=== PATIENT | male | born 1935 | race Caucasian/White ===

== ENCOUNTER 2016-04-03 17:09 | Inpatient (IN) | payer MEDICARE, BC ==
[2016-04-03] MEDS ORDERED: IPRATROPIUM-ALBUTEROL 3 ML NEB INHALATION STA (17:35)
--- NOTE | 2016-04-03 17:56 | ED ---
SOB HPI - General Chief Complaint: Shortness of Breath Stated Complaint: JOSE RAFAEL Time Seen by Provider: 04/03/16 17:18 Source: patient, EMS, RN notes reviewed Mode of arrival: EMS Limitations: no limitations - History of Present Illness Initial Comments: 80-year-old male presents emergency Department with chief complaint of shortness of breath. Patient states she's been short of breath over the last week and states that he did not want to come in because he was trying to take care of his has no pre-also there for her. Patient states that he's had a cough that is nonproductive. Patient states he has been wheezing. Patient states that he was admitted around January for CHF. Patient states that he does take some sort of diuretic but states that it's not Lasix. Patient states he had ALLERGIC reaction to Lasix. Patient denies any chest pain at this time he did have some chest pain unless last week in which she was taking nitro for alleviated his symptoms. Patient denies any lower extremity swelling. Patient denies any exertional shortness breath. Patient denies fever, chills. - Related Data Home Medications Medication Instructions Recorded Confirmed Aspirin EC [Ecotrin Low Dose] 81 mg PO DAILY 02/08/16 04/03/16 Atorvastatin [Lipitor] 20 mg PO HS 02/08/16 04/03/16 Carvedilol [Coreg] 12.5 mg PO BID 02/08/16 04/03/16 Cholecalciferol [Vitamin D3] 1,000 unit PO HS 02/08/16 04/03/16 Isosorbide Mononitrate ER [Imdur] 60 mg PO QAM 02/08/16 04/03/16 Oxybutynin Chloride [Ditropan] 5 mg PO BID 02/08/16 04/03/16 Selenium 100 mcg PO HS 02/08/16 04/03/16 Sodium Bicarbonate 325 mg PO BID 02/08/16 04/03/16 Tamsulosin HCl [Flomax] 0.4 mg PO HS 02/08/16 04/03/16 Vit A/Vit C/Vit E/Zinc/Copper 1 cap PO BID 02/08/16 04/03/16 [ICAPS SOFTGEL] Warfarin [Coumadin] 5 mg PO SUMOWEFRSA 02/08/16 04/03/16 hydrALAZINE HCL [Apresoline] 50 mg PO TID 02/08/16 04/03/16 Ethacrynic Acid 50 mg PO DAILY 04/03/16 04/03/16 Isosorbide Mononitrate ER [Imdur] 30 mg PO HS 04/03/16 04/03/16 Sertraline [Zoloft] 50 mg PO HS 04/03/16 04/03/16 Sertraline [Zoloft] 50 mg PO HS 04/03/16 04/03/16 Warfarin [Coumadin] 2.5 mg PO TUTH 04/03/16 04/03/16 Allergies Allergy/AdvReac Type Severity Reaction Status Date / Time furosemide [From Lasix] Allergy Rash/Hives Verified 04/03/16 18:26 Sulfa (Sulfonamide Allergy Rash/Hives Verified 04/03/16 18:26 Antibiotics) Review of Systems ROS Statement: Those systems with pertinent positive or pertinent negative responses have been documented in the HPI. ROS Other: All systems not noted in ROS Statement are negative. Past Medical History Past Medical History: Coronary Artery Disease (CAD), Chest Pain / Angina, Hyperlipidemia, Hypertension, Renal Disease Additional Past Medical History / Comment(s): STAGE 4 KIDNEY FAILURE History of Any Multi-Drug Resistant Organisms: None Reported Past Surgical History: Appendectomy, Coronary Bypass/CABG, Heart Catheterization With Stent Past Anesthesia/Blood Transfusion Reactions: No Reported Reaction Date of Last Stent Placement:: 2013 Past Psychological History: No Psychological Hx Reported Smoking Status: Former smoker Past Alcohol Use History: None Reported Past Drug Use History: None Reported General Exam General appearance: alert, in no apparent distress Head exam: Present: atraumatic, normocephalic, normal inspection Eye exam: Present: normal appearance, PERRL, EOMI. Absent: scleral icterus, conjunctival injection, periorbital swelling ENT exam: Present: normal exam, normal oropharynx, mucous membranes moist Neck exam: Present: normal inspection. Absent: tenderness, meningismus, lymphadenopathy Respiratory exam: Present: wheezes (Wheezing primarily on the left). Absent: respiratory distress, rales, rhonchi, stridor Cardiovascular Exam: Present: regular rate, normal rhythm, normal heart sounds. Absent: systolic murmur, diastolic murmur, rubs, gallop, clicks Back exam: Absent: CVA tenderness (R), CVA tenderness (L) Neurological exam: Present: alert, oriented X3 Skin exam: Present: warm, dry, intact, normal color. Absent: rash Course Vital Signs 04/03/16 04/03/16 04/03/16 17:12 18:11 18:19 Temperature 97.0 F L Pulse Rate 72 88 88 Respiratory 18 Rate Blood Pressure 203/101 O2 Sat by Pulse 100 Oximetry 04/03/16 04/03/16 04/03/16 18:55 19:28 19:39 Temperature 97.3 F L Pulse Rate 69 75 78 Respiratory 18 18 18 Rate Blood Pressure 210/105 193/96 181/96 O2 Sat by Pulse 98 97 98 Oximetry 04/03/16 19:53 Temperature Pulse Rate 77 Respiratory Rate Blood Pressure 179/94 O2 Sat by Pulse Oximetry Medical Decision Making - Lab Data Result diagrams: 04/03/16 17:55 04/03/16 17:55 Lab Results 04/03/16 04/03/16 04/03/16 Range/Units 17:55 17:55 17:55 WBC 5.4 (3.8-10.6) k/uL RBC 3.35 L (4.30-5.90) m/uL Hgb 9.8 L (13.0-17.5) gm/dL Hct 31.6 L (39.0-53.0) % MCV 94.2 (80.0-100.0) fL MCH 29.3 (25.0-35.0) pg MCHC 31.1 (31.0-37.0) g/dL RDW 15.6 H (11.5-15.5) % Plt Count 178 (150-450) k/uL Neutrophils % 77 % Lymphocytes % 13 % Monocytes % 6 % Eosinophils % 1 % Basophils % 0 % Neutrophils # 4.2 (1.3-7.7) k/uL Lymphocytes # 0.7 L (1.0-4.8) k/uL Monocytes # 0.4 (0-1.0) k/uL Eosinophils # 0.1 (0-0.7) k/uL Basophils # 0.0 (0-0.2) k/uL Hypochromasia Slight PT (9.0-12.0) sec INR (<1.1) APTT (22.0-30.0) sec Sodium 144 (137-145) mmol/L Potassium 4.5 (3.5-5.1) mmol/L Chloride 108 H (98-107) mmol/L Carbon Dioxide 22 (22-30) mmol/L Anion Gap 14 mmol/L BUN 60 H (9-20) mg/dL Creatinine 2.94 H (0.66-1.25) mg/dL Est GFR (MDRD) Af Amer 25 (>60 ml/min/1.73 sqM) Est GFR (MDRD) Non-Af 21 (>60 ml/min/1.73 sqM) Glucose 95 (74-99) mg/dL Calcium 9.0 (8.4-10.2) mg/dL Magnesium 2.2 (1.6-2.3) mg/dL Total Bilirubin 0.8 (0.2-1.3) mg/dL AST 23 (17-59) U/L ALT 52 (21-72) U/L Alkaline Phosphatase 83 (38-126) U/L Total Creatine Kinase 40 L (55-170) U/L CK-MB (CK-2) 1.5 (0.0-2.4) ng/mL CK-MB (CK-2) Rel Index 3.8 Troponin I 0.037 H* (0.000-0.034) ng/mL NT-Pro-B Natriuret Pep pg/mL Total Protein 6.2 L (6.3-8.2) g/dL Albumin 3.7 (3.5-5.0) g/dL 04/03/16 04/03/16 Range/Units 17:55 17:55 WBC (3.8-10.6) k/uL RBC (4.30-5.90) m/uL Hgb (13.0-17.5) gm/dL Hct (39.0-53.0) % MCV (80.0-100.0) fL MCH (25.0-35.0) pg MCHC (31.0-37.0) g/dL RDW (11.5-15.5) % Plt Count (150-450) k/uL Neutrophils % % Lymphocytes % % Monocytes % % Eosinophils % % Basophils % % Neutrophils # (1.3-7.7) k/uL Lymphocytes # (1.0-4.8) k/uL Monocytes # (0-1.0) k/uL Eosinophils # (0-0.7) k/uL Basophils # (0-0.2) k/uL Hypochromasia PT 51.9 H (9.0-12.0) sec INR 5.2 H* (<1.1) APTT 34.9 H (22.0-30.0) sec Sodium (137-145) mmol/L Potassium (3.5-5.1) mmol/L Chloride (98-107) mmol/L Carbon Dioxide (22-30) mmol/L Anion Gap mmol/L BUN (9-20) mg/dL Creatinine (0.66-1.25) mg/dL Est GFR (MDRD) Af Amer (>60 ml/min/1.73 sqM) Est GFR (MDRD) Non-Af (>60 ml/min/1.73 sqM) Glucose (74-99) mg/dL Calcium (8.4-10.2) mg/dL Magnesium (1.6-2.3) mg/dL Total Bilirubin (0.2-1.3) mg/dL AST (17-59) U/L ALT (21-72) U/L Alkaline Phosphatase (38-126) U/L Total Creatine Kinase (55-170) U/L CK-MB (CK-2) (0.0-2.4) ng/mL CK-MB (CK-2) Rel Index Troponin I (0.000-0.034) ng/mL NT-Pro-B Natriuret Pep 65142 pg/mL Total Protein (6.3-8.2) g/dL Albumin (3.5-5.0) g/dL Disposition Clinical Impression: Pneumonia, CHF (congestive heart failure), Elevated troponin, Warfarin-induced coagulopathy, Dyspnea Disposition: ADMITTED IP TO THIS HOSP Referrals: Wiliam Pope MD [Primary Care Provider] - 1-2 days Time of Disposition: 19:58
[2016-04-03 18:13] LABS: Basophils % (A) 0 %; CH 29.5; CHCM 31.6; Eosinophils # (A) 0.1 k/uL (0-0.7); Eosinophils % (A) 1 %; HCT 31.6 % (39.0-53.0); HDW 3.14; HGB 9.8 gm/dL (13.0-17.5); Hypochromasia Slight; Luc # (Auto) 0.13; Luc % (Auto) 3; Lymphocytes # (A) 0.7 k/uL (1.0-4.8); Lymphocytes % (A) 13 %; MCH 29.3 pg (25.0-35.0); MCHC 31.1 g/dL (31.0-37.0); MCV 94.2 fL (80.0-100.0); Mean Platelet Volume 8.9; Monocytes # (A) 0.4 k/uL (0-1.0); Monocytes % (A) 6 %; Neutrophils # (A) 4.2 k/uL (1.3-7.7); Neutrophils % (A) 77 %; RBC 3.35 m/uL (4.30-5.90); RDW 15.6 % (11.5-15.5); WBC 5.4 k/uL (3.8-10.6); WBC (Perox) 5.82
[2016-04-03 18:21] LABS: Partial Thromboplastin Time 34.9 sec (22.0-30.0); Prothrombin Time 51.9 sec (9.0-12.0)
[2016-04-03 18:26] LABS: INR 5.2 (<1.1)
[2016-04-03 18:28] LABS: Magnesium 2.2 mg/dL (1.6-2.3); Potassium 4.5 mmol/L (3.5-5.1); Total Bilirubin 0.8 mg/dL (0.2-1.3); Total Protein 6.2 g/dL (6.3-8.2)
[2016-04-03 18:39] LABS: Creatine Kinase MB 1.5 ng/mL (0.0-2.4)
[2016-04-03 18:50] LABS: Troponin I 0.037 ng/mL (0.000-0.034)
--- NOTE | 2016-04-03 18:52 | XR ---
EXAMINATION TYPE: XR chest 2V DATE OF EXAM: 04/03/2016 6:41 PM COMPARISON: 02/08/2016 HISTORY: Difficulty breathing TECHNIQUE: Frontal and lateral views of the chest are obtained. FINDINGS: Heart is enlarged. There is pulmonary vascular congestion. There is blunting of the costop hrenic angles there is some infiltrate at the posterior lung bases. There is a left axillary pacemake r with the lead tips in the right ventricle. There are sternal wires. IMPRESSION: There is evidence of congestive heart failure with pleural effusions. Basilar posterior pulmonary infiltrates. No change compared to last exam.
[2016-04-03] MEDS ORDERED: hydrALAZINE HCL 20 MG/ML 1 ML VIAL IVP STA (18:55)
[2016-04-03] MEDS ORDERED: IPRATROPIUM-ALBUTEROL 3 ML NEB INHALATION PRN (19:58)
[2016-04-03] MEDS ORDERED: PNEUMONIA PROTOCOL UTILIZED 1 EACH MISC PO PRN (19:58)
[2016-04-03] MEDS ORDERED: AZITHROMYCIN 500 MG in SODIUM CHLORIDE 0.9% 250 ML IVPB STA (20:04)
[2016-04-03] MEDS: SODIUM CHLORIDE 0.9% 1,000 ML IV SCH (20:44)
[2016-04-03] MEDS ORDERED: ISOSORBIDE MONONITRATE ER 30 MG TAB.ER.24H PO SCH (21:00)
[2016-04-03] MEDS ORDERED: NON-FORMULARY DRUG (Selenium [Selenium] 100 MCG) PO SCH (21:00)
[2016-04-03 21:34] VITALS: BMI 23.8
[2016-04-03] MEDS: CARVEDILOL 12.5 MG TAB PO SCH (22:17)
[2016-04-03] MEDS: OXYBUTYNIN CHLORIDE 5 MG TAB PO SCH (22:17)
[2016-04-03] MEDS: ATORVASTATIN 20 MG TAB PO SCH (22:17)
[2016-04-03] MEDS: SODIUM BICARBONATE TAB 650 MG TAB PO SCH (22:18)
[2016-04-03] MEDS: SERTRALINE 50 MG TAB PO SCH (22:18)
[2016-04-03] MEDS: hydrALAZINE HCL 50 MG TAB PO SCH (22:19)
[2016-04-03] MEDS: TAMSULOSIN 0.4 MG CAP.ER.24H PO SCH (22:19)
[2016-04-04] MEDS: CARVEDILOL 12.5 MG TAB PO SCH ×2 (06:28→17:16)
[2016-04-04] MEDS ORDERED: ISOSORBIDE MONONITRATE ER 60 MG TAB.ER.24H PO SCH (09:00)
[2016-04-04] MEDS: ASPIRIN 81 MG CHEW PO SCH (09:44)
[2016-04-04] MEDS: OXYBUTYNIN CHLORIDE 5 MG TAB PO SCH ×2 (09:45→21:23)
[2016-04-04] MEDS: hydrALAZINE HCL 50 MG TAB PO SCH ×3 (09:45→21:24)
[2016-04-04] MEDS: SODIUM BICARBONATE TAB 650 MG TAB PO SCH ×2 (09:46→21:23)
[2016-04-04] MEDS: EDECRIN PO SCH (09:49)
[2016-04-04] MEDS ORDERED: NITROGLYCERIN SL TABS 0.4 MG TAB SUBLINGUAL ONE (10:13)
--- NOTE | 2016-04-04 11:17 | ECHOF ---
Referral Reason:troponin MEASUREMENTS -------- HEIGHT: 175.3 cm WEIGHT: 73.0 kg BP: 172/86 RVIDd: 3.8 cm (< 3.3) IVSd: 1.5 cm (0.6 - 1.1) LVIDd: 6.1 cm (3.9 - 5.3) LVPWd: 1.4 cm (0.6 - 1.1) IVSs: 1.8 cm LVIDs: 5.3 cm LVPWs: 1.7 cm LA Diam: 5.0 cm (2.7 - 3.8) LAESV Index (A-L): 41.22 ml/m Ao Diam: 3.7 cm (2.0 - 3.7) AV Cusp: 2.0 cm (1.5 - 2.6) LA Diam: 4.4 cm (2.7 - 3.8) MV EXCURSION: 16.594 mm (> 18.000) MV EF SLOPE: 83 mm/s (70 - 150) EPSS: 2.1 cm MV E Farshad: 0.76 m/s MV DecT: 164 ms MV A Farshad: 0.93 m/s MV E/A Ratio: 0.81 AV maxP.26 mmHg AV meanP.91 mmHg RAP: 5.00 mmHg RVSP: 33.93 mmHg FINDINGS -------- Paced rhythm. Pacerwire seen in RV and RA. This was a technically good study. The left ventricle is mildly dilated. There is moderate concentric left ventricular hypertrophy. Overall left ventricular systolic function is moderate-severely impaired with, an EF between 30 - 35 %. Basal inferior LV wall motion is hypokinetic. Basal inferoseptal LV wall motion is hypokinetic. Mid inferior LV wall motion is hypokinetic. Mid inferoseptal LV wall motion is hypokinetic. The right ventricle is mild to moderately enlarged. LA is severely dilated >40 ml/m2 The right atrium is normal in size. Aortic valve is trileaflet and is mildly thickened. Peak/mean gradient across the Aortic Valve is 13.26mmHg / 6.91mmHg. The mitral valve leaflets are mildly thickened. Mild mitral annular calcification present. Mild mitral regurgitation is present. The peak and mean MV gradients are 4.18mmHg 2.04mmHg as measured by doppler. Mild tricuspid regurgitation present. Right ventricular systolic pressure is normal at < 35 mmHg. Trace/mild (physiologic) pulmonic regurgitation. The aortic root size is normal. Normal inferior vena cava with normal inspiratory collapse consistent with estimated right atrial pressure of 5 mmHg. There is no pericardial effusion. CONCLUSIONS -------- 1. Paced rhythm. 2. Mid inferoseptal LV wall motion is hypokinetic. 3. The right ventricle is mild to moderately enlarged. 4. LA is severely dilated >40 ml/m2 5. The right atrium is normal in size. 6. Aortic valve is trileaflet and is mildly thickened. 7. Peak/mean gradient across the Aortic Valve is 13.26mmHg / 6.91mmHg. 8. The mitral valve leaflets are mildly thickened. 9. Mild mitral annular calcification present. 10. Mild mitral regurgitation is present. 11. The peak and mean MV gradients are 4.18mmHg 2.04mmHg as measured by doppler. 12. Pacerwire seen in RV and RA. 13. Mild tricuspid regurgitation present. 14. Right ventricular systolic pressure is normal at < 35 mmHg. 15. Trace/mild (physiologic) pulmonic regurgitation. 16. The aortic root size is normal. 17. There is no pericardial effusion. 18. This was a technically good study. 19. The left ventricle is mildly dilated. 20. There is moderate concentric left ventricular hypertrophy. 21. Overall left ventricular systolic function is moderate-severely impaired with, an EF between 30 - 35 %. 22. Basal inferior LV wall motion is hypokinetic. 23. Basal inferoseptal LV wall motion is hypokinetic. 24. Mid inferior LV wall motion is hypokinetic. PREFLIGHT INSPECTOR: Jalen Brewer RDCS
[2016-04-04] MEDS: NITROGLYCERIN OINT 1 INCH/GM PACKET TOPICAL SCH ×3 (11:50→23:11)
--- NOTE | 2016-04-04 11:51 | CONS ---
DATE OF CONSULTATION: This is an 80-year-old gentleman with history of coronary artery disease, renal failure, hypertension, prior bypass surgery, prior angioplasties, history of permanent pacemaker who sees my associate, Dr. Abarca in the office on a regular basis, comes in complaining of chest discomfort and also had shortness of breath. There is no history of paroxysmal nocturnal dyspnea or orthopnea. There is no history of leg edema. Patient is treated with aspirin, Lipitor, Imdur. After being admitted he has had episodes of precordial chest pain. Patient has known history of atrial fibrillation and is on Coumadin. INR on admission was 5.2. Troponins are mildly elevated at 0.03, 0.04, 0.03. Patient has underlying renal failure with a BUN of 60 and creatinine of 2.9. Hemoglobin is 9.8. Past medical history is significant for coronary artery disease, status post CABG, ischemic cardiomyopathy, chronic renal failure, history of atrial fibrillation, sick sinus syndrome, status post permanent pacemaker. Medications include Zoloft, Coreg 12.5 b.i.d., Lipitor 20 daily, aspirin, Imdur, Coumadin, Flomax, Apresoline. ALLERGIC TO LASIX AND SULFA. FAMILY HISTORY: Negative for premature coronary artery disease. SOCIAL HISTORY: Negative for current smoking, EtOH abuse, or drug abuse. REVIEW OF SYSTEMS: HEENT: Unremarkable. CARDIAC: As described above. RESPIRATORY: As described above. GI: Negative. GENITOURINARY: Stress. PSYCHOSOCIAL: Negative. HEMATOLOGICAL: Negative. DERM: Negative. CONSTITUTIONAL: Negative. MUSCULOSKELETAL: Significant for arthritis. The rest of the system review is not relevant. On exam, heart rate is 60 beats per minute, blood pressure 150/70, respiratory rate is 18. There is no jugular venous distention. Carotid upstroke is normal. There is no bruit. Chest exam reveals good air entry bilaterally. Heart exam reveals first and second heart sounds. An ejection systolic murmur in the aortic area. Abdomen is soft. Exam of extremities reveals trace edema. Peripheral pulses are palpable. ASSESSMENT: 1. Unstable angina. 2. Renal insufficiency. 3. Ischemic cardiomyopathy. 4. Hypertension. 5. History of permanent pacemaker. 6. Coagulopathy. PLAN: I am going to get his device checked. We will hold the Coumadin at this time. Start him on nitro paste 1 inch t.i.d. Increase the dose of Coreg to 25 b.i.d. and see how his symptoms evolve. I am going to review his outpatient records. With his renal failure and cardiomyopathy, he is not an optimal candidate for invasive angiography at this time.
--- NOTE | 2016-04-04 12:34 | HP ---
DATE OF ADMISSION: 04/03/2016 PRESENTING COMPLAINT: Short of breath. HISTORY OF PRESENTING COMPLAINT: A very pleasant 80-year-old patient of Dr. Pope who just switched over his family doctor from [place]. Patient's chronic stable medical conditions include coronary artery disease, coronary artery bypass in 2006, hypertension, hyperlipidemia, chronic kidney disease stage IV being followed by Dr. Maradiaga. The patient also has history of a bladder cancer, prostate cancer, has a permanent pacemaker. Patient has been getting short of breath for the last 2 weeks. Some orthopnea. Blood pressure running at home was about 180 systolic. No edema. No cough, minimal sputum, no fever, has come in for the same. REVIEW OF SYSTEMS: CONSTITUTIONAL: Tired. HEENT: Decreased hearing. RESPIRATORY: As above. CARDIOVASCULAR: As above. GASTROINTESTINAL: None. GENITOURINARY: None. MUSCULOSKELETAL: None. DERMATOLOGICAL: None. HEMATOLOGICAL: None. LYMPHATIC: None. PSYCHIATRY: None. NEUROLOGICAL: None. PAST MEDICAL HISTORY: Coronary artery disease, hyperlipidemia, hypertension, chronic kidney disease, stage IV, macular degeneration, bladder cancer treated with BCG, prostate cancer with radiation. PAST SURGICAL HISTORY: Appendectomy, coronary artery bypass, cardiac cath with stent, pacemaker. 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 Alcohol occasionally. Family history of coronary artery disease, Alzheimer's disease. HOME MEDICATIONS: 1. Zoloft 50 mg q.h.s. 2. Ethacrynic acid 50 mg p.o. daily. 3. Vitamin D3 3000 units p.o. q.h.s. 4. Coreg 12.5 p.o. b.i.d. 5. Lipitor 20 mg q.h.s. 6. Aspirin 81 mg daily. 7. Selenium 100 mg q.h.s. 8. Ditropan 5 mg p.o. b.i.d. 9. Imdur 30 mg q.h.s. 10. Imdur 60 mg p.o. in the morning. 11. Coumadin 2.5 on Sunday and ; 5 mg on Sunday, Sunday, Sunday, Sunday, Sunday. 12. ICaps 1 capsule p.o. b.i.d. 13. Flomax 0.4 mg q.h.s. 14. Sodium bicarbonate 325 p.o. b.i.d. 15. Hydralazine 50 mg p.o. t.i.d. ALLERGIES: LASIX AND SULFUR. On examination, temperature 97, pulse 72, respiration 18, blood pressure 203/101, pulse ox 100% 4 L. GENERAL APPEARANCE: Average build, lying in bed, tired -appearing. EYES: Pupils equal, Conjunctivae normal. HEENT: Oral cavity normal. NECK: JVD unable to assess. Mass not palpable. RESPIRATORY: Effort increased. LUNGS: Diminished breath sounds. Some basal crackles. CARDIOVASCULAR: First and second sounds normal. No edema. ABDOMEN: Soft, nontender. Liver and spleen not palpable. LYMPHATIC: No lymph nodes palpable in neck or axillae. PSYCHIATRY: Alert and oriented x3. Mood and affect normal. NEUROLOGICAL: Pupils equal. Cranial nerves grossly intact. Power and sensation grossly intact. INVESTIGATIONS: White count 5.4, hemoglobin 9.8, INR 5.2. Potassium 4.5. BUN 60, creatinine 2.94. Troponin 0.037, 0.043. EKG shows LVH with some ST segment changes. Chest x-ray shows some possible infiltrates, some venous prominence and a pacemaker in place. ASSESSMENT: 1. Pneumonia, community acquired, consider gram-negative organism, present on admission. 2. Coronary artery disease with prior history of coronary artery bypass. 3. Essential hypertension, uncontrolled, accelerated on presentation. 4. 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 5. History of prostate cancer treated with radiation treatment with resultant incontinence. 6. Permanent pacemaker. 7. Normocytic anemia, probably secondary to underlying chronic kidney disease. 8. Coumadin monitoring with Coumadin toxicity. No evidence of bleeding. 9. Troponin leak in the setting of renal failure. This is not a manifestation acute coronary syndrome. 10. Depression, not otherwise specified. PLAN: The patient is put on IV antibiotics. Home medications are resumed. Cardiology is consulted for nephrology. Care was discussed with the patient. Patient will be followed closely.
--- NOTE | 2016-04-04 14:15 | XR ---
EXAMINATION TYPE: XR chest 2V DATE OF EXAM: 04/04/2016 2:06 PM COMPARISON: 04/03/2016 HISTORY: Shortness of breath TECHNIQUE: 2 views submitted. FINDINGS: There are bilateral pleural effusions with cardiomegaly and bibasilar infiltrate. There is a diffuse interstitial pattern. Cardiac device and postsurgical changes noted. Underlying COPD noted. Degenera tive change of the spine. IMPRESSION: 1. Stable findings most typical of CHF with bilateral small effusions. Underlying pneumonia not entir mateus excluded.
--- NOTE | 2016-04-04 20:13 | CONS ---
DATE OF CONSULTATION: REASON FOR CONSULTATION: Renal failure. HISTORY OF PRESENT ILLNESS: Patient is an 80-year-old white male with a history of chronic kidney disease, NKF stage IV. Etiology is nephrosclerosis. He was admitted to the hospital with complaints of shortness of breath, not feeling well, increased weakness. He denied any fever. He had no nausea, vomiting, no abdominal pain or diarrhea. No significant urinary symptoms. He is currently being treated for pneumonia. Chest x-ray showed pulmonary vascular congestion as well. Patient is not on any IV fluids. I do not see any Lasix on his med list currently. PAST MEDICAL HISTORY: 1. CKD, stage IV, secondary to nephrosclerosis with baseline creatinine about 2.6 mg/dL. 2. Hypertension. 3. Dyslipidemia. 4. Coronary artery disease. PAST SURGICAL HISTORY: 1. Appendectomy. 2. Coronary artery bypass surgery. 3. Cardiac catheterization. 4. Coronary stent placement. SOCIAL HISTORY: Patient is an ex-smoker. No history of drug abuse or alcohol abuse. ALLERGIES include LASIX from SULFA and ALL OTHER SULFA-RELATED MEDICATIONS. Medications at home included: 1. Ditropan. 2. Sodium bicarb. 3. Flomax. 4. Coumadin. 5. Hydralazine. 6. Zoloft. 7. Imdur. 8. Ethacrynic acid. PHYSICAL EXAMINATION: EXAMINATION OF THE HEART: S1 and S2. EXAMINATION OF THE LUNGS: Bilateral breath sounds are heard. ABDOMEN: Soft, nontender. Examination of lower extremities shows no significant edema. DIRECTOR OF STUDENT AFFAIRS exam is grossly intact. Patient is moving all 4 extremities. Labs show sodium of 144, potassium 4.5, serum creatinine 2.94, estimated GFR 21. Hemoglobin at 9.8 g/dL. ASSESSMENT: 1. Chronic kidney disease, stage IV, with an element of mild acute kidney injury. Baseline creatinine is 2.6 mg/dL. Patient is hemodynamically stable. His blood pressure is running on the higher side. 2. Mild volume overload. Patient is ALLERGIC to LASIX. We will resume ethacrynic acid. 3. Possible pneumonia, maintained on IV Rocephin. 4. Hypertension, partly volume-sensitive. Expect further improvement with initiation of diuretics. 5. Non-gap metabolic acidosis, maintained on sodium bicarb. 6. Anemia of chronic disease. Will check iron studies. 7. Coronary artery disease with history of cardiomyopathy with ejection fraction of about 30% to 35%. 8. Severely dilated left atrium. PLAN: Resume diuretics in the form of ethacrynic acid, as patient is ALLERGIC TO SULFA AND LASIX. Repeat labs in a.m. Continue antibiotics. Check UA. Thank you for this consultation. Will continue to follow the patient with you during his hospitalization.
[2016-04-04] MEDS ORDERED: SERTRALINE 50 MG TAB PO SCH (21:00)
[2016-04-04] MEDS: ATORVASTATIN 20 MG TAB PO SCH (21:23)
[2016-04-04] MEDS: SERTRALINE 50 MG TAB PO SCH (21:23)
[2016-04-04] MEDS: TAMSULOSIN 0.4 MG CAP.ER.24H PO SCH (21:24)
[2016-04-04] MEDS: SODIUM CHLORIDE 0.9% 1,000 ML IV SCH (21:28)
[2016-04-05] MEDS: CARVEDILOL 12.5 MG TAB PO SCH ×2 (06:37→17:26)
[2016-04-05 06:48] LABS: INR 3.2 (<1.1); Prothrombin Time 30.9 sec (9.0-12.0)
[2016-04-05] MEDS: ASPIRIN 81 MG CHEW PO SCH (08:05)
[2016-04-05] MEDS: EDECRIN PO SCH ×2 (08:05→21:23)
[2016-04-05] MEDS: NITROGLYCERIN OINT 1 INCH/GM PACKET TOPICAL SCH ×3 (08:05→23:16)
[2016-04-05] MEDS: OXYBUTYNIN CHLORIDE 5 MG TAB PO SCH ×2 (08:06→21:21)
[2016-04-05] MEDS: hydrALAZINE HCL 50 MG TAB PO SCH ×3 (08:06→21:21)
[2016-04-05] MEDS: SODIUM BICARBONATE TAB 650 MG TAB PO SCH ×2 (08:06→21:23)
--- NOTE | 2016-04-05 10:29 | PN ---
David is an 80-year-old gentleman with history of coronary artery disease, status post CABG, ischemic cardiomyopathy with LV systolic dysfunction, chronic renal failure secondary to nephrosclerosis who is allergic to LASIX and takes Ethacrynic acid for his heart failure. Comes in with a combination of problems including pneumonia, CHF exacerbation, troponin elevation. At the time of my evaluation this morning, he appears comfortable at rest. He has had some chest discomfort yesterday that has resolved with nitro paste. Blood pressures of poorly controlled. An echocardiogram on him reveals moderate to severe LV dysfunction. I am increasing the dose of Coreg to 25 b.i.d. to more optimally control his blood pressure. Continue the nitro paste and if necessary increase the dose of hydralazine to 100 t.i.d. Will treat him with optimal medical therapy at this time. He is not a candidate for any invasive procedures. I will find out about the Ethacrynic acid doses and if necessary increase the dose. On exam, comfortable at rest, blood pressure is elevated. There is no jugular venous distention. Chest exam reveals diminished air entry at the bases. Heart exam reveals first and second heart sounds. No gallop. There is a systolic murmur at the apex. Abdomen is soft. Exam of extremities reveals bilateral 1+ edema. Labs show an INR of 3.2. I do not have any electrolytes on him. ASSESSMENT: 1. Acute exacerbation of chronic systolic heart failure. 2. Coronary artery disease, status post coronary artery bypass graft with mild troponin elevation secondary to renal failure. 3. Acute exacerbation of chronic renal failure. 4. History of atrial fibrillation. PLAN: We will hold the Coumadin today, check an INR tomorrow morning, check lytes, BUN and creatinine.
[2016-04-05] MEDS ORDERED: CARVEDILOL 12.5 MG TAB PO ONE (10:30)
[2016-04-05 10:49] LABS: Potassium 4.9 mmol/L (3.5-5.1)
--- NOTE | 2016-04-05 20:36 | PN ---
DATE OF SERVICE: 04/05/2016 PRESENTING COMPLAINT: Short of breath. INTERVAL HISTORY: This is a patient who presented with pneumonia. Feeling better. Cough has gone down. Feels a bit tired. Blood pressure is looking better. Review of systems done for constitutional, cardiovascular, GI, pulmonary; relevant findings as above. Current medications are reviewed and include IV ceftriaxone. On examination, temperature 97. Pulse 52, respirations 19, blood pressure 150/78, pulse ox 94% on room air. GENERAL APPEARANCE: Sitting up, appears better. EYES: Pupils equal, conjunctivae normal. Neck: JVD not raised. Mass not palpable. RESPIRATORY: Effort normal. LUNGS: Improved air entry. CARDIOVASCULAR: First and second sounds normal. No edema. ABDOMEN: Soft, nontender. PSYCHIATRY: Alert and oriented times three. Mood and affect normal. INVESTIGATIONS: Potassium 4.9, creatinine 2.82. ASSESSMENT: 1. Pneumonia; community acquired. Gram-negative organism, present on admission clinically improving. 2. Coronary artery disease with prior history of coronary artery bypass. 3. Essential hypertension, uncontrolled. Accelerated on presentation. 4. 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 5. History of prostate cancer treated with radiation and resultant incontinence. 6. Permanent pacemaker. 7. Normocytic anemia, probably secondary to underlying chronic kidney disease. 8. Coumadin monitoring with Coumadin toxicity. No evidence of bleeding. 9. Troponin leak, ( ) renal failure, not ( ) to acute coronary syndrome. 10. Depression, not otherwise specified. PLAN: Continue current medication and treatment plan. INR is coming down to 3.2. Clinically patient looking better. Care was discussed with the patient. Blood pressure medications are being adjusted. Will follow.
[2016-04-05] MEDS: SODIUM CHLORIDE 0.9% 1,000 ML IV SCH (21:14)
--- NOTE | 2016-04-05 21:19 | PN ---
Patient is seen for followup for chronic kidney disease. He was admitted to the hospital with complaints of shortness of breath. He is currently being treated for pneumonia. Patient also had evidence of volume overload. He is ALLERGIC to LASIX and is currently maintained on ethacrynic acid. He is receiving it orally. He states he is feeling better. On examination, blood pressure is 154/70, heart rate 62 per minute. He is afebrile. EXAMINATION OF THE HEART: S1 and S2. EXAMINATION OF LUNGS: Good air entry bilaterally. No crackles or wheezing is heard. ABDOMEN: Soft, nontender. Examination of the lower extremities shows no evidence of edema. AUDITOR TAX exam is grossly intact. Labs show sodium 141, potassium 4.9, serum creatinine 2.8 mg/dL. Hemoglobin 9.8 g/dL. ASSESSMENT: 1. Chronic kidney disease, NKF stage IV. Renal function fairly stable. 2. Community-acquired pneumonia, maintained on antibiotics. 3. Metabolic acidosis, maintained on oral sodium bicarb. 4. Hypertension, currently controlled. 5. History of atrial fibrillation. 6. Coronary artery disease with previous history of coronary artery bypass surgery. 7. Coagulopathy. Coumadin is currently on hold. 8. Cardiomyopathy. PLAN: Continue oral ethacrynic acid. Continue antibiotics. Possible discharge tomorrow.
[2016-04-05] MEDS: TAMSULOSIN 0.4 MG CAP.ER.24H PO SCH (21:21)
[2016-04-05] MEDS: ATORVASTATIN 20 MG TAB PO SCH (21:21)
[2016-04-05] MEDS: SERTRALINE 50 MG TAB PO SCH (21:21)
[2016-04-06 06:10] LABS: Prothrombin Time 19.7 sec (9.0-12.0)
[2016-04-06] MEDS: CARVEDILOL 12.5 MG TAB PO SCH (06:34)
[2016-04-06] MEDS: NITROGLYCERIN OINT 1 INCH/GM PACKET TOPICAL SCH (08:28)
[2016-04-06] MEDS: ASPIRIN 81 MG CHEW PO SCH (08:30)
[2016-04-06] MEDS: EDECRIN PO SCH (08:31)
[2016-04-06] MEDS: hydrALAZINE HCL 50 MG TAB PO SCH (08:32)
[2016-04-06] MEDS: SODIUM BICARBONATE TAB 650 MG TAB PO SCH (08:32)
[2016-04-06] MEDS: OXYBUTYNIN CHLORIDE 5 MG TAB PO SCH (08:32)
--- NOTE | 2016-04-06 09:59 | P.PN ---
Subjective Patient seen in follow-up for chronic kidney disease. Patient has chronic kidney disease stage IV with baseline creatinine near 2.6. Creatinine is stable at 2.8 as of yesterday. He is currently maintained on ethacrynic acid as he's ALLERGIC Lasix. He does of systolic CHF with ejection fraction of 30-35 %. Dyspnea is improved. He is eager to go home. Appetite is good. Vital signs are stable. General: The patient appeared well nourished and normally developed. HEENT: Head exam is unremarkable. Neck is without jugular venous distension. LUNGS: Lungs are clear to auscultation and percussion. Breath sounds decreased. HEART: Rate and Rhythm are regular. First and second heart sounds normal. No murmurs, rubs or gallops. ABDOMEN: Abdominal exam reveals normal bowel sounds. Non-tender and non- distended. No evidence of peritonitis. EXTREMITITES: No clubbing, cyanosis, or edema. Objective - Vital Signs Vital signs: Vital Signs Temp 97.5 F L 04/05/16 20:00 Pulse 68 04/06/16 04:00 Resp 19 04/06/16 04:00 BP 148/80 04/06/16 04:00 Pulse Ox 94 L 04/06/16 04:00 Intake & Output 04/05/16 04/06/16 04/06/16 18:59 06:59 18:59 Intake Total 870 Output Total 1050 400 Balance -180 -400 Weight 72.6 kg Intake: Oral 870 Output: Urine 1050 400 Other: Voiding Method Urinal # Voids 1 - Labs CBC & Chem 7: 04/03/16 17:55 04/05/16 13:35 Labs: Abnormal Lab Results - Last 24 Hours (Table) 04/05/16 04/05/16 04/06/16 Range/Units 06:00 13:35 05:35 PT 19.7 H (9.0-12.0) sec Chloride 111 H (98-107) mmol/L Carbon Dioxide 21 L (22-30) mmol/L Creatinine 2.82 H (0.66-1.25) mg/dL Microbiology - Last 24 Hours (Table) 04/03/16 22:35 Blood Culture - Preliminary Blood No Growth after 48 hours Assessment and Plan Plan: Assessment: #1. Chronic kidney disease stage IV secondary to nephrosclerosis and cardiorenal syndrome. Baseline creatinine near 2.6. #2. Systolic CHF with ejection fraction of 30-35%. Compensated. #3. Pneumonia. #4. Volume overload. Improved. #5. Metabolic acidosis secondary to chronic kidney disease. Plan: Continue with oral ethacrynic acid. Stable to be discharged home from nephrology standpoint and to follow-up as an outpatient in the next 2 weeks. I advised him to monitor his weight and restrict his salt intake. Maintain oral sodium bicarbonate.
[2016-04-06 10:14] VITALS: RESP 16
[2016-04-06 11:47] VITALS: BP 162/80; PULSE 74; TEMP 97.1
--- NOTE | 2016-04-06 12:04 | P.PN ---
Subjective Principal diagnosis: Congestive heart failure This is an 80-year-old gentleman with history of coronary artery disease and prior bypass surgery, ischemic cardiomyopathy, chronic renal failure, who was seen in consultation yesterday by Dr. Alves. He came to the hospital primarily hypertension and mild systolic congestive heart failure. He was noted to have abnormal troponins likely secondary to renal failure. Patient was seen and examined this morning, feels great today. Is quite eager to be discharged home. Blood pressure 142/64 . Creatinine 2.82. Objective - Vital Signs Vital signs: Vital Signs Temp 97.2 F L 04/06/16 08:20 Pulse 81 04/06/16 08:20 Resp 16 04/06/16 08:20 BP 143/65 04/06/16 08:20 Pulse Ox 94 L 04/06/16 08:20 Intake & Output 04/05/16 04/06/16 04/06/16 18:59 06:59 18:59 Intake Total 870 Output Total 1050 400 250 Balance -180 -400 -250 Weight 72.6 kg Intake: Oral 870 Output: Urine 1050 400 250 Other: Voiding Method Urinal Urinal # Voids 1 - Exam PHYSICAL EXAMINATION: HEENT: Head is atraumatic, normocephalic. Pupils equal, round. Neck is supple. There is no elevated jugular venous pressure. HEART EXAMINATION: Heart S1, S2 normal. No murmur or gallop heard. CHEST EXAMINATION: Lungs are clear to auscultation and precussion. No chest wall tenderness is noted on palpation or with deep breathing. ABDOMEN: Soft, nontender. Bowel sounds are heard. No organomegaly noted. EXTREMITIES: 2+ peripheral pulses with no evidence of peripheral edema and no calf tenderness noted. NEUROLOGIC patient is awake, alert and oriented -3. . - Labs CBC & Chem 7: 04/03/16 17:55 04/05/16 13:35 Labs: Abnormal Lab Results - Last 24 Hours (Table) 04/05/16 04/06/16 Range/Units 13:35 05:35 PT 19.7 H (9.0-12.0) sec Creatinine 2.82 H (0.66-1.25) mg/dL Microbiology - Last 24 Hours (Table) 04/03/16 22:35 Blood Culture - Preliminary Blood No Growth after 48 hours Assessment and Plan (1) Systolic CHF, acute on chronic Status: Acute (2) Chronic renal disease Status: Acute (3) Hx of CABG Status: Acute (4) Afib Status: Acute (5) Elevated troponin Status: Acute Plan: From cardiology's perspective, patient may be able to be discharged home today. We will make him a follow-up appointment with Dr. Bailee Abarca in the office post discharge. We'll discontinue the nitro paste and start the patient on a small dose of Imdur. We will hold Coumadin today, start Coumadin 2.5 mg daily from tomorrow, outpatient INR tomorrow. DNP note has been reviewed, I agree with a documented findings and plan of care. Patient was seen and examined.
--- NOTE | 2016-04-07 09:33 | DS ---
DATE OF ADMISSION: 04/03/2016 DATE OF DISCHARGE: 04/06/2016 FINAL DIAGNOSES: 1. Pneumonia, community acquired, present on admission suspect gram-negative. 2. Coronary artery disease with prior history of coronary artery bypass. 3. Essential hypertension, uncontrolled, present at admission. 4. 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 5. History of prostate cancer treated with radiation and resultant incontinence. 6. Permanent pacemaker. 7. Normocytic anemia ( ) to chronic kidney disease. 8. Coumadin monitoring with Coumadin toxicity. No evidence of bleeding. 9. Troponin leak secondary to renal failure not acute coronary syndrome. 10. Depression, not otherwise specified. 11. Ischemic cardiomyopathy, ejection fraction 30%. CONSULTATIONS: Dr. Maradiaga from nephrology, Dr. Denver Alves from cardiology. HOSPITAL COURSE: This patient presented with pneumonia, doing much better at the time of discharge. The patient 2-D echocardiogram shows EF of 30% to 35%, moderate concentric left hypertrophy and some wall motion hypokinesis. Creatinine is 2.82 at the time of discharge. Coumadin dose was cut back. ON EXAMINATION: LUNGS: Improved air entry. CARDIOVASCULAR: First and second sounds normal. Care was discussed in detail with the patient. No further chest pain. DISCHARGE MEDICATIONS: 1. Aspirin 81 mg a day. 2. Lipitor 20 mg q.h.s. 3. Vitamin D3, 1000 units p.o. q.h.s. 4. Ditropan 5 mg b.i.d. 5. Selenium 100 mcg p.o. q.h.s. 6. Sodium bicarbonate 325 p.o. b.i.d. 7. Flomax 0.4 mg p.o. q.h.s. 8. ICaps softgel 1 capsule p.o. b.i.d. 9. Hydralazine 50 mg p.o. t.i.d. 10. Ethacrynic acid 50 mg p.o. daily. 11. Zoloft 50 mg p.o. q.h.s. 12. Coreg 25 mg p.o. b.i.d. 13. Ceftin 500 mg p.o. daily for 5 days. 14. Imdur ER 60 mg a day. 15. Coumadin 2.5 p.o. daily. Follow up with Dr. Lynsey Abarca on 05/05/16. Follow up with Dr. Wiliam Pope on 04/07/16. CBC, BMP, INR in 3 days. Discharge planning including discussion more than 35 minutes.
== END 2016-04-06 15:04 | disposition home or self-care (01) | DRG 177 ==
LOC: EC 17:09 → 6SEL 19:58
PROVIDERS: ADMIT Hospitalist; ATTEND Hospitalist
DX: J15.6 Pneumonia due to other Gram-negative bacteria (principal); I50.23 Acute on chronic systolic (congestive) heart failure; E87.2 Acidosis; N18.4 Chronic kidney disease, stage 4 (severe); N17.9 Acute kidney failure, unspecified; I25.110 Atherosclerotic heart disease of native coronary artery with unstable angina pectoris; I48.91 Unspecified atrial fibrillation; I49.5 Sick sinus syndrome; E78.5 Hyperlipidemia, unspecified; F32.9 Major depressive disorder, single episode, unspecified; H35.30 Unspecified macular degeneration; I13.10 Hypertensive heart and chronic kidney disease without heart failure, with stage 1 through stage 4 chronic kidney disease, or unspecified chronic kidney disease; I25.5 Ischemic cardiomyopathy; R79.1 Abnormal coagulation profile; T45.515A Adverse effect of anticoagulants, initial encounter; R32 Unspecified urinary incontinence; R01.1 Cardiac murmur, unspecified; D63.1 Anemia in chronic kidney disease; Z79.01 Long term (current) use of anticoagulants; Z79.82 Long term (current) use of aspirin; Z79.899 Other long term (current) drug therapy; Z88.2 Allergy status to sulfonamides; Z88.8 Allergy status to other drugs, medicaments and biological substances; Z95.1 Presence of aortocoronary bypass graft; Z95.5 Presence of coronary angioplasty implant and graft; Z95.0 Presence of cardiac pacemaker; Z87.891 Personal history of nicotine dependence; Z85.51 Personal history of malignant neoplasm of bladder; Z85.46 Personal history of malignant neoplasm of prostate; Z82.49 Family history of ischemic heart disease and other diseases of the circulatory system
CPT/HCPCS: 36415; 71020; 80051; 80053; 82550; 82553; 82565; 83735; 83880; 84484; 85025; 85610; 85730; 87040; 87070; 87077; 87186; 87205; 93005; 93306; 94640; 94760; 96365; 96375; 99285

== ENCOUNTER → 2016-08-16 | Outpatient (CLI) | payer MEDICARE, BC ==
--- NOTE | 2016-08-17 07:54 | USB ---
Reason for exam: clinical finding. Indicated problem(s): lump or thickening in both breasts. Physical Findings: Nurse Summary: patient noticed lump/swelling under both nipples and pain (nurse kp). US Breast RT Right breast ultrasound includes all four quadrants, the retroareolar region and axilla. Finding demonstrates a 2.4 x 1.2 x 0.7cm irregular, hypoechoic lesion at the nipple. Left breast ultrasound demonstrates a 2.6 x 1.0 x 0.8cm irregular, hypoechoic lesion at the nipple. These results were verbally communicated with the patient and result sheet given to the patient on 08/16/16. ASSESSMENT: Probably benign, BI-RAD 3 RECOMMENDATION: Surgical consultation of the right breast. Called Dr. Pope with mammographic findings and has scheduled an appointment for the patient for 08/31/16 at 11:[address] Guadalupe. PRELIMINARY REPORT CALLED AND FAXED TO DR. GUADALUPE ON 08/17/16/TP.
== END | disposition home or self-care (01) ==
LOC: RADUSWWP 09:10
PROVIDERS: ATTEND Family Medicine
DX: N63 Unspecified lump in breast (principal)

== ENCOUNTER → 2016-09-14 | Day surgery (SDC) | payer MEDICARE, BC ==
[2016-09-14 11:58] VITALS: RESP 16; BMI 21.7
[2016-09-14 12:04] LABS: INR 1.2 (<1.2); Partial Thromboplastin Time 23.3 sec (22.0-30.0); Prothrombin Time 11.8 sec (9.0-12.0)
--- NOTE | 2016-09-14 13:03 | USB ---
EXAMINATION TYPE: US biopsy breast VAD LT, US biopsy breast VAD RT DATE OF EXAM: 09/14/2016 CLINICAL HISTORY: Gynecomastia N62. Biopsy requested by surgeon. TECHNIQUE: Ultrasound guided core biopsy of bilateral breasts. COMPARISON: Prior right breast ultrasound August 16, 2016 FINDINGS: The procedure of ultrasound guided core biopsy was explained to the patient. Benefits, alternatives, and risks were discussed. An informed consent was then obtained. The patient was placed in supine positioning for imaging and for the procedure. Preprocedure scanning redemonstrates plane in shape hypoechoic tissue subareolar region of both breasts. The overlying skin was prepped and draped in usual sterile fashion. Lidocaine was used as anesthetic into the skin. Lidocaine with epinephrine is used as anesthetic into the deeper tissue up to area of concern in the bilateral breasts. Under ultrasound guidance, a 12-gauge vacuum assisted biopsy gun device was used to obtain 2 core samples bilaterally. Biopsy clip was not left as areas of concern are readily identified by ultrasound. The patient tolerated the procedure well without any immediate complication. The patient was kept in the radiology department for short stay after the procedure and then discharged home in stable condition. IMPRESSION: Successful, uncomplicated ultrasound guided core biopsy of area of concern in the bilateral breasts, full pathology results to follow. There is very low index of suspicion, strongly suspect bilateral gynecomastia. Pathology Results: Benign A. BREAST, LEFT, CORE BIOPSY: GYNECOMASTIA. B. BREAST, RIGHT, CORE BIOPSY: GYNECOMASTIA. Recommendation Clinical management. FLORENCIOD
[2016-09-14 13:32] VITALS: BP 162/78; PULSE 64; TEMP 97.7
== END ==
LOC: RADUSWWP 10:55
PROVIDERS: ATTEND Surgery
DX: N62 Hypertrophy of breast (principal); R92.8 Other abnormal and inconclusive findings on diagnostic imaging of breast; Z88.2 Allergy status to sulfonamides; Z88.8 Allergy status to other drugs, medicaments and biological substances
CPT/HCPCS: 88305; 85610; 85730; 19083; 19084; 36415; J2001

== ENCOUNTER → 2016-09-18 | Outpatient (CLI) | payer MEDICARE, BC ==
[2016-09-18 16:43] LABS: Basophils % (A) 0 %; CH 31.5; CHCM 31.8; Eosinophils # (A) 0.3 k/uL (0-0.7); Eosinophils % (A) 7 %; HCT 31.7 % (39.0-53.0); HDW 2.42; Luc # (Auto) 0.13; Luc % (Auto) 3; Lymphocytes # (A) 0.7 k/uL (1.0-4.8); Lymphocytes % (A) 15 %; MCH 31.2 pg (25.0-35.0); MCHC 31.4 g/dL (31.0-37.0); MCV 99.4 fL (80.0-100.0); Mean Platelet Volume 8.6; Monocytes # (A) 0.4 k/uL (0-1.0); Monocytes % (A) 9 %; Neutrophils % (A) 66 %; RBC 3.19 m/uL (4.30-5.90); RDW 14.4 % (11.5-15.5); WBC 4.5 k/uL (3.8-10.6); WBC (Perox) 4.86
[2016-09-18 16:48] LABS: INR 1.2 (<1.2); Partial Thromboplastin Time 23.6 sec (22.0-30.0); Prothrombin Time 11.9 sec (9.0-12.0)
[2016-09-18 16:55] LABS: Calcium 9.8 mg/dL (8.4-10.2); Magnesium 1.9 mg/dL (1.6-2.3); Phosphorous 6.3 mg/dL (2.5-4.5); Total Bilirubin 0.3 mg/dL (0.2-1.3); Total Protein 6.4 g/dL (6.3-8.2); Uric Acid 6.8 mg/dL (3.5-8.5)
[2016-09-18 17:13] LABS: Potassium 6.4 mmol/L (3.5-5.1)
== END | disposition home or self-care (01) ==
LOC: LABWHC1 16:18
PROVIDERS: ATTEND Family Medicine
DX: N18.9 Chronic kidney disease, unspecified (principal)
CPT/HCPCS: 36415; 80053; 82306; 82746; 83735; 84100; 84550; 85025; 85610; 85730

== ENCOUNTER → 2016-11-09 | Outpatient (CLI) | payer MEDICARE, BC ==
[2016-11-09 13:19] LABS: Appearance,Urine Clear (Clear); Bilirubin,Urine Negative (Negative); CHCM 32.8; Calcium 9.3 mg/dL (8.4-10.2); Glucose,Urine (UA) Negative (Negative); HCT 33.5 % (39.0-53.0); HGB 10.6 gm/dL (13.0-17.5); Ketones,Urine Negative (Negative); Leukocyte Esterase,Urine Negative (Negative); MCHC 31.6 g/dL (31.0-37.0); MCV 98.1 fL (80.0-100.0); Magnesium 1.8 mg/dL (1.6-2.3); Mucus,Urine Rare /hpf; Nitrite,Urine Negative (Negative); PH, Urine 5.5 (5.0-8.0); Particle Count 423; Phosphorous 5.3 mg/dL (2.5-4.5); Potassium 5.5 mmol/L (3.5-5.1); Protein,Urine 1+ (Negative); RBC 3.41 m/uL (4.30-5.90); RDW 14.1 % (11.5-15.5); Specific Gravity,Urine 1.007 (1.001-1.035); Total Bilirubin 0.3 mg/dL (0.2-1.3); Total Protein 6.5 g/dL (6.3-8.2); UA Billing (MACRO vs. MICRO) MICRO; Uric Acid 6.7 mg/dL (3.5-8.5); Urobilinogen,Urine <2.0 mg/dL (<2.0); WBC 5.6 k/uL (3.8-10.6); WBC,Urine 1 /hpf (0-5)
[2016-11-09 13:31] LABS: Bacteria,Urine Occasional /hpf; RBC,Urine 10 /hpf (0-5); Squamous Epithelial Cell,Urine 6 /hpf (0-4)
[2016-11-09 19:09] LABS: Iron Saturation 29.86 (15.00-50.00)
== END | disposition home or self-care (01) ==
LOC: LABWHC1 11:40
PROVIDERS: ATTEND Nurse Practitioner Family
DX: N18.4 Chronic kidney disease, stage 4 (severe) (principal); D64.9 Anemia, unspecified; N25.81 Secondary hyperparathyroidism of renal origin; N39.0 Urinary tract infection, site not specified; R80.9 Proteinuria, unspecified; M10.9 Gout, unspecified
CPT/HCPCS: 36415; 80053; 81001; 82306; 82570; 82728; 83540; 83550; 83735; 83970; 84100; 84153; 84156; 84550; 85027

== ENCOUNTER 2017-05-07 08:50 | Inpatient (IN) | payer MEDICARE, BC ==
--- NOTE | 2017-05-07 09:30 | ED ---
General Adult HPI - General Chief complaint: Shortness of Breath Stated complaint: Difficulty Breathing Time Seen by Provider: 05/07/17 09:00 Source: patient, EMS, RN notes reviewed Mode of arrival: EMS Limitations: no limitations - History of Present Illness Initial comments: This is an 81-year-old male with a past medical history significant for open- heart surgery patient states she also has kidney failure. Patient also states he has a history of some anemia. Patient states over the last 3 days she's noticed she's been having more difficulty breathing. Patient states this morning he had considerably difficulty breathing so he decided come to the emergency department. Patient states currently he feels much better lying in bed with some oxygen. Patient denies any chest pain or palpitations. Patient denies any lightheadedness dizziness or near syncopal episode. Patient denies any recent fever chills or cough. Patient denies any abdominal pain patient denies nausea vomiting or diarrhea. - Related Data Home Medications Medication Instructions Recorded Confirmed Atorvastatin [Lipitor] 20 mg PO HS 02/08/16 05/07/17 Cholecalciferol [Vitamin D3] 1,000 unit PO HS 02/08/16 05/07/17 Oxybutynin Chloride [Ditropan] 5 mg PO BID 02/08/16 05/07/17 Sodium Bicarbonate 650 mg PO QAM 02/08/16 05/07/17 Tamsulosin HCl [Flomax] 0.4 mg PO HS 02/08/16 05/07/17 Vit A/Vit C/Vit E/Zinc/Copper 1 cap PO BID 02/08/16 05/07/17 [ICAPS SOFTGEL] Nitroglycerin 1 tab SUBLINGUAL Q5M PRN 09/01/16 05/07/17 Warfarin [Coumadin] 5 mg PO HS 09/01/16 05/07/17 hydrALAZINE HCL 25 mg PO DAILY 09/01/16 05/07/17 Edecrin 50 mg PO QAM 05/07/17 05/07/17 Ferrous Sulfate [Feosol] 325 mg PO HS 05/07/17 05/07/17 Ferrous Sulfate [Feosol] 650 mg PO DAILY 05/07/17 05/07/17 Sodium Bicarbonate 325 mg PO HS 05/07/17 05/07/17 Previous Rx's Medication Instructions Recorded Carvedilol [Coreg] 25 mg PO BID #60 tablet 04/06/16 Isosorbide Mononitrate ER [Imdur] 60 mg PO QAM #60 tab.er.24h 04/06/16 Allergies Allergy/AdvReac Type Severity Reaction Status Date / Time furosemide [From Lasix] Allergy Rash/Hives Verified 05/07/17 09:33 Sulfa (Sulfonamide Allergy Rash/Hives Verified 05/07/17 09:33 Antibiotics) Review of Systems ROS Statement: Those systems with pertinent positive or pertinent negative responses have been documented in the HPI. ROS Other: All systems not noted in ROS Statement are negative. Past Medical History Past Medical History: Coronary Artery Disease (CAD), Cancer, Chest Pain / Angina , Eye Disorder, Hyperlipidemia, Hypertension, Pneumonia, Renal Disease Additional Past Medical History / Comment(s): STAGE 4 KIDNEY FAILURE, macular degeneration, bladder CA x 2 with BCG, prostate CA with radiation, History of Any Multi-Drug Resistant Organisms: None Reported Past Surgical History: Appendectomy, Coronary Bypass/CABG, Heart Catheterization With Stent, Pacemaker Additional Past Surgical History / Comment(s): cabg in 2006, Pacemaker put in january of 2015. STENT 2013 Past Anesthesia/Blood Transfusion Reactions: No Reported Reaction Date of Last Stent Placement:: 2013 Type of Cardiac Device: Permanent Pacemaker Device Placement Date:: 2014 Past Psychological History: No Psychological Hx Reported Smoking Status: Former smoker - Past Family History Mother Family Medical History: Coronary Artery Disease (CAD) Additional Family Medical History / Comment(s): alzheimers Father Family Medical History: Coronary Artery Disease (CAD) Additional Family Medical History / Comment(s): "hardening of arteries" General Exam - General Exam Comments Initial Comments: GENERAL: Patient is well-developed and well-nourished. Patient is nontoxic and well- hydrated and is in no acute distress. ENT: Neck is soft and supple. No significant lymphadenopathy is noted. Oropharynx is clear. Moist mucous membranes. Neck has full range of motion without eliciting any pain. EYES: The sclera were anicteric and conjunctiva were pink and moist. Extraocular movements were intact and pupils were equal round and reactive to light. Eyelids were unremarkable. PULMONARY: Unlabored respirations. Good breath sounds bilaterally. Patient has an occasional wheeze in the right base. CARDIOVASCULAR: There is a regular rate and rhythm without any murmurs gallops or rubs. ABDOMEN: Soft and nontender with normal bowel sounds. No palpable organomegaly was noted. There is no palpable pulsatile mass. SKIN: Skin is clear with no lesions or rashes and otherwise unremarkable. NEUROLOGIC: Patient is alert and oriented x3. Cranial nerves II through XII are grossly intact. Motor and sensory are also intact. Normal speech, volume and content. Symmetrical smile. MUSCULOSKELETAL: Normal extremities with adequate strength and full range of motion. No lower extremity swelling or edema. No calf tenderness. LYMPHATICS: No significant lymphadenopathy is noted PSYCHIATRIC: Normal psychiatric evaluation. Limitations: no limitations Course Vital Signs 05/07/17 05/07/17 05/07/17 09:02 09:27 09:52 Temperature 97 F L Pulse Rate 60 60 Respiratory 20 19 18 Rate Blood Pressure 169/77 174/80 O2 Sat by Pulse 99 98 Oximetry 05/07/17 10:45 Temperature Pulse Rate 60 Respiratory 18 Rate Blood Pressure 184/87 O2 Sat by Pulse 98 Oximetry Medical Decision Making - Medical Decision Making EKG shows a paced rhythm at 60 bpm KS interval is 292 QRS is 176 QT intervals 48 QTC is 480. X-ray shows mild pulmonary edema. Spoke with Dr. Ash Aleman agreed to admit the patient admitted the patient I wrote admitting orders I continued Nitropaste on the floor. I also repeated CBCs every 6 hours - Lab Data Result diagrams: 05/07/17 09:23 05/07/17 09:23 Lab Results 05/07/17 05/07/17 05/07/17 Range/Units 09:23 09:23 09:23 WBC 4.6 (3.8-10.6) k/uL RBC 2.93 L (4.30-5.90) m/uL Hgb 9.0 L (13.0-17.5) gm/dL Hct 28.9 L (39.0-53.0) % MCV 98.6 (80.0-100.0) fL MCH 30.7 (25.0-35.0) pg MCHC 31.2 (31.0-37.0) g/dL RDW 15.2 (11.5-15.5) % Plt Count 152 (150-450) k/uL Neutrophils % 75 % Lymphocytes % 13 % Monocytes % 8 % Eosinophils % 3 % Basophils % 0 % Neutrophils # 3.4 (1.3-7.7) k/uL Lymphocytes # 0.6 L (1.0-4.8) k/uL Monocytes # 0.4 (0-1.0) k/uL Eosinophils # 0.1 (0-0.7) k/uL Basophils # 0.0 (0-0.2) k/uL Hypochromasia Slight Macrocytosis Slight PT (9.0-12.0) sec INR (<1.2) APTT (22.0-30.0) sec Sodium 142 (137-145) mmol/L Potassium 4.6 (3.5-5.1) mmol/L Chloride 108 H (98-107) mmol/L Carbon Dioxide 22 (22-30) mmol/L Anion Gap 12 mmol/L BUN 67 H (9-20) mg/dL Creatinine 3.86 H (0.66-1.25) mg/dL Est GFR (CKD-EPI)AfAm 16 (>60 ml/min/1.73 sqM) Est GFR (CKD-EPI)NonAf 14 (>60 ml/min/1.73 sqM) Glucose 86 (74-99) mg/dL Calcium 8.9 (8.4-10.2) mg/dL Total Bilirubin 0.3 (0.2-1.3) mg/dL AST 26 (17-59) U/L ALT 45 (21-72) U/L Alkaline Phosphatase 57 (38-126) U/L Total Creatine Kinase 49 L (55-170) U/L CK-MB (CK-2) 1.2 (0.0-2.4) ng/mL CK-MB (CK-2) Rel Index 2.4 Troponin I 0.032 (0.000-0.034) ng/mL NT-Pro-B Natriuret Pep pg/mL Total Protein 5.8 L (6.3-8.2) g/dL Albumin 3.6 (3.5-5.0) g/dL 05/07/17 05/07/17 Range/Units 09:23 09:23 WBC (3.8-10.6) k/uL RBC (4.30-5.90) m/uL Hgb (13.0-17.5) gm/dL Hct (39.0-53.0) % MCV (80.0-100.0) fL MCH (25.0-35.0) pg MCHC (31.0-37.0) g/dL RDW (11.5-15.5) % Plt Count (150-450) k/uL Neutrophils % % Lymphocytes % % Monocytes % % Eosinophils % % Basophils % % Neutrophils # (1.3-7.7) k/uL Lymphocytes # (1.0-4.8) k/uL Monocytes # (0-1.0) k/uL Eosinophils # (0-0.7) k/uL Basophils # (0-0.2) k/uL Hypochromasia Macrocytosis PT 20.5 H (9.0-12.0) sec INR 2.3 H (<1.2) APTT 26.0 (22.0-30.0) sec Sodium (137-145) mmol/L Potassium (3.5-5.1) mmol/L Chloride (98-107) mmol/L Carbon Dioxide (22-30) mmol/L Anion Gap mmol/L BUN (9-20) mg/dL Creatinine (0.66-1.25) mg/dL Est GFR (CKD-EPI)AfAm (>60 ml/min/1.73 sqM) Est GFR (CKD-EPI)NonAf (>60 ml/min/1.73 sqM) Glucose (74-99) mg/dL Calcium (8.4-10.2) mg/dL Total Bilirubin (0.2-1.3) mg/dL AST (17-59) U/L ALT (21-72) U/L Alkaline Phosphatase (38-126) U/L Total Creatine Kinase (55-170) U/L CK-MB (CK-2) (0.0-2.4) ng/mL CK-MB (CK-2) Rel Index Troponin I (0.000-0.034) ng/mL NT-Pro-B Natriuret Pep 34173 pg/mL Total Protein (6.3-8.2) g/dL Albumin (3.5-5.0) g/dL Disposition Clinical Impression: Acute pulmonary edema, Anemia Disposition: ADMITTED IP TO THIS HOSP Referrals: Wiliam Pope MD [Primary Care Provider] - 1-2 days Time of Disposition: 11:25
[2017-05-07 09:41] LABS: Basophils % (A) 0 %; Eosinophils # (A) 0.1 k/uL (0-0.7); Eosinophils % (A) 3 %; HCT 28.9 % (39.0-53.0); Hypochromasia Slight; Lymphocytes # (A) 0.6 k/uL (1.0-4.8); Lymphocytes % (A) 13 %; MCH 30.7 pg (25.0-35.0); MCHC 31.2 g/dL (31.0-37.0); MCV 98.6 fL (80.0-100.0); Macrocytosis Slight; Mean Platelet Volume 8.2; Monocytes # (A) 0.4 k/uL (0-1.0); Monocytes % (A) 8 %; Neutrophils # (A) 3.4 k/uL (1.3-7.7); Neutrophils % (A) 75 %; Platelet Count 152 k/uL (150-450); RBC 2.93 m/uL (4.30-5.90); RDW 15.2 % (11.5-15.5); WBC 4.6 k/uL (3.8-10.6)
[2017-05-07 09:49] LABS: INR 2.3 (<1.2); Prothrombin Time 20.5 sec (9.0-12.0)
[2017-05-07 09:53] LABS: Albumin 3.6 g/dL (3.5-5.0); Calcium 8.9 mg/dL (8.4-10.2); Potassium 4.6 mmol/L (3.5-5.1); Total Bilirubin 0.3 mg/dL (0.2-1.3); Total Protein 5.8 g/dL (6.3-8.2)
--- NOTE | 2017-05-07 09:58 | XR ---
EXAMINATION TYPE: XR chest 2V DATE OF EXAM: 05/07/2017 COMPARISON: 04/04/2016 HISTORY: Shortness of breath TECHNIQUE: Frontal and lateral views of the chest are obtained. FINDINGS: There are trace bilateral pleural effusions. Right perihilar and right lower lobe peribron chial cuffing is now evident. Increased interstitial prominence is unchanged from the prior exam of . Cardiomegaly, post CABG changes of the chest, and dual lead left-sided cardiac device are a gain noted. Osseous structures are grossly intact with generalized demineralization. IMPRESSION: 1. New right peribronchial cuffing that may represent bronchitis. No focal consolidation to suggest p neumonia. 2. Chronic interstitial prominence may relate to chronic mild interstitial edema in this patient with cardiomegaly and postsurgical changes of the chest.
[2017-05-07 10:20] LABS: Creatine Kinase MB 1.2 ng/mL (0.0-2.4); Troponin I 0.032 ng/mL (0.000-0.034)
[2017-05-07] MEDS ORDERED: NITROGLYCERIN OINT 1 INCH/GM PACKET TOPICAL SCH (13:00)
[2017-05-07] MEDS ORDERED: NITROGLYCERIN SL TABS 0.4 MG TAB SUBLINGUAL PRN (13:59)
--- NOTE | 2017-05-07 14:26 | P.HPIM ---
History of Present Illness 81-year-old pleasant gentleman with history of CK disease stage IV and ischemic cardiomyopathy with ejection fraction of around 30% came in with compensative shortness of breath orthopnea PND I'll be started today morning patient is compliant with his diet, but doesn't take Lasix because of possible ALLERGIC reaction which was hives which never happened meant was that he was in the hospital and when he was treated with Lasix. Patient started having hives which were attributed to Lasix and sulfa in the Lasix and patient was switched to ethacrynic acid as an outpatient. Sensipar patient tolerated Lasix well in the hospital [facility] start him on Lasix watch for any ALLERGIC reaction to that. Patient was started on high-dose Lasix considering his chronic kidney disease stage IV patient is found to have pulmonary edema diffuse bilaterally on the chest x-ray along with highly elevated BNP and elevated JVD although patient doesn't have any significant pedal edema. Review of Systems REVIEW OF SYSTEMS: CONSTITUTIONAL: No fever, no malaise, no fatigue. HEENT: No recent visual problems or hearing problems. Denied any sore throat. CARDIOVASCULAR: No chest pain, , no palpitations, no syncope. PULMONARY: no cough, no hemoptysis. GASTROINTESTINAL: No diarrhea, no nausea, no vomiting, no abdominal pain. Normoactive bowel sounds. NEUROLOGICAL: No headaches, no weakness, no numbness. HEMATOLOGICAL: Denies any bleeding or petechiae. GENITOURINARY: Denies any burning micturition, frequency, or urgency. MUSCULOSKELETAL/RHEUMATOLOGICAL: Denies any joint pain, swelling, or any muscle pain. ENDOCRINE: Denies any polyuria or polydipsia. The rest of the 14-point review of systems is negative. Past Medical History Past Medical History: Coronary Artery Disease (CAD), Cancer, Chest Pain / Angina , Eye Disorder, Hyperlipidemia, Hypertension, Pneumonia, Renal Disease Additional Past Medical History / Comment(s): STAGE 4 KIDNEY FAILURE, macular degeneration, bladder CA x 2 with BCG, prostate CA with radiation, History of Any Multi-Drug Resistant Organisms: None Reported Past Surgical History: Appendectomy, Coronary Bypass/CABG, Heart Catheterization With Stent, Pacemaker Additional Past Surgical History / Comment(s): cabg in 2006, Pacemaker put in january of 2015. STENT 2013 Past Anesthesia/Blood Transfusion Reactions: No Reported Reaction Date of Last Stent Placement:: 2013 Type of Cardiac Device: Permanent Pacemaker Device Placement Date:: 2014 Past Psychological History: No Psychological Hx Reported Smoking Status: Former smoker - Past Family History Mother Family Medical History: Coronary Artery Disease (CAD) Additional Family Medical History / Comment(s): alzheimers Father Family Medical History: Coronary Artery Disease (CAD) Additional Family Medical History / Comment(s): "hardening of arteries" Medications and Allergies Home Medications Medication Instructions Recorded Confirmed Type Atorvastatin [Lipitor] 20 mg PO HS 02/08/16 05/07/17 History Cholecalciferol [Vitamin D3] 1,000 unit PO HS 02/08/16 05/07/17 History Oxybutynin Chloride [Ditropan] 5 mg PO BID 02/08/16 05/07/17 History Sodium Bicarbonate 650 mg PO QAM 02/08/16 05/07/17 History Tamsulosin HCl [Flomax] 0.4 mg PO HS 02/08/16 05/07/17 History Vit A/Vit C/Vit E/Zinc/Copper 1 cap PO BID 02/08/16 05/07/17 History [ICAPS SOFTGEL] Carvedilol [Coreg] 25 mg PO BID #60 tablet 04/06/16 05/07/17 Rx Isosorbide Mononitrate ER [Imdur] 60 mg PO QAM #60 tab.er.24h 04/06/16 05/07/17 Rx Nitroglycerin 1 tab SUBLINGUAL Q5M PRN 09/01/16 05/07/17 History Warfarin [Coumadin] 5 mg PO HS 09/01/16 05/07/17 History hydrALAZINE HCL 25 mg PO DAILY 09/01/16 05/07/17 History Edecrin 50 mg PO QAM 05/07/17 05/07/17 History Ferrous Sulfate [Feosol] 325 mg PO HS 05/07/17 05/07/17 History Ferrous Sulfate [Feosol] 650 mg PO DAILY 05/07/17 05/07/17 History Sodium Bicarbonate 325 mg PO HS 05/07/17 05/07/17 History Allergies Allergy/AdvReac Type Severity Reaction Status Date / Time furosemide [From Lasix] Allergy Rash/Hives Verified 05/07/17 09:33 Sulfa (Sulfonamide Allergy Rash/Hives Verified 05/07/17 09:33 Antibiotics) Physical Exam Vitals: Vital Signs Temp Pulse Resp BP Pulse Ox 05/07/17 13:35 97 F L 60 18 184/87 98 05/07/17 13:25 18 05/07/17 10:45 60 18 184/87 98 05/07/17 09:52 60 18 174/80 98 05/07/17 09:27 19 05/07/17 09:02 97 F L 60 20 169/77 99 Intake and Output 05/06/17 05/07/17 05/07/17 22:59 06:59 14:59 Other: Weight 72.575 kg PHYSICAL EXAMINATION: GENERAL: The patient is alert and oriented x3, not in any acute distress. Well developed, well nourished. HEENT: Pupils are round and equally reacting to light. EOMI. No scleral icterus. No conjunctival pallor. Normocephalic, atraumatic. No pharyngeal erythema. No thyromegaly. CARDIOVASCULAR: S1 and S2 present. No murmurs, rubs, elevated JVD with S3 PULMONARY: Fine crackles with good air entry into bilateral lung ABDOMEN: Soft, nontender, nondistended, normoactive bowel sounds. No palpable organomegaly. MUSCULOSKELETAL: No joint swelling or deformity. EXTREMITIES: No cyanosis, clubbing, or pedal edema. NEUROLOGICAL: Gross neurological examination did not reveal any focal deficits. SKIN: No rashes. Results CBC & Chem 7: 05/07/17 09:23 05/07/17 09:23 Labs: Abnormal Lab Results - Last 24 Hours (Table) 05/07/17 05/07/17 05/07/17 Range/Units 09:23 09:23 09:23 RBC 2.93 L (4.30-5.90) m/uL Hgb 9.0 L (13.0-17.5) gm/dL Hct 28.9 L (39.0-53.0) % Lymphocytes # 0.6 L (1.0-4.8) k/uL PT (9.0-12.0) sec INR (<1.2) Chloride 108 H (98-107) mmol/L BUN 67 H (9-20) mg/dL Creatinine 3.86 H (0.66-1.25) mg/dL Total Creatine Kinase 49 L (55-170) U/L Total Protein 5.8 L (6.3-8.2) g/dL 05/07/17 Range/Units 09:23 RBC (4.30-5.90) m/uL Hgb (13.0-17.5) gm/dL Hct (39.0-53.0) % Lymphocytes # (1.0-4.8) k/uL PT 20.5 H (9.0-12.0) sec INR 2.3 H (<1.2) Chloride (98-107) mmol/L BUN (9-20) mg/dL Creatinine (0.66-1.25) mg/dL Total Creatine Kinase (55-170) U/L Total Protein (6.3-8.2) g/dL Assessment and Plan Plan: -Congestive heart failure exacerbation: Patient has chronic systolic function with acute exacerbation. Patient appears to have had ischemic cardiomyopathy. Patient was started on DVT twice a day of IV Lasix. Daily BNP. Eyes and dose, increase dose of hydralazine from 25 daily to 75 3 times a day and cardiology increased dose of Coreg as well. -History of atrial fibrillation: Rate controlled at this point of time and patient is on Coumadin daily INR check patient is therapeutic on Coumadin now will be resumed on same dose of Coumadin -Coronary artery disease -hyperlipidemia -hypertension -Chronic kidney disease stage IV probably hypertensive nephrosclerosis Problem mentioned chronic medical problems patient will be resumed and continued on appropriate home medications.
[2017-05-07 14:32] VITALS: BMI 23.6
[2017-05-07] MEDS ORDERED: hydrALAZINE HCL 50 MG TAB PO SCH (16:00)
[2017-05-07] MEDS ORDERED: hydrALAZINE HCL 25 MG TAB PO SCH (16:00)
[2017-05-07] MEDS: hydrALAZINE HCL 25 MG TAB PO SCH ×2 (16:04→20:11)
[2017-05-07] MEDS ORDERED: CARVEDILOL 12.5 MG TAB PO SCH (17:30)
[2017-05-07] MEDS: CARVEDILOL 12.5 MG TAB PO SCH (17:30)
[2017-05-07] MEDS: FUROSEMIDE 10 MG/ML 10 ML VIAL IV SCH (17:35)
--- NOTE | 2017-05-07 17:49 | CONS ---
CONSULTATION CHIEF COMPLAINT: Shortness of breath. This is an 81-year-old gentleman with history of coronary artery disease, status post CABG, status post prior multivessel angioplasty, chronic renal failure, hypertension, dyslipidemia, who presents to hospital with shortness of breath. It is moderate intensity, came on at rest and progressively got worse. At the time of my evaluation in the emergency room, he has received Lasix and his symptoms have improved. The patient's symptoms are either related to acute onset congestive heart failure or could be due to unstable angina. The patient has renal insufficiency and was told he cannot have cardiac catheterizations in the past and he states that he does not want to take the risk of dialysis at this time. PAST MEDICAL AND SURGICAL HISTORY: Significant for CAD status post CABG, appendectomy, permanent pacemaker, CA prostate status post radiation. ALLERGIES: ALLERGIC TO LASIX AND SULFA. MEDICATIONS: Include Lipitor, Ditropan, Flomax, Coumadin, hydralazine, iron. FAMILY HISTORY: Negative for premature coronary artery disease. SOCIAL HISTORY: Negative for current smoking, ETOH abuse or drug abuse. REVIEW OF SYSTEMS: HEENT is unremarkable. CARDIAC: As described above. RESPIRATORY: As described above. GI: Negative. GENITOURINARY: Negative. ALLERGY/IMMUNOLOGY: Negative. SKIN: Negative. MUSCULOSKELETAL: Significant for arthritis. PSYCHOSOCIAL: Negative. ENDOCRINE: Negative. DERM: Negative. CONSTITUTIONAL: Significant for fatigue and tiredness. BACK SIZER: Negative. PSYCH: Negative. Rest of the system review is not relevant. PHYSICAL EXAM: Heart rate is 60 beats per minute. Blood pressure is 184/97, respirations 18. Chest exam reveals diminished air entry at the bases. Occasional crackles and rhonchi. Heart exam reveals first and second heart sounds and a systolic murmur at the apex. Abdomen is soft. Exam extremities reveals trace edema. Peripheral pulses are palpable. LAB: Show a hemoglobin of 9. INR is 2.3. BUN is 67, creatinine is 3.8, potassium [place] 4.6, [place] [address]. Troponin is normal. The patient had an echo done in 2017 that showed an ejection fraction of 35%. ASSESSMENT: 1. Acute systolic heart failure. 2. Uncontrolled hypertension. 3. History of atrial fibrillation. 4. Chronic renal failure. PLAN: Patient will be treated with IV Lasix and nitroglycerin paste and beta blockers. Not a candidate for CHUCKY inhibitors because of renal failure. I am going to add Norvasc for better blood pressure control and increase the dose of hydralazine. MMODL / IJN: [id number] /
[2017-05-07 18:09] LABS: Basophils % (A) 0 %; Eosinophils # (A) 0.2 k/uL (0-0.7); Eosinophils % (A) 3 %; HCT 30.5 % (39.0-53.0); HGB 9.7 gm/dL (13.0-17.5); Hypochromasia Moderate; Lymphocytes # (A) 0.7 k/uL (1.0-4.8); Lymphocytes % (A) 16 %; MCH 31.6 pg (25.0-35.0); MCHC 31.8 g/dL (31.0-37.0); MCV 99.3 fL (80.0-100.0); Macrocytosis Slight; Mean Platelet Volume 8.2; Monocytes # (A) 0.4 k/uL (0-1.0); Monocytes % (A) 8 %; Neutrophils # (A) 3.1 k/uL (1.3-7.7); Neutrophils % (A) 71 %; Platelet Count 160 k/uL (150-450); RBC 3.08 m/uL (4.30-5.90); RDW 15.1 % (11.5-15.5); WBC 4.3 k/uL (3.8-10.6)
--- NOTE | 2017-05-07 19:16 | ECHOF ---
Referral Reason:chf MEASUREMENTS -------- HEIGHT: 152.4 cm WEIGHT: 72.6 kg BP: 184/87 IVSd: 1.3 cm (0.6 - 1.1) LVIDd: 6.1 cm (3.9 - 5.3) LVPWd: 1.5 cm (0.6 - 1.1) IVSs: 1.5 cm LVIDs: 5.8 cm LVPWs: 2.0 cm LAESV Index (A-L): 75.70 ml/m Ao Diam: 3.7 cm (2.0 - 3.7) AV Cusp: 1.9 cm (1.5 - 2.6) LA Diam: 3.8 cm (2.7 - 3.8) MV EXCURSION: 20.477 mm (> 18.000) MV EF SLOPE: 154 mm/s (70 - 150) EPSS: 2.4 cm MV E Farshad: 1.05 m/s MV DecT: 177 ms MV A Farshad: 0.89 m/s MV E/A Ratio: 1.18 RAP: 5.00 mmHg RVSP: 25.96 mmHg FINDINGS -------- Paced rhythm. This was a technically good study. The left ventricle is mildly dilated. Left ventricular wall thickness is normal. There is severe global hypokinesis of LV . Overall left ventricular systolic function is severely impaired with, an EF between 20 - 25 %. The right ventricle is normal in size and function. LA is severely dilated >40 ml/m2 The right atrium is normal in size. Aortic valve is trileaflet and is mildly thickened. Moderate mitral regurgitation is present. Mild tricuspid regurgitation present. The right ventricular systolic pressure, as measured by Doppl er, is 25.96mmHg. Moderate pulmonic regurgitation. The aortic root size is normal. The pericardium is normal. CONCLUSIONS -------- 1. Paced rhythm. 2. This was a technically good study. 3. The left ventricle is mildly dilated. 4. Left ventricular wall thickness is normal. 5. There is severe global hypokinesis of LV . 6. Overall left ventricular systolic function is severely impaired with, an EF between 20 - 25 %. 7. The right ventricle is normal in size and function. 8. LA is severely dilated >40 ml/m2 9. The right atrium is normal in size. 10. Aortic valve is trileaflet and is mildly thickened. 11. Moderate mitral regurgitation is present. 12. Mild tricuspid regurgitation present. 13. The right ventricular systolic pressure, as measured by Doppler, is 25.96mmHg. 14. Moderate pulmonic regurgitation. 15. The aortic root size is normal. 16. The pericardium is normal. PROGRAMMER OPERATOR NUMERICAL CONTROL: Flora Kumar RDCS
[2017-05-07] MEDS: OXYBUTYNIN CHLORIDE 5 MG TAB PO SCH (20:10)
[2017-05-07] MEDS ORDERED: TAMSULOSIN 0.4 MG CAP.ER.24H PO SCH (21:00)
[2017-05-07] MEDS ORDERED: ATORVASTATIN 20 MG TAB PO SCH (21:00)
[2017-05-07] MEDS ORDERED: SODIUM BICARBONATE TAB 650 MG TAB PO SCH (21:00)
[2017-05-07 23:55] LABS: Basophils % (A) 0 %; Eosinophils # (A) 0.1 k/uL (0-0.7); Eosinophils % (A) 4 %; HGB 8.6 gm/dL (13.0-17.5); Lymphocytes # (A) 0.6 k/uL (1.0-4.8); Lymphocytes % (A) 16 %; MCH 31.4 pg (25.0-35.0); MCHC 31.9 g/dL (31.0-37.0); MCV 98.3 fL (80.0-100.0); Macrocytosis Slight; Mean Platelet Volume 7.9; Monocytes # (A) 0.4 k/uL (0-1.0); Monocytes % (A) 10 %; Neutrophils # (A) 2.6 k/uL (1.3-7.7); Neutrophils % (A) 68 %; Platelet Count 144 k/uL (150-450); RBC 2.75 m/uL (4.30-5.90); RDW 15.2 % (11.5-15.5); WBC 3.8 k/uL (3.8-10.6)
[2017-05-08] MEDS: FUROSEMIDE 10 MG/ML 10 ML VIAL IV SCH (06:19)
[2017-05-08] MEDS: CARVEDILOL 12.5 MG TAB PO SCH ×2 (06:19→16:15)
[2017-05-08] MEDS: OXYBUTYNIN CHLORIDE 5 MG TAB PO SCH (08:55)
[2017-05-08] MEDS: hydrALAZINE HCL 25 MG TAB PO SCH ×2 (08:56→15:12)
[2017-05-08] MEDS ORDERED: ISOSORBIDE MONONITRATE ER 60 MG TAB.ER.24H PO SCH (09:00)
[2017-05-08] MEDS ORDERED: SODIUM BICARBONATE TAB 650 MG TAB PO SCH (09:00)
[2017-05-08 09:41] LABS: Calcium 9.1 mg/dL (8.4-10.2); Potassium 4.3 mmol/L (3.5-5.1)
[2017-05-08 09:42] VITALS: RESP 18
--- NOTE | 2017-05-08 10:58 | P.PN ---
Subjective Progress Note Date: 05/08/17 Principal diagnosis: CHF This is an 81-year-old gentleman with known history of coronary artery disease and prior bypass surgery with multivessel angioplasty in the past , prior pacemaker implantation, chronic renal failure, hypertension, hyperlipidemia, who presented to the hospital with symptoms of worsening shortness of breath as well as significant weight gain. Patient was seen in consultation yesterday by Dr. Alves, he was initiated on IV Lasix and has diuresed well through the night last night. Patient was also significantly hypertensive and medication adjustments were made. Patient was seen and examined this morning, overall feeling significantly better. Breathing is stable, he denies any chest discomfort. Blood pressure this morning 148/60 with a heart rate in the 60s. BUN 68, creatinine 4.0, potassium 4.3. IV Lasix was discontinued and patient has been initiated on oral diuretics. We will have the patient up ambulating today is stable he may be able to be discharged home from our perspective. Follow-up appointment will be made in the office post discharge. Objective - Vital Signs Vital signs: Vital Signs Temp 97.8 F 05/08/17 08:00 Pulse 57 L 05/08/17 08:00 Resp 18 05/08/17 08:00 BP 148/72 05/08/17 08:00 Pulse Ox 98 05/08/17 08:00 Intake & Output 05/07/17 05/08/17 05/08/17 18:59 06:59 18:59 Intake Total 240 360 Output Total 275 1500 575 Balance -35 -1500 -215 Weight 72.575 kg 73.4 kg Intake: Oral 240 360 Output: Urine 275 1500 575 Other: Voiding Method Toilet Urinal Urinal Urinal # Voids 1 - Exam PHYSICAL EXAMINATION: HEENT: Head is atraumatic, normocephalic. Pupils equal, round. Neck is supple. There is no elevated jugular venous pressure. HEART EXAMINATION: Heart S1 and S2 irregularly irregular a systolic murmur is heard CHEST EXAMINATION: Lungs reveal fine crackles to bilateral bases. ABDOMEN: Soft, nontender. Bowel sounds are heard. No organomegaly noted. EXTREMITIES: 2+ peripheral pulses with no evidence of peripheral edema and no calf tenderness noted. NEUROLOGIC patient is awake, alert and oriented -3. . - Labs CBC & Chem 7: 05/07/17 23:21 05/08/17 08:53 Labs: Abnormal Lab Results - Last 24 Hours (Table) 05/07/17 05/07/17 05/08/17 Range/Units 17:53 23:21 08:53 RBC 3.08 L 2.75 L (4.30-5.90) m/uL Hgb 9.7 L 8.6 L (13.0-17.5) gm/dL Hct 30.5 L 27.0 L (39.0-53.0) % Plt Count 144 L (150-450) k/uL Lymphocytes # 0.7 L 0.6 L (1.0-4.8) k/uL BUN 68 H (9-20) mg/dL Creatinine 4.05 H (0.66-1.25) mg/dL Glucose 102 H (74-99) mg/dL Assessment and Plan Plan: Assessment and plan #1 systolic congestive heart failure acute on chronic #2 uncontrolled hypertension #3 chronic persistent atrial fibrillation #4 chronic renal failure #5 prior pacemaker implantation #6 coronary artery disease with prior bypass surgery, multivessel angioplasty #7 hyperlipidemia Plan Patient has been changed over to oral diuretics. Blood pressure today under much better control. He has been encouraged to be up ambulating in the hallway today. From our perspective he may be able to be discharged home later today to follow-up with Dr. Abarca in the office post discharge. DNP note has been reviewed, I agree with a documented findings and plan of care. Patient was seen and examined.
--- NOTE | 2017-05-08 13:28 | P.DS ---
Providers Date of admission: 05/07/17 11:27 Attending physician: Miko Aleman Consults: 05/07/17 11:31 Consult Physician Urgent Consulting Provider: [facility] Consult Reason/Comments: Pulmonary edema Do you want consulting provider notified?: Yes Consult Physician Urgent Consulting Provider: Meggan Maradiaga Consult Reason/Comments: Renal failure Do you want consulting provider notified?: Yes [facility] Course: 81-year-old pleasant gentleman with history of CK disease stage IV and ischemic cardiomyopathy with ejection fraction of around 30% came in with compensative shortness of breath orthopnea PND I'll be started today morning patient is compliant with his diet, but doesn't take Lasix because of possible ALLERGIC reaction which was hives which never happened meant was that he was in the hospital and when he was treated with Lasix. Patient started having hives which were attributed to Lasix and sulfa in the Lasix and patient was switched to ethacrynic acid as an outpatient. Sensipar patient tolerated Lasix well in the hospital L [facility] start him on Lasix watch for any ALLERGIC reaction to that. Patient was started on high-dose Lasix considering his chronic kidney disease stage IV patient is found to have pulmonary edema diffuse bilaterally on the chest x-ray along with highly elevated BNP and elevated JVD although patient doesn't have any significant pedal edema. 05/08/2017 patient is feeling much better today patient is fairly euvolemic. patient was cleared from cardiology perspective patient kidney function has worsened a little bit. Discussed with nephrology and patient will be discharged on torsemide. Will give a small dose of torsemide. Make sure he doesn't have any ALLERGIC reaction to torsemide. Patient is to closely follow up with the Dr. Maradiaga and cardiology along with primary care physician. Appropriate outpatient appointments will be made. Repeat basic metabolic profile in 3 days just to be faxed to nephrology clinic. Ethacrynic acid was discontinued. Increase the dose of Coreg and hydralazine. PHYSICAL EXAMINATION: GENERAL: The patient is alert and oriented x3, not in any acute distress. Well developed, well nourished. HEENT: Pupils are round and equally reacting to light. EOMI. No scleral icterus. No conjunctival pallor. Normocephalic, atraumatic. No pharyngeal erythema. No thyromegaly. CARDIOVASCULAR: S1 and S2 present. No murmurs, rubs, or gallops. PULMONARY: Chest is clear to auscultation, no wheezing or crackles. ABDOMEN: Soft, nontender, nondistended, normoactive bowel sounds. No palpable organomegaly. MUSCULOSKELETAL: No joint swelling or deformity. EXTREMITIES: No cyanosis, clubbing, or pedal edema. NEUROLOGICAL: Gross neurological examination did not reveal any focal deficits. SKIN: No rashes. Assessment and Plan Plan: -Congestive heart failure exacerbation: Patient has chronic systolic function with acute exacerbation. Patient appears to have had ischemic cardiomyopathy. -History of atrial fibrillation: Rate controlled at this point of time and patient is on Coumadin -Coronary artery disease -hyperlipidemia -hypertension -Chronic kidney disease stage IV probably hypertensive nephrosclerosis Problem mentioned chronic medical problems patient will be resumed and continued on appropriate home medications. Plan - Discharge Summary Discharge Rx Participant: No New Discharge Prescriptions: New Carvedilol [Coreg*] 50 mg PO BID-W/MEALS #60 tab hydrALAZINE HCL [Apresoline] 100 mg PO TID #90 tab Torsemide [Demadex] 20 mg PO DAILY #30 tablet Continue Sodium Bicarbonate 650 mg PO QAM Oxybutynin Chloride [Ditropan] 5 mg PO BID Cholecalciferol [Vitamin D3] 1,000 unit PO HS Vit A/Vit C/Vit E/Zinc/Copper [ICAPS SOFTGEL] 1 cap PO BID Atorvastatin [Lipitor] 20 mg PO HS Tamsulosin HCl [Flomax] 0.4 mg PO HS Carvedilol [Coreg] 25 mg PO BID #60 tablet Isosorbide Mononitrate ER [Imdur] 60 mg PO QAM #60 tab.er.24h Warfarin [Coumadin] 5 mg PO HS Nitroglycerin 1 tab SUBLINGUAL Q5M PRN PRN Reason: Angina Sodium Bicarbonate 325 mg PO HS Ferrous Sulfate [Iron (65 MG Elemental)] 650 mg PO DAILY Ferrous Sulfate [Iron (65 MG Elemental)] 325 mg PO HS Edecrin 50 mg PO QAM Discontinued hydrALAZINE HCL 25 mg PO DAILY Discharge Medication List Atorvastatin [Lipitor] 20 mg PO HS 02/08/16 [History] Cholecalciferol [Vitamin D3] 1,000 unit PO HS 02/08/16 [History] Oxybutynin Chloride [Ditropan] 5 mg PO BID 02/08/16 [History] Sodium Bicarbonate 650 mg PO QAM 02/08/16 [History] Tamsulosin HCl [Flomax] 0.4 mg PO HS 02/08/16 [History] Vit A/Vit C/Vit E/Zinc/Copper [ICAPS SOFTGEL] 1 cap PO BID 02/08/16 [History] Carvedilol [Coreg] 25 mg PO BID #60 tablet 04/06/16 [Rx] Isosorbide Mononitrate ER [Imdur] 60 mg PO QAM #60 tab.er.24h 04/06/16 [Rx] Nitroglycerin 1 tab SUBLINGUAL Q5M PRN 09/01/16 [History] Warfarin [Coumadin] 5 mg PO HS 09/01/16 [History] Edecrin 50 mg PO QAM 05/07/17 [History] Ferrous Sulfate [Iron (65 MG Elemental)] 325 mg PO HS 05/07/17 [History] Ferrous Sulfate [Iron (65 MG Elemental)] 650 mg PO DAILY 05/07/17 [History] Sodium Bicarbonate 325 mg PO HS 05/07/17 [History] Carvedilol [Coreg*] 50 mg PO BID-W/MEALS #60 tab 05/08/17 [Rx] Torsemide [Demadex] 20 mg PO DAILY #30 tablet 05/08/17 [Rx] hydrALAZINE HCL [Apresoline] 100 mg PO TID #90 tab 05/08/17 [Rx] Follow up Appointment(s)/Referral(s): Meggan Maradiaga MD [STAFF PHYSICIAN] - 3 Days Rosy Abarca MD [STAFF PHYSICIAN] - 1 Week Wiliam Pope MD [Primary Care Provider] - 3 Days Ambulatory/Diagnostic Orders: Basic Metabolic Panel [LAB.AMB] Location: Determined By Patient Discharge Disposition: HOME WITH HOME HEALTH SERVICES
[2017-05-08] MEDS ORDERED: TORSEMIDE 20 MG TAB PO SCH (13:30)
[2017-05-08 15:36] VITALS: PULSE 80; TEMP 96.3
[2017-05-08] MEDS ORDERED: FUROSEMIDE 80 MG TAB PO SCH (16:00)
[2017-05-08 16:14] VITALS: BP 169/81
[2017-05-08] MEDS ORDERED: DARBEPOETIN ALFA 40 MCG/0.4 ML SYRINGE SQ SCH (17:00)
--- NOTE | 2017-05-08 19:56 | CONS ---
CONSULTATION DATE OF CONSULTATION: 05/08/2017. REASON FOR CONSULT: Renal failure. HISTORY OF PRESENT ILLNESS: Patient is an 81-year-old male with history of chronic kidney disease and NKF stage IV to V with baseline creatinine close to 4 mg/dL. The patient was admitted to the hospital with complaints of increasing shortness of breath and increased weight gain. He is currently maintained on 80 mg IV q.12 hours of Lasix. He states he is feeling better, although weight does not show a decrease. The patient has ALLERGY TO SULFA and ETHACRYNIC ACID as an outpatient. He has received Lasix during this hospitalization and has not had any complaints of itching or rash. The patient will be doing peritoneal dialysis down the road and he would like to wait another couple of months before initiating renal replacement therapy. He states his appetite is fair. He has no nausea, vomiting or abdominal pain. No diarrhea. 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 The CHF, coronary artery disease, hypertension, hyperlipidemia, macular degeneration, history of bladder cancer status post BCG, history of prostatic CA with history of radiation therapy. PAST SURGICAL HISTORY: Coronary artery bypass surgery. Pacemaker placement, coronary stent. SOCIAL HISTORY: Negative for smoking. Patient is a former smoker. No history of drug abuse or alcohol abuse. MEDICATIONS: Medications at home prior to admission include Lipitor, vitamin D3, Trovan, Flomax, Coreg, Imdur, Coumadin, iron. Also sodium bicarb. ALLERGIES: Include SULFA INCLUDING LASIX AND SULFONAMIDE ANTIBIOTICS, which causes rash and hives. REVIEW OF SYSTEMS: As per HPI. Other systems negative. PHYSICAL EXAMINATION: Patient is comfortable, awake. He is not in any acute distress. He states he is breathing much better. He is comfortable. Blood pressure is 167/77, heart rate 80 per minute. Patient is afebrile. Examination of the heart: S1, S2. Examination lungs: Bilateral breath sounds are heard. No crackles are heard. Abdomen is soft, nontender. Examination lower extremity shows no evidence of edema. JACKAROO exam is grossly intact. LABS: Reveal sodium of 143, potassium 4.3, BUN 68, serum creatinine 4.05, hemoglobin 8.6 g/dL. ASSESSMENT: 1. Chronic kidney disease and NKF stage IV to V with baseline creatinine about 3.8-4 mg/dL with plans for peritoneal dialysis down the road if the patient can hold off for another couple of months. 2. Congestive heart failure, acute on top of chronic, mainly systolic. 3. Cardiomyopathy, ejection fraction 20-25% and severely dilated left atrium. 4. Moderate pulmonary regurgitation. 5. Anemia of chronic disease. No active bleeding noted. The patient will be maintained on Aranesp if he is discharged. Otherwise, he will follow up as outpatient. 6. Metabolic acidosis, currently on sodium bicarb. 7. Hypertension, partly uncontrolled. Component of volume sensitive hypertension as well. PLAN: No need for renal replacement therapy at this time. It was brought to my attention that the ethacrynic acid is very expensive for the patient to afford and he tolerated the IV Lasix fairly well in the hospital. Therefore, the plan is to try and switch to sulfa containing loop diuretics like Lasix or Demadex as outpatient. He will get 1 dose of oral Demadex today prior to discharge and if he is able to tolerated. He can go home and continue with 20 mg daily on the Demadex. The patient will need close monitoring and close followup as outpatient. Regarding the anemia, we will give him one dose of Aranesp prior to discharge. Thank you for this consultation. We will continue to follow the patient with you during his hospitalization. MMODL / IJN: [id number] /
== END 2017-05-08 17:48 | disposition home or self-care (01) | DRG 291 ==
LOC: EC 08:50 → 6SEL 11:27
PROVIDERS: ADMIT Hospitalist; ATTEND Hospitalist
DX: I13.2 Hypertensive heart and chronic kidney disease with heart failure and with stage 5 chronic kidney disease, or end stage renal disease (principal); I50.23 Acute on chronic systolic (congestive) heart failure; E87.2 Acidosis; I48.1 Persistent atrial fibrillation; N18.5 Chronic kidney disease, stage 5; I25.5 Ischemic cardiomyopathy; I25.10 Atherosclerotic heart disease of native coronary artery without angina pectoris; D63.8 Anemia in other chronic diseases classified elsewhere; I37.1 Nonrheumatic pulmonary valve insufficiency; E78.5 Hyperlipidemia, unspecified; H35.30 Unspecified macular degeneration; I48.2 Chronic atrial fibrillation; Z79.01 Long term (current) use of anticoagulants; Z79.899 Other long term (current) drug therapy; Z82.0 Family history of epilepsy and other diseases of the nervous system; Z82.49 Family history of ischemic heart disease and other diseases of the circulatory system; Z85.46 Personal history of malignant neoplasm of prostate; Z85.51 Personal history of malignant neoplasm of bladder; Z87.891 Personal history of nicotine dependence; Z88.2 Allergy status to sulfonamides; Z92.3 Personal history of irradiation; Z95.0 Presence of cardiac pacemaker; Z95.1 Presence of aortocoronary bypass graft; Z95.5 Presence of coronary angioplasty implant and graft
CPT/HCPCS: 36415; 71046; 80048; 80053; 82550; 82553; 83880; 84484; 85025; 85610; 85730; 93005; 93306; 99285

== ENCOUNTER 2017-06-04 14:20 | Inpatient (IN) | payer MEDICARE, BC ==
[2017-06-04 15:33] LABS: Basophils % (A) 0 %; Eosinophils # (A) 0.1 k/uL (0-0.7); Eosinophils % (A) 1 %; HCT 34.2 % (39.0-53.0); HGB 10.9 gm/dL (13.0-17.5); Lymphocytes # (A) 0.5 k/uL (1.0-4.8); Lymphocytes % (A) 8 %; MCH 31.1 pg (25.0-35.0); MCV 97.4 fL (80.0-100.0); Mean Platelet Volume 8.3; Monocytes # (A) 0.5 k/uL (0-1.0); Monocytes % (A) 7 %; Neutrophils # (A) 5.2 k/uL (1.3-7.7); Neutrophils % (A) 81 %; Platelet Count 148 k/uL (150-450); RBC 3.51 m/uL (4.30-5.90); RDW 14.3 % (11.5-15.5); WBC 6.4 k/uL (3.8-10.6)
--- NOTE | 2017-06-04 15:37 | ED ---
SOB HPI - General Chief Complaint: Shortness of Breath Stated Complaint: sent by PCP Pneumonia Time Seen by Provider: 06/04/17 15:36 Source: patient Mode of arrival: wheelchair Limitations: no limitations - History of Present Illness Initial Comments: Patient sent to ER from primary care physician office for shortness of breath, cough. Patient states she's had gradually worsening cough for the past 5 days. Patient denies chest pain. Patient states she had a chest x-ray done at primary care physician's office showing pneumonia. Patient was admitted to the hospital last month for anemia. Denies fevers, nausea, vomiting, diarrhea, abdominal pain. Patient has a history of A. fib on Coumadin. MD Complaint: shortness of breath, cough - Related Data Home Medications Medication Instructions Recorded Confirmed Atorvastatin [Lipitor] 20 mg PO HS 02/08/16 06/04/17 Oxybutynin Chloride [Ditropan] 5 mg PO BID 02/08/16 06/04/17 Sodium Bicarbonate 650 mg PO QAM 02/08/16 06/04/17 Tamsulosin HCl [Flomax] 0.4 mg PO HS 02/08/16 06/04/17 Vit A/Vit C/Vit E/Zinc/Copper 1 cap PO BID 02/08/16 06/04/17 [ICAPS SOFTGEL] Nitroglycerin 1 tab SUBLINGUAL Q5M PRN 09/01/16 06/04/17 Warfarin [Coumadin] 5 mg PO MOTUWETHFR 09/01/16 06/04/17 Edecrin 50 mg PO QAM 05/07/17 06/04/17 Ferrous Sulfate [Iron (65 MG 325 mg PO HS 05/07/17 06/04/17 Elemental)] Ferrous Sulfate [Iron (65 MG 650 mg PO DAILY 05/07/17 06/04/17 Elemental)] Sodium Bicarbonate 325 mg PO HS 05/07/17 06/04/17 Carvedilol [Coreg] 25 mg PO BID 06/04/17 06/04/17 Cholecalciferol [Vitamin D3] 400 unit PO DAILY 06/04/17 06/04/17 Torsemide [Demadex] 20 mg PO BID 06/04/17 06/04/17 hydrALAZINE HCL [Apresoline] 50 mg PO BID 06/04/17 06/04/17 Previous Rx's Medication Instructions Recorded Isosorbide Mononitrate ER [Imdur] 60 mg PO QAM #60 tab.er.24h 04/06/16 Allergies Allergy/AdvReac Type Severity Reaction Status Date / Time furosemide [From Lasix] Allergy Rash/Hives Verified 06/04/17 15:50 Sulfa (Sulfonamide Allergy Rash/Hives Verified 06/04/17 15:50 Antibiotics) Review of Systems ROS Statement: Those systems with pertinent positive or pertinent negative responses have been documented in the HPI. ROS Other: All systems not noted in ROS Statement are negative. Constitutional: Denies: fever, chills, weakness Eyes: Denies: vision change ENT: Reports: congestion. Denies: ear pain, throat pain Respiratory: Reports: cough, dyspnea, wheezes. Denies: hemoptysis, stridor Cardiovascular: Reports: dyspnea on exertion. Denies: chest pain, palpitations , edema, syncope Endocrine: Reports: fatigue Gastrointestinal: Denies: abdominal pain, nausea, vomiting, diarrhea, constipation, hematemesis, melena, hematochezia Genitourinary: Denies: urgency, frequency Musculoskeletal: Denies: back pain Skin: Denies: rash, lesions, change in color, change in hair/nails Neurological: Denies: headache, weakness, numbness, confusion Past Medical History Past Medical History: Coronary Artery Disease (CAD), Cancer, Chest Pain / Angina , Heart Failure, Eye Disorder, Hyperlipidemia, Hypertension, Pneumonia, Renal Disease Additional Past Medical History / Comment(s): Chronic kidney failure which pt states is now stage V, ischemic cardiomyopathy, bladder cancer twice with BCG instillations, prostrate cancer with radiation, urinary incontinence, bilateral macular degeneration, bradycardia/pacemaker insertion. History of Any Multi-Drug Resistant Organisms: None Reported Past Surgical History: Appendectomy, Coronary Bypass/CABG, Heart Catheterization , Heart Catheterization With Stent, Pacemaker Additional Past Surgical History / Comment(s): 2 vessel cabg in 2006, Pacemaker 2014, STENTS 2006 and 2013, CYSTOSCOPIES, EYE INJECTIONS Q 2 MONTHS FOR MACULAR DEGENERATION. Past Anesthesia/Blood Transfusion Reactions: No Reported Reaction Date of Last Stent Placement:: 2013 Type of Cardiac Device: Permanent Pacemaker Device Placement Date:: 2014 Past Psychological History: No Psychological Hx Reported Smoking Status: Former smoker Past Alcohol Use History: None Reported Past Drug Use History: None Reported - Past Family History Mother Family Medical History: Coronary Artery Disease (CAD) Additional Family Medical History / Comment(s): alzheimers Father Family Medical History: Coronary Artery Disease (CAD) Additional Family Medical History / Comment(s): Father was an alcoholic and had "hardening of arteries" General Exam - General Exam Comments Initial Comments: Sitting up in bed, alert, conversing normally, calm, pleasant. Mildly ill appearing. Limitations: no limitations General appearance: alert, in no apparent distress Head exam: Present: atraumatic, normocephalic Eye exam: Present: normal appearance, PERRL, EOMI. Absent: scleral icterus, conjunctival injection ENT exam: Present: normal exam, normal oropharynx, mucous membranes moist Neck exam: Present: normal inspection, full ROM. Absent: meningismus Respiratory exam: Present: wheezes, other (Diffuse wheezing, congested cough). Absent: respiratory distress, rhonchi, stridor, accessory muscle use Cardiovascular Exam: Present: regular rate, normal rhythm GI/Abdominal exam: Present: soft. Absent: distended, tenderness, guarding, rebound, rigid Extremities exam: Present: other (No lower extremity edema appreciated) Neurological exam: Present: alert, oriented X3 Psychiatric exam: Present: normal affect, normal mood Skin exam: Present: warm, dry, intact, normal color. Absent: rash, cyanosis, diaphoretic, erythema Course Vital Signs 06/04/17 06/04/17 06/04/17 14:23 15:47 16:12 Temperature 98.5 F 98.8 F Pulse Rate 70 71 88 Respiratory 22 18 Rate Blood Pressure 166/92 170/86 O2 Sat by Pulse 94 L 97 Oximetry 06/04/17 16:23 Temperature Pulse Rate 88 Respiratory Rate Blood Pressure O2 Sat by Pulse Oximetry Medical Decision Making - Medical Decision Making Patient reportedly with pneumonia on chest x-ray, admission hospital last month , hospital acquired pneumonia antibiotics ordered. Renal function appears at baseline. Troponin 0.046, likely secondary to CKD. CP free. Hemoglobin appears at baseline Chest x-ray in ER shows bilateral effusions, no obvious pneumonia. BNP significantly elevated Given patient's significant shortness of breath, persistent wheezing, they be secondary to CHF exacerbation versus underlying pneumonia. Patient did reportedly have pneumonia visualized on palpation x-ray. Plan for observation for antibiotics and diuresis. Patient says Lasix ALLERGY, torsemide ordered Spoke with Dr. Carter, agrees with observation of this time. Patient updated with results and plan - Lab Data Result diagrams: 06/04/17 14:54 06/04/17 14:54 Lab Results 06/04/17 06/04/17 06/04/17 Range/Units 14:54 14:54 14:54 WBC 6.4 (3.8-10.6) k/uL RBC 3.51 L (4.30-5.90) m/uL Hgb 10.9 L (13.0-17.5) gm/dL Hct 34.2 L (39.0-53.0) % MCV 97.4 (80.0-100.0) fL MCH 31.1 (25.0-35.0) pg MCHC 32.0 (31.0-37.0) g/dL RDW 14.3 (11.5-15.5) % Plt Count 148 L (150-450) k/uL Neutrophils % 81 % Lymphocytes % 8 % Monocytes % 7 % Eosinophils % 1 % Basophils % 0 % Neutrophils # 5.2 (1.3-7.7) k/uL Lymphocytes # 0.5 L (1.0-4.8) k/uL Monocytes # 0.5 (0-1.0) k/uL Eosinophils # 0.1 (0-0.7) k/uL Basophils # 0.0 (0-0.2) k/uL PT (9.0-12.0) sec INR (<1.2) APTT (22.0-30.0) sec Sodium 147 H (137-145) mmol/L Potassium 5.1 (3.5-5.1) mmol/L Chloride 103 (98-107) mmol/L Carbon Dioxide 23 (22-30) mmol/L Anion Gap 21 mmol/L BUN 75 H (9-20) mg/dL Creatinine 4.80 H (0.66-1.25) mg/dL Est GFR (CKD-EPI)AfAm 12 (>60 ml/min/1.73 sqM) Est GFR (CKD-EPI)NonAf 10 (>60 ml/min/1.73 sqM) Glucose 99 (74-99) mg/dL Plasma Lactic Acid Kishore (0.7-2.0) mmol/L Calcium 9.6 (8.4-10.2) mg/dL Total Bilirubin 0.6 (0.2-1.3) mg/dL AST 21 (17-59) U/L ALT 34 (21-72) U/L Alkaline Phosphatase 79 (38-126) U/L Total Creatine Kinase 112 (55-170) U/L CK-MB (CK-2) 1.9 (0.0-2.4) ng/mL CK-MB (CK-2) Rel Index 1.7 Troponin I 0.046 H* (0.000-0.034) ng/mL NT-Pro-B Natriuret Pep pg/mL Total Protein 6.7 (6.3-8.2) g/dL Albumin 4.1 (3.5-5.0) g/dL Urine Color Urine Appearance (Clear) Urine pH (5.0-8.0) Ur Specific Pattison (1.001-1.035) Urine Protein (Negative) Urine Glucose (UA) (Negative) Urine Ketones (Negative) Urine Blood (Negative) Urine Nitrite (Negative) Urine Bilirubin (Negative) Urine Urobilinogen (<2.0) mg/dL Ur Leukocyte Esterase (Negative) Urine RBC (0-5) /hpf Urine WBC (0-5) /hpf Urine Mucus (None) /hpf Influenza Type A RNA (Not Detectd) Influenza Type B (PCR) (Not Detectd) Blood Type Blood Type Recheck Antibody Screen Spec Expiration Date 06/04/17 06/04/17 06/04/17 Range/Units 14:54 14:54 14:54 WBC (3.8-10.6) k/uL RBC (4.30-5.90) m/uL Hgb (13.0-17.5) gm/dL Hct (39.0-53.0) % MCV (80.0-100.0) fL MCH (25.0-35.0) pg MCHC (31.0-37.0) g/dL RDW (11.5-15.5) % Plt Count (150-450) k/uL Neutrophils % % Lymphocytes % % Monocytes % % Eosinophils % % Basophils % % Neutrophils # (1.3-7.7) k/uL Lymphocytes # (1.0-4.8) k/uL Monocytes # (0-1.0) k/uL Eosinophils # (0-0.7) k/uL Basophils # (0-0.2) k/uL PT 25.5 H (9.0-12.0) sec INR 2.8 H (<1.2) APTT 31.7 H (22.0-30.0) sec Sodium (137-145) mmol/L Potassium (3.5-5.1) mmol/L Chloride (98-107) mmol/L Carbon Dioxide (22-30) mmol/L Anion Gap mmol/L BUN (9-20) mg/dL Creatinine (0.66-1.25) mg/dL Est GFR (CKD-EPI)AfAm (>60 ml/min/1.73 sqM) Est GFR (CKD-EPI)NonAf (>60 ml/min/1.73 sqM) Glucose (74-99) mg/dL Plasma Lactic Acid Kishore 1.4 (0.7-2.0) mmol/L Calcium (8.4-10.2) mg/dL Total Bilirubin (0.2-1.3) mg/dL AST (17-59) U/L ALT (21-72) U/L Alkaline Phosphatase (38-126) U/L Total Creatine Kinase (55-170) U/L CK-MB (CK-2) (0.0-2.4) ng/mL CK-MB (CK-2) Rel Index Troponin I (0.000-0.034) ng/mL NT-Pro-B Natriuret Pep 77968 pg/mL Total Protein (6.3-8.2) g/dL Albumin (3.5-5.0) g/dL Urine Color Urine Appearance (Clear) Urine pH (5.0-8.0) Ur Specific Pattison (1.001-1.035) Urine Protein (Negative) Urine Glucose (UA) (Negative) Urine Ketones (Negative) Urine Blood (Negative) Urine Nitrite (Negative) Urine Bilirubin (Negative) Urine Urobilinogen (<2.0) mg/dL Ur Leukocyte Esterase (Negative) Urine RBC (0-5) /hpf Urine WBC (0-5) /hpf Urine Mucus (None) /hpf Influenza Type A RNA (Not Detectd) Influenza Type B (PCR) (Not Detectd) Blood Type Blood Type Recheck Antibody Screen Spec Expiration Date 06/04/17 06/04/1706/04/18 Range/Units 14:54 15:57 16:00 WBC (3.8-10.6) k/uL RBC (4.30-5.90) m/uL Hgb (13.0-17.5) gm/dL Hct (39.0-53.0) % MCV (80.0-100.0) fL MCH (25.0-35.0) pg MCHC (31.0-37.0) g/dL RDW (11.5-15.5) % Plt Count (150-450) k/uL Neutrophils % % Lymphocytes % % Monocytes % % Eosinophils % % Basophils % % Neutrophils # (1.3-7.7) k/uL Lymphocytes # (1.0-4.8) k/uL Monocytes # (0-1.0) k/uL Eosinophils # (0-0.7) k/uL Basophils # (0-0.2) k/uL PT (9.0-12.0) sec INR (<1.2) APTT (22.0-30.0) sec Sodium (137-145) mmol/L Potassium (3.5-5.1) mmol/L Chloride (98-107) mmol/L Carbon Dioxide (22-30) mmol/L Anion Gap mmol/L BUN (9-20) mg/dL Creatinine (0.66-1.25) mg/dL Est GFR (CKD-EPI)AfAm (>60 ml/min/1.73 sqM) Est GFR (CKD-EPI)NonAf (>60 ml/min/1.73 sqM) Glucose (74-99) mg/dL Plasma Lactic Acid Kishore (0.7-2.0) mmol/L Calcium (8.4-10.2) mg/dL Total Bilirubin (0.2-1.3) mg/dL AST (17-59) U/L ALT (21-72) U/L Alkaline Phosphatase (38-126) U/L Total Creatine Kinase (55-170) U/L CK-MB (CK-2) (0.0-2.4) ng/mL CK-MB (CK-2) Rel Index Troponin I (0.000-0.034) ng/mL NT-Pro-B Natriuret Pep pg/mL Total Protein (6.3-8.2) g/dL Albumin (3.5-5.0) g/dL Urine Color Yellow Urine Appearance Clear (Clear) Urine pH 5.5 (5.0-8.0) Ur Specific Pattison 1.013 (1.001-1.035) Urine Protein 2+ H (Negative) Urine Glucose (UA) Negative (Negative) Urine Ketones Negative (Negative) Urine Blood Negative (Negative) Urine Nitrite Negative (Negative) Urine Bilirubin Negative (Negative) Urine Urobilinogen <2.0 (<2.0) mg/dL Ur Leukocyte Esterase Negative (Negative) Urine RBC 1 (0-5) /hpf Urine WBC 1 (0-5) /hpf Urine Mucus Rare H (None) /hpf Influenza Type A RNA Not Detected (Not Detectd) Influenza Type B (PCR) Not Detected (Not Detectd) Blood Type A Positive Blood Type Recheck No Antibody Screen NEGATIVE Spec Expiration Date 06/07/2017 - 2357 Disposition Clinical Impression: SOB (shortness of breath), HCAP (healthcare-associated pneumonia), CHF exacerbation Disposition: ADMITTED IP TO THIS [facility] Condition: Good Is patient prescribed a controlled substance at discharge?: No Referrals: Wiliam Pope MD [Primary Care Provider] - 1-2 days
[2017-06-04 15:42] LABS: INR 2.8 (<1.2); Partial Thromboplastin Time 31.7 sec (22.0-30.0); Prothrombin Time 25.5 sec (9.0-12.0)
[2017-06-04] MEDS ORDERED: IPRATROPIUM-ALBUTEROL 3 ML NEB INHALATION STA (15:43)
[2017-06-04] MEDS ORDERED: VANCOMYCIN IV PER PHARMACY 1 EACH MISC MISCELLANE PRN (15:45)
[2017-06-04] MEDS ORDERED: CEFEPIME 1 GM in SODIUM CHLORIDE 0.9% 50 ML IVPB STA (15:45)
[2017-06-04 15:57] LABS: Albumin 4.1 g/dL (3.5-5.0); Calcium 9.6 mg/dL (8.4-10.2); Potassium 5.1 mmol/L (3.5-5.1); Total Bilirubin 0.6 mg/dL (0.2-1.3); Total Protein 6.7 g/dL (6.3-8.2)
[2017-06-04] MEDS ORDERED: VANCOMYCIN 1,500 MG in SODIUM CHLORIDE 0.9% 250 ML IVPB ONE (16:00)
--- NOTE | 2017-06-04 16:11 | XR ---
EXAMINATION TYPE: XR chest 2V DATE OF EXAM: 06/04/2017 COMPARISON: Chest x-ray May 07, 2017. HISTORY: Cough and congestion for 3 days. TECHNIQUE: Frontal and lateral views of the chest are obtained. FINDINGS: There is chronic parenchymal change without suspicious new focal air space opacity or pneu mothorax seen. Tiny bilateral pleural effusions remain present with blunting of posterior costophreni c angles this is improved from prior however. The cardiac silhouette size remains enlarged with dual lead pacemaker. Overlying sternal wires are redemonstrated. The osseous structures are intact. IMPRESSION: Cardiomegaly and chronic parenchymal changes with tiny bilateral pleural effusions improv ed from prior. No new suspicious focal infiltrate is present.
[2017-06-04 16:13] LABS: Creatine Kinase MB 1.9 ng/mL (0.0-2.4)
[2017-06-04 16:14] LABS: Troponin I 0.046 ng/mL (0.000-0.034)
[2017-06-04 16:34] LABS: Appearance,Urine Clear (Clear); Bilirubin,Urine Negative (Negative); Blood,Urine Negative (Negative); Color,Urine Yellow; Glucose,Urine (UA) Negative (Negative); Ketones,Urine Negative (Negative); Leukocyte Esterase,Urine Negative (Negative); Mucus,Urine Rare /hpf; Nitrite,Urine Negative (Negative); PH, Urine 5.5 (5.0-8.0); Protein,Urine 2+ (Negative); RBC,Urine 1 /hpf (0-5); Specific Gravity,Urine 1.013 (1.001-1.035); Urobilinogen,Urine <2.0 mg/dL (<2.0); WBC,Urine 1 /hpf (0-5)
[2017-06-04] MEDS ORDERED: IPRATROPIUM-ALBUTEROL 3 ML NEB INHALATION PRN (17:01)
[2017-06-04 20:21] VITALS: BMI 23.6
[2017-06-04] MEDS: TORSEMIDE 20 MG TAB PO SCH (20:21)
[2017-06-04] MEDS ORDERED: NITROGLYCERIN SL TABS 0.4 MG TAB SUBLINGUAL PRN (20:40)
[2017-06-04] MEDS ORDERED: WARFARIN 5 MG TAB PO SCH (21:00)
[2017-06-04] MEDS: OXYBUTYNIN CHLORIDE 5 MG TAB PO SCH (21:15)
[2017-06-04] MEDS: ATORVASTATIN 20 MG TAB PO SCH (21:15)
[2017-06-04] MEDS: CARVEDILOL 12.5 MG TAB PO SCH (21:15)
[2017-06-04] MEDS: hydrALAZINE HCL 50 MG TAB PO SCH (21:15)
[2017-06-04] MEDS: SODIUM BICARBONATE TAB 650 MG TAB PO SCH (21:16)
[2017-06-04] MEDS: TAMSULOSIN 0.4 MG CAP.ER.24H PO SCH (21:16)
[2017-06-04] MEDS ORDERED: NALOXONE 0.4 MG/ML 1 ML VIAL IV PRN (22:51)
[2017-06-04] MEDS ORDERED: ONDANSETRON 4 MG/2 ML VIAL IVP PRN (22:51)
[2017-06-04] MEDS ORDERED: ACETAMINOPHEN TAB 325 MG TAB PO PRN (22:51)
[2017-06-04] MEDS ORDERED: ALPRAZolam 0.25 MG TAB PO PRN (22:51)
[2017-06-04] MEDS ORDERED: CALCIUM CARBONATE 500 MG CHEWABLE PO PRN (22:51)
[2017-06-04] MEDS ORDERED: MAGNESIUM HYDROXIDE 2,400 MG/10 ML CUP PO PRN (22:51)
[2017-06-04] MEDS ORDERED: LACTULOSE 20 GM/30 ML CUP PO PRN (22:51)
[2017-06-04] MEDS ORDERED: MELATONIN 3 MG TABLET PO PRN (22:51)
--- NOTE | 2017-06-04 23:40 | HP ---
HISTORY AND PHYSICAL OF ADMISSION: June 04, 2017. PRESENTING COMPLAINT: Cough, short of breath. HISTORY OF PRESENTING COMPLAINT: A 81 -year-old patient of Dr. Pope whose chronic stable medical conditions include coronary artery disease, hypertension, chronic kidney disease stage 5, prostate cancer, permanent pacemaker and anemia, depression, known EF of 30%. The patient presents started off feeling cold, started off with a cold on Sunday that is 3 days ago, started becoming more short of breath, cough, congested in the chest, not able to bring up any phlegm, feeling some chills. Decreased appetite. Tired and run down. Denies any edema. The patient is given a dose of cefepime and vancomycin in the ER, feeling tired, run down. The patient's creatinine found to be 4.8. REVIEW OF SYSTEMS: Constitutional: Fever, chills, weak, tired. HEENT: Decreased hearing. Respiratory as above. Cardiovascular: No chest pain. Gastrointestinal none. Genitourinary none. Musculoskeletal some pain in joints. Dermatological none. Hematologic lymphatics none. Psychiatry a bit anxious. Neurological none. PAST MEDICAL HISTORY: Coronary artery disease, prior history of stent bypass, congestive heart failure, EF 30%, hyperlipidemia, hypertension, chronic kidney disease stage 5, bladder cancer twice, treated with BCG instillation, prostate cancer with radiation treatment, urinary incontinence, bilateral macular degeneration, and pacemaker. PAST SURGICAL HISTORY: Appendectomy, coronary bypass, cardiac cath with stent, 2 vessel bypass 2006, pacemaker in 2014, stents in 2006 and 2013, eye injections every 2 months for macular degeneration, permanent pacemaker. SOCIAL HISTORY: The patient is , but his lives at [facility] because of dementia. The patient has smoked for a good 46 years. Stopped in 2005. Alcohol none. FAMILY HISTORY: Coronary artery disease. Alzheimer's. HOME MEDICATIONS: 1. Coumadin 5 mg on Sunday, Sunday, Sunday, Sunday, Sunday and 2.5 on Tuesdays and . 2. Coreg 50 mg p.o. b.i.d. 3. Selenium 200 mcg p.o. daily. 4. Aspirin 81 mg p.o. daily. 5. Iron 650 mg p.o. daily. 6. 50 mg p.o. daily. 7. Flomax 0.4 mg p.o. q.h.s. 8. Sodium bicarb 650 mg in the morning, 325 at night. 9. Ditropan 5 mg b.i.d. 10.Imdur ER 60 mg p.o. daily. 11.Iron 325 p.o. q.h.s. 12.Hydralazine 50 mg b.i.d. 13.Demadex 20 mg b.i.d. 14.Vitamin D3 400 units p.o. daily. 15.I-caps 1 capsule p.o. b.i.d. 16.Lipitor 20 mg q.h.s. ALLERGIES: TO LASIX AND SULFA. EXAMINATION: Rectal temperature 101.5, pulse 80, respiratory 18, blood pressure 150/83, pulse ox 98% on room air. General appearance: Average build, lying in bed, tired-appearing. Eyes pupils equal. Conjunctivae normal. HEENT: External appearance of nose and ears normal. Oral cavity normal. Neck is decreased hearing. Neck JVD not raised. Mass not palpable. Respiratory effort increased. Expiratory wheezing. Some coarse crackles anteriorly. Cardiovascular 1st and 2nd sounds normal. No edema. ABDOMEN: Soft, nontender. Liver and spleen not palpable. Lymphatics: No lymph node palpable. PSYCHIATRY x3. Mood and affect normal. Neurological: Pupils equal. Cranial nerves grossly intact. Power and sensation grossly intact. INVESTIGATIONS: White count 6.4, hemoglobin 10.9, INR 2.8, potassium 5.1, BUN 35, creatinine 4.80, troponin 0.046. ProBNP 85350. Influenza A and B negative. Chest x-ray shows scattered infiltrates. ASSESSMENT: 1. Acute pneumonia, could be pneumonitis. Cannot rule out bacterial, need to consider bacterial cause. 2. Coronary artery disease, prior history of stent and bypass. 3. Essential hypertension. 4. Chronic kidney disease stage 5, probably from nephrosclerosis. 5. History of prostate cancer treated with radiation treatment currently with urinary incontinence. 6. Permanent pacemaker. 7. Anemia of chronic disease secondary to chronic kidney disease. 8. Depression/anxiety not otherwise specified. 9. Ischemic cardiomyopathy, last ejection fraction 30%. 10.Hyperlipidemia. 11.History of bladder cancer treated with BCG x2. 12.PATIENT'S CODE STATUS IS DO NOT RESUSCITATE. PLAN: We will put the patient on IV ceftriaxone. Home medications are resumed. Patient's troponin leak is likely from hemodynamic instability. We will get opinion from cardiology and Nephrology. Will DC the vancomycin in view of the patient's renal failure and given that the patient has a white count that is normal we will just go with ceftriaxone for the current time. Care was discussed with the patient. Questions were answered. Overall prognosis is guarded. copy Dr. Pope. MMPRETTY / ERICN: [id number] /
[2017-06-04] MEDS: IPRATROPIUM-ALBUTEROL 3 ML NEB INHALATION SCH (23:49)
[2017-06-05] MEDS: guaiFENesin 600 MG TABLET.ER PO SCH ×3 (00:08→20:36)
[2017-06-05 06:11] LABS: Basophils % (A) 0 %; Eosinophils % (A) 0 %; HCT 29.9 % (39.0-53.0); Lymphocytes # (A) 0.5 k/uL (1.0-4.8); Lymphocytes % (A) 11 %; MCH 30.4 pg (25.0-35.0); MCHC 31.4 g/dL (31.0-37.0); Mean Platelet Volume 8.5; Monocytes # (A) 0.5 k/uL (0-1.0); Monocytes % (A) 12 %; Neutrophils # (A) 3.4 k/uL (1.3-7.7); Neutrophils % (A) 74 %; Platelet Count 117 k/uL (150-450); RBC 3.08 m/uL (4.30-5.90); RDW 14.4 % (11.5-15.5); WBC 4.5 k/uL (3.8-10.6)
[2017-06-05 06:19] LABS: HGB 9.4 gm/dL (13.0-17.5)
[2017-06-05] MEDS: CARVEDILOL 12.5 MG TAB PO SCH ×2 (06:29→17:47)
[2017-06-05 06:30] LABS: Calcium 8.8 mg/dL (8.4-10.2); Potassium 4.8 mmol/L (3.5-5.1)
[2017-06-05] MEDS: IPRATROPIUM-ALBUTEROL 3 ML NEB INHALATION SCH ×5 (08:04→20:54)
[2017-06-05] MEDS: cefTRIAXone IN SWFI 1,000 MG/10 ML SYRINGE IVP SCH (08:27)
[2017-06-05] MEDS: ISOSORBIDE MONONITRATE ER 60 MG TAB.ER.24H PO SCH (08:27)
[2017-06-05] MEDS: ASPIRIN 81 MG PO SCH (08:27)
[2017-06-05] MEDS: SODIUM BICARBONATE TAB 650 MG TAB PO SCH ×2 (08:27→20:37)
[2017-06-05] MEDS: FERROUS SULFATE 325 MG TAB PO SCH (08:27)
[2017-06-05] MEDS: OXYBUTYNIN CHLORIDE 5 MG TAB PO SCH ×2 (08:27→20:37)
[2017-06-05] MEDS: TORSEMIDE 20 MG TAB PO SCH ×2 (08:27→17:46)
[2017-06-05] MEDS: hydrALAZINE HCL 50 MG TAB PO SCH ×2 (08:27→20:36)
[2017-06-05] MEDS ORDERED: VANCOMYCIN 1,500 MG in SODIUM CHLORIDE 0.9% 250 ML IVPB ONE (12:00)
--- NOTE | 2017-06-05 12:33 | P.PN ---
Progress Note - Text This is an addendum to the dictated cardiology consultation. The patient has a known history of chronic kidney disease, coronary artery bypass grafting, her main pacemaker implantation, chronic atrial fibrillation who presents with symptoms of progressive dyspnea, cough of yellowish sputum. He had no chest discomfort, peripheral edema, dizziness or palpitations. He's feeling much better at the time of my evaluation. He has a known history of cardiomyopathy. On presentation his troponin were minimally elevated most likely secondary to his chronic kidney disease and his NT proBNP was elevated as well but it was in the same range in the past and most likely secondary to his chronic kidney disease. The patient has no evidence to suggest acute worsening of his systolic heart failure at this time. Physical examination shows scattered rhonchi and wheezes, he has no evidence of rales or peripheral edema. His presentation is consistent with an infectious lung process with no clear evidence to suggest congestive heart failure exacerbation or acute coronary syndrome. We will continue on the present medical regimen. Thank you for this consult we will follow with you.
--- NOTE | 2017-06-05 15:25 | CDI ---
Last Revision, January 2017 Documentation Clarification Form Date: 06/05/2017 3:18:00 PM From: Sarah Lay RN, CCDS Admit Date: 06/04/2017 4:57:00 PM Patient Name: David Montana Visit Number: [id number] ATTENTION: The Clinical Documentation Specialists (CDI) and [facility] Coding Staff appreciate your assistance in clarifying documentation. Please respond to the clarification below the line at the bottom and electronically sign. The CDI & [facility] Coding staff will review the response and follow-up if needed. Please note: Queries are made part of the Legal Health Record. If you have any questions, please contact the author of this message via ITS. Dr. Esperanza Flores History/Risk Factors: CAD, HTN, CKD Stage 5, PPM, Anemia Clinical Indicators: 06/05 Cardiology: The patient has no evidence to suggest acute worsening of his systolic heart failure at this time. VS/Pulse OX: Temp 98.5, Hr 70, RR 22, B/P 166/92, Spo2 94% ra BNP: 49,700 05/07 Echocardiogram Results: 20-25%, LA is severely dilated Chest X Ray: cardiomegly and chronic parenchymal changes with tiny bilateral pleural effusions. Treatment: Demadex 20 mg PO BID In your professional opinion, can you please clarify the acuity of CHF if known? Systolic Heart Failure: Chronic Acute on Chronic Unable to Determine Other, please specify Please continue to document in your progress notes and discharge summary in order to capture severity of illness and risk of mortality. Include clinical findings that support your diagnosis. MTDD
--- NOTE | 2017-06-05 15:50 | P.CRDCN ---
History of Present Illness Consult date: 06/05/17 Requesting physician: Rock Carter Consult reason: congestive heart failure Chief complaint: Shortness of breath, productive cough, chills History of present illness: This pleasant 81-year-old gentleman who follows with Dr. Bailee Murphy. He is known history of coronary artery disease with prior bypass surgery, prior multivessel angioplasty, paroxsysmal atrial fibrillation chronic renal failure stage IV, hypertension, hyperlipidemia, prior pacemaker implantation, history of bladder and prostate cancer, presents to the hospital on this occasion with symptoms of shortness of breath, productive cough and chills. According to the patient, over the past 4-5 days he has been having a persistent cough and becoming more weak. He has been experiencing chills at home as well. He went to see his primary care doctor yesterday who performed a chest x-ray, chest x-ray revealed pneumonia, and patient was directed to be admitted to the hospital for further treatment. He was initiated on IV antibiotics, states that he is feeling overall significantly better today. Continues to be mildly weak, continues to have a persistent cough. Echocardiogram with Doppler study was performed in April which revealed an ejection fraction of 20-25%. Moderate MR. Chest x-ray on admission here revealed cardiomegaly and chronic parenchymal changes with tiny bilateral pleural effusions, improved from prior. No new suspicious focal infiltrate present. EKG shows atrial sensed ventricular paced rhythm. Blood pressure 170/ 80 heart rate in the 70s, 97% on room air. White blood cell count 4.5, hemoglobin 9.4, sodium 141, potassium 4.8, BUN 77, creatinine 4.7. Troponin 0.046. BNP level 49,700. Upon review of prior BNP levels, back to 2016, it appears that the patient's normal BNP runs in the range of 24-50,000. This is likely secondary to the patient's cardiomyopathy, and end-stage renal failure. Patient was seen and examined today, he states that he feels considerably better today, after being initiated on IV antibiotics. He continues to be on oral diuretics at this time. Past Medical History Past Medical History: Coronary Artery Disease (CAD), Cancer, Chest Pain / Angina , Heart Failure, Eye Disorder, Hyperlipidemia, Hypertension, Pneumonia, Renal Disease Additional Past Medical History / Comment(s): Chronic kidney failure which pt states is now stage V, ischemic cardiomyopathy, bladder cancer twice with BCG instillations, prostrate cancer with radiation, urinary incontinence, bilateral macular degeneration, bradycardia/pacemaker insertion. History of Any Multi-Drug Resistant Organisms: None Reported Past Surgical History: Appendectomy, Coronary Bypass/CABG, Heart Catheterization , Heart Catheterization With Stent, Pacemaker Additional Past Surgical History / Comment(s): 2 vessel cabg in 2006, Pacemaker 2014, STENTS 2006 and 2013, CYSTOSCOPIES, EYE INJECTIONS Q 2 MONTHS FOR MACULAR DEGENERATION. Past Anesthesia/Blood Transfusion Reactions: No Reported Reaction Date of Last Stent Placement:: 2013 Type of Cardiac Device: Permanent Pacemaker Device Placement Date:: 2014 Past Psychological History: No Psychological Hx Reported Additional Psychological History / Comment(s): PT RESIDES AT home AND HIS SPOUSE WHO HAS DEMENTIA RESIDES AT [facility] DEMENTIA [facility] [email or web address] PT HAS A DOG. HE IS INDEPENDENT. Smoking Status: Former smoker Past Alcohol Use History: None Reported Additional Past Alcohol Use History / Comment(s): Pt started smoking in 1958 and quit in 2005. Past Drug Use History: None Reported - Past Family History Mother Family Medical History: Coronary Artery Disease (CAD) Additional Family Medical History / Comment(s): alzheimers Father Family Medical History: Coronary Artery Disease (CAD) Additional Family Medical History / Comment(s): Father was an alcoholic and had "hardening of arteries" Medications and Allergies Home Medications Medication Instructions Recorded Confirmed Type Atorvastatin [Lipitor] 20 mg PO HS 02/08/16 06/04/17 History Oxybutynin Chloride [Ditropan] 5 mg PO BID 02/08/16 06/04/17 History Sodium Bicarbonate 650 mg PO QAM 02/08/16 06/04/17 History Tamsulosin HCl [Flomax] 0.4 mg PO HS 02/08/16 06/04/17 History Vit A/Vit C/Vit E/Zinc/Copper 1 cap PO BID 02/08/16 06/04/17 History [ICAPS SOFTGEL] Isosorbide Mononitrate ER [Imdur] 60 mg PO QAM #60 tab.er.24h 04/06/16 06/04/17 Rx Nitroglycerin 1 tab SUBLINGUAL Q5M PRN 09/01/16 06/04/17 History Warfarin [Coumadin] 5 mg PO SUMOWEFRSA 09/01/16 06/04/17 History Edecrin 50 mg PO QAM 05/07/17 06/04/17 History Ferrous Sulfate [Iron (65 MG 325 mg PO HS 05/07/17 06/04/17 History Elemental)] Ferrous Sulfate [Iron (65 MG 650 mg PO DAILY 05/07/17 06/04/17 History Elemental)] Sodium Bicarbonate 325 mg PO HS 05/07/17 06/04/17 History Aspirin [Adult Low Dose Aspirin EC] 81 mg PO DAILY 06/04/17 06/04/17 History Carvedilol [Coreg] 50 mg PO BID 06/04/17 06/04/17 History Cholecalciferol [Vitamin D3] 400 unit PO DAILY 06/04/17 06/04/17 History Selenium 200 mcg PO DAILY 06/04/17 06/04/17 History Torsemide [Demadex] 20 mg PO BID 06/04/17 06/04/17 History Warfarin [Coumadin] 2.5 mg PO TUTH 06/04/17 06/04/17 History hydrALAZINE HCL [Apresoline] 50 mg PO BID 06/04/17 06/04/17 History Allergies Allergy/AdvReac Type Severity Reaction Status Date / Time furosemide [From Lasix] Allergy Rash/Hives Verified 06/04/17 15:50 Sulfa (Sulfonamide Allergy Rash/Hives Verified 06/04/17 15:50 Antibiotics) Physical Exam Vitals: Vital Signs Temp Pulse Pulse Resp BP BP Pulse Ox 06/05/17 12:01 76 06/05/17 11:53 72 06/05/17 08:16 72 06/05/17 08:06 68 94 L 06/05/17 08:00 97.3 F L 60 18 143/73 98 06/05/17 04:00 98.6 F 60 18 138/70 97 06/05/17 00:00 99.2 F 64 18 146/65 97 06/04/17 21:55 101.5 F H 06/04/17 20:00 97.5 F L 84 18 154/83 95 06/04/17 17:31 98.7 F 86 18 140/78 98 06/04/17 16:23 88 06/04/17 16:12 88 06/04/17 15:47 98.8 F 71 18 170/86 97 06/04/17 14:23 98.5 F 70 22 166/92 94 L Intake and Output 06/04/17 06/05/17 06/05/17 22:59 06:59 14:59 Intake Total 10 240 Output Total 400 Balance -390 240 Intake: IV 10 .9 10 Oral 240 Output: Urine 400 Other: Voiding Method Urinal Urinal Weight 72.575 kg 71.4 kg PHYSICAL EXAMINATION: HEENT: Head is atraumatic, normocephalic. Pupils equal, round. Neck is supple. There is no elevated jugular venous pressure. HEART EXAMINATION: Heart S1 and S2 systolic murmur is heard CHEST EXAMINATION: Lungs reveal scattered coarse rhonchi throughout. ABDOMEN: Soft, nontender. Bowel sounds are heard. No organomegaly noted. EXTREMITIES: 2+ peripheral pulses with no evidence of peripheral edema and no calf tenderness noted. NEUROLOGIC patient is awake, alert and oriented -3. . Results 06/05/17 05:38 06/05/17 05:38 Cardiac Enzymes 06/04/17 06/04/17 Range/Units 14:54 14:54 AST 21 (17-59) U/L CK-MB (CK-2) 1.9 (0.0-2.4) ng/mL Troponin I 0.046 H* (0.000-0.034) ng/mL Coagulation 06/04/17 Range/Units 14:54 PT 25.5 H (9.0-12.0) sec APTT 31.7 H (22.0-30.0) sec CBC 06/04/17 06/05/17 Range/Units 14:54 05:38 WBC 6.4 4.5 (3.8-10.6) k/uL RBC 3.51 L 3.08 L (4.30-5.90) m/uL Hgb 10.9 L 9.4 L D (13.0-17.5) gm/dL Hct 34.2 L 29.9 L (39.0-53.0) % Plt Count 148 L 117 L (150-450) k/uL Comprehensive Metabolic Panel 06/04/17 06/05/17 Range/Units 14:54 05:38 Sodium 147 H 141 (137-145) mmol/L Potassium 5.1 4.8 (3.5-5.1) mmol/L Chloride 103 101 (98-107) mmol/L Carbon Dioxide 23 26 (22-30) mmol/L BUN 75 H 77 H (9-20) mg/dL Creatinine 4.80 H 4.70 H (0.66-1.25) mg/dL Glucose 99 92 (74-99) mg/dL Calcium 9.6 8.8 (8.4-10.2) mg/dL AST 21 (17-59) U/L ALT 34 (21-72) U/L Alkaline Phosphatase 79 (38-126) U/L Total Protein 6.7 (6.3-8.2) g/dL Albumin 4.1 (3.5-5.0) g/dL Current Medications Generic Name Dose Route Start Last Admin Trade Name Freq PRN Reason Stop Dose Admin Acetaminophen 650 mg 06/04/17 22:51 06/05/17 00:07 Tylenol Tab PO 650 mg Q6HR PRN Administration Mild Pain or Fever > 100.5 Albuterol/Ipratropium 3 ml 06/04/17 17:01 Duoneb 0.5 Mg-3 Mg/3 Ml Soln INHALATION ONCE PRN Wheezing Albuterol/Ipratropium 3 ml 06/04/17 22:56 06/05/17 11:54 Duoneb 0.5 Mg-3 Mg/3 Ml Soln INHALATION 3 ml RT-QID GERM[facility]N Administration Alprazolam 0.25 mg 06/04/17 22:51 Xanax PO Q6HR PRN Anxiety Aspirin 81 mg 06/05/17 09:00 06/05/17 08:27 Aspirin PO 81 mg DAILY G[facility] Administration Atorvastatin Calcium 20 mg 06/04/17 21:00 06/04/17 21:15 Lipitor PO 20 mg HS [facility] Administration Calcium Carbonate/Glycine 1,000 mg 06/04/17 22:51 Tums PO Q4HR PRN Dyspepsia Carvedilol 50 mg 06/04/17 21:00 06/05/17 06:29 Coreg PO 50 mg AC-BID [facility] Administration Ceftriaxone Sodium 1,000 mg 06/05/17 09:00 06/05/17 08:27 Rocephin IVP 1,000 mg Q24HR [facility] Administration Ferrous Sulfate 325 mg 06/05/17 21:00 Feosol PO HS [facility] Ferrous Sulfate 650 mg 06/05/17 09:00 06/05/17 08:27 Feosol PO 650 mg DAILY [facility] Administration Guaifenesin 1,200 mg 06/04/17 23:00 06/05/17 08:27 Mucinex PO 1,200 mg Q12HR [facility] Administration Hydralazine HCl 50 mg 06/04/17 21:00 06/05/17 08:27 Apresoline PO 50 mg BID [facility] Administration Isosorbide Mononitrate 60 mg 06/05/17 09:00 06/05/17 08:27 Imdur PO 60 mg QAM [facility] Administration Lactulose 20 gm 06/04/17 22:51 Cephulac PO DAILY PRN Constipation Magnesium Hydroxide 2,400 mg 06/04/17 22:51 Milk Of Magnesia PO DAILY PRN Constipation Melatonin 3 mg 06/04/17 22:51 Melatonin PO HS PRN Insomnia Naloxone HCl 0.2 mg 06/04/17 22:51 Narcan IV Q2M PRN Opioid Reversal Nitroglycerin 0.4 mg 06/04/17 20:40 Nitrostat SUBLINGUAL Q5M PRN Angina Ondansetron HCl 4 mg 06/04/17 22:51 Zofran IVP Q8HR PRN Nausea And Vomiting Oxybutynin Chloride 5 mg 06/04/17 21:00 06/05/17 08:27 Ditropan PO 5 mg BID [facility] Administration Sodium Bicarbonate 325 mg 06/04/17 21:00 06/04/17 21:16 Sodium Bicarbonate Tab PO 325 mg HS [facility] Administration Sodium Bicarbonate 650 mg 06/05/17 09:00 06/05/17 08:27 Sodium Bicarbonate Tab PO 650 mg QAM [facility] Administration Tamsulosin HCl 0.4 mg 06/04/17 21:00 06/04/17 21:16 Flomax PO 0.4 mg HS [facility] Administration Torsemide 20 mg 06/04/17 18:00 06/05/17 08:27 Demadex PO 20 mg 0900,1700 [facility] Administration Warfarin Sodium 2.5 mg 06/05/17 18:00 Coumadin PO TUTH [facility] Warfarin Sodium 5 mg 06/04/17 21:00 06/04/17 21:16 Coumadin PO 5 mg [id number] [facility] Administration Intake and Output 06/04/17 06/05/17 06/05/17 22:59 06:59 14:59 Intake Total 10 240 Output Total 400 Balance -390 240 Intake: IV 10 .9 10 Oral 240 Output: Urine 400 Other: Voiding Method Urinal Urinal Weight 72.575 kg 71.4 kg 06/05/17 05:38 06/05/17 05:38 EKG Interpretations (text) EKG shows an atrial sensed V paced rhythm Assessment and Plan Plan: Assessment and plan #1 symptoms of progressive shortness of breath with associated cough up productive sputum and fever. Suggesting a possible pneumonia. #2 chronic kidney disease stage IV #3 known history of coronary artery disease with prior bypass surgery and multiple PCI's #4 prior pacemaker implantation # 5 ischemic cardiomyopathy #6 chronic persistent atrial fibrillation #7 hypertension #8 hyperlipidemia Plan Cardiology's perspective, we'll recommend to continue patient on his current medications. Symptoms and clinical findings consistent with infectious lung process, no evidence to suggest congestive heart failure. Patient has a chronically elevated BNP level secondary to his cardiomyopathy and renal failure. Troponin abnormality likely secondary to renal failure as well. We will continue to follow. DNP note has been reviewed, I agree with a documented findings and plan of care. Patient was seen and examined.
--- NOTE | 2017-06-05 16:28 | P.NPCON ---
History of Present Illness - Reason for Consult chronic renal failure - History of Present Illness Reason for consultation: Chronic kidney disease History of present illness: Patient is a 81-year-old male seen in renal consultation for chronic kidney disease. Patient has chronic kidney disease stage V likely secondary to nephrosclerosis with baseline creatinine near 4.5. Creatinine today is 4.7. Patient has attended dialysis education and prefers to do peritoneal dialysis. He is totally against doing in center hemodialysis. He has been advised to get a PD catheter placed but has been refusing to do so at this time. He presented to the hospital with generalized weakness and dyspnea. Patient states he started having a productive cough with yellow sputum along with fever and chills on Sunday which progressively got worse over the weekend and he decided to come to the hospital last night. He is currently being treated for pneumonia. No vomiting or diarrhea. Denies chest pain. Denies use of NSAIDs. Hemodynamically stable. No hematuria or dysuria. Patient does have history of systolic CHF with ejection fraction of 30%. He does a history of proteinuria but did not undergo a kidney biopsy due to small size kidneys and severely impaired GFR. Vital signs are stable. General: The patient appeared well nourished and normally developed. HEENT: Head exam is unremarkable. Neck is without jugular venous distension. LUNGS: Lungs are clear to auscultation and percussion. Breath sounds decreased. HEART: Rate and Rhythm are regular. First and second heart sounds normal. No murmurs, rubs or gallops. ABDOMEN: Abdominal exam reveals normal bowel sounds. Non-tender and non- distended. No evidence of peritonitis. EXTREMITITES: No clubbing, cyanosis, or edema. Past Medical History Past Medical History: Coronary Artery Disease (CAD), Cancer, Chest Pain / Angina , Heart Failure, Eye Disorder, Hyperlipidemia, Hypertension, Pneumonia, Renal Disease Additional Past Medical History / Comment(s): Chronic kidney failure which pt states is now stage V, ischemic cardiomyopathy, bladder cancer twice with BCG instillations, prostrate cancer with radiation, urinary incontinence, bilateral macular degeneration, bradycardia/pacemaker insertion. History of Any Multi-Drug Resistant Organisms: None Reported Past Surgical History: Appendectomy, Coronary Bypass/CABG, Heart Catheterization , Heart Catheterization With Stent, Pacemaker Additional Past Surgical History / Comment(s): 2 vessel cabg in 2006, Pacemaker 2014, STENTS 2006 and 2013, CYSTOSCOPIES, EYE INJECTIONS Q 2 MONTHS FOR MACULAR DEGENERATION. Past Anesthesia/Blood Transfusion Reactions: No Reported Reaction Date of Last Stent Placement:: 2013 Type of Cardiac Device: Permanent Pacemaker Device Placement Date:: 2014 Past Psychological History: No Psychological Hx Reported Additional Psychological History / Comment(s): PT RESIDES AT home AND HIS SPOUSE WHO HAS DEMENTIA RESIDES AT [facility]. PT HAS A DOG. HE IS INDEPENDENT. Smoking Status: Former smoker Past Alcohol Use History: None Reported Additional Past Alcohol Use History / Comment(s): Pt started smoking in 7 and quit in 2005. Past Drug Use History: None Reported - Past Family History Mother Family Medical History: Coronary Artery Disease (CAD) Additional Family Medical History / Comment(s): alzheimers Father Family Medical History: Coronary Artery Disease (CAD) Additional Family Medical History / Comment(s): Father was an alcoholic and had "hardening of arteries" Medications and Allergies Home Medications Medication Instructions Recorded Confirmed Type Atorvastatin [Lipitor] 20 mg PO HS 02/08/16 06/04/17 History Oxybutynin Chloride [Ditropan] 5 mg PO BID 02/08/16 06/04/17 History Sodium Bicarbonate 650 mg PO QAM 02/08/16 06/04/17 History Tamsulosin HCl [Flomax] 0.4 mg PO HS 02/08/16 06/04/17 History Vit A/Vit C/Vit E/Zinc/Copper 1 cap PO BID 02/08/16 06/04/17 History [ICAPS SOFTGEL] Isosorbide Mononitrate ER [Imdur] 60 mg PO QAM #60 tab.er.24h 04/06/16 06/04/17 Rx Nitroglycerin 1 tab SUBLINGUAL Q5M PRN 09/01/16 06/04/17 History Warfarin [Coumadin] 5 mg PO SUMOWEFRSA 09/01/16 06/04/17 History Edecrin 50 mg PO QAM 05/07/17 06/04/17 History Ferrous Sulfate [Iron (65 MG 325 mg PO HS 05/07/17 06/04/17 History Elemental)] Ferrous Sulfate [Iron (65 MG 650 mg PO DAILY 05/07/17 06/04/17 History Elemental)] Sodium Bicarbonate 325 mg PO HS 05/07/17 06/04/17 History Aspirin [Adult Low Dose Aspirin EC] 81 mg PO DAILY 06/04/17 06/04/17 History Carvedilol [Coreg] 50 mg PO BID 06/04/17 06/04/17 History Cholecalciferol [Vitamin D3] 400 unit PO DAILY 06/04/17 06/04/17 History Selenium 200 mcg PO DAILY 06/04/17 06/04/17 History Torsemide [Demadex] 20 mg PO BID 06/04/17 06/04/17 History Warfarin [Coumadin] 2.5 mg PO TUTH 06/04/17 06/04/17 History hydrALAZINE HCL [Apresoline] 50 mg PO BID 06/04/17 06/04/17 History Allergies Allergy/AdvReac Type Severity Reaction Status Date / Time furosemide [From Lasix] Allergy Rash/Hives Verified 06/04/17 15:50 Sulfa (Sulfonamide Allergy Rash/Hives Verified 06/04/17 15:50 Antibiotics) Physical Exam Vitals: Vital Signs Temp Pulse Pulse Resp BP BP Pulse Ox 06/05/17 16:08 68 06/05/17 15:54 64 06/05/17 12:01 76 06/05/17 12:00 97.7 F 60 18 135/74 93 L 06/05/17 11:53 72 06/05/17 08:16 72 06/05/17 08:06 68 94 L 06/05/17 08:00 97.3 F L 60 18 143/73 98 06/05/17 04:00 98.6 F 60 18 138/70 97 06/05/17 00:00 99.2 F 64 18 146/65 97 06/04/17 21:55 101.5 F H 06/04/17 20:00 97.5 F L 84 18 154/83 95 06/04/17 17:31 98.7 F 86 18 140/78 98 06/04/17 16:23 88 Intake and Output 06/05/17 06/05/17 06/05/17 06:59 14:59 22:59 Intake Total 10 440 Output Total 400 450 Balance -390 -10 Intake: IV 10 .9 10 Oral 440 Output: Urine 400 450 Other: Voiding Method Urinal Weight 71.4 kg Results - Lab Results Most recent lab results Calcium 8.8 mg/dL (8.4-10.2) 06/05/17 05:38 06/05/17 05:38 06/05/17 05:38 Assessment and Plan Plan: Assessment: #1. Chronic kidney disease stage V at baseline creatinine near 4.5. Etiology is likely nephrosclerosis. However there is concern for underlying GN as he does have proteinuria. He is noted to have small sized kidneys with severely depressed GFR and therefore did not undergo a kidney biopsy. #2. Dyspnea related to upper respiratory infection. Questionable pneumonia. Maintain on antibiotics. #3. Hypertension with chronic kidney disease. Controlled. #4. Systolic CHF with ejection fraction of 30%. Currently compensated. #5. Anemia of chronic kidney disease. Rule out iron deficiency. Plan: Check iron studies. Avoid nephrotoxic agents and hypotensive episodes. Patient prefers to do peritoneal dialysis down the road. No urgent need for renal replacement therapy at this time. Continue torsemide 20 midodrine grams twice daily. Thank you for the consultation. I will continue to follow the patient with you during his hospital stay.
[2017-06-05] MEDS ORDERED: WARFARIN 2.5 MG TAB PO SCH (18:00)
--- NOTE | 2017-06-05 18:59 | PN ---
PROGRESS NOTE DATE OF SERVICE: 06/05/17. PRESENTING COMPLAINT: Short of breath, cough. INTERVAL HISTORY: This patient admitted with pneumonia/pneumonitis. Feeling better. Has got a chronic kidney stage V. Did eat some, sitting up in a chair. The patient's son at the bedside. REVIEW OF SYSTEMS: Done for constitutional, cardiovascular, GI, pulmonary; relevant findings as above. CURRENT MEDICATIONS: Reviewed that include DuoNeb and IV ceftriaxone. PHYSICAL EXAMINATION: Afebrile, pulse 60, respiratory 18, blood pressure 135/74, pulse ox 93% on 2 L. GENERAL APPEARANCE: Sitting up on the bed, more perky. EYES: Pupils equal, conjunctivae normal. HEENT: External appearance of nose and ears normal. Oral cavity normal. NECK: JVD not raised. Mass not palpable. RESPIRATORY: Effort increased. Lungs, decreased wheezing, crackles improved. CARDIOVASCULAR: First and second sounds normal. No edema. ABDOMEN: Soft, nontender. Liver and spleen not palpable. PSYCHIATRY: Alert and oriented x3. Mood and affect normal. INVESTIGATIONS: White count 4.5, hemoglobin 9.4, potassium 4.8. BUN 37, creatinine 4.70. ASSESSMENT: 1. Acute pneumonia, could be pneumonitis. Cannot rule out a gram-negative component with some clinical improvement. 2. Coronary artery disease with prior history of stent and bypass. 3. Essential hypertension. 4. Chronic kidney disease stage V, probably from nephrosclerosis. 5. History of prostate cancer treated with radiation treatment with currently with urinary incontinence. 6. Permanent pacemaker. 7. Anemia of chronic disease secondary to chronic kidney disease. 8. Depression and anxiety, not otherwise specified. 9. Ischemic cardiomyopathy EF 30%, stable, not in acute exacerbation. 10.Hyperlipidemia. 11.History of bladder cancer treated with BCG x2. 12.CODE STATUS DNR. PLAN: Continue with IV ceftriaxone. Encourage the patient to ambulate. The patient is clinically doing better. Follow. MMODL / IJN: [id number] /
[2017-06-05] MEDS: TAMSULOSIN 0.4 MG CAP.ER.24H PO SCH (20:36)
[2017-06-05] MEDS: ATORVASTATIN 20 MG TAB PO SCH (20:37)
[2017-06-05] MEDS ORDERED: FERROUS SULFATE 325 MG TAB PO SCH (21:00)
[2017-06-06 03:13] LABS: Iron Saturation 3.68 (15.00-50.00)
[2017-06-06 06:50] LABS: Calcium 8.6 mg/dL (8.4-10.2); Magnesium 2.3 mg/dL (1.6-2.3); Potassium 4.6 mmol/L (3.5-5.1)
[2017-06-06] MEDS: IPRATROPIUM-ALBUTEROL 3 ML NEB INHALATION SCH ×3 (08:05→16:12)
[2017-06-06] MEDS: ISOSORBIDE MONONITRATE ER 60 MG TAB.ER.24H PO SCH (08:29)
[2017-06-06] MEDS: CARVEDILOL 12.5 MG TAB PO SCH (08:29)
[2017-06-06] MEDS: OXYBUTYNIN CHLORIDE 5 MG TAB PO SCH (08:29)
[2017-06-06] MEDS: hydrALAZINE HCL 50 MG TAB PO SCH (08:30)
[2017-06-06] MEDS: FERROUS SULFATE 325 MG TAB PO SCH (08:30)
[2017-06-06] MEDS: guaiFENesin 600 MG TABLET.ER PO SCH (08:30)
[2017-06-06] MEDS: ASPIRIN 81 MG PO SCH (08:30)
[2017-06-06] MEDS: SODIUM BICARBONATE TAB 650 MG TAB PO SCH (08:31)
[2017-06-06] MEDS: TORSEMIDE 20 MG TAB PO SCH (08:31)
[2017-06-06] MEDS: cefTRIAXone IN SWFI 1,000 MG/10 ML SYRINGE IVP SCH (08:43)
[2017-06-06] MEDS ORDERED: SODIUM FERRIC GLUCONAT-SUCROSE 125 MG in SODIUM CHLORIDE 0.9% 100 ML IVPB SCH (09:45)
--- NOTE | 2017-06-06 10:00 | P.PN ---
Subjective Patient is seen in follow-up for acute kidney injury and chronic kidney disease. Patient has chronic kidney disease stage V with baseline creatinine near 4.5. It is up to 4.89 today. Patient's currently being treated for pneumonia. Denies cough. Oral intake is improving. He is nonoliguric. No vomiting or diarrhea. Vital signs are stable. General: The patient appeared well nourished and normally developed. HEENT: Head exam is unremarkable. Neck is without jugular venous distension. LUNGS: Lungs are clear to auscultation and percussion. Breath sounds decreased. HEART: Rate and Rhythm are regular. First and second heart sounds normal. No murmurs, rubs or gallops. ABDOMEN: Abdominal exam reveals normal bowel sounds. Non-tender and non- distended. No evidence of peritonitis. EXTREMITITES: No clubbing, cyanosis, or edema. Objective - Vital Signs Vital signs: Vital Signs Temp 97.0 F L 06/06/17 08:50 Pulse 60 06/06/17 08:50 Resp 18 06/06/17 08:50 BP 135/79 06/06/17 08:50 Pulse Ox 98 06/06/17 08:50 Intake & Output 06/05/17 06/06/17 06/06/17 18:59 06:59 18:59 Intake Total 680 360 Output Total 450 300 Balance 230 -300 360 Weight 74 kg Intake: Oral 680 360 Output: Urine 450 300 Other: Voiding Method Urinal Urinal # Voids 2 - Labs CBC & Chem 7: 06/05/17 05:38 06/06/17 05:29 Labs: Abnormal Lab Results - Last 24 Hours (Table) 06/05/17 06/06/17 Range/Units 05:38 05:29 BUN 89 H* (9-20) mg/dL Creatinine 4.89 H (0.66-1.25) mg/dL Iron 11 L (65-175) ug/dL Iron Saturation 3.68 L (15.00-50.00) Microbiology - Last 24 Hours (Table) 06/04/17 16:00 Urine Culture - Final Urine,Voided 06/04/17 14:54 Blood Culture - Preliminary Blood No Growth after 24 hours Assessment and Plan Plan: Assessment: #1. Chronic kidney disease stage V with baseline creatinine near 4.5. Etiology is likely nephrosclerosis. However there is concern for underlying GN as he does have proteinuria. He is noted to have small sized kidneys with severely depressed GFR and therefore did not undergo a kidney biopsy. #2. Dyspnea related to upper respiratory infection. Questionable pneumonia. Maintained on antibiotics. #3. Hypertension with chronic kidney disease. Controlled. #4. Systolic CHF with ejection fraction of 30%. Currently compensated. #5. Anemia of chronic kidney disease. Severe iron deficiency noted. #6. Acute kidney injury mostly prerenal secondary to diuretics. Plan: Ferrlecit 125 mg IV daily for 3 days. First dose today. Avoid nephrotoxic agents and hypotensive episodes. Patient prefers to do peritoneal dialysis down the road. No urgent need for renal replacement therapy at this time. Hold diuretics for now. Check phosphorus level. Repeat electrolytes in the morning.
--- NOTE | 2017-06-06 15:59 | P.PN ---
Progress Note - Text Progress Note Date: 06/06/17 This is an addendum to the cardiology progress note and response to a query from the disease intervention specialist. As documented in our notes, patient has no evidence to suggest acute worsening of systolic congestive heart failure at this time. He does have history of chronic systolic heart failure. DNP note has been reviewed, I agree with a documented findings and plan of care. Patient was seen and examined.
[2017-06-06 16:22] VITALS: BP 158/70; PULSE 67; RESP 20; TEMP 97.3
--- NOTE | 2017-06-06 23:45 | DS ---
DISCHARGE SUMMARY DATE OF ADMISSION: 06/04/2017. DATE OF DISCHARGE: 06/06/2017. FINAL DIAGNOSES: 1. Acute pneumonia could be bacterial from gram-negative or also could be pneumonitis, present on admission. 2. Coronary artery disease, prior history of stent and coronary bypass. 3. Essential hypertension. 4. Chronic kidney stage 5, probably from nephrosclerosis. 5. History of prostate cancer treated with radiation treatment, currently with urine incontinence. 6. Permanent pacemaker. 7. Anemia of chronic disease secondary to chronic kidney disease. 8. Depression/anxiety not otherwise specified. 9. Iron deficiency anemia. 10.Ischemic cardiomyopathy, ejection fraction 30% secondary to coronary artery disease. 11.Hyperlipidemia. 12.History of bladder cancer treated with BCG x2. 13.CODE STATUS DNR. 14.There was no congestive heart failure exacerbation. HOSPITAL COURSE: This patient presented with cough, congestion, felt to be pneumonia, not CHF. Given IV antibiotics to which he responded. The patient has chronic kidney disease. Creatinine is at 4.89. The patient will go for peritoneal dialysis down the road. CONSULTATIONS: 1. Dr. Flores from Cardiology. 2. Dr. Mendosa from Nephrology. DISCHARGE MEDICATIONS: 1. Lipitor 20 mg at bedtime. 2. Ditropan 5 mg p.o. b.i.d. 3. Sodium bicarb 650 mg p.o. daily. 4. Flomax 0.4 mg at bedtime. 5. I caps soft gel 1 capsule p.o. b.i.d. 6. Imdur ER 60 mg p.o. daily. 7. Sublingual nitroglycerin 0.5 p.r.n. 8. Coumadin 5 mg Sunday, Sunday, Sunday, Sunday, Sunday. 9. Eldepryl 50 mg daily. 10.Iron 325 p.o. at bedtime, 650 mg in the morning. 11.Sodium bicarb 325 p.o. at bedtime. 12.Aspirin 81 mg a day. 13.Coreg 50 mg p.o. b.i.d. 14.Vitamin D3, 400 units p.o. daily. 15.Saline 200 mcg p.o. daily. 16.Coumadin 2.5 on Sunday and . 17.Hydralazine 50 mg b.i.d. 18.Ceftin 500 mg p.o. b.i.d. 19.DuoNeb q.i.d. 20.Mucinex 200 mg every 12. FOLLOWUP: 1. Follow up with Lynsey Abarca in 1 week. 2. Follow up with Dr. Blayne Pope on June 07, 2017. 3. Follow up with Dr. Mendosa in 2 weeks. 4. Labs, BMP in 3 days. EXAM: Lungs decreased breath sounds. Cardiovascular, 1st and 2nd sounds normal. Discussion and discharge planning more than 35 minutes. MMODL / IJN: [id number] /
== END 2017-06-06 16:48 | disposition home or self-care (01) | DRG 177 ==
LOC: EC 14:20 → 6SEL 16:57
PROVIDERS: ADMIT Hospitalist; ATTEND Hospitalist
DX: J15.6 Pneumonia due to other Gram-negative bacteria (principal); N18.6 End stage renal disease; I13.2 Hypertensive heart and chronic kidney disease with heart failure and with stage 5 chronic kidney disease, or end stage renal disease; I50.22 Chronic systolic (congestive) heart failure; I48.1 Persistent atrial fibrillation; N17.9 Acute kidney failure, unspecified; Y95 Nosocomial condition; I25.10 Atherosclerotic heart disease of native coronary artery without angina pectoris; R32 Unspecified urinary incontinence; F41.9 Anxiety disorder, unspecified; I25.5 Ischemic cardiomyopathy; F32.9 Major depressive disorder, single episode, unspecified; H35.30 Unspecified macular degeneration; Z66 Do not resuscitate; D63.1 Anemia in chronic kidney disease; E78.5 Hyperlipidemia, unspecified; Z95.0 Presence of cardiac pacemaker; Z95.5 Presence of coronary angioplasty implant and graft; Z95.1 Presence of aortocoronary bypass graft; Z85.46 Personal history of malignant neoplasm of prostate; Z92.3 Personal history of irradiation; Z85.51 Personal history of malignant neoplasm of bladder; Z79.82 Long term (current) use of aspirin; Z79.899 Other long term (current) drug therapy; Z79.01 Long term (current) use of anticoagulants; Z81.1 Family history of alcohol abuse and dependence; Z82.0 Family history of epilepsy and other diseases of the nervous system; Z82.49 Family history of ischemic heart disease and other diseases of the circulatory system; Z87.891 Personal history of nicotine dependence; Z87.01 Personal history of pneumonia (recurrent); Z88.2 Allergy status to sulfonamides; Z88.8 Allergy status to other drugs, medicaments and biological substances; T50.2X5A Adverse effect of carbonic-anhydrase inhibitors, benzothiadiazides and other diuretics, initial encounter
CPT/HCPCS: 36415; 71046; 80048; 80053; 81001; 82550; 82553; 82728; 83540; 83550; 83605; 83735; 83880; 84484; 85025; 85610; 85730; 86850; 86900; 86901; 87040; 87086; 87502; 93005; 94640; 94760; 96365; 96366; 96367; 99285

== ENCOUNTER 2017-07-11 17:22 | Inpatient (IN) | payer MEDICARE, BC ==
[2017-07-11] MEDS ORDERED: ONDANSETRON 4 MG/2 ML VIAL IVP STA (17:30)
[2017-07-11] MEDS ORDERED: SODIUM CHLORIDE 0.9% 1,000 ML IV STA (17:30)
[2017-07-11] MEDS ORDERED: MORPHINE SULFATE 4 MG/ML SYRINGE IVP STA ×2 (17:33→22:16)
[2017-07-11 18:08] LABS: Anisocytosis Slight; Basophils % (A) 0 %; Eosinophils # (A) 0.3 k/uL (0-0.7); Eosinophils % (A) 5 %; HCT 28.9 % (39.0-53.0); HGB 9.1 gm/dL (13.0-17.5); Hypochromasia Moderate; Lymphocytes # (A) 0.5 k/uL (1.0-4.8); Lymphocytes % (A) 9 %; MCH 30.3 pg (25.0-35.0); MCHC 31.4 g/dL (31.0-37.0); MCV 96.6 fL (80.0-100.0); Macrocytosis Slight; Mean Platelet Volume 8.7; Monocytes # (A) 0.4 k/uL (0-1.0); Monocytes % (A) 8 %; Neutrophils # (A) 4.1 k/uL (1.3-7.7); Neutrophils % (A) 76 %; Platelet Count 165 k/uL (150-450); RBC 2.99 m/uL (4.30-5.90); RDW 16.4 % (11.5-15.5); WBC 5.4 k/uL (3.8-10.6)
[2017-07-11 18:25] LABS: Albumin 3.1 g/dL (3.5-5.0); Calcium 8.7 mg/dL (8.4-10.2); Potassium 3.9 mmol/L (3.5-5.1); Total Bilirubin 0.4 mg/dL (0.2-1.3)
--- NOTE | 2017-07-11 18:51 | XR ---
EXAMINATION TYPE: XR chest 1V portable DATE OF EXAM: 07/11/2017 COMPARISON: 06/04/2017 HISTORY: Right flank pain TECHNIQUE: Single frontal view of the chest is obtained. FINDINGS: Heart is enlarged. There is pulmonary vascular congestion. There is blunting of costophren ic angles. There is left axillary pacemaker with the lead tips in the right ventricle. There are ches t leads. IMPRESSION: Congestive heart failure with pleural effusions. This is a change compared to old exam.
--- NOTE | 2017-07-11 18:58 | XR ---
EXAMINATION TYPE: XR KUB DATE OF EXAM: 07/11/2017 COMPARISON: NONE HISTORY: Right flank pain. Kidney failure. TECHNIQUE: 2 views FINDINGS: There is no sign of intestinal obstruction or pneumoperitoneum. There are small calcificati ons over the left kidney. There is vascular calcification. Fecal pattern is normal. There is blunting of costophrenic angles. IMPRESSION: Nonacute abdomen. Pleural reaction and fluid at the lung bases.
[2017-07-11] MEDS ORDERED: TORSEMIDE 20 MG TAB PO ONE (20:15)
--- NOTE | 2017-07-11 20:44 | ED ---
Abdominal Pain HPI - General Chief Complaint: Abdominal Pain Stated Complaint: Flank Pain Time Seen by Provider: 07/11/17 17:24 Source: patient Mode of arrival: EMS Limitations: no limitations - History of Present Illness Initial Comments: HEENT years old gentleman just got discharged from the hospital where recently presents with the right flank pain in his pain over the right flank area it travels towards the lower abdomen denies nauseous he denies any vomiting, right flank pain started about 3 PM today also some pain in the right upper quadrant area denies any fever no chills been nauseous no vomiting no diarrhea. He denies any chest pain he is bit short winded he denies any pleuritic chest pain no fever no chills, devious system is otherwise unremarkable - Related Data Home Medications Medication Instructions Recorded Confirmed Atorvastatin [Lipitor] 20 mg PO HS 02/08/16 07/11/17 Oxybutynin Chloride [Ditropan] 5 mg PO BID 02/08/16 07/11/17 Sodium Bicarbonate 650 mg PO QAM 02/08/16 07/11/17 Tamsulosin HCl [Flomax] 0.4 mg PO HS 02/08/16 07/11/17 Vit A/Vit C/Vit E/Zinc/Copper 1 cap PO BID 02/08/16 07/11/17 [ICAPS SOFTGEL] Nitroglycerin 1 tab SUBLINGUAL Q5M PRN 09/01/16 07/11/17 Warfarin [Coumadin] 5 mg PO SUMOWEFRSA 09/01/16 07/11/17 Edecrin 50 mg PO QAM 05/07/17 07/11/17 Ferrous Sulfate [Iron (65 MG 325 mg PO HS 05/07/17 07/11/17 Elemental)] Ferrous Sulfate [Iron (65 MG 650 mg PO DAILY 05/07/17 07/11/17 Elemental)] Sodium Bicarbonate 325 mg PO HS 05/07/17 07/11/17 Aspirin [Adult Low Dose Aspirin EC] 81 mg PO DAILY 06/04/17 07/11/17 Carvedilol [Coreg] 50 mg PO BID 06/04/17 07/11/17 Cholecalciferol [Vitamin D3] 400 unit PO DAILY 06/04/17 07/11/17 Selenium 200 mcg PO DAILY 06/04/17 07/11/17 Warfarin [Coumadin] 2.5 mg PO TUTH 06/04/17 07/11/17 hydrALAZINE HCL [Apresoline] 50 mg PO BID 06/04/17 07/11/17 Previous Rx's Medication Instructions Recorded Isosorbide Mononitrate ER [Imdur] 60 mg PO QAM #60 tab.er.24h 04/06/16 Ipratropium-Albuterol Nebulize 3 ml INHALATION RT-QID #120 06/06/17 [Duoneb 0.5 mg-3 mg/3 ml Soln] ampul.neb guaiFENesin [Mucinex] 1,200 mg PO Q12HR #20 tablet.er 06/06/17 Allergies Allergy/AdvReac Type Severity Reaction Status Date / Time furosemide [From Lasix] Allergy Rash/Hives Verified 07/11/17 17:43 Sulfa (Sulfonamide Allergy Rash/Hives Verified 07/11/17 17:43 Antibiotics) Review of Systems ROS Statement: Those systems with pertinent positive or pertinent negative responses have been documented in the HPI. ROS Other: All systems not noted in ROS Statement are negative. Past Medical History Past Medical History: Coronary Artery Disease (CAD), Cancer, Chest Pain / Angina , Heart Failure, Eye Disorder, Hyperlipidemia, Hypertension, Pneumonia, Renal Disease Additional Past Medical History / Comment(s): Chronic kidney failure which pt states is now stage V, ischemic cardiomyopathy, bladder cancer twice with BCG instillations, prostrate cancer with radiation, urinary incontinence, bilateral macular degeneration, bradycardia/pacemaker insertion. History of Any Multi-Drug Resistant Organisms: None Reported Past Surgical History: Appendectomy, Coronary Bypass/CABG, Heart Catheterization , Heart Catheterization With Stent, Pacemaker Additional Past Surgical History / Comment(s): 2 vessel cabg in 2006, Pacemaker 2014, STENTS 2006 and 2013, CYSTOSCOPIES, EYE INJECTIONS Q 2 MONTHS FOR MACULAR DEGENERATION. Past Anesthesia/Blood Transfusion Reactions: No Reported Reaction Date of Last Stent Placement:: 2013 Type of Cardiac Device: Permanent Pacemaker Device Placement Date:: 2014 Past Psychological History: No Psychological Hx Reported Smoking Status: Former smoker Past Alcohol Use History: None Reported Past Drug Use History: None Reported - Past Family History Mother Family Medical History: Coronary Artery Disease (CAD) Additional Family Medical History / Comment(s): alzheimers Father Family Medical History: Coronary Artery Disease (CAD) Additional Family Medical History / Comment(s): Father was an alcoholic and had "hardening of arteries" General Exam Limitations: no limitations Course Vital Signs 07/11/17 07/11/17 07/11/17 17:50 18:14 19:16 Temperature 97.7 F 97.0 F L Pulse Rate 62 66 Respiratory 18 18 Rate Blood Pressure 131/76 141/67 O2 Sat by Pulse 91 L 100 99 Oximetry 07/11/17 07/11/17 22:19 22:39 Temperature 97.9 F 97.9 F Pulse Rate 60 60 Respiratory 18 18 Rate Blood Pressure 138/69 112/56 O2 Sat by Pulse 95 97 Oximetry Impression was reassessed CT abdomen was discussed with radiology data. There is a large mass over the right kidney area, seems like a subungual Hematoma Is Quite Largest Displacing the Kidney, Spoke with the Dr. Rossi Mcfadden commended that he be happy to take care of the patient is a consultation is to be admitted under medical people, internal medicine, cardiology to take care of the Coumadin, INR and congestive heart failure Medical Decision Making - Lab Data Result diagrams: 07/11/17 22:34 07/11/17 18:00 Lab Results 07/11/17 07/11/17 07/11/17 Range/Units 15:00 18:00 18:00 WBC 5.4 (3.8-10.6) k/uL RBC 2.99 L (4.30-5.90) m/uL Hgb 9.1 L (13.0-17.5) gm/dL Hct 28.9 L (39.0-53.0) % MCV 96.6 (80.0-100.0) fL MCH 30.3 (25.0-35.0) pg MCHC 31.4 (31.0-37.0) g/dL RDW 16.4 H (11.5-15.5) % Plt Count 165 (150-450) k/uL Neutrophils % 76 % Lymphocytes % 9 % Monocytes % 8 % Eosinophils % 5 % Basophils % 0 % Neutrophils # 4.1 (1.3-7.7) k/uL Lymphocytes # 0.5 L (1.0-4.8) k/uL Monocytes # 0.4 (0-1.0) k/uL Eosinophils # 0.3 (0-0.7) k/uL Basophils # 0.0 (0-0.2) k/uL Hypochromasia Moderate Anisocytosis Slight Macrocytosis Slight PT 37.9 H (9.0-12.0) sec INR 4.2 H (<1.2) Sodium 141 (137-145) mmol/L Potassium 3.9 (3.5-5.1) mmol/L Chloride 100 (98-107) mmol/L Carbon Dioxide 27 (22-30) mmol/L Anion Gap 14 mmol/L BUN 81 H* (9-20) mg/dL Creatinine 4.20 H (0.66-1.25) mg/dL Est GFR (CKD-EPI)AfAm 14 (>60 ml/min/1.73 sqM) Est GFR (CKD-EPI)NonAf 12 (>60 ml/min/1.73 sqM) Glucose 123 H (74-99) mg/dL Plasma Lactic Acid Kishore (0.7-2.0) mmol/L Calcium 8.7 (8.4-10.2) mg/dL Total Bilirubin 0.4 (0.2-1.3) mg/dL AST 18 (17-59) U/L ALT 32 (21-72) U/L Alkaline Phosphatase 56 (38-126) U/L Total Protein 5.0 L (6.3-8.2) g/dL Albumin 3.1 L (3.5-5.0) g/dL Amylase 42 (30-110) U/L Lipase 67 (23-300) U/L Urine Color Urine Appearance (Clear) Urine pH (5.0-8.0) Ur Specific [place] (1.001-1.035) Urine Protein (Negative) Urine Glucose (UA) (Negative) Urine Ketones (Negative) Urine Blood (Negative) Urine Nitrite (Negative) Urine Bilirubin (Negative) Urine Urobilinogen (<2.0) mg/dL Ur Leukocyte Esterase (Negative) Urine RBC (0-5) /hpf Urine WBC (0-5) /hpf Amorphous Sediment (None) /hpf Hyaline Casts (0-2) /lpf Urine Mucus (None) /hpf 07/11/17 07/11/17 07/11/17 Range/Units 18:00 20:59 22:34 WBC 7.3 (3.8-10.6) k/uL RBC 2.24 L (4.30-5.90) m/uL Hgb 6.7 L* D (13.0-17.5) gm/dL Hct 21.7 L (39.0-53.0) % MCV 96.8 (80.0-100.0) fL MCH 29.9 (25.0-35.0) pg MCHC 30.9 L (31.0-37.0) g/dL RDW 16.4 H (11.5-15.5) % Plt Count 141 L (150-450) k/uL Neutrophils % 88 % Lymphocytes % 4 % Monocytes % 6 % Eosinophils % 0 % Basophils % 0 % Neutrophils # 6.5 (1.3-7.7) k/uL Lymphocytes # 0.3 L (1.0-4.8) k/uL Monocytes # 0.4 (0-1.0) k/uL Eosinophils # 0.0 (0-0.7) k/uL Basophils # 0.0 (0-0.2) k/uL Hypochromasia Moderate Anisocytosis Slight Macrocytosis Slight PT (9.0-12.0) sec INR (<1.2) Sodium (137-145) mmol/L Potassium (3.5-5.1) mmol/L Chloride (98-107) mmol/L Carbon Dioxide (22-30) mmol/L Anion Gap mmol/L BUN (9-20) mg/dL Creatinine (0.66-1.25) mg/dL Est GFR (CKD-EPI)AfAm (>60 ml/min/1.73 sqM) Est GFR (CKD-EPI)NonAf (>60 ml/min/1.73 sqM) Glucose (74-99) mg/dL Plasma Lactic Acid Kishore 1.0 (0.7-2.0) mmol/L Calcium (8.4-10.2) mg/dL Total Bilirubin (0.2-1.3) mg/dL AST (17-59) U/L ALT (21-72) U/L Alkaline Phosphatase (38-126) U/L Total Protein (6.3-8.2) g/dL Albumin (3.5-5.0) g/dL Amylase (30-110) U/L Lipase (23-300) U/L Urine Color Yellow Urine Appearance Clear (Clear) Urine pH 5.5 (5.0-8.0) Ur Specific [place] 1.011 (1.001-1.035) Urine Protein 1+ H (Negative) Urine Glucose (UA) Negative (Negative) Urine Ketones Negative (Negative) Urine Blood Negative (Negative) Urine Nitrite Negative (Negative) Urine Bilirubin Negative (Negative) Urine Urobilinogen <2.0 (<2.0) mg/dL Ur Leukocyte Esterase Negative (Negative) Urine RBC 1 (0-5) /hpf Urine WBC <1 (0-5) /hpf Amorphous Sediment Rare H (None) /hpf Hyaline Casts 1 (0-2) /lpf Urine Mucus Rare H (None) /hpf Critical Care Time Total Critical Care Time: 45 Critical Care Time: The patient looked quite pale and I will a lot of pain and was started on a fresh frozen plasma 2 units she was given some vitamin K Coumadin was stopped altogether March admitted to ICU and spoke to Dr. ariella Marshall myself spoke with Dr. Mcdonald and now Dr. Carter agreed to this admission centering his clinical picture and now CT findings I did order 2 units of packed red cells, repeat CBC showed significant drop from the initial one I'm going order 2 more units of packed red cells considering he would need some during surgery as well Disposition Clinical Impression: Kidney mass, Abdominal hematoma Disposition: ADMITTED IP TO THIS HOSP Condition: Fair Referrals: Wiliam Pope MD [Primary Care Provider] - 1-2 days
--- NOTE | 2017-07-11 20:59 | CT ---
EXAMINATION TYPE: CT abdomen pelvis wo con DATE OF EXAM: 07/11/2017 COMPARISON: NONE HISTORY: Right side flank pain. CT DLP: 469.2 mGycm Automated exposure control for dose reduction was used. TECHNIQUE: Helical acquisition of images was performed from the lung bases through the pelvis. FINDINGS: There are bilateral pleural effusions. Heart is enlarged. There is some infiltrate and atelectasis at the right lung base. There is no pericardial effusion. There is extensive fat stranding around the right kidney. The right kidney and associated mass measur es 10 x 17 x 7 cm. This appears to be due to a large pericapsular or subcapsular intermediate to high er density material that could be acute and chronic hemorrhage. There are patchy areas of hypodensity adjacent to the right kidney and a larger area in the lower pole that measures 4 cm. The left kidney shows no hydronephrosis. Liver shows no focal defect. Bile ducts are not dilated. Spleen appears normal. There is no pancreati c mass. Abdominal aorta is atheromatous. There is no retroperitoneal adenopathy. There are small multiple huber cified gallstones. There is no evidence of intestinal obstruction. There is mild free fluid in the pelvis. Bladder diste nds smoothly. There is no evidence of pelvic mass. IMPRESSION: LARGE MASS ASSOCIATED WITH THE RIGHT KIDNEY APPEARS TO BE A LARGE SUBCAPSULAR OR PERINEPHRIC HEMORRHA GE WITH ACUTE AND CHRONIC COMPONENTS. THERE IS EXTENSIVE PERINEPHRIC FAT STRANDING THAT COULD BE ALSO ADDITIONAL HEMORRHAGE. THERE IS ANTERIOR DISPLACEMENT OF THE RIGHT KIDNEY. CARDIOMEGALY WITH PLEURAL EFFUSIONS CONSISTENT WITH CONGESTIVE HEART FAILURE. MILD FREE FLUID IN THE PELVIS. THIS EXAM WAS DISCUSSED WITH ER PHYSICIAN AT 8:45 PM.
[2017-07-11 21:05] LABS: INR 4.2 (<1.2); Prothrombin Time 37.9 sec (9.0-12.0)
[2017-07-11 21:20] LABS: Amorphous Sediment,Urine Rare /hpf; Appearance,Urine Clear (Clear); Bilirubin,Urine Negative (Negative); Blood,Urine Negative (Negative); Color,Urine Yellow; Glucose,Urine (UA) Negative (Negative); Hyaline Casts,Urine 1 /lpf (0-2); Ketones,Urine Negative (Negative); Leukocyte Esterase,Urine Negative (Negative); Mucus,Urine Rare /hpf; Nitrite,Urine Negative (Negative); PH, Urine 5.5 (5.0-8.0); Protein,Urine 1+ (Negative); RBC,Urine 1 /hpf (0-5); Specific Gravity,Urine 1.011 (1.001-1.035); Urobilinogen,Urine <2.0 mg/dL (<2.0); WBC,Urine <1 /hpf (0-5)
[2017-07-11] MEDS ORDERED: MORPHINE SULFATE 4 MG/ML SYRINGE IV PRN (22:06)
[2017-07-11] MEDS ORDERED: NALOXONE 0.4 MG/ML 1 ML VIAL IV PRN (22:06)
[2017-07-11] MEDS ORDERED: PHYTONADIONE 10 MG in SODIUM CHLORIDE 0.9% 50 ML IVPB STA (22:09)
[2017-07-11] MEDS ORDERED: NITROGLYCERIN SL TABS 0.4 MG TAB SUBLINGUAL PRN (22:13)
[2017-07-11 22:45] LABS: Anisocytosis Slight; Basophils % (A) 0 %; Eosinophils % (A) 0 %; HCT 21.7 % (39.0-53.0); Hypochromasia Moderate; Lymphocytes # (A) 0.3 k/uL (1.0-4.8); Lymphocytes % (A) 4 %; MCH 29.9 pg (25.0-35.0); MCHC 30.9 g/dL (31.0-37.0); MCV 96.8 fL (80.0-100.0); Macrocytosis Slight; Mean Platelet Volume 7.9; Monocytes # (A) 0.4 k/uL (0-1.0); Monocytes % (A) 6 %; Neutrophils # (A) 6.5 k/uL (1.3-7.7); Neutrophils % (A) 88 %; Platelet Count 141 k/uL (150-450); RBC 2.24 m/uL (4.30-5.90); RDW 16.4 % (11.5-15.5); WBC 7.3 k/uL (3.8-10.6)
[2017-07-11 22:47] LABS: HGB 6.7 gm/dL (13.0-17.5)
[2017-07-11 23:07] LABS: Glucose,Whole Blood 138 mg/dL (75-99)
[2017-07-11] MEDS ORDERED: Potassium Replacement Protocol 1 EACH MISC MISCELLANE PRN (23:47)
[2017-07-12 00:01] LABS: Magnesium 2.3 mg/dL (1.6-2.3); Phosphorus 4.2 mg/dL (2.5-4.5)
[2017-07-12] MEDS ORDERED: NALOXONE 0.4 MG/ML 1 ML VIAL IV PRN (01:24)
[2017-07-12] MEDS ORDERED: POTASSIUM CHLORIDE ER 10 MEQ TAB.ER.PRT PO STA (02:40)
[2017-07-12 05:07] VITALS: BMI 23.8
--- NOTE | 2017-07-12 06:45 | P.GSCN ---
History of Present Illness Consult date: 07/12/17 History of present illness: This patient is a pleasant 81-year-old gentleman who presented to the emergency room yesterday after a spontaneous amount of severe right flank pain. Based on history it was suspected that he had a kidney stone. A computed tomography scan of the abdomen was obtained and there was noted to be a very large subcapsular hematoma on the right. His hemoglobin initially was 911 and then repeated at 6.9 after smoking IV hydration. The patient does have multiple medical problems including congestive heart failure atrial fibrillation and stage V renal failure. He is been followed by [facility] for nephrology. The patient is feeling better. He is in the intensive care unit. I reviewed the computed tomography scan. The patient has no obvious urologic history. He does have a nephrologic history. He was in congestive failure based on the chest x-ray yesterday. He has not started dialysis to date. He does have a history of prostate cancer treated with radiation and bladder cancer treated with resection and BCG instillations by Dr. Jarek Webber at [facility]. Review of Systems - Gastrointestinal Reports as per HPI, Reports abdominal pain - Genitourinary Reports as per HPI Past Medical History Past Medical History: Coronary Artery Disease (CAD), Cancer, Chest Pain / Angina , Heart Failure, Eye Disorder, Hyperlipidemia, Hypertension, Pneumonia, Renal Disease Additional Past Medical History / Comment(s): Chronic kidney failure which pt states is now stage V, ischemic cardiomyopathy, bladder cancer twice with BCG instillations, prostrate cancer with radiation, urinary incontinence, bilateral macular degeneration, bradycardia/pacemaker insertion. History of Any Multi-Drug Resistant Organisms: None Reported Past Surgical History: Appendectomy, Coronary Bypass/CABG, Heart Catheterization , Heart Catheterization With Stent, Pacemaker Additional Past Surgical History / Comment(s): 2 vessel cabg in 2006, Pacemaker 2014, STENTS 2006 and 2013, CYSTOSCOPIES, EYE INJECTIONS Q 2 MONTHS FOR MACULAR DEGENERATION. Past Anesthesia/Blood Transfusion Reactions: No Reported Reaction Date of Last Stent Placement:: 2013 Type of Cardiac Device: Permanent Pacemaker Device Placement Date:: 2014 Past Psychological History: No Psychological Hx Reported Additional Psychological History / Comment(s): PT RESIDES AT home AND HIS SPOUSE WHO HAS DEMENTIA RESIDES AT [facility]. PT HAS A DOG. HE IS INDEPENDENT. Smoking Status: Former smoker Past Alcohol Use History: None Reported Additional Past Alcohol Use History / Comment(s): Pt started smoking in 1959 and quit in 2005. Past Drug Use History: None Reported - Past Family History Mother Family Medical History: Coronary Artery Disease (CAD) Additional Family Medical History / Comment(s): alzheimers Father Family Medical History: Coronary Artery Disease (CAD) Additional Family Medical History / Comment(s): Father was an alcoholic and had "hardening of arteries" Medications and Allergies Home Medications Medication Instructions Recorded Confirmed Type Atorvastatin [Lipitor] 20 mg PO HS 02/08/16 07/11/17 History Oxybutynin Chloride [Ditropan] 5 mg PO BID 02/08/16 07/11/17 History Sodium Bicarbonate 650 mg PO QAM 02/08/16 07/11/17 History Tamsulosin HCl [Flomax] 0.4 mg PO HS 02/08/16 07/11/17 History Vit A/Vit C/Vit E/Zinc/Copper 1 cap PO BID 02/08/16 07/11/17 History [ICAPS SOFTGEL] Isosorbide Mononitrate ER [Imdur] 60 mg PO QAM #60 tab.er.24h 04/06/16 07/11/17 Rx Nitroglycerin 1 tab SUBLINGUAL Q5M PRN 09/01/16 07/11/17 History Warfarin [Coumadin] 5 mg PO SUMOWEFRSA 09/01/16 07/11/17 History Edecrin 50 mg PO QAM 05/07/17 07/11/17 History Ferrous Sulfate [Iron (65 MG 325 mg PO HS 05/07/17 07/11/17 History Elemental)] Ferrous Sulfate [Iron (65 MG 650 mg PO DAILY 05/07/17 07/11/17 History Elemental)] Sodium Bicarbonate 325 mg PO HS 05/07/17 07/11/17 History Aspirin [Adult Low Dose Aspirin EC] 81 mg PO DAILY 06/04/17 07/11/17 History Carvedilol [Coreg] 50 mg PO BID 06/04/17 07/11/17 History Cholecalciferol [Vitamin D3] 400 unit PO DAILY 06/04/17 07/11/17 History Selenium 200 mcg PO DAILY 06/04/17 07/11/17 History Warfarin [Coumadin] 2.5 mg PO TUTH 06/04/17 07/11/17 History hydrALAZINE HCL [Apresoline] 50 mg PO BID 06/04/17 07/11/17 History Ipratropium-Albuterol Nebulize 3 ml INHALATION RT-QID #120 06/06/17 07/11/17 Rx [Duoneb 0.5 mg-3 mg/3 ml Soln] ampul.neb guaiFENesin [Mucinex] 1,200 mg PO Q12HR #20 tablet.er 06/06/17 07/11/17 Rx Allergies Allergy/AdvReac Type Severity Reaction Status Date / Time furosemide [From Lasix] Allergy Rash/Hives Verified 07/11/17 17:43 Sulfa (Sulfonamide Allergy Rash/Hives Verified 07/11/17 17:43 Antibiotics) Surgical - Exam Vital Signs Temp Pulse Resp BP Pulse Ox 97.7 F 62 18 131/76 91 L 07/11/17 17:50 07/11/17 17:50 07/11/17 17:50 07/11/17 17:50 07/11/17 17:50 - General well developed, well nourished, moderate pain - Eyes PERRL - ENT no hearing loss - Neck trachea midline - Respiratory normal expansion, normal respiratory effort - Cardiovascular Rhythm: irregularly irregular - Abdomen Abdomen: tender - Neurologic normal coordination, normal sensation - Musculoskeletal normal posture - Psychiatric oriented to time, oriented to person, oriented to place, speech is normal, memory intact Results - Labs 07/11/17 22:34 07/11/17 18:00 Abnormal Lab Results - Last 24 Hours (Table) 07/11/17 07/11/17 07/11/17 Range/Units 15:00 18:00 18:00 RBC 2.99 L (4.30-5.90) m/uL Hgb 9.1 L (13.0-17.5) gm/dL Hct 28.9 L (39.0-53.0) % MCHC (31.0-37.0) g/dL RDW 16.4 H (11.5-15.5) % Plt Count (150-450) k/uL Lymphocytes # 0.5 L (1.0-4.8) k/uL PT 37.9 H (9.0-12.0) sec INR 4.2 H (<1.2) BUN 81 H* (9-20) mg/dL Creatinine 4.20 H (0.66-1.25) mg/dL Glucose 123 H (74-99) mg/dL POC Glucose (mg/dL) (75-99) mg/dL Total Protein 5.0 L (6.3-8.2) g/dL Albumin 3.1 L (3.5-5.0) g/dL Urine Protein (Negative) Amorphous Sediment (None) /hpf Urine Mucus (None) /hpf Crossmatch 07/11/17 07/11/17 07/11/17 Range/Units 18:00 20:59 22:34 RBC 2.24 L (4.30-5.90) m/uL Hgb 6.7 L* D (13.0-17.5) gm/dL Hct 21.7 L (39.0-53.0) % MCHC 30.9 L (31.0-37.0) g/dL RDW 16.4 H (11.5-15.5) % Plt Count 141 L (150-450) k/uL Lymphocytes # 0.3 L (1.0-4.8) k/uL PT (9.0-12.0) sec INR (<1.2) BUN (9-20) mg/dL Creatinine (0.66-1.25) mg/dL Glucose (74-99) mg/dL POC Glucose (mg/dL) (75-99) mg/dL Total Protein (6.3-8.2) g/dL Albumin (3.5-5.0) g/dL Urine Protein 1+ H (Negative) Amorphous Sediment Rare H (None) /hpf Urine Mucus Rare H (None) /hpf Crossmatch See Detail 07/11/17 Range/Units 23:05 RBC (4.30-5.90) m/uL Hgb (13.0-17.5) gm/dL Hct (39.0-53.0) % MCHC (31.0-37.0) g/dL RDW (11.5-15.5) % Plt Count (150-450) k/uL Lymphocytes # (1.0-4.8) k/uL PT (9.0-12.0) sec INR (<1.2) BUN (9-20) mg/dL Creatinine (0.66-1.25) mg/dL Glucose (74-99) mg/dL POC Glucose (mg/dL) 138 H (75-99) mg/dL Total Protein (6.3-8.2) g/dL Albumin (3.5-5.0) g/dL Urine Protein (Negative) Amorphous Sediment (None) /hpf Urine Mucus (None) /hpf Crossmatch Diabetes panel 07/11/17 Range/Units 18:00 Sodium 141 (137-145) mmol/L Potassium 3.9 (3.5-5.1) mmol/L Chloride 100 (98-107) mmol/L Carbon Dioxide 27 (22-30) mmol/L BUN 81 H* (9-20) mg/dL Creatinine 4.20 H (0.66-1.25) mg/dL Glucose 123 H (74-99) mg/dL Calcium 8.7 (8.4-10.2) mg/dL AST 18 (17-59) U/L ALT 32 (21-72) U/L Alkaline Phosphatase 56 (38-126) U/L Total Protein 5.0 L (6.3-8.2) g/dL Albumin 3.1 L (3.5-5.0) g/dL Calcium panel 07/11/17 07/11/17 Range/Units 18:00 18:00 Calcium 8.7 (8.4-10.2) mg/dL Phosphorus 4.2 (2.5-4.5) mg/dL Albumin 3.1 L (3.5-5.0) g/dL Pituitary panel 07/11/17 Range/Units 18:00 Sodium 141 (137-145) mmol/L Potassium 3.9 (3.5-5.1) mmol/L Chloride 100 (98-107) mmol/L Carbon Dioxide 27 (22-30) mmol/L BUN 81 H* (9-20) mg/dL Creatinine 4.20 H (0.66-1.25) mg/dL Glucose 123 H (74-99) mg/dL Calcium 8.7 (8.4-10.2) mg/dL Adrenal panel 07/11/17 Range/Units 18:00 Sodium 141 (137-145) mmol/L Potassium 3.9 (3.5-5.1) mmol/L Chloride 100 (98-107) mmol/L Carbon Dioxide 27 (22-30) mmol/L BUN 81 H* (9-20) mg/dL Creatinine 4.20 H (0.66-1.25) mg/dL Glucose 123 H (74-99) mg/dL Calcium 8.7 (8.4-10.2) mg/dL Total Bilirubin 0.4 (0.2-1.3) mg/dL AST 18 (17-59) U/L ALT 32 (21-72) U/L Alkaline Phosphatase 56 (38-126) U/L Total Protein 5.0 L (6.3-8.2) g/dL Albumin 3.1 L (3.5-5.0) g/dL - Imaging CT scan - abdomen: report reviewed, image reviewed CT scan - pelvis: report reviewed, image reviewed Assessment and Plan Assessment: Impression: Spontaneous retroperitoneal and renal bleed right. Anemia secondary to that. Pain secondary to the subcapsular hematoma. Chronic renal failure stage V. Congestive heart failure. Atrial fibrillation. History of bladder cancer. History of prostate cancer. Recommendations: I reviewed the computed tomography scan and indeed he does have a significant subcapsular hematoma and retroperitoneal bleed. He has been anticoagulated and his inr is quite high. This has been stopped. Getting blood and fresh frozen plasma. I think he be better suited in a major [facility] where necessary angiographic approach to bleeding control can be performed as it is not done here. Also with his renal failure his heart failure and other problems with the keep you better served at a tertiary center. His primary urologist is at [facility] which revealed an appropriate place for referral unless he wishes to go to [facility] or the [facility].
[2017-07-12 08:18] LABS: Anisocytosis Slight; Basophils % (A) 0 %; Eosinophils % (A) 0 %; HCT 23.8 % (39.0-53.0); HGB 7.4 gm/dL (13.0-17.5); Hypochromasia Moderate; Lymphocytes # (A) 0.7 k/uL (1.0-4.8); Lymphocytes % (A) 9 %; MCH 30.5 pg (25.0-35.0); MCHC 31.2 g/dL (31.0-37.0); MCV 97.7 fL (80.0-100.0); Macrocytosis Slight; Mean Platelet Volume 8.9; Monocytes # (A) 0.8 k/uL (0-1.0); Monocytes % (A) 10 %; Neutrophils # (A) 6.4 k/uL (1.3-7.7); Neutrophils % (A) 80 %; Platelet Count 137 k/uL (150-450); Poikilocytosis Slight; RBC 2.44 m/uL (4.30-5.90); RDW 17.1 % (11.5-15.5)
[2017-07-12 08:21] LABS: INR 1.5 (<1.2); Prothrombin Time 14.2 sec (9.0-12.0)
[2017-07-12] MEDS: IPRATROPIUM-ALBUTEROL 3 ML NEB INHALATION SCH ×3 (08:21→15:42)
[2017-07-12 08:30] LABS: Calcium 8.3 mg/dL (8.4-10.2); Magnesium 2.1 mg/dL (1.6-2.3); Phosphorus 6.5 mg/dL (2.5-4.5); Potassium 4.2 mmol/L (3.5-5.1)
--- NOTE | 2017-07-12 08:43 | XR ---
EXAMINATION TYPE: XR chest 1V portable DATE OF EXAM: 07/12/2017 COMPARISON: 07/11/2017 HISTORY: Shortness of breath TECHNIQUE: Frontal and lateral views of the chest are obtained. FINDINGS: Scattered senescent parenchymal changes noted. Hyperinflation compatible with COPD. Right basilar opacity which may reflect a combination of effusion atelectasis and/or infiltrate. Heart size is mildly enlarged. Mediastinal structures are stable and grossly unremarkable. No evidence for hilar prominence. Degenerative changes dorsal spine. IMPRESSION: 1. Increasing Right basilar opacity which may reflect a combination of effusion atelectasis and/or in filtrate.
[2017-07-12] MEDS ORDERED: NON-FORMULARY DRUG (Selenium [Selenium] 200 MCG) PO SCH (09:00)
[2017-07-12] MEDS ORDERED: PANTOPRAZOLE 40 MG/10 ML VIAL IV SCH (09:00)
[2017-07-12] MEDS ORDERED: SODIUM BICARBONATE TAB 650 MG TAB PO SCH ×2 (09:00→21:00)
[2017-07-12] MEDS ORDERED: CHOLECALCIFEROL 400 UNIT TAB PO SCH (09:00)
[2017-07-12] MEDS ORDERED: ETHACRYNIC ACID PO SCH (09:00)
[2017-07-12] MEDS ORDERED: hydrALAZINE HCL 25 MG TAB PO SCH (09:00)
[2017-07-12] MEDS ORDERED: ISOSORBIDE MONONITRATE ER 60 MG TAB.ER.24H PO SCH (09:00)
[2017-07-12] MEDS ORDERED: OXYBUTYNIN CHLORIDE 5 MG TAB PO SCH (09:00)
[2017-07-12] MEDS ORDERED: NON-FORMULARY DRUG (Vit A/Vit C/Vit E/Zinc/Copper [Icaps Softgel] 1 CAP) PO SCH (09:00)
[2017-07-12] MEDS ORDERED: CARVEDILOL 12.5 MG TAB PO SCH (09:00)
--- NOTE | 2017-07-12 09:19 | P.CNPUL ---
History of Present Illness Consult date: 07/12/17 Reason for consult: other Chief complaint: Flank and abdominal pain History of present illness: Pulmonary consult dated 07/12/2017 This is an 81-year-old male presented to the emergency room with right flank pain. The pain radiates to his abdominal area. Is quite severe. There is no history of any trauma or fall. He apparently on computed tomography scan he was right found to have a right kidney subcapsular hematoma. He was coagulopathic from his Coumadin. Was recently in the hospital for an episode of pneumonia and likely was on antibiotics. Probably there is an interaction between antibiotics and the Coumadin which was not taking into consideration which caused him to become coagulopathic and potentiated the hematoma. Again he denies any trauma. The patient feeling okay right now. Pain is under better control. Chest x-ray shows an abnormality in the right lower lobe. It could be a pleural effusion with some residual infiltrate from the recent episode of pneumonia. He's not really having much in the way of pulmonary complaints. Denies any cough wheezing shortness of breath or phlegm production. Not coughing up any blood. No nausea vomiting or diarrhea at this time. Urology and cardiology has been consulted and I did ask the nurse to have her followed she see the patient as he is seen by Dr. Mendosa on a regular basis. In addition to his recent episode of pneumonia, he has history of CAD angina heart failure hyperlipidemia hypertension chronic kidney disease stage IV ischemic cardiopathy history of bladder cancer with BCG instillations prostate cancer status post radiation urinary continence pacemaker insertion in macular degeneration. He is also status post bypass grafting. Review of Systems A 12 point review of system is positive for right flank and abdominal pain. This is essentially what brought him into the hospital. Past Medical History Past Medical History: Coronary Artery Disease (CAD), Cancer, Chest Pain / Angina , Heart Failure, Eye Disorder, Hyperlipidemia, Hypertension, Pneumonia, Renal Disease Additional Past Medical History / Comment(s): Chronic kidney failure which pt states is now stage V, ischemic cardiomyopathy, bladder cancer twice with BCG instillations, prostrate cancer with radiation, urinary incontinence, bilateral macular degeneration, bradycardia/pacemaker insertion. History of Any Multi-Drug Resistant Organisms: None Reported Past Surgical History: Appendectomy, Coronary Bypass/CABG, Heart Catheterization , Heart Catheterization With Stent, Pacemaker Additional Past Surgical History / Comment(s): 2 vessel cabg in 2006, Pacemaker 2014, STENTS 2006 and 2013, CYSTOSCOPIES, EYE INJECTIONS Q 2 MONTHS FOR MACULAR DEGENERATION. Past Anesthesia/Blood Transfusion Reactions: No Reported Reaction Date of Last Stent Placement:: 2013 Type of Cardiac Device: Permanent Pacemaker Device Placement Date:: 2014 Past Psychological History: No Psychological Hx Reported Additional Psychological History / Comment(s): PT RESIDES AT home AND HIS SPOUSE WHO HAS DEMENTIA RESIDES AT [facility]. PT HAS A DOG. HE IS INDEPENDENT. Smoking Status: Former smoker Past Alcohol Use History: None Reported Additional Past Alcohol Use History / Comment(s): Pt started smoking in 1958 and quit in 2005. Past Drug Use History: None Reported - Past Family History Mother Family Medical History: Coronary Artery Disease (CAD) Additional Family Medical History / Comment(s): alzheimers Father Family Medical History: Coronary Artery Disease (CAD) Additional Family Medical History / Comment(s): Father was an alcoholic and had "hardening of arteries" Medications and Allergies Home Medications Medication Instructions Recorded Confirmed Type Atorvastatin [Lipitor] 20 mg PO HS 02/08/16 07/11/17 History Oxybutynin Chloride [Ditropan] 5 mg PO BID 02/08/16 07/11/17 History Sodium Bicarbonate 650 mg PO QAM 02/08/16 07/11/17 History Tamsulosin HCl [Flomax] 0.4 mg PO HS 02/08/16 07/11/17 History Vit A/Vit C/Vit E/Zinc/Copper 1 cap PO BID 02/08/16 07/11/17 History [ICAPS SOFTGEL] Isosorbide Mononitrate ER [Imdur] 60 mg PO QAM #60 tab.er.24h 04/06/16 07/11/17 Rx Nitroglycerin 1 tab SUBLINGUAL Q5M PRN 09/01/16 07/11/17 History Warfarin [Coumadin] 5 mg PO SUMOWEFRSA 09/01/16 07/11/17 History Edecrin 50 mg PO QAM 05/07/17 07/11/17 History Ferrous Sulfate [Iron (65 MG 325 mg PO HS 05/07/17 07/11/17 History Elemental)] Ferrous Sulfate [Iron (65 MG 650 mg PO DAILY 05/07/17 07/11/17 History Elemental)] Sodium Bicarbonate 325 mg PO HS 05/07/17 07/11/17 History Aspirin [Adult Low Dose Aspirin EC] 81 mg PO DAILY 06/04/17 07/11/17 History Carvedilol [Coreg] 50 mg PO BID 06/04/17 07/11/17 History Cholecalciferol [Vitamin D3] 400 unit PO DAILY 06/04/17 07/11/17 History Selenium 200 mcg PO DAILY 06/04/17 07/11/17 History Warfarin [Coumadin] 2.5 mg PO TUTH 06/04/17 07/11/17 History hydrALAZINE HCL [Apresoline] 50 mg PO BID 06/04/17 07/11/17 History Ipratropium-Albuterol Nebulize 3 ml INHALATION RT-QID #120 06/06/17 07/11/17 Rx [Duoneb 0.5 mg-3 mg/3 ml Soln] ampul.neb guaiFENesin [Mucinex] 1,200 mg PO Q12HR #20 tablet.er 06/06/17 07/11/17 Rx Allergies Allergy/AdvReac Type Severity Reaction Status Date / Time furosemide [From Lasix] Allergy Rash/Hives Verified 07/11/17 17:43 Sulfa (Sulfonamide Allergy Rash/Hives Verified 07/11/17 17:43 Antibiotics) Physical Exam Osteopathic Statement: *. No significant issues noted on an osteopathic structural exam other than those noted in the History and Physical/Consult. Vitals: Vital Signs Temp Pulse Resp BP Pulse Ox 07/12/17 09:00 57 L 22 105/45 94 L 07/12/17 08:33 67 07/12/17 08:21 63 07/12/17 08:00 97.7 F 68 21 140/59 93 L 07/12/17 07:00 69 20 151/64 95 07/12/17 06:53 98.0 F 68 18 151/64 94 L 07/12/17 06:00 62 12 130/45 94 L 07/12/17 05:00 57 L 11 L 124/56 96 07/12/17 04:54 98.0 F 63 17 125/51 94 L 07/12/17 04:44 98.0 F 64 18 118/59 97 07/12/17 04:31 98.5 F 66 20 138/51 96 05/24/18 04:00 97.9 F 62 12 118/58 97 07/12/17 03:00 63 13 119/49 98 07/12/17 02:40 97.6 F 60 15 119/49 07/12/17 02:10 97.7 F 63 16 110/62 07/12/17 02:00 97.7 F 64 16 146/63 94 L 07/12/17 01:52 97.7 F 63 20 136/68 96 07/12/17 01:30 65 12 145/63 93 L 07/12/17 01:00 65 14 136/65 95 07/12/17 00:30 62 16 132/60 98 07/12/17 00:23 97.8 F 64 12 125/56 96 07/12/17 00:00 60 15 124/60 96 07/11/17 23:53 97.9 F 66 16 124/60 98 07/11/17 23:43 98 F 63 22 129/58 96 07/11/17 23:30 63 14 129/58 96 07/11/17 23:10 98.1 F 66 16 137/62 94 L 07/11/17 23:00 97.9 F 64 18 97/52 95 07/11/17 22:39 97.9 F 60 18 112/56 97 07/11/17 22:19 97.9 F 60 18 138/69 95 07/11/17 19:16 97.0 F L 66 18 141/67 99 07/11/17 18:14 100 07/11/17 17:50 97.7 F 62 18 131/76 91 L Intake and Output 07/11/17 07/12/17 07/12/17 22:59 06:59 14:59 Intake Total 1988 0 Output Total 135 24 Balance 1853 -24 Intake: IV 150 0 Phytonadione 10 mg In 50 Sodium Chloride 0.9% 50 ml @ 100 mls/hr IVPB ONCE STA Rx#:[id number] Sodium Chloride 0.9% 1, 100 0 000 ml @ 100 mls/hr IV . Q10H STA Rx#:[id number] Oral 240 Blood Product 1598 Ffp 24 Cpd Unit 314 [id number] Ffp 24 Cpd Unit 332 [id number] Rc As-1 Unit 310 [id number] Output: Urine 135 24 Other: Voiding Method Indwelling Catheter Weight 73.21 kg 74.3 kg No acute distress, oriented 3. Nasal O2 in place. HEENT examination is grossly unremarkable. Mucous membranes are moist. No oral lesions. Neck supple. Full range of motion. No adenopathy thyromegaly or neck vein distention. Cardiovascular examination reveals regular rhythm rate. S1-S2 normal. No S3 or S4. No discernible murmur noted. Lungs reveal mostly clear breath sounds. A few scattered rhonchi in the right chest area. No wheezes or crackles appreciated. Abdomen soft with minimal tenderness. Bowel sounds are noted. Extremities are intact. No cyanosis clubbing or edema. Skin is without rash or lesion. Neurologic examination is brief but nonfocal. Results - Laboratory Findings CBC and BMP: 07/12/17 08:00 07/12/17 08:00 PT/INR, D-dimer PT 14.2 sec (9.0-12.0) H 07/12/17 08:00 INR 1.5 (<1.2) H 07/12/17 08:00 Abnormal lab findings: Abnormal Labs 07/11/17 07/11/17 07/11/17 15:00 18:00 18:00 RBC 2.99 L Hgb 9.1 L Hct 28.9 L MCHC RDW 16.4 H Plt Count Lymphocytes # 0.5 L PT 37.9 H INR 4.2 H BUN 81 H* Creatinine 4.20 H Glucose 123 H POC Glucose (mg/dL) Calcium Phosphorus Total Protein 5.0 L Albumin 3.1 L Urine Protein Amorphous Sediment Urine Mucus Crossmatch 07/11/17 07/11/17 07/11/17 18:00 20:59 22:34 RBC 2.24 L Hgb 6.7 L* D Hct 21.7 L MCHC 30.9 L RDW 16.4 H Plt Count 141 L Lymphocytes # 0.3 L PT INR BUN Creatinine Glucose POC Glucose (mg/dL) Calcium Phosphorus Total Protein Albumin Urine Protein 1+ H Amorphous Sediment Rare H Urine Mucus Rare H Crossmatch See Detail 07/11/17 07/12/17 07/12/17 23:05 08:00 08:00 RBC 2.44 L Hgb 7.4 L Hct 23.8 L MCHC RDW 17.1 H Plt Count 137 L Lymphocytes # 0.7 L PT 14.2 H INR 1.5 H BUN Creatinine Glucose POC Glucose (mg/dL) 138 H Calcium Phosphorus Total Protein Albumin Urine Protein Amorphous Sediment Urine Mucus Crossmatch 07/12/17 08:00 RBC Hgb Hct MCHC RDW Plt Count Lymphocytes # PT INR BUN 80 H* Creatinine 4.71 H Glucose POC Glucose (mg/dL) Calcium 8.3 L Phosphorus 6.5 H Total Protein Albumin Urine Protein Amorphous Sediment Urine Mucus Crossmatch - Diagnostic Findings Chest x-ray: image reviewed (X-rays labs and medications are all reviewed.) Assessment and Plan Assessment: Assessment Spontaneous right renal subcapsular hematoma, potentiated by Coumadin induced coagulopathy. History of recent hospitalization for pneumonia History of bladder cancer History of prostate cancer Previous history of bypass grafting Status post pacemaker insertion History of macular degeneration History of CAD History of heart failure Hyperlipidemia Hypertension Plan: Plan dated 07/12/2017 I reviewed the surgical consultation by Dr. Engel, urologist. He is recommending that the patient be transferred to [facility], or [facility]. The patient's primary urologist is [facility]. The patient did receive 1 unit of packed red blood cells. He received 2 units of fresh frozen plasma and 10 mg of vitamin K. The most recent PT/INR shows the INR to be 1.5 and hemoglobin is 7.4. We'll continue to monitor that closely. I'll let the nurse know about the possible transfer. Additional recommendations and suggestions are forthcoming. The patient was admitted to Dr. Carter's service so he'll have to be notified as well. Hemodynamically the patient is stable. Respiratory status is stable as well. Critical care time 37 minutes Time with Patient: Greater than 30
--- NOTE | 2017-07-12 09:56 | P.CRDCN ---
History of Present Illness Consult date: 07/12/17 History of present illness: This is a 81-year-old gentleman with history of ischemic heart disease and previous bypass surgery and also permanent pacemaker implantation was recently in the hospital with an episode of pneumonia. He was in antibiotics. Apparently was also on Coumadin. His INR is in the range of 4.3. . He came to the hospital mainly complaining of right flank pain. Patient was found subsequently to have a subcapsular hematoma of the kidney. His hemoglobin also dropped to 6.9. His is received blood transfusion. It is planned that patient be transferred to [facility]. Apparently he follows up with the urologist to [facility]. We're asked to see the patient mainly because it was felt that patient pacemaker may be misfiring. However, on close inspection, pacemaker function seemed to be normal. Occasional spikes are noted within the QRS which could be secondary to committed pacing. His pacemaker was checked in April which seemed to function normally at the time. He chest x-ray shows proper lead position. Patient has history of CHF and cardiomyopathy. Clinically patient has expiratory wheezing and rhonchi and has some infiltrates suggestive of possible chronic bronchitis and pneumonia. From Cardec standpoint patient is stable enough to be transferred to [facility]. Review of Systems REVIEW OF SYSTEMS: CONSTITUTIONAL:. Patient is doing well. No complaints of fever or chills EYES: Denies diplopia, blurring of vision EARS, NOSE, MOUTH, THROAT: Denies headaches, denies sore throat. CARDIOVASCULAR: Denies chest pain, denies shortness of breath, denies palpitations RESPIRATORY: Denies shortness of breath, denies cough. GASTROINTESTINAL: Complaints of right flank pain GENITOURINARY: Denies hematuria, denies infections. MUSKULOSKELETAL: Denies pain, denies swelling. Denies any cramps or claudication INTEGUMENTARY: Denies rash, denies eczema. NEUROLOGICAL: Denies focal weakness, or visual disturbance. Denies any dizziness or syncope PSYCHIATRIC: Denies anxiety, denies depression. HEMATOLOGIC/LYMPHATIC: Denies any bleeding, denies enlarged lymph nodes. Past Medical History Past Medical History: Coronary Artery Disease (CAD), Cancer, Chest Pain / Angina , Heart Failure, Eye Disorder, Hyperlipidemia, Hypertension, Pneumonia, Renal Disease Additional Past Medical History / Comment(s): Chronic kidney failure which pt states is now stage V, ischemic cardiomyopathy, bladder cancer twice with BCG instillations, prostrate cancer with radiation, urinary incontinence, bilateral macular degeneration, bradycardia/pacemaker insertion. History of Any Multi-Drug Resistant Organisms: None Reported Past Surgical History: Appendectomy, Coronary Bypass/CABG, Heart Catheterization , Heart Catheterization With Stent, Pacemaker Additional Past Surgical History / Comment(s): 2 vessel cabg in 2006, Pacemaker 2014, STENTS 2006 and 2013, CYSTOSCOPIES, EYE INJECTIONS Q 2 MONTHS FOR MACULAR DEGENERATION. Past Anesthesia/Blood Transfusion Reactions: No Reported Reaction Date of Last Stent Placement:: 2013 Type of Cardiac Device: Permanent Pacemaker Device Placement Date:: 2014 Past Psychological History: No Psychological Hx Reported Additional Psychological History / Comment(s): PT RESIDES AT home AND HIS SPOUSE WHO HAS DEMENTIA RESIDES AT [facility]. PT HAS A DOG. HE IS INDEPENDENT. Smoking Status: Former smoker Past Alcohol Use History: None Reported Additional Past Alcohol Use History / Comment(s): Pt started smoking in 1958 and quit in 2005. Past Drug Use History: None Reported - Past Family History Mother Family Medical History: Coronary Artery Disease (CAD) Additional Family Medical History / Comment(s): alzheimers Father Family Medical History: Coronary Artery Disease (CAD) Additional Family Medical History / Comment(s): Father was an alcoholic and had "hardening of arteries" Medications and Allergies Home Medications Medication Instructions Recorded Confirmed Type Atorvastatin [Lipitor] 20 mg PO HS 02/08/16 07/11/17 History Oxybutynin Chloride [Ditropan] 5 mg PO BID 02/08/16 07/11/17 History Sodium Bicarbonate 650 mg PO QAM 02/08/16 07/11/17 History Tamsulosin HCl [Flomax] 0.4 mg PO HS 02/08/16 07/11/17 History Vit A/Vit C/Vit E/Zinc/Copper 1 cap PO BID 02/08/16 07/11/17 History [ICAPS SOFTGEL] Isosorbide Mononitrate ER [Imdur] 60 mg PO QAM #60 tab.er.24h 04/06/16 07/11/17 Rx Nitroglycerin 1 tab SUBLINGUAL Q5M PRN 09/01/16 07/11/17 History Warfarin [Coumadin] 5 mg PO SUMOWEFRSA 09/01/16 07/11/17 History Edecrin 50 mg PO QAM 05/07/17 07/11/17 History Ferrous Sulfate [Iron (65 MG 325 mg PO HS 05/07/17 07/11/17 History Elemental)] Ferrous Sulfate [Iron (65 MG 650 mg PO DAILY 05/07/17 07/11/17 History Elemental)] Sodium Bicarbonate 325 mg PO HS 05/07/17 07/11/17 History Aspirin [Adult Low Dose Aspirin EC] 81 mg PO DAILY 06/04/17 07/11/17 History Carvedilol [Coreg] 50 mg PO BID 06/04/17 07/11/17 History Cholecalciferol [Vitamin D3] 400 unit PO DAILY 06/04/17 07/11/17 History Selenium 200 mcg PO DAILY 06/04/17 07/11/17 History Warfarin [Coumadin] 2.5 mg PO TUTH 06/04/17 07/11/17 History hydrALAZINE HCL [Apresoline] 50 mg PO BID 06/04/17 07/11/17 History Ipratropium-Albuterol Nebulize 3 ml INHALATION RT-QID #120 06/06/17 07/11/17 Rx [Duoneb 0.5 mg-3 mg/3 ml Soln] ampul.neb guaiFENesin [Mucinex] 1,200 mg PO Q12HR #20 tablet.er 06/06/17 07/11/17 Rx Allergies Allergy/AdvReac Type Severity Reaction Status Date / Time furosemide [From Lasix] Allergy Rash/Hives Verified 07/11/17 17:43 Sulfa (Sulfonamide Allergy Rash/Hives Verified 07/11/17 17:43 Antibiotics) Physical Exam Vitals: Vital Signs Temp Pulse Resp BP Pulse Ox 07/12/17 09:00 57 L 22 105/45 94 L 07/12/17 08:33 67 07/12/17 08:21 63 07/12/17 08:00 97.7 F 68 21 140/59 93 L 07/12/17 07:00 69 20 151/64 95 07/12/17 06:53 98.0 F 68 18 151/64 94 L 07/12/17 06:00 62 12 130/45 94 L 07/12/17 05:00 57 L 11 L 124/56 96 07/12/17 04:54 98.0 F 63 17 125/51 94 L 07/12/17 04:44 98.0 F 64 18 118/59 97 07/12/17 04:31 98.5 F 66 20 138/51 96 07/12/17 04:00 97.9 F 62 12 118/58 97 07/12/17 03:00 63 13 119/49 98 07/12/17 02:40 97.6 F 60 15 119/49 07/12/17 02:10 97.7 F 63 16 110/62 07/12/17 02:00 97.7 F 64 16 146/63 94 L 07/12/17 01:52 97.7 F 63 20 136/68 96 07/12/17 01:30 65 12 145/63 93 L 07/12/17 01:00 65 14 136/65 95 07/12/17 00:30 62 16 132/60 98 07/12/17 00:23 97.8 F 64 12 125/56 96 07/12/17 00:00 60 15 124/60 96 07/11/17 23:53 97.9 F 66 16 124/60 98 07/11/17 23:43 98 F 63 22 129/58 96 07/11/17 23:30 63 14 129/58 96 07/11/17 23:10 98.1 F 66 16 137/62 94 L 07/11/17 23:00 97.9 F 64 18 97/52 95 07/11/17 22:39 97.9 F 60 18 112/56 97 07/11/17 22:19 97.9 F 60 18 138/69 95 07/11/17 19:16 97.0 F L 66 18 141/67 99 07/11/17 18:14 100 07/11/17 17:50 97.7 F 62 18 131/76 91 L Intake and Output 07/11/17 07/12/17 07/12/17 22:59 06:59 14:59 Intake Total 1988 0 Output Total 135 24 Balance 1853 24 Intake: IV 150 0 Phytonadione 10 mg In 50 Sodium Chloride 0.9% 50 ml @ 100 mls/hr IVPB ONCE STA Rx#:[id number] Sodium Chloride 0.9% 1, 100 0 000 ml @ 100 mls/hr IV . Q10H STA Rx#:[id number] Oral 240 Blood Product 1598 Ffp 24 Cpd Unit 314 [id number] Ffp 24 Cpd Unit 332 [id number] Rc As-1 Unit 310 [id number] Output: Urine 135 24 Other: Voiding Method Indwelling Catheter Weight 73.21 kg 74.3 kg 74.3 kg GENERAL EXAM: Patient is alert and oriented and doesn't appear to be in any acute distress. Still having mild flank pain but much better than yesterday HEENT: Normocephalic. Normal reaction of pupils, equal size, normal range of extraocular motion. No erythema or exudates in the throat. NECK: No masses, no nuchal rigidity. CHEST: No chest wall deformity. LUNGS: Expiratory wheezing and rhonchi HEART: S1 and S2 normal with no audible mumurs or gallops. Regular rhythm, femorals equal on both sides.. ABDOMEN: Soft SKIN: No rashes CENTRAL NERVOUS SYSTEM: No focal deficits. EXTREMITIES: No cyanosis, clubbing or edema. Results 07/12/17 08:00 07/12/17 08:00 Cardiac Enzymes 07/11/17 Range/Units 18:00 AST 18 (17-59) U/L Coagulation 07/11/17 07/12/17 Range/Units 15:00 08:00 PT 37.9 H 14.2 H (9.0-12.0) sec CBC 07/11/17 07/11/17 07/12/17 Range/Units 18:00 22:34 08:00 WBC 5.4 7.3 8.0 (3.8-10.6) k/uL RBC 2.99 L 2.24 L 2.44 L (4.30-5.90) m/uL Hgb 9.1 L 6.7 L* D 7.4 L (13.0-17.5) gm/dL Hct 28.9 L 21.7 L 23.8 L (39.0-53.0) % Plt Count 165 141 L 137 L (150-450) k/uL Comprehensive Metabolic Panel 07/11/17 07/12/17 Range/Units 18:00 08:00 Sodium 141 142 (137-145) mmol/L Potassium 3.9 4.2 (3.5-5.1) mmol/L Chloride 100 98 (98-107) mmol/L Carbon Dioxide 27 27 (22-30) mmol/L BUN 81 H* 80 H* (9-20) mg/dL Creatinine 4.20 H 4.71 H (0.66-1.25) mg/dL Glucose 123 H 95 (74-99) mg/dL Calcium 8.7 8.3 L (8.4-10.2) mg/dL AST 18 (17-59) U/L ALT 32 (21-72) U/L Alkaline Phosphatase 56 (38-126) U/L Total Protein 5.0 L (6.3-8.2) g/dL Albumin 3.1 L (3.5-5.0) g/dL Current Medications Generic Name Dose Route Start Last Admin Trade Name Freq PRN Reason Stop Dose Admin Albuterol/Ipratropium 3 ml 07/12/17 08:00 07/12/17 08:21 Duoneb 0.5 Mg-3 Mg/3 Ml Soln INHALATION 3 ml RT-QID [facility]N Administration Carvedilol 50 mg 07/12/17 09:00 07/12/17 08:13 Coreg PO 50 mg BID [facility] Administration Cholecalciferol 400 unit 07/12/17 09:00 07/12/17 08:15 Vitamin D3 PO 400 unit DAILY G[facility] Administration Hydralazine HCl 50 mg 07/12/17 09:00 Apresoline PO BID [facility] Isosorbide Mononitrate 60 mg 07/12/17 09:00 07/12/17 08:16 Imdur PO 60 mg QAM [facility] Administration Miscellaneous Information 1 each 07/11/17 23:47 Potassium Per Protocol MISCELLANE DAILY PRN Per Protocol Protocol Morphine Sulfate 4 mg 07/11/17 22:06 07/12/17 02:03 Morphine Sulfate (Inj) IV 4 mg Q2HR PRN Administration Pain Scale 8 to 10 Naloxone HCl 0.2 mg 07/11/17 22:06 Narcan IV Q2M PRN Opioid Reversal Naloxone HCl 0.2 mg 07/12/17 01:24 Narcan IV Q2M PRN Opioid Reversal Nitroglycerin 0.4 mg 07/11/17 22:13 Nitrostat SUBLINGUAL Q5M PRN Angina Edecrin 50 Mg 50 mg 07/12/17 09:00 PO QAM [facility] Oxybutynin Chloride 5 mg 07/12/17 09:00 07/12/17 08:19 Ditropan PO 5 mg BID [facility] Administration Pantoprazole Sodium 40 mg 07/12/17 09:00 07/12/17 08:10 Protonix IV 40 mg DAILY [facility] Administration Sodium Bicarbonate 325 mg 07/12/17 21:00 Sodium Bicarbonate Tab PO HS [facility] Sodium Bicarbonate 650 mg 07/12/17 09:00 07/12/17 08:13 Sodium Bicarbonate Tab PO 650 mg QAM [facility] Administration Tamsulosin HCl 0.4 mg 07/12/17 21:00 Flomax PO HS [facility] Intake and Output 07/11/17 07/12/17 07/12/17 22:59 06:59 14:59 Intake Total 1988 0 Output Total 135 24 Balance 1853 -24 Intake: IV 150 0 Phytonadione 10 mg In 50 Sodium Chloride 0.9% 50 ml @ 100 mls/hr IVPB ONCE STA Rx#:[id number] Sodium Chloride 0.9% 1, 100 0 000 ml @ 100 mls/hr IV . Q10H STA Rx#:[id number] Oral 240 Blood Product 1598 Ffp 24 Cpd Unit 314 [id number] Ffp 24 Cpd Unit 332 [id number] Rc As-1 Unit 310 [id number] Output: Urine 135 24 Other: Voiding Method Indwelling Catheter Weight 73.21 kg 74.3 kg 74.3 kg Patient Weight 07/13/17 06:59 Weight 74.3 kg 07/12/17 08:00 07/12/17 08:00 EKG Interpretations (text) Sinus rhythm with atrial sensing and ventricular tracking Assessment and Plan (1) CAD (coronary artery disease) Current Visit: Yes Status: Acute Code(s): I25.10 - ATHSCL HEART DISEASE OF [place] CORONARY ARTERY W/O ANG PCTRS SNOMED Code(s): 35906411 (2) Abdominal hematoma Current Visit: Yes Status: Acute Code(s): S30.1XXA - CONTUSION OF ABDOMINAL WALL, INITIAL ENCOUNTER SNOMED Code(s): 737537196 (3) Anemia Current Visit: No Status: Acute Code(s): D64.9 - ANEMIA, UNSPECIFIED SNOMED Code(s): 979594779 (4) CHF (congestive heart failure) Current Visit: No Status: Acute Code(s): I50.9 - HEART FAILURE, UNSPECIFIED SNOMED Code(s): 51793010 (5) Chronic renal disease Current Visit: No Status: Acute Code(s): N18.9 - CHRONIC KIDNEY DISEASE, UNSPECIFIED SNOMED Code(s): 272394798 Plan: Patient's pacemaker is functioning normally. Patient is being transferred to [facility] for further care for hematoma. We'll follow him as needed
[2017-07-12] MEDS ORDERED: TORSEMIDE 20 MG TAB PO STA (09:58)
--- NOTE | 2017-07-12 10:09 | P.NPCON ---
History of Present Illness - Reason for Consult acute renal failure, chronic renal failure - History of Present Illness Reason for consultation: Chronic kidney disease History of present illness: Patient is a 81-year-old male seen in renal consultation for acute kidney injury on chronic any disease. Patient has chronic kidney disease stage V with baseline creatinine in the range of 4-4.5 secondary to nephrosclerosis. Patient presented to the hospital due to sudden onset severe right sided flank pain. Patient was sent to the hospital for further care. He underwent a CAT scan of the abdomen and pelvis which revealed a large subscapular hematoma on the right. His hemoglobin was 9.1 and dropped down to 6.7 for which she did receive a unit of blood. Hemoglobin this morning was 7.4. He denies any hematuria or dysuria. Denies chest pain but does admit to dyspnea. He is being followed by urology and there are plans to transfer him to [facility] for further care. He has been voiding but his urine output has been low 10-15 mL an hour. He is maintained on torsemide as well as ethacrynic acid at home. Denies headaches dizziness or syncopal episodes. Vital signs are stable. General: The patient appeared well nourished and normally developed. HEENT: Head exam is unremarkable. Neck is without jugular venous distension. LUNGS: Breath sounds decreased. HEART: Rate and Rhythm are regular. First and second heart sounds normal. No murmurs, rubs or gallops. ABDOMEN: Abdominal exam reveals normal bowel sounds. Non-tender and non- distended. No evidence of peritonitis. EXTREMITITES: No clubbing, cyanosis, or edema. Past Medical History Past Medical History: Coronary Artery Disease (CAD), Cancer, Chest Pain / Angina , Heart Failure, Eye Disorder, Hyperlipidemia, Hypertension, Pneumonia, Renal Disease Additional Past Medical History / Comment(s): Chronic kidney failure which pt states is now stage V, ischemic cardiomyopathy, bladder cancer twice with BCG instillations, prostrate cancer with radiation, urinary incontinence, bilateral macular degeneration, bradycardia/pacemaker insertion. History of Any Multi-Drug Resistant Organisms: None Reported Past Surgical History: Appendectomy, Coronary Bypass/CABG, Heart Catheterization , Heart Catheterization With Stent, Pacemaker Additional Past Surgical History / Comment(s): 2 vessel cabg in 2006, Pacemaker 2014, STENTS 2006 and 2013, CYSTOSCOPIES, EYE INJECTIONS Q 2 MONTHS FOR MACULAR DEGENERATION. Past Anesthesia/Blood Transfusion Reactions: No Reported Reaction Date of Last Stent Placement:: 2013 Type of Cardiac Device: Permanent Pacemaker Device Placement Date:: 2014 Past Psychological History: No Psychological Hx Reported Additional Psychological History / Comment(s): PT RESIDES AT home AND HIS SPOUSE WHO HAS DEMENTIA RESIDES AT [facility] DEMENTIA [facility]. PT HAS A DOG. HE IS INDEPENDENT. Smoking Status: Former smoker Past Alcohol Use History: None Reported Additional Past Alcohol Use History / Comment(s): Pt started smoking in 7 and quit in 2005. Past Drug Use History: None Reported - Past Family History Mother Family Medical History: Coronary Artery Disease (CAD) Additional Family Medical History / Comment(s): alzheimers Father Family Medical History: Coronary Artery Disease (CAD) Additional Family Medical History / Comment(s): Father was an alcoholic and had "hardening of arteries" Medications and Allergies Home Medications Medication Instructions Recorded Confirmed Type Atorvastatin [Lipitor] 20 mg PO HS 02/08/16 07/11/17 History Oxybutynin Chloride [Ditropan] 5 mg PO BID 02/08/16 07/11/17 History Sodium Bicarbonate 650 mg PO QAM 02/08/16 07/11/17 History Tamsulosin HCl [Flomax] 0.4 mg PO HS 02/08/16 07/11/17 History Vit A/Vit C/Vit E/Zinc/Copper 1 cap PO BID 02/08/16 07/11/17 History [ICAPS SOFTGEL] Isosorbide Mononitrate ER [Imdur] 60 mg PO QAM #60 tab.er.24h 04/06/16 07/11/17 Rx Nitroglycerin 1 tab SUBLINGUAL Q5M PRN 09/01/16 07/11/17 History Warfarin [Coumadin] 5 mg PO SUMOWEFRSA 09/01/16 07/11/17 History Edecrin 50 mg PO QAM 05/07/17 07/11/17 History Ferrous Sulfate [Iron (65 MG 325 mg PO HS 05/07/17 07/11/17 History Elemental)] Ferrous Sulfate [Iron (65 MG 650 mg PO DAILY 05/07/17 07/11/17 History Elemental)] Sodium Bicarbonate 325 mg PO HS 05/07/17 07/11/17 History Aspirin [Adult Low Dose Aspirin EC] 81 mg PO DAILY 06/04/17 07/11/17 History Carvedilol [Coreg] 50 mg PO BID 06/04/17 07/11/17 History Cholecalciferol [Vitamin D3] 400 unit PO DAILY 06/04/17 07/11/17 History Selenium 200 mcg PO DAILY 06/04/17 07/11/17 History Warfarin [Coumadin] 2.5 mg PO TUTH 06/04/17 07/11/17 History hydrALAZINE HCL [Apresoline] 50 mg PO BID 06/04/17 07/11/17 History Ipratropium-Albuterol Nebulize 3 ml INHALATION RT-QID #120 06/06/17 07/11/17 Rx [Duoneb 0.5 mg-3 mg/3 ml Soln] ampul.neb guaiFENesin [Mucinex] 1,200 mg PO Q12HR #20 tablet.er 06/06/17 07/11/17 Rx Allergies Allergy/AdvReac Type Severity Reaction Status Date / Time furosemide [From Lasix] Allergy Rash/Hives Verified 07/11/17 17:43 Sulfa (Sulfonamide Allergy Rash/Hives Verified 07/11/17 17:43 Antibiotics) Physical Exam Vitals: Vital Signs Temp Pulse Resp BP Pulse Ox 07/12/17 09:00 57 L 22 105/45 94 L 07/12/17 08:33 67 07/12/17 08:21 63 07/12/17 08:00 97.7 F 68 21 140/59 93 L 07/12/17 07:00 69 20 151/64 95 07/12/17 06:53 98.0 F 68 18 151/64 94 L 07/12/17 06:00 62 12 130/45 94 L 07/12/17 05:00 57 L 11 L 124/56 96 07/12/17 04:54 98.0 F 63 17 125/51 94 L 07/12/17 04:44 98.0 F 64 18 118/59 97 07/12/17 04:31 98.5 F 66 20 138/51 96 07/12/17 04:00 97.9 F 62 12 118/58 97 07/12/17 03:00 63 13 119/49 98 07/12/17 02:40 97.6 F 60 15 119/49 07/12/17 02:10 97.7 F 63 16 110/62 07/12/17 02:00 97.7 F 64 16 146/63 94 L 07/12/17 01:52 97.7 F 63 20 136/68 96 07/12/17 01:30 65 12 145/63 93 L 07/12/17 01:00 65 14 136/65 95 07/12/17 00:30 62 16 132/60 98 07/12/17 00:23 97.8 F 64 12 125/56 96 07/12/17 00:00 60 15 124/60 96 07/11/17 23:53 97.9 F 66 16 124/60 98 07/11/17 23:43 98 F 63 22 129/58 96 07/11/17 23:30 63 14 129/58 96 07/11/17 23:10 98.1 F 66 16 137/62 94 L 07/11/17 23:00 97.9 F 64 18 97/52 95 07/11/17 22:39 97.9 F 60 18 112/56 97 07/11/17 22:19 97.9 F 60 18 138/69 95 07/11/17 19:16 97.0 F L 66 18 141/67 99 07/11/17 18:14 100 07/11/17 17:50 97.7 F 62 18 131/76 91 L Intake and Output 07/11/17 07/12/17 07/12/17 22:59 06:59 14:59 Intake Total 1988 0 Output Total 135 24 Balance 1853 -24 Intake: IV 150 0 Phytonadione 10 mg In 50 Sodium Chloride 0.9% 50 ml @ 100 mls/hr IVPB ONCE STA Rx#:[id number] Sodium Chloride 0.9% 1, 100 0 000 ml @ 100 mls/hr IV . Q10H STA Rx#:[id number] Oral 240 Blood Product 1598 Ffp 24 Cpd Unit 314 [id number] Ffp 24 Cpd Unit 332 [id number] Rc As-1 Unit 310 [id number] Output: Urine 135 24 Other: Voiding Method Indwelling Catheter Weight 73.21 kg 74.3 kg 74.3 kg Results - Lab Results Most recent lab results Calcium 8.3 mg/dL (8.4-10.2) L 07/12/17 08:00 Phosphorus 6.5 mg/dL (2.5-4.5) H 07/12/17 08:00 Magnesium 2.1 mg/dL (1.6-2.3) 07/12/17 08:00 07/12/17 08:00 07/12/17 08:00 Assessment and Plan Plan: Assessment: 1. Nonoliguric acute kidney injury secondary to ATN secondary to anemia. Creatinine 4.7 today. 2. Chronic kidney disease stage V secondary to nephrosclerosis with baseline creatinine near 4. 3. Right subcapsular hematoma likely related to coagulopathy. INR was 4.1 admission he did receive FFP and vitamin K and is down to 1.5 today. 4. Anemia secondary to the hematoma status post blood transfusion. Hemoglobin up to 7.4 this morning. 5. Hypertension with chronic kidney disease. Controlled. Plan: Torsemide 20 mg once now. Patient is ALLERGIC to Lasix. No urgent need for renal replacement therapy at this time. Patient follows with me as an outpatient. He has been delaying peritoneal dialysis catheter placement as he was moving to a new apartment. This will be again readdressed as an outpatient - he has agreed to get the catheter placed. Potential transfer to [facility] today. Thank you for the consultation. I will continue to follow the patient with you during his hospital stay.
--- NOTE | 2017-07-12 11:56 | HP ---
HISTORY AND PHYSICAL HISTORY AND PHYSICAL/DISCHARGE SUMMARY: DATE OF ADMISSION: 07/11/2017 DATE OF TRANSFER: 07/12/2017 DATE OF SERVICE: 07/12/2017 PRESENTING COMPLAINT: Pain in the right flank. HISTORY OF PRESENTING COMPLAINT: This is a very pleasant, 81-year-old patient of Dr. Pope whose chronic stable medical conditions include coronary artery disease, hypertension, pacemaker, chronic kidney disease stage V getting ready for dialysis, prostate cancer, permanent pacemaker, anemia, depression, EF of 30%. Patient was here, discharged from the hospital on June 06 following a diagnosis of pneumonia. Since then, patient was doing well. Patient is on Coumadin. Yesterday, patient developed a sudden pain in the right flank and presented to the ER. A CT scan did reveal bleeding around the right perinephric area and pushing the kidney forward. INR was 4.3. I ordered 10 units of vitamin K and 2 units of fresh frozen plasma to the ER physician that was given. Subsequently, patient was admitted to the ICU. Patient's hemoglobin had dropped to from 9.1 to 6.7. Patient did get a unit of blood. Hemoglobin currently 7.4. The patient's pain is much better. REVIEW OF SYSTEMS: CONSTITUTIONAL: Tired. HEENT: Decreased hearing. RESPIRATORY: None. CARDIOVASCULAR: None. GASTROINTESTINAL: None. GENITOURINARY: None. MUSCULOSKELETAL: Arthritic pain in the joints. DERMATOLOGICAL: None. HEMATOLOGICAL: As above. LYMPHATICS: None. PSYCHIATRY: None. NEUROLOGICAL: None. PAST MEDICAL HISTORY: Coronary artery with stent and bypass, congestive heart failure, EF 30%, hyperlipidemia, hypertension, chronic kidney disease stage V getting ready for dialysis, bladder cancer x2, treated with BCG and radiation, prostate cancer treated with radiation, urinary incontinence, bilateral macular degeneration, pacemaker. PAST SURGICAL HISTORY: Appendectomy, coronary artery bypass, cardiac cath with stent x2, vessel bypass 2006, pacemaker in 2014, stents in 2006 and 2013, eye injections every 2 months for macular degeneration, permanent pacemaker. SOCIAL HISTORY: Patient is . His lives at [facility] because of dementia. Patient smoked for about 46 years,. stopped in 2005 Alcohol,. none. FAMILY HISTORY: Coronary artery disease, Alzheimer's. HOME MEDICATIONS: 1. Hydralazine 50 mg p.o. b.i.d. 2. Mucinex 1200 mg p.o. q.12. 3. Coumadin 2.5 mg on Sunday, and 5 mg on other days. 4. I CAPS 1 capsule p.o. b.i.d. 5. Flomax 0.4 mg q.h.s. 6. Sodium bicarb 325 at night and 650 mg in the morning. 7. Selenium 200 mcg p.o. daily. 8. Ditropan 5 mg b.i.d. 9. Nitroglycerin 1 tablet sublingual q.5 p.r.n. 10.Imdur ER 60 mg p.o. daily. 11.DuoNeb q.i.d. 12.Iron 1 tablet daily. 13. 50 mg p.o. daily. 14.Vitamin D3 four hundred units p.o. daily. 15.Coreg 50 mg p.o. b.i.d. 16.Lipitor 20 mg q.h.s. 17.Aspirin 81 mg p.o. daily. ALLERGIES: LASIX and SULFA. PHYSICAL EXAMINATION: Vital signs on presentation, temperature 97, pulse 66, respiration 18, blood pressure 140/67, pulse ox 99% on 2 L. GENERAL APPEARANCE: Average built, sitting on bed, tired-appearing. EYES: Pupils are equal, conjunctivae are pale. HEENT: External appearance of nose and ears normal. Oral cavity normal. NECK: JVD not raised. Mass not palpable. RESPIRATORY: Effort normal. LUNGS: Decreased breath sounds. CARDIOVASCULAR: Heart size regular, no edema. ABDOMEN: Soft, nontender. Liver and spleen not palpable. LYMPHATIC: No lymph node palpable in neck or axillae. PSYCHIATRY: Alert and oriented x3, mood and affect was normal. NEUROLOGICAL: Pupils equal. Cranial nerves grossly intact. Power and sensation grossly intact. MUSCULOSKELETAL: Evidence of osteoarthritis, especially in the hands and knees. INVESTIGATIONS: INR on presentation was 4.2. This morning is 1.5, hemoglobin was 9.1, did drop down to 6.7. Did get a unit of blood, back up to 7.4, platelets 137, potassium 4.2, BUN 81, creatinine 4.20. CT scan of the abdomen and pelvis shows extensive perinephric fat stranding suggesting hemorrhage with anterior displacement of the right kidney, cardiomegaly with pleural effusion. ASSESSMENT: 1. Acute perinephric/retroperitoneal bleed, hematoma in a patient who is on Coumadin with INR being 4.3. 2. Acute blood loss anemia from retroperitoneal bleeding. 3. Coronary artery with prior history of stent and coronary bypass. 4. Essential hypertension. 5. Chronic kidney disease stage V, probably from nephrosclerosis. Patient getting prepared for dialysis. 6. Prostate cancer treated with radiation treatment, currently causing urine incontinence. 7. Permanent pacemaker. 8. Anemia of chronic kidney disease secondary to chronic kidney disease. 9. Depression, anxiety, not otherwise specified. 10.Iron deficiency anemia. 11.Ischemic cardiomyopathy ejection fraction 30% secondary to coronary artery disease. 12.Hyperlipidemia. 13.History of bladder cancer treated with BCG x2. 14.CODE STATUS: DO NOT RESUSCITATE. CONSULTATION: 1. Dr. Mendosa from Nephrology. 2. Dr. Nobles from Cardiology. 3. Dr. Marshall from Pulmonary. 4. Dr. Mcfadden from Nephrology. PLAN: Dr. Mcfadden saw the patient this morning and he thought patient will be best served at [facility] where the patient's urologist, Dr. Jarek Webber is present. I did speak to Dr. Bowser at [facility], who accepted the patient to the trauma ICU. The patient is currently hemodynamically stable with a temperature 97, blood pressure 140/67, heart rate of 66 and respiration of 18, pulse ox 99% on 2 L. Other medications are to continue. Of course, anticoagulation has been held, expect the patient's INR to come down. MMODL / IJN: [id number] /
[2017-07-12 14:54] LABS: Anisocytosis Slight; Basophils % (A) 1 %; Eosinophils % (A) 0 %; HCT 21.8 % (39.0-53.0); Hypochromasia Moderate; Lymphocytes # (A) 0.7 k/uL (1.0-4.8); Lymphocytes % (A) 9 %; MCH 30.7 pg (25.0-35.0); MCHC 31.4 g/dL (31.0-37.0); Macrocytosis Slight; Mean Platelet Volume 8.2; Monocytes # (A) 0.7 k/uL (0-1.0); Monocytes % (A) 9 %; Neutrophils # (A) 6.3 k/uL (1.3-7.7); Neutrophils % (A) 79 %; Platelet Count 127 k/uL (150-450); Poikilocytosis Slight; RBC 2.22 m/uL (4.30-5.90); RDW 16.8 % (11.5-15.5); WBC 7.9 k/uL (3.8-10.6)
[2017-07-12 15:01] LABS: HGB 6.8 gm/dL (13.0-17.5)
[2017-07-12 16:01] VITALS: PULSE 60
[2017-07-12 16:21] VITALS: TEMP 98.1
[2017-07-12 16:29] LABS: Hemoglobin A1C 5.3 % (4.0-6.0)
[2017-07-12 17:40] VITALS: BP 109/48; RESP 15
[2017-07-12] MEDS ORDERED: TAMSULOSIN 0.4 MG CAP.ER.24H PO SCH (21:00)
[2017-07-12] MEDS ORDERED: ATORVASTATIN 20 MG TAB PO SCH (21:00)
--- NOTE | 2017-07-17 11:30 | CDI ---
Last Revision, January 2017 Documentation Clarification Form Date: 07/17/17 From: Paty Torres Phone: If you have a question regarding this query, please contact Amanda Gonzalez at [phone] between 8am and 5pm. Admit Date: 07/11/2017 10:06:00 PM Patient Name: David Montana Visit Number: [id number] Discharge Date: 07/12/17 ATTENTION: The Clinical Documentation Specialists (CDI) and [facility] Coding Staff appreciate your assistance in clarifying documentation. Please respond to the clarification below the line at the bottom and electronically sign. The CDI & [facility] Coding staff will review the response and follow-up if needed. Please note: Queries are made part of the Legal Health Record. If you have any questions, please contact the author of this message via ITS. Dr. Fuad Nobles Patient has a history of CHF is documented in your consult note and throughout the chart. History/Risk Factors: Patient has a history of CAD, Ischemic cardiomyopathy, A- fib and hypertension. Clinical Indicators: Ejection fraction is 30% per documentation in the H&P. In your professional opinion, can you please clarify the type of CHF if known? Systolic Heart Failure: Diastolic Heart Failure: Systolic & Diastolic Heart Failure: Unable to Determine Other, please specify Patient has chronic systolic congestive heart failure MTDD
--- NOTE | 2017-07-17 11:36 | CDI ---
Last Revision, January 2017 Documentation Clarification Form Date: 07/17/17 From: Paty Torres Phone: If you have a question regarding this query, please contact Amanda Gonzalez at [phone] between 8am and 5pm. Admit Date: 07/11/2017 10:06:00 PM Patient Name: David Montana Visit Number: [id number] Discharge Date: 07/12/17 ATTENTION: The Clinical Documentation Specialists (CDI) and [facility] Coding Staff appreciate your assistance in clarifying documentation. Please respond to the clarification below the line at the bottom and electronically sign. The CDI & [facility] Coding staff will review the response and follow-up if needed. Please note: Queries are made part of the Legal Health Record. If you have any questions, please contact the author of this message via ITS. Dr. Fuad Nobles Atrial fibrillation is documented in Dr. Mcfadden's consult note. History/Risk Factors: Patient has a history of CHF, ischemic cardiomyopathy, CAD and hypertension. EKG/telemetry: Atrial fibrillation with premature ventricular or aberrantly conducted complexes Treatment: Coumadin In your professional opinion, can you please clarify the type of atrial fibrillation, if known? Chronic/Permanent Paroxysmal Persistent Other, please specify Unable to determine MTDD
== END 2017-07-12 19:22 | disposition short-term general hospital (02) | DRG 813 ==
LOC: EC 17:22 → 6ICU 22:06
PROVIDERS: ADMIT Hospitalist; ATTEND Hospitalist
PROC: 30233N1 Transfusion of Nonautologous Red Blood Cells into Peripheral Vein, Percutaneous Approach (ICD-10-PCS; principal; 2017-07-11)
PROC: 30233K1 Transfusion of Nonautologous Frozen Plasma into Peripheral Vein, Percutaneous Approach (ICD-10-PCS; 2017-07-12)
DX: D68.32 Hemorrhagic disorder due to extrinsic circulating anticoagulants (principal); K66.1 Hemoperitoneum; N17.0 Acute kidney failure with tubular necrosis; D62 Acute posthemorrhagic anemia; I13.2 Hypertensive heart and chronic kidney disease with heart failure and with stage 5 chronic kidney disease, or end stage renal disease; N18.5 Chronic kidney disease, stage 5; I50.22 Chronic systolic (congestive) heart failure; D63.1 Anemia in chronic kidney disease; E78.5 Hyperlipidemia, unspecified; F03.90 Unspecified dementia, unspecified severity, without behavioral disturbance, psychotic disturbance, mood disturbance, and anxiety; F32.9 Major depressive disorder, single episode, unspecified; F41.9 Anxiety disorder, unspecified; H35.30 Unspecified macular degeneration; I25.10 Atherosclerotic heart disease of native coronary artery without angina pectoris; I25.5 Ischemic cardiomyopathy; I48.91 Unspecified atrial fibrillation; R32 Unspecified urinary incontinence; T45.515A Adverse effect of anticoagulants, initial encounter; H91.90 Unspecified hearing loss, unspecified ear; J42 Unspecified chronic bronchitis; Z66 Do not resuscitate; Z79.01 Long term (current) use of anticoagulants; Z79.82 Long term (current) use of aspirin; Z79.899 Other long term (current) drug therapy; Z95.5 Presence of coronary angioplasty implant and graft; Z95.1 Presence of aortocoronary bypass graft; Z95.0 Presence of cardiac pacemaker; Z92.3 Personal history of irradiation; Z87.891 Personal history of nicotine dependence; Z85.51 Personal history of malignant neoplasm of bladder; Z85.46 Personal history of malignant neoplasm of prostate; Z88.2 Allergy status to sulfonamides; Z88.8 Allergy status to other drugs, medicaments and biological substances; Z90.49 Acquired absence of other specified parts of digestive tract; Z81.1 Family history of alcohol abuse and dependence; Z82.0 Family history of epilepsy and other diseases of the nervous system; Z82.49 Family history of ischemic heart disease and other diseases of the circulatory system
CPT/HCPCS: 36415; 51701; 71045; 74018; 74176; 80048; 80053; 81001; 82150; 83036; 83605; 83690; 83735; 84100; 85025; 85610; 86850; 86900; 86901; 86920; 94640; 96361; 96365; 96375; 96376; 99291

== ENCOUNTER 2018-04-14 08:46 | Emergency (ER) | payer MEDICARE, BC ==
[2018-04-14 08:58] VITALS: RESP 18
--- NOTE | 2018-04-14 09:42 | ED ---
General Adult HPI - General Chief complaint: Neck Pain/Injury Stated complaint: Fall, Neck Pain Time Seen by Provider: 04/14/18 09:15 Source: patient Mode of arrival: wheelchair Limitations: no limitations - History of Present Illness Initial comments: 82-year-old male with past episodes of atrial fibrillation on Coumadin presenting today for chief complaint of fall. Patient states he fell 4 days ago after slipping on ice. He states he fell backward hitting his entire back, he states he did not hit his head he states if he would've hit his head he would 've presented immediately to the emergency department as he is on Coumadin. Patient states he immediately on the fall he experienced some dizziness, however this subsided about hour after. Patient denies any upper or lower extremities, headache, nausea, vomiting, diplopia, visual changes, visual loss he denies any numbness tingling of the upper or lower extremities he denies any pain radiating from the neck to the arms or the lower extremities. He denies loss of bowel bladder control, urinary retention he denies inability to ambulate. He states his low back is up by him as much. He states is mostly his upper back and neck. When the pain persisted today presented for evaluation. He states he doesnt think anything is broken but wanted to be sure so he presented today, denies any increases today to bring him into the ER. Pt denies taking any medication for the pain. Remaining ROS (-), patient denies any recent fever, chills, shortness of breath, chest pain, abdominal pain, nausea or vomiting, numbness or tingling, dysuria or hematuria, constipation or diarrhea, headaches or visual changes, or any other complaints. - Related Data Home Medications Medication Instructions Recorded Confirmed Atorvastatin [Lipitor] 20 mg PO HS 02/08/16 07/11/17 Oxybutynin Chloride [Ditropan] 5 mg PO BID 02/08/16 07/11/17 Sodium Bicarbonate 650 mg PO QAM 02/08/16 07/11/17 Tamsulosin HCl [Flomax] 0.4 mg PO HS 02/08/16 07/11/17 Vit A/Vit C/Vit E/Zinc/Copper 1 cap PO BID 02/08/16 07/11/17 [ICAPS SOFTGEL] Nitroglycerin 1 tab SUBLINGUAL Q5M PRN 09/01/16 07/11/17 Warfarin [Coumadin] 5 mg PO SUMOWEFRSA 09/01/16 07/11/17 Edecrin 50 mg PO QAM 05/07/17 07/11/17 Ferrous Sulfate [Iron (65 MG 325 mg PO HS 05/07/17 07/11/17 Elemental)] Ferrous Sulfate [Iron (65 MG 650 mg PO DAILY 05/07/17 07/11/17 Elemental)] Sodium Bicarbonate 325 mg PO HS 05/07/17 07/11/17 Aspirin [Adult Low Dose Aspirin EC] 81 mg PO DAILY 06/04/17 07/11/17 Carvedilol [Coreg] 50 mg PO BID 06/04/17 07/11/17 Cholecalciferol [Vitamin D3] 400 unit PO DAILY 06/04/17 07/11/17 Selenium 200 mcg PO DAILY 06/04/17 07/11/17 Warfarin [Coumadin] 2.5 mg PO TUTH 06/04/17 07/11/17 hydrALAZINE HCL [Apresoline] 50 mg PO BID 06/04/17 07/11/17 Previous Rx's Medication Instructions Recorded Isosorbide Mononitrate ER [Imdur] 60 mg PO QAM #60 tab.er.24h 04/06/16 Ipratropium-Albuterol Nebulize 3 ml INHALATION RT-QID #120 06/06/17 [Duoneb 0.5 mg-3 mg/3 ml Soln] ampul.[facility] guaiFENesin [Mucinex] 1,200 mg PO Q12HR #20 tablet.er 06/06/17 Cyclobenzaprine [Flexeril] 5 mg PO BID PRN 5 Days #10 tablet 04/14/18 Allergies Allergy/AdvReac Type Severity Reaction Status Date / Time furosemide [From Lasix] Allergy Rash/Hives Verified 04/14/18 08:58 Sulfa (Sulfonamide Allergy Rash/Hives Verified 04/14/18 08:58 Antibiotics) Review of Systems ROS Statement: Those systems with pertinent positive or pertinent negative responses have been documented in the HPI. ROS Other: All systems not noted in ROS Statement are negative. Past Medical History Past Medical History: Coronary Artery Disease (CAD), Cancer, Chest Pain / Angina , Heart Failure, Eye Disorder, Hyperlipidemia, Hypertension, Pneumonia, Renal Disease Additional Past Medical History / Comment(s): Chronic kidney failure which pt states is now stage V, ischemic cardiomyopathy, bladder cancer twice with BCG instillations, prostrate cancer with radiation, urinary incontinence, bilateral macular degeneration, bradycardia/pacemaker insertion. History of Any Multi-Drug Resistant Organisms: None Reported Past Surgical History: Appendectomy, Coronary Bypass/CABG, Heart Catheterization , Heart Catheterization With Stent, Pacemaker Additional Past Surgical History / Comment(s): 2 vessel cabg in 2006, Pacemaker 2014, STENTS 2006 and 2013, CYSTOSCOPIES, EYE INJECTIONS Q 2 MONTHS FOR MACULAR DEGENERATION. Past Anesthesia/Blood Transfusion Reactions: No Reported Reaction Date of Last Stent Placement:: 2013 Type of Cardiac Device: Permanent Pacemaker Device Placement Date:: 2014 Past Psychological History: No Psychological Hx Reported Smoking Status: Former smoker Past Alcohol Use History: None Reported Past Drug Use History: None Reported - Past Family History Mother Family Medical History: Coronary Artery Disease (CAD) Additional Family Medical History / Comment(s): alzheimers Father Family Medical History: Coronary Artery Disease (CAD) Additional Family Medical History / Comment(s): Father was an alcoholic and had "hardening of arteries" General Exam - General Exam Comments Initial Comments: General: The patient is awake and alert, in no distress, and does not appear acutely ill. Eye: +3 mm Pupils are equal, round and reactive to light, extra-ocular movements are intact. No disconjugate gaze. No APD. No nystagmus. There is normal conjunctiva bilaterally. No signs of icterus. No Gan or raccoon sign. Ears, nose, mouth and throat: There are moist mucous membranes and no oral lesions. Neck: The neck is supple, there is no tenderness or JVD. Upon inspection of the spine there is no abnormalities of the soft tissues. No ecchymosis. Patient does have midline and paravertebral tenderness of the upper thoracic and cervical spine. Paravertebral > midline. Cardiovascular: There is a regular rate and rhythm. No murmur, rub or gallop is appreciated. Respiratory: Lungs are clear to auscultation, respirations are non-labored, breath sounds are equal. No wheezes, stridor, rales, or rhonchi. Gastrointestinal: Soft, non-distended, non-tender abdomen without masses or organomegaly noted. There is no rebound or guarding present. Musculoskeletal: Normal ROM of the shoulders elbows wrists hips knees and ankles equal comparison bilaterally, no tenderness. Strength 5/5 of the UE and LE equal in comparison b/l. Sensation intact of the UE and LE including the saddle region, equal in comparison b/l. Radial and DP pulses equal bilaterally 2 +. (-) SLR b/l. Neurological: A&O x 3. CN II-XII intact, There are no obvious motor or sensory deficits. Coordination appears grossly intact. Speech is normal. No pronator drift. Skin: Skin is warm and dry and no rashes or lesions are noted. Psychiatric: Cooperative, appropriate mood & affect, normal judgment. Limitations: no limitations Course Vital Signs 04/14/18 04/14/18 08:54 11:50 Temperature 98.0 F 97.0 F L Pulse Rate 75 81 Respiratory 18 18 Rate Blood Pressure 126/78 130/86 O2 Sat by Pulse 98 95 Oximetry Medical Decision Making - Medical Decision Making Appearing 82-year-old male presenting for neck tenderness after fall. CT of the C-spine without abnormalities, there is neck tension on examination. Patient is full range of motion. Patient did have some thoracic tenderness, possibly acute compression deformity at T2. Patient has no radicular symptoms of the upper or lower extremities. There is no midline tenderness to palpation of the lumbar spine. No findings concerning for cauda equina. No acute intracranial process. There is evidence incidentally of a chronic aortic anerusym. I discussed all findings including compression deformity at T2 with patient who verbalized understanding. I recommended outpatient repeat surgery follow-up with Dr. fernandez. Patient is agreeable plan and discharged my questions at this time. Patient appears well. Ambulatory without difficulty. I discussed the case as well as incidental findings with attending provider Dr. Carbajal who is agreeable department impression and plan. Return parameters were discussed at length the patient verbalizes understanding. Patient discharged appearing well Disposition Clinical Impression: Fall due to ice or snow, Compression deformity of vertebra, Neck muscle strain Disposition: HOME SELF-CARE Condition: Good Instructions (If sedation given, give patient instructions): Cervical Strain ( ED) Additional Instructions: Please use medication as discussed. Please follow-up with family doctor in the next 2 days, please follow-up with Dr Rosario is next week. Please return to emergency room if the symptoms increase or worsen or for any other concerns including loss of bowel bladder control, inability to urinate, or numbnessin the legs- and other symptoms discussed. Prescriptions: Cyclobenzaprine [Flexeril] 5 mg PO BID PRN 5 Days #10 tablet PRN Reason: Muscle Spasm Is patient prescribed a controlled substance at d/c from ED?: No Referrals: Wiliam Pope MD [Primary Care Provider] - 1-2 days Letty Rosario DO [Doctor of Osteopathic Medicine] - 1-2 days Time of Disposition: 11:37
--- NOTE | 2018-04-14 10:30 | CT ---
EXAMINATION TYPE: CT brain dio chandler DATE OF EXAM: 04/14/2018 COMPARISON: 12/14/2009 HISTORY: Fall on , pain CT DLP: 1301.3 mGycm, Automated exposure control for dose reduction was used. CONTRAST: None CT of the brain is performed utilizing 3 mm thick sections through the posterior fossa and 3 mm thick sections through the remaining calvarium. Study is performed within 24 hours of arrival to the hospital. No abnormal hyperdensity is present to suggest an acute intracranial hemorrhage. No mass lesion is evident. No acute infarcts are evident. Periventricular white matter hypodensity is present, likely on the ba sis of chronic white matter ischemic changes. Ventricles and sulci are appropriate for the patient age. Paranasal sinuses and mastoid air cells within the [id number] are clear. IMPRESSIONS: 1. Chronic appearing white matter ischemic changes. CT cervical spine. COMPARISON: None CT of the cervical spine is performed in the axial plane at 2 mm thick sections. Reconstructed image s in the coronal, and sagittal plane are reviewed on the computer. No acute fractures are evident. Vertebral body alignment is normal. Disc heights are preserved. Vertebral body heights are preserved within the cervical spine. There is a compression deformity of T 2 with mild anterior vertebral body height loss. No suspicious changes to suggest acute fracture are identified correlate with location of the patient's pain no posterior wall displacement is evident.. No spinal canal stenosis is evident. There is some foraminal narrowing C6-7 due to uncovertebral joint hypertrophy. IMPRESSIONS: 1. No acute changes within the cervical spine. 2. Suspected old mild compression deformity of T2. Correlate with location of the patient's pain.
--- NOTE | 2018-04-14 11:04 | CT ---
EXAMINATION TYPE: CT thor lumbar spine wo con DATE OF EXAM: 04/14/2018 COMPARISON: CT abdomen pelvis 07/11/2017 HISTORY: Fall on , pain CT DLP: 1001.5 mGycm CONTRAST: None TECHNIQUE: CT of the lumbar spine is performed on a spiral scan at 3 mm thick sections. Reconstructed images are performed in the coronal and sagittal planes. FINDINGS: Thoracic spine: There is exaggeration of the thoracic kyphosis in the midthoracic spine. Degenerative disc changes are present T9-T10, T8-9, T7-8. Some minimal wedge deformity at T7 may be present. This is likely chronic. Mild wedge deformity of T3 may be present. No spinal canal stenosis is evident. N o posterior wall displacement is evident. Note is made of small bilateral pleural effusions. Vascular calcifications within the aorta. Emphysematous changes are within the lung castro. The ascending tho racic aorta at the level of the main pulmonary artery is 3.7 cm Main pulmonary bifurcation is 3.3 cm. Lumbar spine: T12-L1: No focal disc herniation or significant disc bulge is evident. No spinal canal stenosis or neural foraminal stenosis is present. L1-L2: No focal disc herniation or significant disc bulge is evident. No spinal canal stenosis or n eural foraminal stenosis is present L2-L3: No focal disc herniation or significant disc bulge is evident. No spinal canal stenosis or n eural foraminal stenosis is present L3-L4: Broad-based disc bulge has mild anterior thecal sac compression. Ligamentum flavum laxity is p osterior lateral thecal sac compression. Mild canal narrowing greater in the lateral dimension may be present. L4-L5: Broad-based disc bulge has moderate anterior thecal sac compression. Facet hypertrophy and lig amentum flavum laxity is present contributing to mild canal narrowing. L5-S1: Degenerative disc changes with vacuum disc phenomenon is present L5-S1. Broad-based disc bulge has mild anterior thecal sac contact. Correlate with S1 radicular symptoms. Contact near the bilater al foramen may be present. There is moderate to severe bilateral foraminal stenosis. There is a 3.1 cm exophytic area on the mid right kidney with Hounsfield unit measuring 40. Complex c yst or solid lesion may be present. Recommend follow-up outpatient basis for possible lesion. Additio nal complex cysts may be present at the inferior aspect of the right kidney There is curvilinear calcification within the distal abdominal aorta and within the proximal iliac ve ssels. This could indicate underlying dissection. Peritoneal dialysis catheter is present. Small amou nt of fluid within the pelvis is present. IMPRESSION: No suspicious acute compression deformities identified within the thoracic or lumbar spine. Mild wedg e deformity may be present at the T2 and T3 regions. 2. Spinal canal stenosis secondary to ligamentum flavum laxity L4-5, L3-4. 3. Foraminal stenosis L5-S1 secondary to disc bulging. AP spinal canal stenosis is not present. Corre late with S1 radicular symptoms. 4. 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 4. Peritoneal catheter with small amount of fluid within the pelvis. 5. Small bilateral pleural effusions. 6. Complex cysts on the visualized right kidney. Recommend outpatient follow-up, solid lesions are no t excluded at this time. 7. Emphysematous changes within the visualized lung castro.
[2018-04-14 11:53] VITALS: BP 130/86; PULSE 81; TEMP 97
== END 2018-04-14 11:53 | disposition home or self-care (01) ==
LOC: EC 08:46
DX: S16.1XXA Strain of muscle, fascia and tendon at neck level, initial encounter (principal); M48.8X4 Other specified spondylopathies, thoracic region; I48.91 Unspecified atrial fibrillation; I71.9 Aortic aneurysm of unspecified site, without rupture; E78.5 Hyperlipidemia, unspecified; I13.2 Hypertensive heart and chronic kidney disease with heart failure and with stage 5 chronic kidney disease, or end stage renal disease; N18.5 Chronic kidney disease, stage 5; I50.9 Heart failure, unspecified; I25.119 Atherosclerotic heart disease of native coronary artery with unspecified angina pectoris; Z87.891 Personal history of nicotine dependence; Z88.2 Allergy status to sulfonamides; Z88.8 Allergy status to other drugs, medicaments and biological substances; Z79.01 Long term (current) use of anticoagulants; Z79.82 Long term (current) use of aspirin; Z79.899 Other long term (current) drug therapy; Z85.51 Personal history of malignant neoplasm of bladder; Z85.46 Personal history of malignant neoplasm of prostate; Z95.0 Presence of cardiac pacemaker; Z95.1 Presence of aortocoronary bypass graft; Z95.5 Presence of coronary angioplasty implant and graft; Z92.3 Personal history of irradiation; Z87.448 Personal history of other diseases of urinary system; Z82.49 Family history of ischemic heart disease and other diseases of the circulatory system; W00.0XXA Fall on same level due to ice and snow, initial encounter
CPT/HCPCS: 70450; 72125; 72128; 72131; 99283

== ENCOUNTER → 2018-07-02 | Outpatient (CLI) | payer MEDICARE, BC ==
--- NOTE | 2018-07-02 14:16 | XR ---
EXAMINATION TYPE: XR abdomen 2V DATE OF EXAM: 07/02/2018 CLINICAL DATA: 82-year-old male peritoneal catheter placement, [facility] COMPARISON: 07/11/2017 FINDINGS: Partially visualized cardiac pacer leads. Lung bases are clear. No evidence for free intraperitoneal air. Scattered moderate stool. Peritoneal dialysis catheter is seen entering the right lower quadrant with distal end in the pelvis. Stable couple surgical clips projecting over the right iliac bone. No dilated small bowel or air-fluid levels. IMPRESSION: Peritoneal dialysis catheter seen entering the right lower quadrant with distal aspect looped once in the pelvis.
== END | disposition home or self-care (01) ==
LOC: RADXRMAIN 13:27
PROVIDERS: ATTEND Internal Medicine
DX: Z49.02 Encounter for fitting and adjustment of peritoneal dialysis catheter (principal)
CPT/HCPCS: 74019

== ENCOUNTER → 2018-07-23 | Day surgery (SDC) | payer MEDICARE, BC ==
[2018-07-18 14:53] VITALS: BMI 22.1
[~2018-07-23] MED LIST: LACTATED RINGERS 1,000 ML IV SCH; LIDOCAINE 1% 20 ML VIAL (10MG/ML) FOR IV START INTRADERMA ONE; LIDOCAINE 1% INJ 10MG/ML (20 ML MDV) ONE; PROPOFOL 10 MG/ML 20 ML VIAL IV ONE; SODIUM CHLORIDE 0.9% 1,000 ML IV ONE
[2018-07-23 13:09] VITALS: BP 150/81; PULSE 78; RESP 16; TEMP 97.6
--- NOTE | 2018-07-26 17:38 | P.PCN ---
Date of Procedure: 07/23/18 Procedure(s) Performed: Procedure: Esophagogastroduodenoscopy and biopsy. Preoperative diagnosis: Esophageal dysphagia. Postoperative diagnosis: 1. Small hiatal hernia and mild antral gastritis but no esophagitis, strictures or Carpenter's esophagus. 2. Multiple biopsies obtained from the duodenum, antrum and esophagus. Preparation and sedation: Was provided by anesthesia. Brief clinical history: The patient is an 82-year-old male who is scheduled for this evaluation because of esophageal dysphagia. The patient has multiple medical problems and has been taking Zantac for reflux. No other alarm symptoms. Procedure: With the patient on his left lateral decubitus position and after informed consent and adequate sedation, I passed the [employer] FH 190 video upper endoscope through the cricopharyngeus down the esophagus. GE junction was around 40 cm from the incisors and there was a small hiatal hernia but no obvious esophagitis or complicated reflux disease. The endoscope was then passed into the stomach which was insufflated with air and inspected in detail including the retroflex view in the cardia. There was some mottling and erythema in the antrum consistent with gastritis but there were no ulcers, erosions or bleeding. Pyloric channel, duodenal bulb, post bulbar area and desc ending duodenum appeared within normal limits. Because of his symptoms and history, I obtained biopsies from the duodenum, antrum and esophagus then the endoscope was withdrawn. The patient tolerated the procedure well. Plan: The patient was reassured. Will await biopsy results and make further plans based on his course and biopsy results. Further evaluation may be required especially if his symptoms become progressive and if there is nutritional compromise. We may need to evaluate for motility disorders and other causes of dysphagia. He will follow up with you as planned and I will be happy to see in the office.
== END | disposition home or self-care (01) ==
LOC: ORWHC2ENDO 12:24
DX: K29.70 Gastritis, unspecified, without bleeding (principal); K29.50 Unspecified chronic gastritis without bleeding; K44.9 Diaphragmatic hernia without obstruction or gangrene; Z88.2 Allergy status to sulfonamides; I25.10 Atherosclerotic heart disease of native coronary artery without angina pectoris; I11.0 Hypertensive heart disease with heart failure; I50.9 Heart failure, unspecified; Z87.891 Personal history of nicotine dependence; K21.9 Gastro-esophageal reflux disease without esophagitis; Z79.899 Other long term (current) drug therapy; R13.10 Dysphagia, unspecified
CPT/HCPCS: 88305; 43239; J2001; J2704

== ENCOUNTER → 2019-02-25 | Outpatient (CLI) | payer MEDICARE, BC ==
--- NOTE | 2019-02-25 11:57 | FL ---
EXAMINATION TYPE: FL barium swallow w video DATE OF EXAM: 02/25/2019 COMPARISON: NONE HISTORY: Food sticking, dysphasia TECHNIQUE: Fluoroscopy. FINDINGS: Fluoroscopic guidance was provided for the procedure performed in conjunction with the [facility] ech pathology department. Please see complete report forthcoming from the Speech Pathology departmen t. Various consistencies from thin liquid to solids were administered. Fluoroscopy time 1.35 minutes Number of images: 0. No aspiration or penetration was evident. There was a single initial event of mild penetration with t hin liquids on the initial swallowing. No significant pooling was observed in the vallecula. There was normal propulsion of the bolus. IMPRESSION: 1. No significant aspiration or penetration. Please see complete report forthcoming from the speech p athology department.
== END | disposition home or self-care (01) ==
LOC: RADFLMAIN 10:55
PROVIDERS: ATTEND Family Medicine
DX: R13.19 Other dysphagia (principal)
CPT/HCPCS: 74230

== ENCOUNTER 2019-11-26 14:23 | Inpatient (IN) | payer MEDICARE, BC ==
--- NOTE | 2019-11-26 14:51 | ED ---
General Adult HPI - General Chief complaint: Arrhythmia/Palpitations Stated complaint: Palpitations Time Seen by Provider: 11/26/19 14:36 Source: patient, family, RN notes reviewed, old records reviewed Mode of arrival: ambulatory Limitations: no limitations - History of Present Illness Initial comments: Patient is a pleasant 84-year-old male presenting to the emergency Department with complaints of palpitations. Onset of symptoms was several weeks ago. Patient states around 5 or 6 times a day he feels a vibrating his chest. Patient denies any chest discomfort. No dyspnea. Patient is somewhat fatigued however this is chronic. Patient states sometimes when he exerts himself he feels more fatigued or short of breath however this is chronic and has been present since he has been doing dialysis. No leg pain or leg swelling. - Related Data Home Medications Medication Instructions Recorded Confirmed Atorvastatin [Lipitor] 20 mg PO HS 02/08/16 07/23/18 Nitroglycerin 1 tab SUBLINGUAL Q5M PRN 09/01/16 07/23/18 Warfarin [Coumadin] 5 mg PO MOWEFRSA 09/01/16 07/23/18 Aspirin [Adult Low Dose Aspirin EC] 81 mg PO DAILY 06/04/17 07/23/18 Selenium 200 mcg PO DAILY 06/04/17 07/23/18 Warfarin [Coumadin] 2.5 mg PO TUTH 06/04/17 07/23/18 Antibiotic Eye Drop 1 drop RIGHT EYE QID 07/18/18 07/23/18 Calcium Acetate [Phoslo] 3 tab PO AC-TID 07/18/18 07/23/18 Carvedilol [Coreg] 6.25 mg PO BID 07/18/18 07/23/18 Cetirizine HCl 10 mg PO DAILY 07/18/18 07/23/18 Cholecalciferol (Vitamin D3) 2,000 unit PO TUTH 07/18/18 07/23/18 [Vitamin D3] Fluticasone Nasal [place] [Flonase 1 spray EA NOSTRIL DAILY 07/18/18 07/23/18 Nasal [place]] Furosemide [Lasix] 80 mg PO DAILY 07/18/18 07/23/18 Ipratropium-Albuterol Nebulize 3 ml INHALATION RT-QID PRN 07/18/18 07/23/18 [Duoneb 0.5 mg-3 mg/3 ml Soln] Isosorbide Mononitrate ER [Imdur] 30 mg PO QAM 07/18/18 07/23/18 Ranitidine HCl [Zantac] 150 mg PO BID 07/18/18 07/23/18 Vit A/Vit C/Vit E/Zinc/Copper 2 cap PO DAILY 07/18/18 07/23/18 [ICAPS SOFTGEL] Allergies Allergy/AdvReac Type Severity Reaction Status Date / Time Sulfa (Sulfonamide Allergy Rash/Hives Verified 11/26/19 16:16 Antibiotics) Review of Systems ROS Statement: Those systems with pertinent positive or pertinent negative responses have been documented in the HPI. ROS Other: All systems not noted in ROS Statement are negative. Constitutional: Denies: fever Eyes: Denies: eye pain ENT: Denies: ear pain Respiratory: Reports: as per HPI. Denies: cough Cardiovascular: Reports: palpitations. Denies: chest pain Endocrine: Reports: fatigue Gastrointestinal: Denies: abdominal pain Genitourinary: Denies: dysuria Musculoskeletal: Denies: back pain Skin: Denies: rash Neurological: Denies: weakness Past Medical History Past Medical History: Coronary Artery Disease (CAD), Cancer, Chest Pain / Angina, Heart Failure, Eye Disorder, Hyperlipidemia, Hypertension, Pneumonia, Renal Disease Additional Past Medical History / Comment(s): Chronic kidney failure which pt states is now stage V, received peritoneal dialysis, ischemic cardiomyopathy, bladder cancer twice with BCG instillations, prostrate cancer with radiation, urinary incontinence, bilateral macular degeneration, bradycardia/pacemaker insertion. recent eye infection rt eye with antibiotics History of Any Multi-Drug Resistant Organisms: None Reported Past Surgical History: Appendectomy, Coronary Bypass/CABG, Heart Catheterization, Heart Catheterization With Stent, Pacemaker Additional Past Surgical History / Comment(s): 2 vessel cabg in 2006, Pacemaker 2014, STENTS 2006 and 2013, CYSTOSCOPIES, EYE INJECTIONS Q 2 MONTHS FOR MACULAR DEGENERATION. Past Anesthesia/Blood Transfusion Reactions: No Reported Reaction Date of Last Stent Placement:: 2013 Type of Cardiac Device: Permanent Pacemaker Device Placement Date:: 2014 Past Psychological History: No Psychological Hx Reported Smoking Status: Former smoker Past Alcohol Use History: None Reported Past Drug Use History: None Reported - Past Family History Mother Family Medical History: Coronary Artery Disease (CAD) Additional Family Medical History / Comment(s): alzheimers Father Family Medical History: Coronary Artery Disease (CAD) Additional Family Medical History / Comment(s): Father was an alcoholic and had "hardening of arteries" General Exam Limitations: no limitations General appearance: alert, in no apparent distress Head exam: Present: normocephalic Eye exam: Present: normal appearance Neck exam: Present: normal inspection Respiratory exam: Present: normal lung sounds bilaterally Cardiovascular Exam: Present: irregular rhythm Expanded Peripheral pulses: 2+: Radial (R), Radial (L), Posterior Tibialis (R), Posterior Tibialis (L), Dorsalis Pedis (R), Dorsalis Pedis (L) GI/Abdominal exam: Present: soft. Absent: tenderness Extremities exam: Present: normal inspection. Absent: pedal edema, calf tenderness Neurological exam: Present: alert Psychiatric exam: Present: normal affect, normal mood Skin exam: Present: normal color Course Vital Signs 11/26/19 11/26/19 11/26/19 14:29 15:00 15:30 Temperature 98.0 F Pulse Rate 72 75 63 Respiratory 18 18 18 Rate Blood Pressure 132/69 132/69 143/64 O2 Sat by Pulse 98 95 97 Oximetry EKG Findings - EKG Comments: EKG Findings:: EKG shows evidence of underlying atrial fibrillation with occasional pacer spikes. Right bundle branch block. Inferior and lateral T wave inversion. Wide-complex QRS. Previous EKG reviewed dated 07/16/2017. AR 248. QRS 170. QTc 466. QTc 499. Right axis. Medical Decision Making - Medical Decision Making Patient states his doctor did recently increase his Lasix however he does not make urine. Patient only missed one dialysis a couple of weeks ago. Patient and family updated on results and plan. Case was discussed in detail with Dr. Carter, who will admit covering for - Lab Data Result diagrams: 11/26/19 14:51 11/26/19 14:51 Lab Results 11/26/19 11/26/19 11/26/19 Range/Units 14:51 14:51 14:51 WBC 5.7 (3.8-10.6) k/uL RBC 3.84 L (4.30-5.90) m/uL Hgb 12.4 L (13.0-17.5) gm/dL Hct 40.3 (39.0-53.0) % MCV 105.0 H (80.0-100.0) fL MCH 32.2 (25.0-35.0) pg MCHC 30.7 L (31.0-37.0) g/dL RDW 14.6 (11.5-15.5) % Plt Count 149 L (150-450) k/uL Neutrophils % 69 % Lymphocytes % 17 % Monocytes % 10 % Eosinophils % 2 % Basophils % 0 % Neutrophils # 3.9 (1.3-7.7) k/uL Lymphocytes # 1.0 (1.0-4.8) k/uL Monocytes # 0.6 (0-1.0) k/uL Eosinophils # 0.1 (0-0.7) k/uL Basophils # 0.0 (0-0.2) k/uL Macrocytosis Moderate PT 18.1 H (9.0-12.0) sec INR 1.9 H (<1.2) APTT 30.7 H (22.0-30.0) sec Sodium 138 (137-145) mmol/L Potassium 5.1 (3.5-5.1) mmol/L Chloride 96 L (98-107) mmol/L Carbon Dioxide 29 (22-30) mmol/L Anion Gap 13 mmol/L BUN 68 H (9-20) mg/dL Creatinine 7.56 H* (0.66-1.25) mg/dL Est GFR (CKD-EPI)AfAm 7 (>60 ml/min/1.73 sqM) Est GFR (CKD-EPI)NonAf 6 (>60 ml/min/1.73 sqM) Glucose 110 H (74-99) mg/dL Calcium 9.8 (8.4-10.2) mg/dL Magnesium 2.4 H (1.6-2.3) mg/dL Total Bilirubin 0.8 (0.2-1.3) mg/dL AST 23 (17-59) U/L ALT 20 (4-49) U/L Alkaline Phosphatase 78 (38-126) U/L Troponin I (0.000-0.034) ng/mL NT-Pro-B Natriuret Pep pg/mL Total Protein 7.0 (6.3-8.2) g/dL Albumin 4.4 (3.5-5.0) g/dL TSH 6.040 H (0.465-4.680) mIU/L Free T4 1.66 (0.78-2.19) ng/dL Free T3 pg/mL 5.7 H (2.8-5.3) pg/ml 11/26/19 11/26/19 Range/Units 14:51 14:51 WBC (3.8-10.6) k/uL RBC (4.30-5.90) m/uL Hgb (13.0-17.5) gm/dL Hct (39.0-53.0) % MCV (80.0-100.0) fL MCH (25.0-35.0) pg MCHC (31.0-37.0) g/dL RDW (11.5-15.5) % Plt Count (150-450) k/uL Neutrophils % % Lymphocytes % % Monocytes % % Eosinophils % % Basophils % % Neutrophils # (1.3-7.7) k/uL Lymphocytes # (1.0-4.8) k/uL Monocytes # (0-1.0) k/uL Eosinophils # (0-0.7) k/uL Basophils # (0-0.2) k/uL Macrocytosis PT (9.0-12.0) sec INR (<1.2) APTT (22.0-30.0) sec Sodium (137-145) mmol/L Potassium (3.5-5.1) mmol/L Chloride (98-107) mmol/L Carbon Dioxide (22-30) mmol/L Anion Gap mmol/L BUN (9-20) mg/dL Creatinine (0.66-1.25) mg/dL Est GFR (CKD-EPI)AfAm (>60 ml/min/1.73 sqM) Est GFR (CKD-EPI)NonAf (>60 ml/min/1.73 sqM) Glucose (74-99) mg/dL Calcium (8.4-10.2) mg/dL Magnesium (1.6-2.3) mg/dL Total Bilirubin (0.2-1.3) mg/dL AST (17-59) U/L ALT (4-49) U/L Alkaline Phosphatase (38-126) U/L Troponin I 0.093 H* (0.000-0.034) ng/mL NT-Pro-B Natriuret Pep 086357 pg/mL Total Protein (6.3-8.2) g/dL Albumin (3.5-5.0) g/dL TSH (0.465-4.680) mIU/L Free T4 (0.78-2.19) ng/dL Free T3 pg/mL (2.8-5.3) pg/ml - Radiology Data Radiology results: image reviewed (Chest x-ray shows correlate for CHF, pul monary venous hypertension and interstitial edema. Cardiomegaly.) Disposition Clinical Impression: CHF exacerbation Disposition: ADMITTED IP TO THIS HOSP Is patient prescribed a controlled substance at d/c from ED?: No Referrals: Wiliam Pope MD [Primary Care Provider] - 1-2 days Decision Time: 16:19
[2019-11-26 15:05] LABS: Basophils % (A) 0 %; Eosinophils # (A) 0.1 k/uL (0-0.7); Eosinophils % (A) 2 %; HCT 40.3 % (39.0-53.0); HGB 12.4 gm/dL (13.0-17.5); Lymphocytes % (A) 17 %; MCH 32.2 pg (25.0-35.0); MCHC 30.7 g/dL (31.0-37.0); Macrocytosis Moderate; Mean Platelet Volume 9.3; Monocytes # (A) 0.6 k/uL (0-1.0); Monocytes % (A) 10 %; Neutrophils # (A) 3.9 k/uL (1.3-7.7); Neutrophils % (A) 69 %; Platelet Count 149 k/uL (150-450); RBC 3.84 m/uL (4.30-5.90); RDW 14.6 % (11.5-15.5); WBC 5.7 k/uL (3.8-10.6)
[2019-11-26 15:18] LABS: Albumin 4.4 g/dL (3.5-5.0); Calcium 9.8 mg/dL (8.4-10.2); Magnesium 2.4 mg/dL (1.6-2.3); Potassium 5.1 mmol/L (3.5-5.1); Total Bilirubin 0.8 mg/dL (0.2-1.3)
--- NOTE | 2019-11-26 15:19 | XR ---
EXAMINATION TYPE: XR chest 2V DATE OF EXAM: 11/26/2019 COMPARISON: Prior chest x-ray 07/12/2017 HISTORY: Dysrhythmia TECHNIQUE: Frontal and lateral views of the chest are obtained on 3 images. FINDINGS: There is prominence of the interstitium and central vascularity. Prominent lung volumes wi th flattening the hemidiaphragms suggests underlying COPD. The aorta is dense and there are coronary artery calcifications. Patient is post median sternotomy. There is a generator in the left pectoral r egion, leads are present in the right atrium and ventricle. The cardiac silhouette size is enlarged. No evident pneumothorax. Difficult to exclude minimal effusion. The osseous structures are intact. Surgical clips present in the soft tissues of the right upper extremity. IMPRESSION: Correlate for congestive heart failure, pulmonary venous hypertension and interstitial e gladis.
[2019-11-26 15:20] LABS: INR 1.9 (<1.2); Partial Thromboplastin Time 30.7 sec (22.0-30.0); Prothrombin Time 18.1 sec (9.0-12.0)
[2019-11-26 15:34] LABS: T4, Free (Free Thyroxine) 1.66 ng/dL (0.78-2.19)
[2019-11-26] MEDS ORDERED: ASPIRIN 325 MG TAB PO STA (16:20)
[2019-11-26] MEDS ORDERED: NITROGLYCERIN SL TABS 0.4 MG TAB SUBLINGUAL PRN (21:44)
[2019-11-26] MEDS: NITROGLYCERIN OINT 1 INCH/GM PACKET TOPICAL SCH ×2 (21:48→22:00)
[2019-11-26] MEDS: carvediloL 3.125 MG TAB PO SCH (21:59)
--- NOTE | 2019-11-26 23:59 | P.HPIM ---
History of Present Illness H&P Date: 11/26/19 Chief Complaint: AICD vibrating History of presenting complaint: This is a 84-year-old patient who follows with Dr. rain. 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 Patient does notice for 3 weeks that is pacemaker has been vibrating at times. No chest pain no pain. No fever no chills. No dizziness or lightheadedness. Patient is a right arm AV fistula that he uses for hemodialysis. 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 Lives alone Physical examination: VITAL SIGNS: 98, 72, 18, 132/69, 98% room air GENERAL: BMI 22.7, laying in bed, comfortable EYES: Pupils equal. Conjunctiva normal. HEENT: External appearance of nose and ears normal, oral cavity grossly normal. NECK: JVD not raised; masses not palpable. HEART: First and second heart sounds are normal; no edema. LUNGS: Respiratory rate normal; decreased breath sounds. ABDOMEN: Soft, nontender, liver spleen not palpable, no masses palpable. PSYCH: Alert and oriented x3; mood and affect normal. NEUROLOGICAL: Cranial nerves grossly intact; no facial asymmetry, power and sensation grossly intact. LYMPHATICS: No lymph nodes palpable in the axilla and neck INVESTIGATIONS, reviewed in the clinical context: White count 5.7 hemoglobin 12.4 platelets 149 INR 1.9 potassium 5.1 bun 68 creatinine 7.56, troponin I 0.093 EKG tracing personally reviewed by me-showing right bundle branch block pattern some ST segment changes Chest x-ray film personally reviewed by me-cardiomegaly, possibly pulmonary edema, pacemaker Assessment: -Possible pacemaker malfunction patient having episodes of fibrillation -Acute congestive heart failure exacerbation from pacemaker malfunction -Coronary artery disease with history of bypass and stent -Hyperlipidemia -Essential hypertension -End-stage kidney disease on hemodialysis with a right arm AV fistula -Chronic urinary incontinence -Bilateral macular degeneration - Plan: Nephrology's been consulted to continue with hemodialysis. She me to ask of fluid to be removed. He does not make urine. Home medications to be renewed. Also consult cardiology and get a pacemaker check. Home medications to be renewed. Care was discussed with the patient. Questions answered. Past Medical History Past Medical History: Coronary Artery Disease (CAD), Cancer, Chest Pain / Angina, Heart Failure, Eye Disorder, Hyperlipidemia, Hypertension, Pneumonia, Renal Disease Additional Past Medical History / Comment(s): Chronic kidney failure which pt states is now stage V, received peritoneal dialysis, ischemic cardiomyopathy, bladder cancer twice with BCG instillations, prostrate cancer with radiation, urinary incontinence, bilateral macular degeneration, bradycardia/pacemaker insertion. recent eye infection rt eye with antibiotics History of Any Multi-Drug Resistant Organisms: None Reported Past Surgical History: Appendectomy, Coronary Bypass/CABG, Heart Catheterization, Heart Catheterization With Stent, Pacemaker Additional Past Surgical History / Comment(s): 2 vessel cabg in 2006, Pacemaker 2014, STENTS 2006 and 2013, CYSTOSCOPIES, EYE INJECTIONS Q 2 MONTHS FOR MACULAR DEGENERATION. Past Anesthesia/Blood Transfusion Reactions: No Reported Reaction Date of Last Stent Placement:: 2013 Type of Cardiac Device: Permanent Pacemaker Device Placement Date:: 2014 Past Psychological History: No Psychological Hx Reported Additional Psychological History / Comment(s): PT RESIDES AT home AND HIS SPOUSE TWO YEARS ago and his dog two weeks ago. Smoking Status: Former smoker Past Alcohol Use History: None Reported Additional Past Alcohol Use History / Comment(s): Pt started smoking in 1959 and quit in 2005. Past Drug Use History: None Reported - Past Family History Mother Family Medical History: Coronary Artery Disease (CAD) Additional Family Medical History / Comment(s): alzheimers Father Family Medical History: Coronary Artery Disease (CAD) Additional Family Medical History / Comment(s): Father was an alcoholic and had "hardening of arteries" Medications and Allergies Home Medications Medication Instructions Recorded Confirmed Type Atorvastatin [Lipitor] 20 mg PO HS 02/08/16 11/26/19 History Nitroglycerin 1 tab SUBLINGUAL Q5M PRN 09/01/16 11/26/19 History Warfarin [Coumadin] 5 mg PO DAILY 09/01/16 11/26/19 History Selenium 200 mcg PO DAILY 06/04/17 11/26/19 History Calcium Acetate [Phoslo] 2 tab PO AC-TID 07/18/18 11/26/19 History Cetirizine HCl 10 mg PO DAILY 07/18/18 11/26/19 History Cholecalciferol (Vitamin D3) 2,000 unit PO DAILY 07/18/18 11/26/19 History [Vitamin D3] Isosorbide Mononitrate ER [Imdur] 30 mg PO QAM 07/18/18 11/26/19 History Vit A/Vit C/Vit E/Zinc/Copper 2 cap PO DAILY 07/18/18 11/26/19 History [ICAPS SOFTGEL] Carvedilol [Coreg] 3.125 mg PO BID 11/26/19 11/26/19 History Glycopyrrolate/Formoterol Fum 1 puff INHALATION QID PRN 11/26/19 11/26/19 History [Bevespi Aerosphere Inhaler] Warfarin Sodium [Jantoven] 2.5 mg PO TUTH 11/26/19 11/26/19 History Allergies Allergy/AdvReac Type Severity Reaction Status Date / Time Sulfa (Sulfonamide Allergy Rash/Hives Verified 11/26/19 16:16 Antibiotics) Physical Exam Vitals: Vital Signs Temp Pulse Pulse Resp BP BP Pulse Ox 11/26/19 22:35 98.0 F 69 17 147/73 98 11/26/19 20:00 97.9 F 71 18 146/70 98 11/26/19 19:02 98.1 F 83 16 144/68 95 11/26/19 18:00 68 18 130/69 95 11/26/19 17:30 64 18 142/71 95 11/26/19 17:00 68 18 145/67 93 L 11/26/19 16:30 65 18 139/67 94 L 11/26/19 16:00 64 18 130/63 96 11/26/19 15:30 63 18 143/64 97 11/26/19 15:00 75 18 132/69 95 11/26/19 14:29 98.0 F 72 18 132/69 98 Intake and Output 11/26/19 11/26/19 11/27/19 14:59 22:59 06:59 Output Total 0 Balance 0 Output: Urine 0 Other: # Voids 0 Weight 69.853 kg 69.853 kg Results CBC & Chem 7: 11/26/19 14:51 11/26/19 14:51 Labs: Abnormal Lab Results - Last 24 Hours (Table) 11/26/19 11/26/19 11/26/19 Range/Units 14:51 14:51 14:51 RBC 3.84 L (4.30-5.90) m/uL Hgb 12.4 L (13.0-17.5) gm/dL MCV 105.0 H (80.0-100.0) fL MCHC 30.7 L (31.0-37.0) g/dL Plt Count 149 L (150-450) k/uL PT 18.1 H (9.0-12.0) sec INR 1.9 H (<1.2) APTT 30.7 H (22.0-30.0) sec Chloride 96 L (98-107) mmol/L BUN 68 H (9-20) mg/dL Creatinine 7.56 H* (0.66-1.25) mg/dL Glucose 110 H (74-99) mg/dL Magnesium 2.4 H (1.6-2.3) mg/dL Troponin I (0.000-0.034) ng/mL TSH 6.040 H (0.465-4.680) mIU/L Free T3 pg/mL 5.7 H (2.8-5.3) pg/ml 11/26/19 Range/Units 14:51 RBC (4.30-5.90) m/uL Hgb (13.0-17.5) gm/dL MCV (80.0-100.0) fL MCHC (31.0-37.0) g/dL Plt Count (150-450) k/uL PT (9.0-12.0) sec INR (<1.2) APTT (22.0-30.0) sec Chloride (98-107) mmol/L BUN (9-20) mg/dL Creatinine (0.66-1.25) mg/dL Glucose (74-99) mg/dL Magnesium (1.6-2.3) mg/dL Troponin I 0.093 H* (0.000-0.034) ng/mL TSH (0.465-4.680) mIU/L Free T3 pg/mL (2.8-5.3) pg/ml Thrombosis Risk Factor Assmnt - Choose All That Apply Each Risk Factor Represents 3 Points: Age 75 years or older Thrombosis Risk Factor Assessment Total Risk Factor Score: 3 Thrombosis Risk Factor Assessment Level: Moderate Risk
[2019-11-27] MEDS: IPRATROPIUM 0.5 MG/2.5 ML NEBU INHALATION PRN ×5 (04:35→19:45)
[2019-11-27] MEDS: CALCIUM ACETATE 667 MG TAB PO SCH ×3 (06:11→18:17)
[2019-11-27] MEDS: carvediloL 3.125 MG TAB PO SCH ×2 (06:12→18:17)
[2019-11-27 07:49] LABS: INR 1.5 (<1.2); Prothrombin Time 14.6 sec (9.0-12.0)
[2019-11-27] MEDS: ALBUTEROL NEBULIZED 2.5 MG/3 ML INHALATION PRN ×4 (08:53→19:45)
[2019-11-27] MEDS: FORMOTEROL FUMARATE 20 MCG/2 ML NEBU INHALATION PRN ×2 (08:53→19:45)
[2019-11-27] MEDS ORDERED: ASPIRIN 325 MG TAB PO SCH (09:00)
[2019-11-27] MEDS ORDERED: NON FORMULARY DRUG (Selenium [Selenium] 100 MCG Tablet) PO SCH (09:00)
[2019-11-27] MEDS: CHOLECALCIFEROL 1,000 UNIT TAB PO SCH (09:08)
[2019-11-27] MEDS: NITROGLYCERIN OINT 1 INCH/GM PACKET TOPICAL SCH (09:09)
[2019-11-27] MEDS: ISOSORBIDE MONONITRATE ER 60 MG TAB.ER.24H PO SCH (09:09)
[2019-11-27] MEDS: LORATADINE 10 MG TAB PO SCH (09:09)
--- NOTE | 2019-11-27 10:49 | P.NPCON ---
History of Present Illness - Reason for Consult end stage renal disease - History of Present Illness reason for consultation: End-stage renal disease History of present illness: Patient is a 84-year-old male seen in renal consultation for end-stage renal disease. He is maintained on hemodialysis on Sunday schedule. Patient states his last treatment was on Sunday. patient presented to the hospital with worsening shortness of breath and palpitations. He states he's been noticing palpitations multiple times a day for the last few days. Patient states he gets short of breath even from walking from one room to another in his house. denies fever or chills. No cough. Chest x-ray is suggestive of pulmonary edema. No vomiting or diarrhea. hemodynamically stable. no abdominal pain. Oral intake is fair. No dizziness or syncopal episodes. Vital signs are stable. General: The patient appeared well nourished and normally developed. HEENT: Head exam is unremarkable. Neck is without jugular venous distension. LUNGS: Breath sounds decreased. HEART: Rate and Rhythm are regular. First and second heart sounds normal. No murmurs, rubs or gallops. ABDOMEN: soft, nontender. EXTREMITITES: No clubbing, cyanosis, or edema. Past Medical History Past Medical History: Coronary Artery Disease (CAD), Cancer, Chest Pain / Angina, Heart Failure, Eye Disorder, Hyperlipidemia, Hypertension, Pneumonia, Renal Disease Additional Past Medical History / Comment(s): Chronic kidney failure which pt states is now stage V, received peritoneal dialysis, ischemic cardiomyopathy, bladder cancer twice with BCG instillations, prostrate cancer with radiation, urinary incontinence, bilateral macular degeneration, bradycardia/pacemaker insertion. recent eye infection rt eye with antibiotics History of Any Multi-Drug Resistant Organisms: None Reported Past Surgical History: Appendectomy, Coronary Bypass/CABG, Heart Catheterization, Heart Catheterization With Stent, Pacemaker Additional Past Surgical History / Comment(s): 2 vessel cabg in 2006, Pacemaker 2014, STENTS 2006 and 2013, CYSTOSCOPIES, EYE INJECTIONS Q 2 MONTHS FOR MACULAR DEGENERATION. Past Anesthesia/Blood Transfusion Reactions: No Reported Reaction Date of Last Stent Placement:: 2013 Type of Cardiac Device: Permanent Pacemaker Device Placement Date:: 2014 Past Psychological History: No Psychological Hx Reported Additional Psychological History / Comment(s): PT RESIDES AT home AND HIS SPOUSE TWO YEARS ago and his dog two weeks ago. Smoking Status: Former smoker Past Alcohol Use History: None Reported Additional Past Alcohol Use History / Comment(s): Pt started smoking in 1959 and quit in 2005. Past Drug Use History: None Reported - Past Family History Mother Family Medical History: Coronary Artery Disease (CAD) Additional Family Medical History / Comment(s): alzheimers Father Family Medical History: Coronary Artery Disease (CAD) Additional Family Medical History / Comment(s): Father was an alcoholic and had "hardening of arteries" Medications and Allergies Home Medications Medication Instructions Recorded Confirmed Type Atorvastatin [Lipitor] 20 mg PO HS 02/08/16 11/26/19 History Nitroglycerin 1 tab SUBLINGUAL Q5M PRN 09/01/16 11/26/19 History Warfarin [Coumadin] 5 mg PO DAILY 09/01/16 11/26/19 History Selenium 200 mcg PO DAILY 06/04/17 11/26/19 History Calcium Acetate [Phoslo] 2 tab PO AC-TID 07/18/18 11/26/19 History Cetirizine HCl 10 mg PO DAILY 07/18/18 11/26/19 History Cholecalciferol (Vitamin D3) 2,000 unit PO DAILY 07/18/18 11/26/19 History [Vitamin D3] Isosorbide Mononitrate ER [Imdur] 30 mg PO QAM 07/18/18 11/26/19 History Vit A/Vit C/Vit E/Zinc/Copper 2 cap PO DAILY 07/18/18 11/26/19 History [ICAPS SOFTGEL] Carvedilol [Coreg] 3.125 mg PO BID 11/26/19 11/26/19 History Glycopyrrolate/Formoterol Fum 1 puff INHALATION QID PRN 11/26/19 11/26/19 History [Bevespi Aerosphere Inhaler] Warfarin Sodium [Jantoven] 2.5 mg PO TUTH 11/26/19 11/26/19 History Allergies Allergy/AdvReac Type Severity Reaction Status Date / Time Sulfa (Sulfonamide Allergy Rash/Hives Verified 11/26/19 16:16 Antibiotics) Physical Exam Vitals: Vital Signs Temp Pulse Pulse Resp BP BP Pulse Ox 11/27/19 09:20 68 11/27/19 09:12 68 11/27/19 08:53 68 11/27/19 07:47 98.1 F 64 16 137/63 100 11/27/19 04:49 66 11/27/19 04:37 60 11/27/19 04:00 98.6 F 65 16 134/69 93 L 11/26/19 22:35 98.0 F 69 17 147/73 98 11/26/19 20:00 97.9 F 71 18 146/70 98 11/26/19 19:02 98.1 F 83 16 144/68 95 11/26/19 18:00 68 18 130/69 95 11/26/19 17:30 64 18 142/71 95 11/26/19 17:00 68 18 145/67 93 L 11/26/19 16:30 65 18 139/67 94 L 11/26/19 16:00 64 18 130/63 96 11/26/19 15:30 63 18 143/64 97 11/26/19 15:00 75 18 132/69 95 11/26/19 14:29 98.0 F 72 18 132/69 98 Intake and Output 11/26/19 11/27/19 11/27/19 22:59 06:59 14:59 Intake Total 240 240 Output Total 0 0 Balance 0 240 240 Intake: Oral 240 240 Output: Urine 0 0 Other: # Voids 0 0 # Bowel Movements 0 Weight 69.853 kg 70.9 kg Results - Lab Results Most recent lab results Calcium 9.8 mg/dL (8.4-10.2) 11/26/19 14:51 Magnesium 2.4 mg/dL (1.6-2.3) H 11/26/19 14:51 11/26/19 14:51 11/26/19 14:51 Assessment and Plan Plan: assessment: 1. End-stage renal disease maintained on hemodialysis on Sunday schedule. 2. Dyspnea secondary to volume overload. 3. chronic kidney disease mineral bone disease maintained on PhosLo. 4. Acute on chronic systolic CHF. Plan: Hemodialysis today with goal 2-3 L ultrafiltration. Low-salt diet. Dry weight will be lowered outpatient. Thank you for the consultation. I will continue to follow the patient with you during his hospital stay.
[2019-11-27 12:45] VITALS: BMI 23.1
--- NOTE | 2019-11-27 14:15 | P.CRDCN ---
History of Present Illness History of present illness: HISTORY OF PRESENTING ILLNESS This is a pleasant 84-year-old male past medical history significant for chronic persistent atrial fibrillation on long-term anticoagulation, coronary artery disease status post bypass grafting performed in [place] in 1996 and subsequent PCI to the circumflex and LAD, hypertension, dyslipidemia, permanent pacemaker implantation secondary to sick sinus syndrome, ischemic cardiomyopathy, chronic systolic heart failure and end-stage renal disease on hemodialysis. He follows in the office with Dr. Abarca. We have been asked to see in consultation for heart failure. He presented to the hospital with symptoms of palpitations. The patient states he's been experiencing the sensation in the left precordial region for the previous 3 weeks. He does follow regularly in the office and has a remote telemetry interrogation which transmitted report . His A. fib burden is approximately 97%, battery has 60% remaining and he has had no episodes of ventricular arrhythmias since previous interrogation. He also complains of feeling short of breath. He does receive dialysis on Sunday and Sunday. He does not make any urine for the previous 6-9 months. He had a chest x-ray with his primary care physician a few weeks back showing fluid overload and was given oral Lasix however he does not urinate. He states he has been short of breath for many years specifically with exertion or activity. His functional capacity is limited due to that however it is stable and ongoing. He denies any worsening shortness of breath recently. He has no chest pain or dizziness. Dr Watkins also at the bedside setting up for hemodialysis treatment today. DIAGNOSTICS EKG reveals atrial fibrillation, right bundle branch block and PVCs. Chest xray pulmonary venous hypertension and interstitial edema. Laboratory reviewed, WBC 5.7, hemoglobin 12.4, platelets 149, INR 1.5, sodium 138, potassium 5.1, creatinine 7.56, magnesium 2.4, troponin 0.0 93 and NT proBNP 159,000. Current cardiac medications include Imdur 30 mg daily, Coumadin 5 mg daily, carvedilol 3.125 mg twice a day, atorvastatin 20 mg at bedtime and sublingual nitroglycerin when necessary. Most recent echocardiogram obtained in 2018 revealed severe global hypokinesia with ejection fraction 20-25%, moderate MR and mild TR. REVIEW OF SYSTEMS At the time of my exam: CONSTITUTIONAL: Denies fever or chills. CARDIOVASCULAR: Denies chest pain, shortness of breath, orthopnea, PND or palpitations. RESPIRATORY: Denies cough. GASTROINTESTINAL: Denies abdominal pain, diarrhea, constipation, nausea or vomiting. MUSCULOSKELETAL: Denies myalgias. NEUROLOGIC: Denies numbness, tingling or weakness. ENDOCRINE: Denies fatigue, weight change, polydipsia or polyurina. GENITOURINARY: Denies burning, hematuria or urgency with micturation. HEMATOLOGIC: Denies history of anemia or bleeding. PHYSICAL EXAMINATION Blood pressure 137/63 heart rate 68 afebrile and maintaining oxygen saturation on nasal cannula. CONSTITUTIONAL: No apparent distress. HEENT: Head is normocephalic. Pupils are equal, round. Sclerae anicteric. Mucous membranes of the mouth are moist. No JVD. No carotid bruit. CHEST EXAMINATION: Bibasilar rales, expiratory wheezes, no rhonchi. No chest wall tenderness is noted on palpation or with deep breathing. HEART EXAMINATION: Irregular rate and rhythm. S1, S2 heard. Systolic ejection murmur at left sternal border, no gallops or rub. ABDOMEN: Soft, nontender. Positive bowel sounds. EXTREMITIES: 2+ peripheral pulses, no lower extremity edema and no calf te nderness. NEUROLOGIC EXAMINATION: Patient is awake, alert and oriented x3. ASSESSMENT Fluid overload, multifactorial secondary to end-stage renal disease and heart failure Acute on chronic systolic heart failure Chronic kidney disease on hemodialysis Chronic persistent atrial fibrillation on long-term anticoagulation Hypertension Dyslipidemia Ischemic cardiomyopathy Sick sinus syndrome status post permanent pacemaker implantation PLAN Recent interrogation remotely yesterday showed persistent a-fib with no ventricular ectopy. Dialysis will improve his fluid overload, no diuretics given anuria. Continue coumadin, coreg and imdur as previously ordered. Thank you kindly for this consultation. Nurse Practitioner note has been reviewed, I agree with a documented findings and plan of care. Patient was seen and examined. Past Medical History Past Medical History: Coronary Artery Disease (CAD), Cancer, Chest Pain / Angina, Heart Failure, Eye Disorder, Hyperlipidemia, Hypertension, Pneumonia, Renal Disease Additional Past Medical History / Comment(s): Chronic kidney failure which pt states is now stage V, received peritoneal dialysis, ischemic cardiomyopathy, bladder cancer twice with BCG instillations, prostrate cancer with radiation, urinary incontinence, bilateral macular degeneration, bradycardia/pacemaker ins ertion. recent eye infection rt eye with antibiotics History of Any Multi-Drug Resistant Organisms: None Reported Past Surgical History: Appendectomy, Coronary Bypass/CABG, Heart Catheterization, Heart Catheterization With Stent, Pacemaker Additional Past Surgical History / Comment(s): 2 vessel cabg in 2006, Pacemaker 2014, STENTS 2006 and 2013, CYSTOSCOPIES, EYE INJECTIONS Q 2 MONTHS FOR MACULAR DEGENERATION. Past Anesthesia/Blood Transfusion Reactions: No Reported Reaction Date of Last Stent Placement:: 2013 Type of Cardiac Device: Permanent Pacemaker Device Placement Date:: 2014 Past Psychological History: No Psychological Hx Reported Additional Psychological History / Comment(s): PT RESIDES AT home AND HIS SPOUSE TWO YEARS ago and his dog two weeks ago. Smoking Status: Former smoker Past Alcohol Use History: None Reported Additional Past Alcohol Use History / Comment(s): Pt started smoking in 1958 and quit in 2005. Past Drug Use History: None Reported - Past Family History Mother Family Medical History: Coronary Artery Disease (CAD) Additional Family Medical History / Comment(s): alzheimers Father Family Medical History: Coronary Artery Disease (CAD) Additional Family Medical History / Comment(s): Father was an alcoholic and had "hardening of arteries" Medications and Allergies Home Medications Medication Instructions Recorded Confirmed Type Atorvastatin [Lipitor] 20 mg PO HS 02/08/16 11/26/19 History Nitroglycerin 1 tab SUBLINGUAL Q5M PRN 09/01/16 11/26/19 History Warfarin [Coumadin] 5 mg PO DAILY 09/01/16 11/26/19 History Selenium 200 mcg PO DAILY 06/04/17 11/26/19 History Calcium Acetate [Phoslo] 2 tab PO AC-TID 07/18/18 11/26/19 History Cetirizine HCl 10 mg PO DAILY 07/18/18 11/26/19 History Cholecalciferol (Vitamin D3) 2,000 unit PO DAILY 07/18/18 11/26/19 History [Vitamin D3] Isosorbide Mononitrate ER [Imdur] 30 mg PO QAM 07/18/18 11/26/19 History Vit A/Vit C/Vit E/Zinc/Copper 2 cap PO DAILY 07/18/18 11/26/19 History [ICAPS SOFTGEL] Carvedilol [Coreg] 3.125 mg PO BID 11/26/19 11/26/19 History Glycopyrrolate/Formoterol Fum 1 puff INHALATION QID PRN 11/26/19 11/26/19 History [Bevespi Aerosphere Inhaler] Warfarin Sodium [Jantoven] 2.5 mg PO TUTH 11/26/19 11/26/19 History Allergies Allergy/AdvReac Type Severity Reaction Status Date / Time Sulfa (Sulfonamide Allergy Rash/Hives Verified 11/26/19 16:16 Antibiotics) Physical Exam Vitals: Vital Signs Temp Pulse Pulse Resp BP BP Pulse Ox 11/27/19 09:20 68 11/27/19 09:12 68 11/27/19 08:53 68 11/27/19 07:47 98.1 F 64 16 137/63 100 11/27/19 04:49 66 11/27/19 04:37 60 11/27/19 04:00 98.6 F 65 16 134/69 93 L 11/26/19 22:35 98.0 F 69 17 147/73 98 11/26/19 20:00 97.9 F 71 18 146/70 98 11/26/19 19:02 98.1 F 83 16 144/68 95 11/26/19 18:00 68 18 130/69 95 11/26/19 17:30 64 18 142/71 95 11/26/19 17:00 68 18 145/67 93 L 11/26/19 16:30 65 18 139/67 94 L 11/26/19 16:00 64 18 130/63 96 11/26/19 15:30 63 18 143/64 97 11/26/19 15:00 75 18 132/69 95 11/26/19 14:29 98.0 F 72 18 132/69 98 Intake and Output 11/26/19 11/27/19 11/27/19 22:59 06:59 14:59 Intake Total 240 240 Output Total 0 0 Balance 0 240 240 Intake: Oral 240 240 Output: Urine 0 0 Other: # Voids 0 0 # Bowel Movements 0 Weight 69.853 kg 70.9 kg Results 11/26/19 14:51 11/26/19 14:51 Cardiac Enzymes 11/26/19 11/26/19 Range/Units 14:51 14:51 AST 23 (17-59) U/L Troponin I 0.093 H* (0.000-0.034) ng/mL Coagulation 11/26/19 11/27/19 Range/Units 14:51 07:20 PT 18.1 H 14.6 H (9.0-12.0) sec APTT 30.7 H (22.0-30.0) sec CBC 11/26/19 Range/Units 14:51 WBC 5.7 (3.8-10.6) k/uL RBC 3.84 L (4.30-5.90) m/uL Hgb 12.4 L (13.0-17.5) gm/dL Hct 40.3 (39.0-53.0) % Plt Count 149 L (150-450) k/uL Comprehensive Metabolic Panel 11/26/19 Range/Units 14:51 Sodium 138 (137-145) mmol/L Potassium 5.1 (3.5-5.1) mmol/L Chloride 96 L (98-107) mmol/L Carbon Dioxide 29 (22-30) mmol/L BUN 68 H (9-20) mg/dL Creatinine 7.56 H* (0.66-1.25) mg/dL Glucose 110 H (74-99) mg/dL Calcium 9.8 (8.4-10.2) mg/dL AST 23 (17-59) U/L ALT 20 (4-49) U/L Alkaline Phosphatase 78 (38-126) U/L Total Protein 7.0 (6.3-8.2) g/dL Albumin 4.4 (3.5-5.0) g/dL Current Medications Generic Name Dose Route Start Last Admin Trade Name Freq PRN Reason Stop Dose Admin Albuterol Sulfate 2.5 mg 11/27/19 04:39 11/27/19 08:53 Albuterol Nebulized 2.5 Mg/3 Ml INHALATION 2.5 mg RT-Q4H PRN Administration Shortness Of Breath Or Wheezing Aspirin 81 mg 11/28/19 09:00 Aspirin 81 Mg PO DAILY [facility] Atorvastatin Calcium 20 mg 11/27/19 21:00 Atorvastatin 20 Mg Tab PO HS [facility] Calcium Acetate 1,334 mg 11/27/19 07:30 11/27/19 06:11 Calcium Acetate 667 Mg Tab PO 1,334 mg AC-TID [facility] Administration Carvedilol 3.125 mg 11/26/19 21:45 11/27/19 06:12 Carvedilol 3.125 Mg Tab PO 3.125 mg BID-W/MEALS [facility] Administration Cholecalciferol 2,000 unit 11/27/19 09:00 11/27/19 09:08 Cholecalciferol 1,000 Unit Tab PO 2,000 unit DAILY [facility] Administration Formoterol Fumarate 20 mcg 11/26/19 21:44 11/27/19 08:53 Formoterol Fumarate 20 Mcg/2 Ml Nebu INHALATION 20 mcg RT-BID PRN Administration Shortness Of Breath Ipratropium Arnold 0.5 mg 11/26/19 21:55 11/27/19 08:53 Ipratropium 0.5 Mg/2.5 Ml Nebu INHALATION 0.5 mg RT-QID PRN Administration Shortness Of Breath Isosorbide Mononitrate 30 mg 11/27/19 09:00 11/27/19 09:09 Isosorbide Mononitrate Er 60 Mg Tab.Er.24h PO 30 mg QAM [facility] Administration Loratadine 10 mg 11/27/19 09:00 11/27/19 09:09 Loratadine 10 Mg Tab PO 10 mg DAILY [facility] Administration Miscellaneous Information 0 each 11/27/19 07:59 Warfarin Per Pharmacy MISCELLANE DIRECTED PRN ANTICOAG Nitroglycerin 0.4 mg 11/26/19 21:44 Nitroglycerin Sl Tabs 0.4 Mg Tab SUBLINGUAL Q5M PRN Angina Sodium Chloride 10 ml 11/26/19 21:00 11/26/19 22:00 Sodium Chloride 0.9% Flush 10 Ml Syringe IV 10 ml BID [facility] Administration Warfarin Sodium 7.5 mg 11/27/19 18:00 Warfarin 7.5 Mg Tab PO 11/27/19 18:01 ONCE@1800 ONE Intake and Output 11/26/19 11/27/19 11/27/19 22:59 06:59 14:59 Intake Total 240 240 Output Total 0 0 Balance 0 240 240 Intake: Oral 240 240 Output: Urine 0 0 Other: # Voids 0 0 # Bowel Movements 0 Weight 69.853 kg 70.9 kg 11/26/19 14:51 11/26/19 14:51
--- NOTE | 2019-11-27 16:06 | P.PN ---
Progress Note - Text Progress Note Date: 11/27/19 Chief Complaint: AICD vibrating History of presenting complaint: This is a 84-year-old patient who follows with Dr. rain. Chronic stable medical conditions include coronary artery disease, hypertension, hyperlipidemia, end-stage kidney disease on hemodialysis, ischemic cardiomyopathy, prostate cancer with radiation urinary incontinence bilateral macular degeneration and a permanent pacemaker in 2015. Patient does notice for 3 weeks that is pacemaker has been vibrating at times. No chest pain no pain. No fever no chills. No dizziness or lightheadedness. Patient is a right arm AV fistula that he uses for hemodialysis. Admitted with acute congestive heart exacerbation. Today-sitting up in a chair. Breathing a bit better. Hemodialyzed today. Review of systems: Was done for constitutional, cardiovascular, GI, pulmonary. relevant finding as above Active Medications Albuterol Sulfate (Albuterol Nebulized 2.5 Mg/3 Ml) 2.5 mg INHALATION RT-Q4H PRN PRN Reason: Shortness Of Breath Or Wheezing Last Admin: 11/27/19 12:43 Dose: 2.5 mg Documented by: Aspirin (Aspirin 81 Mg) 81 mg PO DAILY [facility] Atorvastatin Calcium (Atorvastatin 20 Mg Tab) 20 mg PO HS [facility] Calcium Acetate (Calcium Acetate 667 Mg Tab) 1,334 mg PO AC-TID [facility] Last Admin: 11/27/19 12:50 Dose: 1,334 mg Documented by: Carvedilol (Carvedilol 3.125 Mg Tab) 3.125 mg PO BID-W/MEALS [facility] Last Admin: 11/27/19 06:12 Dose: 3.125 mg Documented by: Cholecalciferol (Cholecalciferol 1,000 Unit Tab) 2,000 unit PO DAILY [facility] Last Admin: 11/27/19 09:08 Dose: 2,000 unit Documented by: Formoterol Fumarate (Formoterol Fumarate 20 Mcg/2 Ml Nebu) 20 mcg INHALATION RT-BID PRN PRN Reason: Shortness Of Breath Last Admin: 11/27/19 08:53 Dose: 20 mcg Documented by: Ipratropium Wideman (Ipratropium 0.5 Mg/2.5 Ml Nebu) 0.5 mg INHALATION RT-QID PRN PRN Reason: Shortness Of Breath Last Admin: 11/27/19 12:43 Dose: 0.5 mg Documented by: Isosorbide Mononitrate (Isosorbide Mononitrate Er 60 Mg Tab.Er.24h) 30 mg PO QAM [facility] Last Admin: 11/27/19 09:09 Dose: 30 mg Documented by: Loratadine (Loratadine 10 Mg Tab) 10 mg PO DAILY [facility] Last Admin: 11/27/19 09:09 Dose: 10 mg Documented by: Miscellaneous Information (Warfarin Per Pharmacy) 0 each MISCELLANE DIRECTED PRN PRN Reason: ANTICOAG Nitroglycerin (Nitroglycerin Sl Tabs 0.4 Mg Tab) 0.4 mg SUBLINGUAL Q5M PRN PRN Reason: Angina Sodium Chloride (Sodium Chloride 0.9% Flush 10 Ml Syringe) 10 ml IV BID [facility] Last Admin: 11/27/19 12:50 Dose: 10 ml Documented by: Warfarin Sodium (Warfarin 7.5 Mg Tab) 7.5 mg PO ONCE@1800 ONE Stop: 11/27/19 18:01 Physical examination: VITAL SIGNS: 98.1, 64, 16, 137/63, 100% on 2 L GENERAL: Sitting up in a chair, feeling better EYES: Pupils equal. Conjunctiva normal. HEENT: External appearance of nose and ears normal, oral cavity grossly normal. NECK: JVD not raised; masses not palpable. HEART: First and second heart sounds are normal; no edema. LUNGS: Respiratory rate increased; decreased breath sounds. ABDOMEN: Soft, nontender, liver spleen not palpable, no masses palpable. PSYCH: Alert and oriented x3; mood and affect normal. INVESTIGATIONS, reviewed in the clinical context: White count 5.7 hemoglobin 12.4 platelets 149 INR 1.9 potassium 5.1 bun 68 creatinine 7.56, troponin I 0.093 EKG tracing personally reviewed by me-showing right bundle branch block pattern some ST segment changes Chest x-ray film personally reviewed by me-cardiomegaly, possibly pulmonary edema, pacemaker Assessment: -Possible pacemaker malfunction -Acute congestive heart failure exacerbation -for hemodialysis/ultrafiltration -Coronary artery disease with history of bypass and stent -Hyperlipidemia -Essential hypertension -End-stage kidney disease on hemodialysis with a right arm AV fistula -Chronic urinary incontinence -Bilateral macular degeneration - Plan: Hemodialysis today. Continue other medication treatment plan. Patient really doesn't make urine and hence Lasix discontinued.
[2019-11-27] MEDS ORDERED: WARFARIN 7.5 MG TAB PO ONE (18:00)
[2019-11-27] MEDS ORDERED: WARFARIN 5 MG TAB PO SCH ×2 (18:00)
[2019-11-27] MEDS ORDERED: ATORVASTATIN 20 MG TAB PO SCH (21:00)
[2019-11-28] MEDS: CALCIUM ACETATE 667 MG TAB PO SCH ×2 (06:30→12:26)
[2019-11-28] MEDS: carvediloL 3.125 MG TAB PO SCH (06:30)
[2019-11-28 07:54] LABS: INR 1.4 (<1.2); Prothrombin Time 13.7 sec (9.0-12.0)
[2019-11-28] MEDS: FORMOTEROL FUMARATE 20 MCG/2 ML NEBU INHALATION PRN (08:02)
[2019-11-28] MEDS: ALBUTEROL NEBULIZED 2.5 MG/3 ML INHALATION PRN (08:02)
[2019-11-28] MEDS ORDERED: ASPIRIN 81 MG PO SCH (09:00)
[2019-11-28 09:03] VITALS: PULSE 62; RESP 20
[2019-11-28 09:04] VITALS: BP 155/51; TEMP 97.5
--- NOTE | 2019-11-28 10:41 | P.PN ---
Subjective patient is seen in follow-up for end-stage renal disease. He is maintained on hemodialysis on Sunday schedule. tolerated 3 L ult rafiltration yesterday. Feels much better today. Wants to go home. Vital signs are stable. General: The patient appeared well nourished and normally developed. HEENT: Head exam is unremarkable. Neck is without jugular venous distension. LUNGS: Lungs are clear to auscultation and percussion. Breath sounds decreased. HEART: Rate and Rhythm are regular. First and second heart sounds normal. No mu rmurs, rubs or gallops. ABDOMEN: Abdominal exam reveals normal bowel sounds. Non-tender and non-dis tended. No evidence of peritonitis. EXTREMITITES: No clubbing, cyanosis, or edema. Objective - Vital Signs Vital signs: Vital Signs Temp 97.5 F L 11/28/19 09:03 Pulse 62 11/28/19 09:03 Resp 20 11/28/19 09:03 BP 155/51 11/28/19 09:03 Pulse Ox 96 11/28/19 09:03 Intake & Output 11/27/19 11/28/19 11/28/19 18:59 06:59 18:59 Intake Total 840 120 Output Total 3000 Balance -2160 120 Weight 70.9 kg 69.6 kg Intake: Oral 840 120 Output: Hemodialysis 3000 Other: # Voids 0 0 0 # Bowel Movements 0 - Labs CBC & Chem 7: 11/26/19 14:51 11/26/19 14:51 Labs: Abnormal Lab Results - Last 24 Hours (Table) 11/28/19 Range/Units 07:18 PT 13.7 H (9.0-12.0) sec INR 1.4 H (<1.2) Assessment and Plan Plan: assessment: 1. End-stage renal disease maintained on hemodialysis on Sunday schedule. 2. Dyspnea secondary to volume overload. improved postdialysis yesterday. 3. chronic kidney disease mineral bone disease maintained on PhosLo. 4. Acute on chronic systolic CHF. Plan: Hemodialysis tomorrow. Low-salt diet. Dry weight will be lowered outpatient. stable to be discharged home from nephrology standpoint.
[2019-11-28] MEDS: CHOLECALCIFEROL 1,000 UNIT TAB PO SCH (10:47)
[2019-11-28] MEDS: LORATADINE 10 MG TAB PO SCH (10:48)
[2019-11-28] MEDS: ISOSORBIDE MONONITRATE ER 60 MG TAB.ER.24H PO SCH (10:48)
--- NOTE | 2019-11-28 11:15 | P.PN ---
Subjective HISTORY OF PRESENTING ILLNESS This is a pleasant 84-year-old male past medical history significant for chronic persistent atrial fibrillation on long-term anticoagulation, coronary artery disease status post bypass grafting performed in [place] in 1996 and subsequent PCI to the circumflex and LAD, hypertension, dyslipidemia, permanent pacemaker implantation secondary to sick sinus syndrome, ischemic cardiomyopathy, chronic systolic heart failure and end-stage renal disease on hemodialysis. He follows in the office with Dr. Abarca. He underwent dialysis yesterday and had just over 3L removed. He is seen and examined laying flat in bed maintaining oxygen saturation on room air in no acute distress. He denies chest pain, shortness of breath, dizziness or palpitations. Blood pressure 155/5162 afebrile maintaining oxygen saturation on room air. INR 1.4. PHYSICAL EXAMINATION CONSTITUTIONAL: No apparent distress. HEENT: Head is normocephalic. Pupils are equal, round. Sclerae anicteric. Mucous membranes of the mouth are moist. No JVD. No carotid bruit. CHEST EXAMINATION: Clear bilataterlly, no wheezes, rhonchi or rales. No chest wall tenderness is noted on palpation or with deep breathing. HEART EXAMINATION: Irregular rate and rhythm. S1, S2 heard. Systolic ejection murmur at left sternal border, no gallops or rub. EXTREMITIES: 2+ peripheral pulses, no lower extremity edema and no calf tenderness. ASSESSMENT Fluid overload, multifactorial secondary to end-stage renal disease and heart failure Acute on chronic systolic heart failure Chronic kidney disease on hemodialysis Chronic persistent atrial fibrillation on long-term anticoagulation Hypertension Dyslipidemia Ischemic cardiomyopathy Sick sinus syndrome status post permanent pacemaker implantation PLAN Stable for discharge from a cardiac perspective. He already has an appointment scheduled with Dr. Abarca within the next one month and has been advised to keep that appointment. Nurse Practitioner note has been reviewed, I agree with a documented findings and plan of care. Patient was seen and examined. Objective - Vital Signs Vital signs: Vital Signs Temp 97.5 F L 11/28/19 09:03 Pulse 62 11/28/19 09:03 Resp 20 11/28/19 09:03 BP 155/51 11/28/19 09:03 Pulse Ox 96 11/28/19 09:03 Intake & Output 11/27/19 11/28/19 11/28/19 18:59 06:59 18:59 Intake Total 840 120 Output Total 3000 Balance -2160 120 Weight 70.9 kg 69.6 kg Intake: Oral 840 120 Output: Hemodialysis 3000 Other: # Voids 0 0 0 # Bowel Movements 0 - Labs CBC & Chem 7: 11/26/19 14:51 11/26/19 14:51 Labs: Abnormal Lab Results - Last 24 Hours (Table) 11/28/19 Range/Units 07:18 PT 13.7 H (9.0-12.0) sec INR 1.4 H (<1.2)
[2019-11-28] MEDS ORDERED: WARFARIN 7.5 MG TAB PO ONE (18:00)
--- NOTE | 2019-11-28 21:47 | P.DS ---
Providers Date of admission: 11/26/19 16:20 Expected date of discharge: 11/28/19 Attending physician: Rock Carter Consults: 11/26/19 16:20 Consult Physician Routine Consulting Provider: Esperanza Flores Consult Reason/Comments: chf Do you want consulting provider notified?: Yes Consult Physician Routine Consulting Provider: Meggan Maradiaga Consult Reason/Comments: Pulmonary edema on hemodialysis Do you want consulting provider notified?: Yes Primary care physician: Wiliam Pope [facility] Course: Chief Complaint: AICD vibrating History of presenting complaint: This is a 84-year-old patient who follows with Dr. pope. 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 Patient does notice for 3 weeks that is pacemaker has been vibrating at times. No chest pain no pain. No fever no chills. No dizziness or lightheadedness. Patient is a right arm AV fistula that he uses for hemodialysis. Admitted with acute congestive heart exacerbation. Fluid was removed with hemodialysis. Today-sitting up, comfortable. Breathing stable. Pacemaker doing fine. Care was discussed in detail with the patient. Questions answered. Discussion and discharge planning more than 35 minutes Consultation: Dr. Lacy from cardiology Dr. Mendosa from nephrology Physical examination: VITAL SIGNS: 97.5, 62, 20, 1 55 x 51, 96% room air GENERAL: Sitting up in a chair, comfortable EYES: Pupils equal. Conjunctiva normal. HEENT: External appearance of nose and ears normal, oral cavity grossly normal. NECK: JVD not raised; masses not palpable. HEART: First and second heart sounds are normal; no edema. LUNGS: Respiratory rate increased; decreased breath sounds. ABDOMEN: Soft, nontender, liver spleen not palpable, no masses palpable. PSYCH: Alert and oriented x3; mood and affect normal. INVESTIGATIONS, reviewed in the clinical context: INR 1.4 White count 5.7 hemoglobin 12.4 platelets 149 INR 1.9 potassium 5.1 bun 68 creatinine 7.56, troponin I 0.093 EKG tracing personally reviewed by me-showing right bundle branch block pattern some ST segment changes Chest x-ray film personally reviewed by me-cardiomegaly, possibly pulmonary edema, pacemaker Assessment: -Acute congestive heart failure exacerbation -r hemodialysis/ultrafiltration- better -Coronary artery disease with history of bypass and stent -Hyperlipidemia -Essential hypertension -End-stage kidney disease on hemodialysis with a right arm AV fistula -Chronic urinary incontinence -Bilateral macular degeneration -6 sinus syndrome leading to permanent pacemaker chronic - Disposition: Home CBC BMP INR in 3 days Patient Condition at Discharge: Stable Plan - Discharge Summary New Discharge Prescriptions: Continue Atorvastatin [Lipitor] 20 mg PO HS Warfarin [Coumadin] 5 mg PO DAILY Nitroglycerin 1 tab SUBLINGUAL Q5M PRN PRN Reason: Angina Selenium 200 mcg PO DAILY Cholecalciferol (Vitamin D3) [Vitamin D3] 2,000 unit PO DAILY Cetirizine HCl 10 mg PO DAILY Calcium Acetate [PhosLo] 2 tab PO AC-TID Vit A/Vit C/Vit E/Zinc/Copper [ICAPS SOFTGEL] 2 cap PO DAILY Isosorbide Mononitrate ER [Imdur] 30 mg PO QAM Carvedilol [Coreg] 3.125 mg PO BID Glycopyrrolate/Formoterol Fum [Bevespi Aerosphere Inhaler] 1 puff INHALATION QID PRN PRN Reason: Shortness Of Breath Warfarin Sodium [Jantoven] 2.5 mg PO TUTH Discharge Medication List Atorvastatin [Lipitor] 20 mg PO HS 02/08/16 [History] Nitroglycerin 1 tab SUBLINGUAL Q5M PRN 09/01/16 [History] Warfarin [Coumadin] 5 mg PO DAILY 09/01/16 [History] Selenium 200 mcg PO DAILY 06/04/17 [History] Calcium Acetate [PhosLo] 2 tab PO AC-TID 07/18/18 [History] Cetirizine HCl 10 mg PO DAILY 07/18/18 [History] Cholecalciferol (Vitamin D3) [Vitamin D3] 2,000 unit PO DAILY 07/18/18 [History] Isosorbide Mononitrate ER [Imdur] 30 mg PO QAM 07/18/18 [History] Vit A/Vit C/Vit E/Zinc/Copper [ICAPS SOFTGEL] 2 cap PO DAILY 07/18/18 [History] Carvedilol [Coreg] 3.125 mg PO BID 11/26/19 [History] Glycopyrrolate/Formoterol Fum [Bevespi Aerosphere Inhaler] 1 puff INHALATION QID PRN 11/26/19 [History] Warfarin Sodium [Jantoven] 2.5 mg PO TUTH 11/26/19 [History] Follow up Appointment(s)/Referral(s): Rosy Abarca MD [STAFF PHYSICIAN] - 12/08/19 1:30 pm (Sunday) Wiliam Pope MD [Primary Care Provider] - 12/03/19 2:30 pm (Sunday) Patient Instructions/Handouts: Heart Failure (DC) Activity/Diet/Wound Care/Special Instructions: Dialysis tomorrow Discharge Disposition: HOME SELF-CARE
== END 2019-11-28 13:10 | disposition home health service (06) | DRG 291 ==
LOC: EC 14:23 → 3SCARD 16:20
PROVIDERS: ADMIT Hospitalist; ATTEND Hospitalist
PROC: 5A1D70Z Performance of Urinary Filtration, Intermittent, Less than 6 Hours Per Day (ICD-10-PCS; principal; 2019-11-27)
DX: I13.2 Hypertensive heart and chronic kidney disease with heart failure and with stage 5 chronic kidney disease, or end stage renal disease (principal); I50.23 Acute on chronic systolic (congestive) heart failure; N18.6 End stage renal disease; I48.19 Other persistent atrial fibrillation; I27.22 Pulmonary hypertension due to left heart disease; I49.5 Sick sinus syndrome; E83.9 Disorder of mineral metabolism, unspecified; Z79.01 Long term (current) use of anticoagulants; Z99.2 Dependence on renal dialysis; I25.10 Atherosclerotic heart disease of native coronary artery without angina pectoris; E78.5 Hyperlipidemia, unspecified; R32 Unspecified urinary incontinence; I25.5 Ischemic cardiomyopathy; H35.30 Unspecified macular degeneration; I45.10 Unspecified right bundle-branch block; Z71.3 Dietary counseling and surveillance; Z95.828 Presence of other vascular implants and grafts; Z79.899 Other long term (current) drug therapy; Z79.82 Long term (current) use of aspirin; Z85.46 Personal history of malignant neoplasm of prostate; Z87.01 Personal history of pneumonia (recurrent); Z95.0 Presence of cardiac pacemaker; Z85.51 Personal history of malignant neoplasm of bladder; Z95.1 Presence of aortocoronary bypass graft; Z90.49 Acquired absence of other specified parts of digestive tract; Z95.5 Presence of coronary angioplasty implant and graft; Z98.890 Other specified postprocedural states; Z87.891 Personal history of nicotine dependence; Z88.2 Allergy status to sulfonamides; Z82.49 Family history of ischemic heart disease and other diseases of the circulatory system; Z82.0 Family history of epilepsy and other diseases of the nervous system; Z81.1 Family history of alcohol abuse and dependence
CPT/HCPCS: 36415; 71046; 80053; 83735; 83880; 84439; 84443; 84481; 84484; 85025; 85610; 85730; 90935; 93005; 94640; 94760; 99285

== ENCOUNTER 2020-11-17 17:35 | Inpatient (IN) | payer MEDICARE, BC ==
[2020-11-17 19:00] LABS: Basophils % (A) 0 %; Eosinophils # (A) 0.1 k/uL (0-0.7); Eosinophils % (A) 1 %; HCT 38.4 % (39.0-53.0); Lymphocytes # (A) 0.3 k/uL (1.0-4.8); Lymphocytes % (A) 3 %; MCH 33.8 pg (25.0-35.0); MCHC 31.4 g/dL (31.0-37.0); MCV 107.7 fL (80.0-100.0); Macrocytosis Moderate; Mean Platelet Volume 9.3; Monocytes # (A) 0.5 k/uL (0-1.0); Monocytes % (A) 6 %; Neutrophils # (A) 8.6 k/uL (1.3-7.7); Neutrophils % (A) 90 %; Platelet Count 145 k/uL (150-450); RBC 3.56 m/uL (4.30-5.90); RDW 14.5 % (11.5-15.5); WBC 9.5 k/uL (3.8-10.6)
[2020-11-17 19:02] LABS: Calcium 8.3 mg/dL (8.4-10.2); Magnesium 2.1 mg/dL (1.6-2.3); Potassium 4.5 mmol/L (3.5-5.1); Total Bilirubin 0.7 mg/dL (0.2-1.3); Total Protein 5.4 g/dL (6.3-8.2)
[2020-11-17 19:07] LABS: INR 1.9 (<1.2); Partial Thromboplastin Time 28.7 sec (22.0-30.0)
--- NOTE | 2020-11-17 19:12 | XR ---
EXAMINATION TYPE: XR chest 2V DATE OF EXAM: 11/17/2020 COMPARISON: NONE HISTORY: Dysrhythmia TECHNIQUE: 3 views FINDINGS: Heart is enlarged. There is no gross heart failure. There is left axillary pacemaker. There are sternal wires. Costophrenic angles are clear. There is no pleural effusion. There is increased d ensity over the posterior heart on the lateral view there is probably some atelectasis in the right l ower lobe. IMPRESSION: There is evidence for some no atelectasis right lower lobe compared to old exam. Cardiome richie. No obvious heart failure. Pulmonary congestion and improved compared to last exam.
--- NOTE | 2020-11-17 20:59 | ED ---
SOB HPI - General Chief Complaint: Shortness of Breath Stated Complaint: JOSE RAFAEL Time Seen by Provider: 11/17/20 18:18 Source: EMS Mode of arrival: EMS Limitations: no limitations - History of Present Illness Initial Comments: Patient is an 85-year-old male with past medical history of end-stage renal disease on hemodialysis Sunday, Sunday and Sunday, heart failure who presents emergency department from [facility]. He did receive his dialysis today. During his session he did have an episode of hypotension. This does occasionally happen for the patient and his blood pressure medications are held on dialysis days. Because of the low blood pressure they gave him an 800 mL bolus of fluid. Shortly afterwards the patient began having a frothy cough, bilateral crackles and shortness of breath. He wears 2 L of oxygen at all times however became tachypneic. He does not make any urine. Patient felt well previous to his dialysis session. No fevers, chest pain. No other alleviating, precipitating or modifying factors - Related Data Home Medications Medication Instructions Recorded Confirmed Atorvastatin [Lipitor] 20 mg PO HS@2100 02/08/16 11/17/20 Warfarin [Coumadin] 5 mg PO SUMOWETHSA 09/01/16 11/17/20 Albuterol Sulfate [Accuneb] 3 ml INHALATION RT-QID 11/17/20 11/17/20 Albuterol Sulfate [Albuterol 2 puff PO RT-Q6H PRN 11/17/20 11/17/20 Sulfate Hfa] Budesonide/Formoterol Fumarate 2 puff INHALATION RT-BID 11/17/20 11/17/20 [Symbicort 160-4.5 Mcg Inhaler] Cephalexin [Keflex] 500 mg PO BID@0800,1700 11/17/20 11/17/20 Isosorbide Mononitrate ER [Imdur] 30 mg PO DAILY@0800 11/17/20 11/17/20 Sevelamer [Renvela] 800 mg PO TID@0700,1100,1630 11/17/20 11/17/20 Vitamin B Complex 1 cap PO DAILY@1700 11/17/20 11/17/20 bisacodyL [Dulcolax] 10 mg RECTAL DAILY PRN 11/17/20 11/17/20 carvediloL [Coreg] 6.25 mg PO BID@0800,1700 11/17/20 11/17/20 Allergies Allergy/AdvReac Type Severity Reaction Status Date / Time Sulfa (Sulfonamide Allergy Rash/Hives Verified 11/17/20 18:07 Antibiotics) Review of Systems ROS Statement: Those systems with pertinent positive or pertinent negative responses have been documented in the HPI. ROS Other: All systems not noted in ROS Statement are negative. Past Medical History Past Medical History: Coronary Artery Disease (CAD), Cancer, Chest Pain / Angina, Heart Failure, Eye Disorder, Hyperlipidemia, Hypertension, Pneumonia, Renal Disease Additional Past Medical History / Comment(s): Chronic kidney failure which pt states is now stage V, received peritoneal dialysis, ischemic cardiomyopathy, bladder cancer twice with BCG instillations, prostrate cancer with radiation, urinary incontinence, bilateral macular degeneration, bradycardia/pacemaker insertion. recent eye infection rt eye with antibiotics History of Any Multi-Drug Resistant Organisms: None Reported Past Surgical History: Appendectomy, Coronary Bypass/CABG, Heart Catheterization, Heart Catheterization With Stent, Pacemaker Additional Past Surgical History / Comment(s): 2 vessel cabg in 2006, Pacemaker 2014, STENTS 2006 and 2013, CYSTOSCOPIES, EYE INJECTIONS Q 2 MONTHS FOR MACULAR DEGENERATION. Past Anesthesia/Blood Transfusion Reactions: No Reported Reaction Date of Last Stent Placement:: 2013 Type of Cardiac Device: Permanent Pacemaker Device Placement Date:: 2014 Past Psychological History: No Psychological Hx Reported Smoking Status: Former smoker Past Alcohol Use History: None Reported Past Drug Use History: None Reported - Past Family History Mother Family Medical History: Coronary Artery Disease (CAD) Additional Family Medical History / Comment(s): alzheimers Father Family Medical History: Coronary Artery Disease (CAD) Additional Family Medical History / Comment(s): Father was an alcoholic and had "hardening of arteries" General Exam Limitations: no limitations General appearance: alert, in no apparent distress Head exam: Present: atraumatic, normocephalic, normal inspection Eye exam: Present: normal appearance, PERRL, EOMI. Absent: scleral icterus, conjunctival injection, periorbital swelling ENT exam: Present: normal exam, mucous membranes moist Neck exam: Present: normal inspection. Absent: tenderness, meningismus, lymphadenopathy Respiratory exam: Present: wheezes, rales (at the bases). Absent: respiratory distress, rhonchi, stridor Cardiovascular Exam: Present: regular rate, normal rhythm, normal heart sounds. Absent: systolic murmur, diastolic murmur, rubs, gallop, clicks GI/Abdominal exam: Present: soft, normal bowel sounds. Absent: distended, tenderness, guarding, rebound, rigid Extremities exam: Present: normal inspection, full ROM, normal capillary refill. Absent: tenderness, pedal edema, joint swelling, calf tenderness Back exam: Present: normal inspection Neurological exam: Present: alert, oriented X3, CN II-XII intact Psychiatric exam: Present: normal affect, normal mood Skin exam: Present: warm, dry, intact, normal color. Absent: rash Course Vital Signs 11/17/20 11/17/20 11/18/20 17:41 18:18 01:41 Temperature 98.4 F Pulse Rate 62 58 L Respiratory 18 15 17 Rate Blood Pressure 111/70 122/54 125/50 O2 Sat by Pulse 100 100 100 Oximetry 11/18/20 11/18/20 11/18/20 08:00 11:25 11:26 Temperature 98.1 F 98.1 F Pulse Rate 54 L 59 L 59 L Respiratory 24 20 20 Rate Blood Pressure 131/50 112/48 112/48 O2 Sat by Pulse 100 100 100 Oximetry Medical Decision Making - Medical Decision Making Upon arrival patient was placed into room 4. He does have audible rales at the bases. He is placed on 2 L nasal cannula. Laboratory studies were conducted. Troponin 0.104. BNP 670377. Chest x-ray does demonstrate some pulmonary vascular congestion. He does not make any urine therefore I did recommend admission for dialysis. Patient did agree to this. Spoke with Dr. Etienne. Will consult Dr. Mendosa. He remained in stable condition awaiting a bed - Lab Data Result diagrams: 11/19/20 08:18 11/19/20 08:18 Lab Results 11/17/20 11/17/20 11/17/20 Range/Units 18:37 18:37 18:37 WBC 9.5 (3.8-10.6) k/uL RBC 3.56 L (4.30-5.90) m/uL Hgb 12.0 L (13.0-17.5) gm/dL Hct 38.4 L (39.0-53.0) % MCV 107.7 H (80.0-100.0) fL MCH 33.8 (25.0-35.0) pg MCHC 31.4 (31.0-37.0) g/dL RDW 14.5 (11.5-15.5) % Plt Count 145 L (150-450) k/uL MPV 9.3 Neutrophils % 90 % Lymphocytes % 3 % Monocytes % 6 % Eosinophils % 1 % Basophils % 0 % Neutrophils # 8.6 H (1.3-7.7) k/uL Lymphocytes # 0.3 L (1.0-4.8) k/uL Monocytes # 0.5 (0-1.0) k/uL Eosinophils # 0.1 (0-0.7) k/uL Basophils # 0.0 (0-0.2) k/uL Macrocytosis Moderate PT 19.0 H (9.0-12.0) sec INR 1.9 H (<1.2) APTT 28.7 (22.0-30.0) sec Sample Site ABG pH (7.35-7.45) ABG pCO2 (35-45) mmHg ABG pO2 (83-108) mmHg ABG HCO3 (21-25) mmol/L ABG Total CO2 (19-24) mmol/L ABG O2 Saturation (94-97) % ABG Base Excess mmol/L Carlos Test FiO2 % Sodium 132 L (137-145) mmol/L Potassium 4.5 (3.5-5.1) mmol/L Chloride 95 L (98-107) mmol/L Carbon Dioxide 30 (22-30) mmol/L Anion Gap 7 mmol/L BUN 28 H (9-20) mg/dL Creatinine 3.16 H (0.66-1.25) mg/dL Est GFR (CKD-EPI)AfAm 19 (>60 ml/min/1.73 sqM) Est GFR (CKD-EPI)NonAf 17 (>60 ml/min/1.73 sqM) Glucose 119 H (74-99) mg/dL Plasma Lactic Acid Kishore (0.7-2.0) mmol/L Calcium 8.3 L (8.4-10.2) mg/dL Phosphorus (2.5-4.5) mg/dL Magnesium 2.1 (1.6-2.3) mg/dL Total Bilirubin 0.7 (0.2-1.3) mg/dL AST 26 (17-59) U/L ALT 25 (4-49) U/L Alkaline Phosphatase 86 (38-126) U/L Troponin I (0.000-0.034) ng/mL NT-Pro-B Natriuret Pep pg/mL Total Protein 5.4 L (6.3-8.2) g/dL Albumin 3.0 L (3.5-5.0) g/dL Coronavirus (PCR) (Not Detectd) 11/17/20 11/17/20 11/17/20 Range/Units 18:37 18:37 18:37 WBC (3.8-10.6) k/uL RBC (4.30-5.90) m/uL Hgb (13.0-17.5) gm/dL Hct (39.0-53.0) % MCV (80.0-100.0) fL MCH (25.0-35.0) pg MCHC (31.0-37.0) g/dL RDW (11.5-15.5) % Plt Count (150-450) k/uL MPV Neutrophils % % Lymphocytes % % Monocytes % % Eosinophils % % Basophils % % Neutrophils # (1.3-7.7) k/uL Lymphocytes # (1.0-4.8) k/uL Monocytes # (0-1.0) k/uL Eosinophils # (0-0.7) k/uL Basophils # (0-0.2) k/uL Macrocytosis PT (9.0-12.0) sec INR (<1.2) APTT (22.0-30.0) sec Sample Site ABG pH (7.35-7.45) ABG pCO2 (35-45) mmHg ABG pO2 (83-108) mmHg ABG HCO3 (21-25) mmol/L ABG Total CO2 (19-24) mmol/L ABG O2 Saturation (94-97) % ABG Base Excess mmol/L Carlos Test FiO2 % Sodium (137-145) mmol/L Potassium (3.5-5.1) mmol/L Chloride (98-107) mmol/L Carbon Dioxide (22-30) mmol/L Anion Gap mmol/L BUN (9-20) mg/dL Creatinine (0.66-1.25) mg/dL Est GFR (CKD-EPI)AfAm (>60 ml/min/1.73 sqM) Est GFR (CKD-EPI)NonAf (>60 ml/min/1.73 sqM) Glucose (74-99) mg/dL Plasma Lactic Acid Kishore 1.7 (0.7-2.0) mmol/L Calcium (8.4-10.2) mg/dL Phosphorus (2.5-4.5) mg/dL Magnesium (1.6-2.3) mg/dL Total Bilirubin (0.2-1.3) mg/dL AST (17-59) U/L ALT (4-49) U/L Alkaline Phosphatase (38-126) U/L Troponin I 0.104 H* (0.000-0.034) ng/mL NT-Pro-B Natriuret Pep 217277 pg/mL Total Protein (6.3-8.2) g/dL Albumin (3.5-5.0) g/dL Coronavirus (PCR) (Not Detectd) 11/17/20 11/17/20 11/18/20 Range/Units 21:36 22:25 01:06 WBC (3.8-10.6) k/uL RBC (4.30-5.90) m/uL Hgb (13.0-17.5) gm/dL Hct (39.0-53.0) % MCV (80.0-100.0) fL MCH (25.0-35.0) pg MCHC (31.0-37.0) g/dL RDW (11.5-15.5) % Plt Count (150-450) k/uL MPV Neutrophils % % Lymphocytes % % Monocytes % % Eosinophils % % Basophils % % Neutrophils # (1.3-7.7) k/uL Lymphocytes # (1.0-4.8) k/uL Monocytes # (0-1.0) k/uL Eosinophils # (0-0.7) k/uL Basophils # (0-0.2) k/uL Macrocytosis PT (9.0-12.0) sec INR (<1.2) APTT (22.0-30.0) sec Sample Site ABG pH (7.35-7.45) ABG pCO2 (35-45) mmHg ABG pO2 (83-108) mmHg ABG HCO3 (21-25) mmol/L ABG Total CO2 (19-24) mmol/L ABG O2 Saturation (94-97) % ABG Base Excess mmol/L Carlos Test FiO2 % Sodium (137-145) mmol/L Potassium (3.5-5.1) mmol/L Chloride (98-107) mmol/L Carbon Dioxide (22-30) mmol/L Anion Gap mmol/L BUN (9-20) mg/dL Creatinine (0.66-1.25) mg/dL Est GFR (CKD-EPI)AfAm (>60 ml/min/1.73 sqM) Est GFR (CKD-EPI)NonAf (>60 ml/min/1.73 sqM) Glucose (74-99) mg/dL Plasma Lactic Acid Kishore (0.7-2.0) mmol/L Calcium (8.4-10.2) mg/dL Phosphorus (2.5-4.5) mg/dL Magnesium (1.6-2.3) mg/dL Total Bilirubin (0.2-1.3) mg/dL AST (17-59) U/L ALT (4-49) U/L Alkaline Phosphatase (38-126) U/L Troponin I 0.101 H* 0.120 H* (0.000-0.034) ng/mL NT-Pro-B Natriuret Pep pg/mL Total Protein (6.3-8.2) g/dL Albumin (3.5-5.0) g/dL Coronavirus (PCR) Not Detected (Not Detectd) 11/18/20 11/18/20 11/18/20 Range/Units 05:26 05:26 05:26 WBC 8.7 (3.8-10.6) k/uL RBC 3.78 L (4.30-5.90) m/uL Hgb 12.7 L (13.0-17.5) gm/dL Hct 40.4 (39.0-53.0) % MCV 107.0 H (80.0-100.0) fL MCH 33.6 (25.0-35.0) pg MCHC 31.4 (31.0-37.0) g/dL RDW 15.1 (11.5-15.5) % Plt Count 168 (150-450) k/uL MPV 8.5 Neutrophils % 89 % Lymphocytes % 4 % Monocytes % 5 % Eosinophils % 1 % Basophils % 0 % Neutrophils # 7.8 H (1.3-7.7) k/uL Lymphocytes # 0.3 L (1.0-4.8) k/uL Monocytes # 0.5 (0-1.0) k/uL Eosinophils # 0.1 (0-0.7) k/uL Basophils # 0.0 (0-0.2) k/uL Macrocytosis Moderate PT 18.4 H (9.0-12.0) sec INR 1.9 H (<1.2) APTT (22.0-30.0) sec Sample Site ABG pH (7.35-7.45) ABG pCO2 (35-45) mmHg ABG pO2 (83-108) mmHg ABG HCO3 (21-25) mmol/L ABG Total CO2 (19-24) mmol/L ABG O2 Saturation (94-97) % ABG Base Excess mmol/L Carols Test FiO2 % Sodium 134 L (137-145) mmol/L Potassium 4.8 (3.5-5.1) mmol/L Chloride 95 L (98-107) mmol/L Carbon Dioxide 30 (22-30) mmol/L Anion Gap 9 mmol/L BUN 37 H (9-20) mg/dL Creatinine 4.25 H (0.66-1.25) mg/dL Est GFR (CKD-EPI)AfAm 14 (>60 ml/min/1.73 sqM) Est GFR (CKD-EPI)NonAf 12 (>60 ml/min/1.73 sqM) Glucose 98 (74-99) mg/dL Plasma Lactic Acid Kishore (0.7-2.0) mmol/L Calcium 8.6 (8.4-10.2) mg/dL Phosphorus (2.5-4.5) mg/dL Magnesium (1.6-2.3) mg/dL Total Bilirubin (0.2-1.3) mg/dL AST (17-59) U/L ALT (4-49) U/L Alkaline Phosphatase (38-126) U/L Troponin I (0.000-0.034) ng/mL NT-Pro-B Natriuret Pep pg/mL Total Protein (6.3-8.2) g/dL Albumin (3.5-5.0) g/dL Coronavirus (PCR) (Not Detectd) 11/18/20 11/19/20 Range/Units 05:26 02:26 WBC (3.8-10.6) k/uL RBC (4.30-5.90) m/uL Hgb (13.0-17.5) gm/dL Hct (39.0-53.0) % MCV (80.0-100.0) fL MCH (25.0-35.0) pg MCHC (31.0-37.0) g/dL RDW (11.5-15.5) % Plt Count (150-450) k/uL MPV Neutrophils % % Lymphocytes % % Monocytes % % Eosinophils % % Basophils % % Neutrophils # (1.3-7.7) k/uL Lymphocytes # (1.0-4.8) k/uL Monocytes # (0-1.0) k/uL Eosinophils # (0-0.7) k/uL Basophils # (0-0.2) k/uL Macrocytosis PT (9.0-12.0) sec INR (<1.2) APTT (22.0-30.0) sec Sample Site Left Brachial ABG pH 7.30 L (7.35-7.45) ABG pCO2 67 H (35-45) mmHg ABG pO2 352 H (83-108) mmHg ABG HCO3 33 H (21-25) mmol/L ABG Total CO2 35 H (19-24) mmol/L ABG O2 Saturation 99.7 H (94-97) % ABG Base Excess 6.1 mmol/L Carlos Test Yes FiO2 100 % Sodium (137-145) mmol/L Potassium (3.5-5.1) mmol/L Chloride (98-107) mmol/L Carbon Dioxide (22-30) mmol/L Anion Gap mmol/L BUN (9-20) mg/dL Creatinine (0.66-1.25) mg/dL Est GFR (CKD-EPI)AfAm (>60 ml/min/1.73 sqM) Est GFR (CKD-EPI)NonAf (>60 ml/min/1.73 sqM) Glucose (74-99) mg/dL Plasma Lactic Acid Kishore (0.7-2.0) mmol/L Calcium (8.4-10.2) mg/dL Phosphorus 7.1 H (2.5-4.5) mg/dL Magnesium (1.6-2.3) mg/dL Total Bilirubin (0.2-1.3) mg/dL AST (17-59) U/L ALT (4-49) U/L Alkaline Phosphatase (38-126) U/L Troponin I (0.000-0.034) ng/mL NT-Pro-B Natriuret Pep pg/mL Total Protein (6.3-8.2) g/dL Albumin (3.5-5.0) g/dL Coronavirus (PCR) (Not Detectd) - EKG Data EKG Comments: EKG demonstrates a ventricularly paced rhythm with a rate of 64. QRS to 24. QTC of 528. Pacemaker captures appropriately. PACs present. Negative for sgarbossa criteria Disposition Clinical Impression: CHF (congestive heart failure), Acute respiratory insufficiency, ESRD (end stage renal disease) on dialysis Disposition: ADMITTED IP TO THIS HOSP Is patient prescribed a controlled substance at d/c from ED?: No Decision to Admit Reason: Admit from EC Decision Date: 11/17/20 Decision Time: 21:09
[2020-11-17] MEDS ORDERED: NALOXONE 0.4 MG/ML 1 ML VIAL IV PRN (21:14)
--- NOTE | 2020-11-18 01:00 | P.HPIM ---
History of Present Illness H&P Date: 11/17/20 Patient is an 85-year-old male with an extensive PMH including ischemic cardiomyopathy status post pacemaker placement, end-stage renal disease on hemodialysis (anuric), A. fib on Coumadin, bilateral muscular degeneration, chronic hypoxic respiratory failure on 2 L nasal cannula oxygen continuously, hypertension, hyperlipidemia, and bladder cancer status post radiation and urinary incontinence currently undergoing rehab at [facility] who was sent due to shortness of breath. Patient reports that he received his regular session of dialysis earlier today but believes that they may have taken too much fluid as immediately after the session, he became hypotensive with BP 84/64. He subsequently gave him 800 mL of fluid and was sent to [facility]. Shortly after arriving, the patient developed shortness of breath, crackles, and a frothy cough. Patient was essentially sent to the emergency room. At time of evaluation, the patient reports that his breathing is improved significantly. He reports feeling otherwise back at his baseline. He denied chest discomfort, nausea, vomiting, abdominal pain. Also denied fever, chills. Patient reports that he is at [facility] due to a recent fall. In the emergency room, a chest x- ray revealed pulmonary congestion improved from prior EKG showing V paced rhythm at 64 bpm. Laboratory evaluation was remarkable for troponin 0.014, proBNP 156,000, sodium 132, and INR 1.9. Review of systems: Pertinent positives and negatives as discussed in HPI, a complete review of systems was performed and all other systems are negative. Physical examination: General: non toxic, no distress, appears at stated age, normal weight Derm: no unusual rashes/lesions no unusual ecchymoses, warm, dry Head: atraumatic, normocephalic, symmetric Eyes: EOMI, no lid lag, anicteric sclera, pupils equal round reactive to light ENT: Nose and ears atraumatic, no thrush, no pharyngeal erythema Neck: No thyromegaly, no cervical lymphadenopathy, trachea midline, supple Mouth: no lip lesion, mucus membranes moist Cardiovascular: Irregular, no murmur, positive posterior tibial pulse bilateral, no edema, capillary refill less than 2 seconds Lungs: Bibasilar rales and some wheezing, some scattered rhonchi, no accessory muscle use Abdominal: soft, nontender to palpation, no guarding, no appreciable organomegaly, normal bowel sounds Ext: no gross muscle atrophy, muscle strength 3 out of 5 in all 4 extremities grossly, no contractures, Neuro: CN II-XI grossly intact, light touch intact all 4 extremities, finger to nose within normal limits, Psych: Alert, oriented, appropriate affect Assessment/plan Fluid overload, likely due to fluid bolus -Nephrology consulted for resumption of dialysis -Patient an-uric -Fluid restriction Troponin elevation, similar to baseline -Likely secondary to fluid overload Chronic conditions: Coronary artery disease, A. fib, hyperlipidemia, hypertension -Continue home meds DVT prophylaxis -Coumadin The patient is admitted with an anticipated less than 2 midnight stay for evaluation of fluid overload CODE STATUS: Full Code Discussed with: Patient Anticipated discharge date: in am Anticipated discharge place: [facility] Past Medical History Past Medical History: Coronary Artery Disease (CAD), Cancer, Chest Pain / Angina, Heart Failure, Eye Disorder, Hyperlipidemia, Hypertension, Pneumonia, Renal Disease Additional Past Medical History / Comment(s): Chronic kidney failure which pt states is now stage V, received peritoneal dialysis, ischemic cardiomyopathy, bladder cancer twice with BCG instillations, prostrate cancer with radiation, urinary incontinence, bilateral macular degeneration, bradycardia/pacemaker insertion. recent eye infection rt eye with antibiotics History of Any Multi-Drug Resistant Organisms: None Reported Past Surgical History: Appendectomy, Coronary Bypass/CABG, Heart Catheterizatio n, Heart Catheterization With Stent, Pacemaker Additional Past Surgical History / Comment(s): 2 vessel cabg in 2006, Pacemaker 2014, STENTS 2006 and 2013, CYSTOSCOPIES, EYE INJECTIONS Q 2 MONTHS FOR MACULAR DEGENERATION. Past Anesthesia/Blood Transfusion Reactions: No Reported Reaction Date of Last Stent Placement:: 2013 Type of Cardiac Device: Permanent Pacemaker Device Placement Date:: 2014 Past Psychological History: No Psychological Hx Reported Smoking Status: Former smoker Past Alcohol Use History: None Reported Past Drug Use History: None Reported - Past Family History Mother Family Medical History: Coronary Artery Disease (CAD) Additional Family Medical History / Comment(s): alzheimers Father Family Medical History: Coronary Artery Disease (CAD) Additional Family Medical History / Comment(s): Father was an alcoholic and had "hardening of arteries" Medications and Allergies Home Medications Medication Instructions Recorded Confirmed Type Atorvastatin [Lipitor] 20 mg PO HS@2100 02/08/16 11/17/20 History Warfarin [Coumadin] 5 mg PO SUMOWETHSA 09/01/16 11/17/20 History Albuterol Sulfate [Accuneb] 3 ml INHALATION RT-QID 11/17/20 11/17/20 History Albuterol Sulfate [Albuterol 2 puff PO RT-Q6H PRN 11/17/20 11/17/20 History Sulfate Hfa] Budesonide/Formoterol Fumarate 2 puff INHALATION RT-BID 11/17/20 11/17/20 History [Symbicort 160-4.5 Mcg Inhaler] Cephalexin [Keflex] 500 mg PO BID@0800,1700 11/17/20 11/17/20 History Isosorbide Mononitrate ER [Imdur] 30 mg PO DAILY@0800 11/17/20 11/17/20 History Sevelamer [Renvela] 800 mg PO TID@0700,1100,1630 11/17/20 11/17/20 History Vitamin B Complex 1 cap PO DAILY@1700 11/17/20 11/17/20 History bisacodyL [Dulcolax] 10 mg RECTAL DAILY PRN 11/17/20 11/17/20 History carvediloL [Coreg] 6.25 mg PO BID@0800,1700 11/17/20 11/17/20 History Allergies Allergy/AdvReac Type Severity Reaction Status Date / Time Sulfa (Sulfonamide Allergy Rash/Hives Verified 11/17/20 18:07 Antibiotics) Physical Exam Vitals: Vital Signs Temp Pulse Resp BP Pulse Ox 11/17/20 18:18 15 122/54 100 11/17/20 17:41 98.4 F 62 18 111/70 100 Intake and Output 11/17/20 11/17/20 11/18/20 14:59 22:59 06:59 Other: Weight 64.41 kg Results CBC & Chem 7: 11/17/20 18:37 11/17/20 18:37 Labs: Abnormal Lab Results - Last 24 Hours (Table) 11/17/20 11/17/20 11/17/20 Range/Units 18:37 18:37 18:37 RBC 3.56 L (4.30-5.90) m/uL Hgb 12.0 L (13.0-17.5) gm/dL Hct 38.4 L (39.0-53.0) % MCV 107.7 H (80.0-100.0) fL Plt Count 145 L (150-450) k/uL Neutrophils # 8.6 H (1.3-7.7) k/uL Lymphocytes # 0.3 L (1.0-4.8) k/uL PT 19.0 H (9.0-12.0) sec INR 1.9 H (<1.2) Sodium 132 L (137-145) mmol/L Chloride 95 L (98-107) mmol/L BUN 28 H (9-20) mg/dL Creatinine 3.16 H (0.66-1.25) mg/dL Glucose 119 H (74-99) mg/dL Calcium 8.3 L (8.4-10.2) mg/dL Troponin I (0.000-0.034) ng/mL Total Protein 5.4 L (6.3-8.2) g/dL Albumin 3.0 L (3.5-5.0) g/dL 11/17/20 Range/Units 18:37 RBC (4.30-5.90) m/uL Hgb (13.0-17.5) gm/dL Hct (39.0-53.0) % MCV (80.0-100.0) fL Plt Count (150-450) k/uL Neutrophils # (1.3-7.7) k/uL Lymphocytes # (1.0-4.8) k/uL PT (9.0-12.0) sec INR (<1.2) Sodium (137-145) mmol/L Chloride (98-107) mmol/L BUN (9-20) mg/dL Creatinine (0.66-1.25) mg/dL Glucose (74-99) mg/dL Calcium (8.4-10.2) mg/dL Troponin I 0.104 H* (0.000-0.034) ng/mL Total Protein (6.3-8.2) g/dL Albumin (3.5-5.0) g/dL
[2020-11-18 06:18] LABS: Basophils % (A) 0 %; Eosinophils # (A) 0.1 k/uL (0-0.7); Eosinophils % (A) 1 %; HCT 40.4 % (39.0-53.0); HGB 12.7 gm/dL (13.0-17.5); Lymphocytes # (A) 0.3 k/uL (1.0-4.8); Lymphocytes % (A) 4 %; MCH 33.6 pg (25.0-35.0); MCHC 31.4 g/dL (31.0-37.0); Macrocytosis Moderate; Mean Platelet Volume 8.5; Monocytes # (A) 0.5 k/uL (0-1.0); Monocytes % (A) 5 %; Neutrophils # (A) 7.8 k/uL (1.3-7.7); Neutrophils % (A) 89 %; Platelet Count 168 k/uL (150-450); RBC 3.78 m/uL (4.30-5.90); RDW 15.1 % (11.5-15.5); WBC 8.7 k/uL (3.8-10.6)
[2020-11-18 06:44] LABS: INR 1.9 (<1.2); Prothrombin Time 18.4 sec (9.0-12.0)
[2020-11-18] MEDS ORDERED: CEPHALEXIN 500 MG CAP PO SCH (08:00)
[2020-11-18] MEDS: SYMBICORT 160-4.5 MCG INHALER INHALATION SCH ×2 (08:04→20:11)
[2020-11-18 08:11] LABS: Calcium 8.6 mg/dL (8.4-10.2); Potassium 4.8 mmol/L (3.5-5.1)
[2020-11-18] MEDS ORDERED: bisacodyL 10 MG SUPP RECTAL PRN (09:00)
--- NOTE | 2020-11-18 09:47 | P.NPCON ---
History of Present Illness - Reason for Consult end stage renal disease - History of Present Illness Reason for consultation: End-stage renal disease History of present illness: Patient is a 85-year-old male seen in renal consultation for end-stage renal disease. Patient was seen and examined in the emergency room. He is maintained on hemodialysis on Sunday schedule. Patient did complete hemodialysis yesterday at his outpatient facility. Patient states when he got back tomorrow void, he felt dizzy. He denies any syncopal episodes. He is also complaining of short of breath and a productive cough. Denies chest pain. Blood pressures currently well controlled. Chest x-ray revealed no evidence of gross heart failure. Right lower lobe atelectasis was noted. He denies any vo miting or diarrhea. Afebrile. He was started on Keflex. No abdominal pain. Vital signs are stable. HEENT: Head exam is unremarkable. On nasal cannula. LUNGS: Breath sounds decreased. Scattered rhonchi. HEART: Rate and Rhythm are regular. ABDOMEN: Soft, no distention. EXTREMITITES: Trace edema. Past Medical History Past Medical History: Coronary Artery Disease (CAD), Cancer, Chest Pain / Angina, Heart Failure, Eye Disorder, Hyperlipidemia, Hypertension, Pneumonia, Renal Disease Additional Past Medical History / Comment(s): Chronic kidney failure which pt states is now stage V, received peritoneal dialysis, ischemic cardiomyopathy, bladder cancer twice with BCG instillations, prostrate cancer with radiation, urinary incontinence, bilateral macular degeneration, bradycardia/pacemaker insertion. recent eye infection rt eye with antibiotics History of Any Multi-Drug Resistant Organisms: None Reported Past Surgical History: Appendectomy, Coronary Bypass/CABG, Heart Ca theterization, Heart Catheterization With Stent, Pacemaker Additional Past Surgical History / Comment(s): 2 vessel cabg in 2006, Pacemaker 2014, STENTS 2006 and 2013, CYSTOSCOPIES, EYE INJECTIONS Q 2 MONTHS FOR MACULAR DEGENERATION. Past Anesthesia/Blood Transfusion Reactions: No Reported Reaction Date of Last Stent Placement:: 2013 Type of Cardiac Device: Permanent Pacemaker Device Placement Date:: 2014 Past Psychological History: No Psychological Hx Reported Smoking Status: Former smoker Past Alcohol Use History: None Reported Past Drug Use History: None Reported - Past Family History Mother Family Medical History: Coronary Artery Disease (CAD) Additional Family Medical History / Comment(s): alzheimers Father Family Medical History: Coronary Artery Disease (CAD) Additional Family Medical History / Comment(s): Father was an alcoholic and had "hardening of arteries" Medications and Allergies Home Medications Medication Instructions Recorded Confirmed Type Atorvastatin [Lipitor] 20 mg PO HS@2100 02/08/16 11/17/20 History Warfarin [Coumadin] 5 mg PO SUMOWETHSA 09/01/16 11/17/20 History Albuterol Sulfate [Accuneb] 3 ml INHALATION RT-QID 11/17/20 11/17/20 History Albuterol Sulfate [Albuterol 2 puff PO RT-Q6H PRN 11/17/20 11/17/20 History Sulfate Hfa] Budesonide/Formoterol Fumarate 2 puff INHALATION RT-BID 11/17/20 11/17/20 History [Symbicort 160-4.5 Mcg Inhaler] Cephalexin [Keflex] 500 mg PO BID@0800,1700 11/17/20 11/17/20 History Isosorbide Mononitrate ER [Imdur] 30 mg PO DAILY@0800 11/17/20 11/17/20 History Sevelamer [Renvela] 800 mg PO TID@0700,1100,1630 11/17/20 11/17/20 History Vitamin B Complex 1 cap PO DAILY@1700 11/17/20 11/17/20 History bisacodyL [Dulcolax] 10 mg RECTAL DAILY PRN 11/17/20 11/17/20 History carvediloL [Coreg] 6.25 mg PO BID@0800,1700 11/17/20 11/17/20 History Allergies Allergy/AdvReac Type Severity Reaction Status Date / Time Sulfa (Sulfonamide Allergy Rash/Hives Verified 11/17/20 18:07 Antibiotics) Physical Exam Vitals: Vital Signs Temp Pulse Resp BP Pulse Ox 11/18/20 08:00 54 L 24 131/50 100 11/18/20 01:41 58 L 17 125/50 100 11/17/20 18:18 15 122/54 100 11/17/20 17:41 98.4 F 62 18 111/70 100 Intake and Output 11/17/20 11/18/20 11/18/20 22:59 06:59 14:59 Other: Weight 64.41 kg Results - Lab Results Most recent lab results Calcium 8.6 mg/dL (8.4-10.2) 11/18/20 05:26 Magnesium 2.1 mg/dL (1.6-2.3) 11/17/20 18:37 11/18/20 05:26 11/18/20 05:26 Assessment and Plan Plan: Assessment: 1. End-stage renal disease maintained on hemodialysis on Sunday schedule. 2. Dyspnea. No evidence of gross fluid overload. Possibly upper respiratory infection. Coronavirus test negative. On antibiotics. 3. Chronic kidney disease mineral bone disease. 4. Hypertension with chronic kidney disease. Stable. Plan: Hemodialysis tomorrow. Check phosphorus level. Add Renvela with meals. Thank you for the consultation. I will continue to follow the patient with you during his hospital stay.
[2020-11-18] MEDS ORDERED: FUROSEMIDE 10 MG/ML 10 ML VIAL IV STA (11:13)
--- NOTE | 2020-11-18 11:21 | P.PN ---
<Tito Suresh - Last Filed: 11/18/20 14:23> Subjective Progress Note Date: 11/18/20 Hospital course: Patient is an 85-year-old male with an extensive past medical history including ischemic cardiomyopathy status post pacemaker placement, end-stage renal disease on hemodialysis, A. fib on Coumadin, bilateral muscular degeneration, chronic hypoxic respiratory failure on home oxygen 2 L via nasal cannula, hypertension, hyperlipidemia, and bladder cancer status post radiation and urinary incontinence currently undergoing rehab at [facility]. He presented to the hospital on 11/17/20 with a chief complaint of shortness of breath status post hypotensive episode after dialysis which was treated with 800 mL bolus of fluid. He is currently admitted under our services with consultation to nephrology for acute on chronic respiratory failure with hypoxia secondary to fluid volume o verload. Physical examination: Patient seen and fully evaluated at the bedside this morning. Patient reports he is feeling awful, "I feel like I am actually dying". Patient reports significant shortness of breath and is currently on 4 L O2 via nasal cannula with SpO2 of 90-91%. He denies having any headache, lightheadedness, dizziness, chest pain, palpitations, or any other complaints at this time. Vital signs stable. General: Appears chronically ill in mild distress, normal weight Derm: no unusual rashes/lesions no unusual ecchymoses, warm, dry Head: atraumatic, normocephalic, symmetric Eyes: no lid lag, anicteric sclera, pupils equal round ENT: Nose and ears atraumatic, no thrush, no pharyngeal erythema Neck: trachea midline, no JVD, supple Mouth: Dry Cardiovascular: Regular rate and rhythm, no murmur, positive posterior tibial pulses bilateral, 2+ pitting edema to feet and ankles bilaterally, capillary refill less than 2 seconds. Pacemaker left anterior chest. AV fistula right upper extremity bruit and thrill intact. Lungs: Diffuse rhonchi bilaterally, no wheezing and no accessory muscle use Abdominal: soft, nontender to palpation, no guarding, no appreciable organomegaly, normal bowel sounds Ext: no gross muscle atrophy, movement and sensation intact Neuro: CN II-XI grossly intact, GCS 15 Psych: Alert, oriented, appropriate affect Assessment and plan of care: Fluid volume overload Acute on chronic respiratory failure with hypoxia ProBNP 156,000 Chest x-ray revealing atelectasis in right lower lobe, not suggestive of acute heart failure as pulmonary congestion is reported to be improved from previous examination. Lasix 80 mg IVP 1 dose to be given after discussion with nephrology. Close monitoring of I's and O's. Plans to repeat chest x-ray tomorrow a.m. We will obtain an echocardiogram Nephrology following, recommended Lasix 80 mg IVP 1 dose and plans for dialysis later today. -Patient reports oliguria with periods of anuria, stating little urine production -Fluid restriction Troponin elevation, chronic in nature and at baseline -Likely secondary to fluid overload -Echocardiogram to be completed Subtherapeutic INR: -Pharmacy to dose Coumadin to achieve therapeutic INR between 2-3. Chronic medical conditions: Coronary artery disease A. fib Hyperlipidemia Hypertension -Continue home medication regimen CODE STATUS: Full Code DVT prophylaxis: Continuation of Coumadin, pharmacy to dose to achieve therapeutic INR Discussed with: Patient and RN Anticipated discharge date: Clinical course to be determined Anticipated discharge place: [facility] A total of 45 minutes was spent on the care of this complex patient more than 50% of the time was spent in counseling and care coordination. Objective - Vital Signs Vital signs: Vital Signs Temp 98.4 F 11/17/20 17:41 Pulse 54 L 11/18/20 08:00 Resp 24 11/18/20 08:00 BP 131/50 11/18/20 08:00 Pulse Ox 100 11/18/20 08:00 Intake & Output 11/17/20 11/18/20 11/18/20 18:59 06:59 18:59 Weight 64.41 kg - Labs CBC & Chem 7: 11/18/20 05:26 11/18/20 05:26 Labs: Abnormal Lab Results - Last 24 Hours (Table) 11/17/20 11/17/20 11/17/20 Range/Units 18:37 18:37 18:37 RBC 3.56 L (4.30-5.90) m/uL Hgb 12.0 L (13.0-17.5) gm/dL Hct 38.4 L (39.0-53.0) % MCV 107.7 H (80.0-100.0) fL Plt Count 145 L (150-450) k/uL Neutrophils # 8.6 H (1.3-7.7) k/uL Lymphocytes # 0.3 L (1.0-4.8) k/uL PT 19.0 H (9.0-12.0) sec INR 1.9 H (<1.2) Sodium 132 L (137-145) mmol/L Chloride 95 L (98-107) mmol/L BUN 28 H (9-20) mg/dL Creatinine 3.16 H (0.66-1.25) mg/dL Glucose 119 H (74-99) mg/dL Calcium 8.3 L (8.4-10.2) mg/dL Phosphorus (2.5-4.5) mg/dL Troponin I (0.000-0.034) ng/mL Total Protein 5.4 L (6.3-8.2) g/dL Albumin 3.0 L (3.5-5.0) g/dL 11/17/20 11/17/20 11/18/20 Range/Units 18:37 22:25 01:06 RBC (4.30-5.90) m/uL Hgb (13.0-17.5) gm/dL Hct (39.0-53.0) % MCV (80.0-100.0) fL Plt Count (150-450) k/uL Neutrophils # (1.3-7.7) k/uL Lymphocytes # (1.0-4.8) k/uL PT (9.0-12.0) sec INR (<1.2) Sodium (137-145) mmol/L Chloride (98-107) mmol/L BUN (9-20) mg/dL Creatinine (0.66-1.25) mg/dL Glucose (74-99) mg/dL Calcium (8.4-10.2) mg/dL Phosphorus (2.5-4.5) mg/dL Troponin I 0.104 H* 0.101 H* 0.120 H* (0.000-0.034) ng/mL Total Protein (6.3-8.2) g/dL Albumin (3.5-5.0) g/dL 11/18/20 11/18/20 11/18/20 Range/Units 05:26 05:26 05:26 RBC 3.78 L (4.30-5.90) m/uL Hgb 12.7 L (13.0-17.5) gm/dL Hct (39.0-53.0) % MCV 107.0 H (80.0-100.0) fL Plt Count (150-450) k/uL Neutrophils # 7.8 H (1.3-7.7) k/uL Lymphocytes # 0.3 L (1.0-4.8) k/uL PT 18.4 H (9.0-12.0) sec INR 1.9 H (<1.2) Sodium 134 L (137-145) mmol/L Chloride 95 L (98-107) mmol/L BUN 37 H (9-20) mg/dL Creatinine 4.25 H (0.66-1.25) mg/dL Glucose (74-99) mg/dL Calcium (8.4-10.2) mg/dL Phosphorus (2.5-4.5) mg/dL Troponin I (0.000-0.034) ng/mL Total Protein (6.3-8.2) g/dL Albumin (3.5-5.0) g/dL 11/18/20 Range/Units 05:26 RBC (4.30-5.90) m/uL Hgb (13.0-17.5) gm/dL Hct (39.0-53.0) % MCV (80.0-100.0) fL Plt Count (150-450) k/uL Neutrophils # (1.3-7.7) k/uL Lymphocytes # (1.0-4.8) k/uL PT (9.0-12.0) sec INR (<1.2) Sodium (137-145) mmol/L Chloride (98-107) mmol/L BUN (9-20) mg/dL Creatinine (0.66-1.25) mg/dL Glucose (74-99) mg/dL Calcium (8.4-10.2) mg/dL Phosphorus 7.1 H (2.5-4.5) mg/dL Troponin I (0.000-0.034) ng/mL Total Protein (6.3-8.2) g/dL Albumin (3.5-5.0) g/dL <Bruna Fisher - Last Filed: 11/18/20 18:05> Objective - Vital Signs Vital signs: Vital Signs Temp 98.1 F 11/18/20 16:47 Pulse 60 09/30/21 16:47 Resp 20 11/18/20 16:47 BP 132/58 11/18/20 16:47 Pulse Ox 100 11/18/20 16:47 Intake & Output 11/17/20 11/18/20 11/18/20 18:59 06:59 18:59 Intake Total 240 Output Total 1000 Balance -760 Weight 64.41 kg 47 kg 64.41 kg Intake: Oral 240 Output: Hemodialysis 1000 Other: # Bowel Movements 1 - Labs CBC & Chem 7: 11/18/20 05:26 11/18/20 05:26 Labs: Abnormal Lab Results - Last 24 Hours (Table) 11/17/20 11/17/20 11/17/20 Range/Units 18:37 18:37 18:37 RBC 3.56 L (4.30-5.90) m/uL Hgb 12.0 L (13.0-17.5) gm/dL Hct 38.4 L (39.0-53.0) % MCV 107.7 H (80.0-100.0) fL Plt Count 145 L (150-450) k/uL Neutrophils # 8.6 H (1.3-7.7) k/uL Lymphocytes # 0.3 L (1.0-4.8) k/uL PT 19.0 H (9.0-12.0) sec INR 1.9 H (<1.2) Sodium 132 L (137-145) mmol/L Chloride 95 L (98-107) mmol/L BUN 28 H (9-20) mg/dL Creatinine 3.16 H (0.66-1.25) mg/dL Glucose 119 H (74-99) mg/dL Calcium 8.3 L (8.4-10.2) mg/dL Phosphorus (2.5-4.5) mg/dL Troponin I (0.000-0.034) ng/mL Total Protein 5.4 L (6.3-8.2) g/dL Albumin 3.0 L (3.5-5.0) g/dL 11/17/20 11/17/20 11/18/20 Range/Units 18:37 22:25 01:06 RBC (4.30-5.90) m/uL Hgb (13.0-17.5) gm/dL Hct (39.0-53.0) % MCV (80.0-100.0) fL Plt Count (150-450) k/uL Neutrophils # (1.3-7.7) k/uL Lymphocytes # (1.0-4.8) k/uL PT (9.0-12.0) sec INR (<1.2) Sodium (137-145) mmol/L Chloride (98-107) mmol/L BUN (9-20) mg/dL Creatinine (0.66-1.25) mg/dL Glucose (74-99) mg/dL Calcium (8.4-10.2) mg/dL Phosphorus (2.5-4.5) mg/dL Troponin I 0.104 H* 0.101 H* 0.120 H* (0.000-0.034) ng/mL Total Protein (6.3-8.2) g/dL Albumin (3.5-5.0) g/dL 11/18/20 11/18/20 11/18/20 Range/Units 05:26 05:26 05:26 RBC 3.78 L (4.30-5.90) m/uL Hgb 12.7 L (13.0-17.5) gm/dL Hct (39.0-53.0) % MCV 107.0 H (80.0-100.0) fL Plt Count (150-450) k/uL Neutrophils # 7.8 H (1.3-7.7) k/uL Lymphocytes # 0.3 L (1.0-4.8) k/uL PT 18.4 H (9.0-12.0) sec INR 1.9 H (<1.2) Sodium 134 L (137-145) mmol/L Chloride 95 L (98-107) mmol/L BUN 37 H (9-20) mg/dL Creatinine 4.25 H (0.66-1.25) mg/dL Glucose (74-99) mg/dL Calcium (8.4-10.2) mg/dL Phosphorus (2.5-4.5) mg/dL Troponin I (0.000-0.034) ng/mL Total Protein (6.3-8.2) g/dL Albumin (3.5-5.0) g/dL 11/18/20 Range/Units 05:26 RBC (4.30-5.90) m/uL Hgb (13.0-17.5) gm/dL Hct (39.0-53.0) % MCV (80.0-100.0) fL Plt Count (150-450) k/uL Neutrophils # (1.3-7.7) k/uL Lymphocytes # (1.0-4.8) k/uL PT (9.0-12.0) sec INR (<1.2) Sodium (137-145) mmol/L Chloride (98-107) mmol/L BUN (9-20) mg/dL Creatinine (0.66-1.25) mg/dL Glucose (74-99) mg/dL Calcium (8.4-10.2) mg/dL Phosphorus 7.1 H (2.5-4.5) mg/dL Troponin I (0.000-0.034) ng/mL Total Protein (6.3-8.2) g/dL Albumin (3.5-5.0) g/dL Assessment and Plan Assessment: I reviewed the documentation as provided by the DAREK above, who is the original author of this note. I agree with the documented assessment and plan, with the following changes: Patient is an 81-year-old man with a medical history of end-stage renal disease with anuria on intermittent dialysis, chronic systolic heart failure with an ejection fraction of 20-25%, CAD/HTN/HLD who presented with acute hypoxemic respiratory failure after having been bolused 800 mL of fluid following his dialysis session where he had an episode of hypotension. Patient is afebrile, 100% saturation with 4 L of nasal cannula, on room air at baseline. Patient's BNP was elevated to 156,000, last known value was 159,000. Chest x-ray was reviewed, which appears to have patchy alveolar infiltrates bilaterally, noted by radiologist to be slightly improved from prior. Assessment/plan: Acute hypoxemic respiratory failure Acute on chronic combined systolic and diastolic heart failure exacerbation, ejection fraction 20-25% End-stage renal disease with anuria Elevated troponin secondary to above -Oxygen when necessary -Nephrology consult for dialysis -Fluid restriction, net negative fluid strategy by ultrafiltration -Attempted Lasix x 1, if urine is produced, can place standing order for Lasix 60 mg IV 3 times a day -No indication to repeat echocardiogram at this time -Rule out atypical infection
[2020-11-18] MEDS: SEVELAMER 800 MG TAB PO SCH ×2 (12:58→17:18)
[2020-11-18] MEDS ORDERED: carvediloL 6.25 MG TAB PO SCH (17:00)
[2020-11-18] MEDS ORDERED: WARFARIN 3 MG TAB PO SCH (18:00)
[2020-11-18] MEDS ORDERED: WARFARIN 3 MG TAB PO ONE (18:00)
[2020-11-18] MEDS ORDERED: ATORVASTATIN 20 MG TAB PO SCH (21:00)
[2020-11-19] MEDS ORDERED: FUROSEMIDE 10 MG/ML 10 ML VIAL IV STA (00:04)
--- NOTE | 2020-11-19 01:07 | XR ---
EXAMINATION TYPE: XR chest 1V portable DATE OF EXAM: 11/19/2020 COMPARISON: 11/17/2020 HISTORY: Hypoxemia TECHNIQUE: Single view FINDINGS: Heart is enlarged. There is mild pulmonary vascular congestion. There is left axillary pace maker. There are sternal wires. There is no definite pleural effusion. IMPRESSION: Moderate cardiomegaly. There is mild congestion but no pleural fluid seen to suggest hear t failure. No change compared to old exam.
[2020-11-19] MEDS ORDERED: methylPREDNISolone SOD SUCCI 125 MG/2 ML VIAL IV STA (02:24)
[2020-11-19] MEDS ORDERED: ACETYLCYSTEINE 800 MG/4 ML VIAL INHALATION STA ×2 (02:25→02:35)
[2020-11-19] MEDS ORDERED: IPRATROPIUM-ALBUTEROL 3 ML NEB INHALATION STA (02:26)
[2020-11-19 02:44] LABS: ABG Base Excess 6.1 mmol/L; ABG HCO3 33 mmol/L (21-25); ABG Oxygen Saturation 99.7 % (94-97); ABG PCO2 67 mmHg (35-45); ABG PO2 352 mmHg (83-108); ABG TCO2 35 mmol/L (19-24); Allen Test Performed? Yes
[2020-11-19] MEDS ORDERED: IPRATROPIUM-ALBUTEROL 3 ML NEB INHALATION PRN (02:59)
--- NOTE | 2020-11-19 02:59 | P.PN ---
Progress Note - Text Progress Note Date: 11/19/20 Referred by the RN regarding the patient's gradually worsening hypoxia. The patient was seen and examined at the bedside. He was noted to have diffuse wheezing with minimal rales. He appeared to be in mild respiratory distress. No lower extremity edema was noted. Cardiovascular examination revealed no murmurs. Chest x-rays revealed some congestion. ABG was obtained revealing pCO2 of 67 with pH 7.295. The patient was started on BiPAP. Shortness of breath may be secondary to an acute COPD exacerbation. Patient was given DuoNeb's treatment along with stat dose of Solu-Medrol with Mucomyst.
[2020-11-19] MEDS ORDERED: ALPRAZolam 0.5 MG TAB PO STA (04:35)
[2020-11-19] MEDS: SEVELAMER 800 MG TAB PO SCH ×2 (06:32→06:34)
--- NOTE | 2020-11-19 07:54 | XR ---
EXAMINATION TYPE: XR chest 1V portable DATE OF EXAM: 11/19/2020 CLINICAL HISTORY: Difficulty breathing and hypoxia progress study. TECHNIQUE: Single AP portable upright view of the chest is obtained. COMPARISON: Chest x-ray from earlier today and older studies. FINDINGS: Cardiomegaly with dual lead pacemaker redemonstrated. Overlying sternal wires and mediastin al clips are redemonstrated. Chronic parenchymal changes with slightly elevated left hemidiaphragm. N o new focal airspace opacity, pleural effusion, or pneumothorax seen. Osseous structures remain demin eralized. Splenic arterial vascular calcification redemonstrated. IMPRESSION: Chronic changes and cardiomegaly with perhaps mild interstitial edema, no new focal infil trate. No significant change from most recent study.
[2020-11-19] MEDS ORDERED: methylPREDNISolone SOD SUCCI 125 MG/2 ML VIAL IV SCH (08:00)
[2020-11-19] MEDS ORDERED: ISOSORBIDE MONONITRATE ER 30 MG TAB.ER.24H PO SCH (08:00)
[2020-11-19] MEDS ORDERED: IPRATROPIUM-ALBUTEROL 3 ML NEB INHALATION SCH (08:00)
[2020-11-19 08:08] VITALS: BP 128/58; PULSE 66; TEMP 98.1
[2020-11-19 08:34] LABS: HCT 36.7 % (39.0-53.0); HGB 11.3 gm/dL (13.0-17.5); Hypochromasia Moderate; MCH 34.1 pg (25.0-35.0); MCHC 30.8 g/dL (31.0-37.0); MCV 110.6 fL (80.0-100.0); Macrocytosis Marked; Mean Platelet Volume 8.7; Platelet Count 121 k/uL (150-450); RBC 3.32 m/uL (4.30-5.90); RDW 14.6 % (11.5-15.5); WBC 7.7 k/uL (3.8-10.6)
[2020-11-19 08:53] LABS: Prothrombin Time 19.8 sec (9.0-12.0)
[2020-11-19 08:59] LABS: Calcium 8.7 mg/dL (8.4-10.2); Magnesium 2.3 mg/dL (1.6-2.3); Potassium 5.1 mmol/L (3.5-5.1)
[2020-11-19] MEDS ORDERED: CEPHALEXIN 250 MG CAP PO SCH (09:00)
[2020-11-19] MEDS ORDERED: DRY MOUTH SPRAY 44.3 SPRAY/44.3 ML SPRAY MUCOUS MEM PRN (09:01)
[2020-11-19] MEDS ORDERED: ACETAMINOPHEN TAB 325 MG TAB PO PRN (09:01)
[2020-11-19] MEDS ORDERED: MORPHINE SULFATE 2 MG/ML SYRINGE IV PRN (09:01)
[2020-11-19] MEDS ORDERED: ONDANSETRON 4 MG/2 ML VIAL IVP PRN (09:01)
[2020-11-19] MEDS ORDERED: LORazepam 2 MG/ML INJ IV PRN (09:01)
[2020-11-19] MEDS ORDERED: ATROPINE OPHTH SOLN 1% 5ML BTL SUBLINGUAL PRN (09:01)
[2020-11-19] MEDS: SYMBICORT 160-4.5 MCG INHALER INHALATION SCH (09:04)
[2020-11-19] MEDS ORDERED: MORPHINE SULFATE (100 MG/2 ML) 100 MG in SODIUM CHLORIDE 0.9% 100 ML IV SCH (09:15)
[2020-11-19] MEDS ORDERED: SCOPOLAMINE 1.5MG/72HR PATCH TRANSDERM SCH (09:15)
--- NOTE | 2020-11-19 11:01 | ECHOF ---
Referral Reason:fluid volume overload, shortness of breath MEASUREMENTS -------- HEIGHT: 175.3 cm WEIGHT: 64.0 kg BP: 147/62 RVIDd: 3.8 cm (< 3.3) IVSd: 1.3 cm (0.6 - 1.1) LVIDd: 5.6 cm (3.9 - 5.3) LVPWd: 1.3 cm (0.6 - 1.1) IVSs: 1.6 cm LVIDs: 5.2 cm LVPWs: 1.8 cm LA Diam: 4.3 cm (2.7 - 3.8) LAESV Index (A-L): 71.88 ml/m Ao Diam: 3.2 cm (2.0 - 3.7) AV Cusp: 1.0 cm (1.5 - 2.6) MV EXCURSION: 19.089 mm (> 18.000) MV EF SLOPE: 68 mm/s (70 - 150) EPSS: 1.5 cm AV maxP.63 mmHg AV meanP.01 mmHg RAP: 15.00 mmHg RVSP: 55.60 mmHg FINDINGS -------- Paced rhythm. This was a technically good study. The left ventricular size is normal. There is mild concentric left ventricular hypertrophy. Overa ll left ventricular systolic function is severely impaired with, an EF between 20 - 25 %. The right ventricle is mild to moderately enlarged. LA is severely dilated >40 ml/m2 The right atrium is normal in size. Interatrial and interventricular septum intact. There is moderate aortic valve sclerosis. There is qoozfemb-xb-hzxiaq aortic stenosis present. Pe ak/mean gradient across the Aortic Valve is 32.63mmHg / 15.01mmHg. BOBBY by planimetry is 1.1cm2. Ma y be a component of low flow low gradient. The mitral valve leaflets are mildly thickened. Mild mitral regurgitation is present. Mild tricuspid regurgitation present. There is moderate to severe pulmonary hypertension. The rig ht ventricular systolic pressure, as measured by Doppler, is 55.60mmHg. Trace/mild (physiologic) pulmonic regurgitation. The aortic root size is normal. Normal inferior vena cava with less than 50% inspiratory collapse consistent with estimated right atr ial pressure of 15 mmHg. There is no pericardial effusion. CONCLUSIONS -------- 1. The left ventricular size is normal. 2. There is mild concentric left ventricular hypertrophy. 3. Overall left ventricular systolic function is severely impaired with, an EF between 20 - 25 %. 4. The right ventricle is mild to moderately enlarged. 5. LA is severely dilated >40 ml/m2 6. There is moderate aortic valve sclerosis. 7. There is muotqfpp-ej-vaafee aortic stenosis present. 8. Peak/mean gradient across the Aortic Valve is 32.63mmHg / 15.01mmHg. 9. BOBBY by planimetry is 1.1cm2. May be a component of low flow low gradient. 10. The mitral valve leaflets are mildly thickened. 11. Mild mitral regurgitation is present. 12. Mild tricuspid regurgitation present. 13. There is moderate to severe pulmonary hypertension. 14. The right ventricular systolic pressure, as measured by Doppler, is 55.60mmHg. 15. Trace/mild (physiologic) pulmonic regurgitation. 16. Normal inferior vena cava with less than 50% inspiratory collapse consistent with estimated right atrial pressure of 15 mmHg. 17. There is no pericardial effusion. MAINTENANCE SERVICES DISPATCHER: Felicita Peace RDCS
--- NOTE | 2020-11-19 11:38 | P.PN ---
Subjective Patient is seen in follow-up for end-stage renal disease. He is maintained on hemodialysis on Sunday schedule. Currently resting in bed. Son present at bedside. Vital signs are stable. General: The patient appeared well nourished and normally developed. HEENT: Head exam is unremarkable. LUNGS: Lungs are clear to auscultation and percussion. Breath sounds decreased. HEART: Rate and Rhythm are regular. ABDOMEN: Soft, no distention. EXTREMITITES: 1+ edema. Objective - Vital Signs Vital signs: Vital Signs Temp 98.1 F 11/19/20 07:40 Pulse 66 11/19/20 07:40 Resp 25 H 11/19/20 11:24 BP 128/58 11/19/20 07:40 Pulse Ox 94 L 11/19/20 07:40 Intake & Output 11/18/20 11/19/20 11/19/20 18:59 06:59 18:59 Intake Total 420 Output Total 1000 Balance -580 Weight 64.41 kg 64.3 kg Intake: Oral 420 Output: Hemodialysis 1000 Other: # Bowel Movements 1 - Labs CBC & Chem 7: 11/19/20 08:18 11/19/20 08:18 Labs: Abnormal Lab Results - Last 24 Hours (Table) 11/19/20 11/19/20 11/19/20 Range/Units 02:26 08:18 08:18 RBC 3.32 L (4.30-5.90) m/uL Hgb 11.3 L (13.0-17.5) gm/dL Hct 36.7 L (39.0-53.0) % MCV 110.6 H (80.0-100.0) fL MCHC 30.8 L (31.0-37.0) g/dL Plt Count 121 L (150-450) k/uL Macrocytosis Marked A PT 19.8 H (9.0-12.0) sec INR 2.0 H (<1.2) ABG pH 7.30 L (7.35-7.45) ABG pCO2 67 H (35-45) mmHg ABG pO2 352 H (83-108) mmHg ABG HCO3 33 H (21-25) mmol/L ABG Total CO2 35 H (19-24) mmol/L ABG O2 Saturation 99.7 H (94-97) % BUN (9-20) mg/dL Creatinine (0.66-1.25) mg/dL Glucose (74-99) mg/dL Troponin I (0.000-0.034) ng/mL 11/19/20 11/19/20 Range/Units 08:18 08:18 RBC (4.30-5.90) m/uL Hgb (13.0-17.5) gm/dL Hct (39.0-53.0) % MCV (80.0-100.0) fL MCHC (31.0-37.0) g/dL Plt Count (150-450) k/uL Macrocytosis PT (9.0-12.0) sec INR (<1.2) ABG pH (7.35-7.45) ABG pCO2 (35-45) mmHg ABG pO2 (83-108) mmHg ABG HCO3 (21-25) mmol/L ABG Total CO2 (19-24) mmol/L ABG O2 Saturation (94-97) % BUN 38 H (9-20) mg/dL Creatinine 4.67 H (0.66-1.25) mg/dL Glucose 108 H (74-99) mg/dL Troponin I 0.113 H* (0.000-0.034) ng/mL Assessment and Plan Plan: Assessment: 1. End-stage renal disease maintained on hemodialysis on Sunday schedule. 2. Dyspnea. No evidence of gross fluid overload. Possibly upper respiratory infection. Coronavirus test negative. On antibiotics. 3. Chronic kidney disease mineral bone disease. 4. Hypertension with chronic kidney disease. Stable. Plan: Patient is decided to stop medical treatment including hemodialysis and proceed with hospice. Son present at bedside. I will sign off.
--- NOTE | 2020-11-19 14:57 | P.PN ---
<Tito Suresh - Last Filed: 11/19/20 14:44> Subjective Progress Note Date: 11/19/20 Hospital course: Patient is an 85-year-old male with an extensive past medical history including ischemic cardiomyopathy status post pacemaker placement, end-stage renal disease on hemodialysis, A. fib on Coumadin, bilateral muscular degeneration, chronic hypoxic respiratory failure on home oxygen 2 L via nasal cannula, hypertension, hyperlipidemia, and bladder cancer status post radiation and urinary incontinence currently undergoing rehab at [facility]. He presented to the hospital on 11/17/20 with a chief complaint of shortness of breath status post hypotensive episode after dialysis which was treated with 800 mL bolus of fluid. He is currently admitted under our services with consultation to nephrology for acute on chronic respiratory failure with hypoxia secondary to fluid volume o verload. Physical examination: Patient seen and fully evaluated at the bedside this morning. His oxygen needs have significantly increased and he is requiring 15 L high flow nasal cannula to maintain SpO2 greater than 90%. Patient reports feeling very weak and tired. He denies having any pain or discomfort. Patient showing moderate distress secondary to increased respiratory effort. Scheduled for dialysis this morning. INR therapeutic at 2.0. BUN 38, and troponin flat at 0.113. Echocardiogram revealing a severely impaired EF between 20-25% with moderate to severe aortic stenosis and moderate to severe pulmonary hypertension. Prognosis is poor. General: Appears chronically ill and in moderate distress, normal weight Derm: no unusual rashes/lesions no unusual ecchymoses, warm, dry Head: atraumatic, normocephalic, symmetric Eyes: no lid lag, anicteric sclera, pupils equal round ENT: Nose and ears atraumatic, no thrush, no pharyngeal erythema Neck: trachea midline, no JVD, supple Mouth: Dry Cardiovascular: Regular rate and rhythm, no murmur, positive posterior tibial pulses bilateral, 2+ pitting edema to feet and ankles bilaterally, capillary refill less than 2 seconds. Pacemaker left anterior chest. AV fistula right upper extremity bruit and thrill intact. 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 Echocardiogram revealing a severely impaired EF between 20-25% with moderate to severe aortic stenosis and moderate to severe pulmonary hypertension Lasix 80 mg IVP 1 dose to be given after discussion with nephrology. Close monitoring of I's and O's. Plans to repeat chest x-ray tomorrow a.m. We will obtain an echocardiogram Nephrology following, recommended Lasix 80 mg IVP 1 dose and plans for dialysis later today. -Patient reports oliguria with periods of anuria, stating little urine production -Fluid restriction. Troponin elevation, chronic in nature and at baseline -Likely secondary to fluid overload -Echocardiogram to be completed Therapeutic INR: -Pharmacy to continue to dose Coumadin to achieve therapeutic INR between 2-3. Chronic medical conditions: Coronary artery disease A. fib Hyperlipidemia Hypertension -Continue home medication regimen CODE STATUS: Full Code DVT prophylaxis: Continuation of Coumadin, pharmacy to dose to achieve therapeutic INR Discussed with: Patient and RN Anticipated discharge date: Clinical course to be determined Anticipated discharge place: [facility] A total of 45 minutes was spent on the care of this complex patient more than 50% of the time was spent in counseling and care coordination. Objective - Vital Signs Vital signs: Vital Signs Temp 98.1 F 11/19/20 07:40 Pulse 66 11/19/20 07:40 Resp 24 11/19/20 07:40 BP 128/58 11/19/20 07:40 Pulse Ox 94 L 11/19/20 07:40 Intake & Output 11/18/20 11/19/20 11/19/20 18:59 06:59 18:59 Intake Total 420 Output Total 1000 Balance -580 Weight 64.41 kg 64.3 kg Intake: Oral 420 Output: Hemodialysis 1000 Other: # Bowel Movements 1 - Labs CBC & Chem 7: 11/19/20 08:18 11/19/20 08:18 Labs: Abnormal Lab Results - Last 24 Hours (Table) 11/18/20 11/19/20 Range/Units 05:26 02:26 ABG pH 7.30 L (7.35-7.45) ABG pCO2 67 H (35-45) mmHg ABG pO2 352 H (83-108) mmHg ABG HCO3 33 H (21-25) mmol/L ABG Total CO2 35 H (19-24) mmol/L ABG O2 Saturation 99.7 H (94-97) % Phosphorus 7.1 H (2.5-4.5) mg/dL <KavonKandace Ronaldo - Last Filed: 11/19/20 15:11> Subjective Tito Suresh NP rendered care for this patient independently, reviewed the findings and plan as documented in the note above. I did not physically speak with or examine the patient on this date. Objective - Vital Signs Vital signs: Vital Signs Temp 98.1 F 11/19/20 07:40 Pulse 66 11/19/20 15:01 Resp 20 11/19/20 15:01 BP 128/58 11/19/20 07:40 Pulse Ox 94 L 11/19/20 07:40 Intake & Output 11/18/20 11/19/20 11/19/20 18:59 06:59 18:59 Intake Total 420 126.375 Output Total 1000 Balance -580 126.375 Weight 64.41 kg 64.3 kg Intake: Intake, IV Titration 6.375 Amount Morphine Sulfate (100 mg/ 6.375 2 ml) 100 mg In Sodium Chloride 0.9% 100 ml @ 1 MG/HR 1.02 mls/hr IV . Q24H GERMÁN Rx#:[id number] Oral 420 120 Output: Hemodialysis 1000 Other: # Bowel Movements 1 - Labs CBC & Chem 7: 11/19/20 08:18 11/19/20 08:18 Labs: Abnormal Lab Results - Last 24 Hours (Table) 11/19/20 11/19/20 11/19/20 Range/Units 02:26 08:18 08:18 RBC 3.32 L (4.30-5.90) m/uL Hgb 11.3 L (13.0-17.5) gm/dL Hct 36.7 L (39.0-53.0) % MCV 110.6 H (80.0-100.0) fL MCHC 30.8 L (31.0-37.0) g/dL Plt Count 121 L (150-450) k/uL Macrocytosis Marked A PT 19.8 H (9.0-12.0) sec INR 2.0 H (<1.2) ABG pH 7.30 L (7.35-7.45) ABG pCO2 67 H (35-45) mmHg ABG pO2 352 H (83-108) mmHg ABG HCO3 33 H (21-25) mmol/L ABG Total CO2 35 H (19-24) mmol/L ABG O2 Saturation 99.7 H (94-97) % BUN (9-20) mg/dL Creatinine (0.66-1.25) mg/dL Glucose (74-99) mg/dL Troponin I (0.000-0.034) ng/mL 11/19/20 11/19/20 Range/Units 08:18 08:18 RBC (4.30-5.90) m/uL Hgb (13.0-17.5) gm/dL Hct (39.0-53.0) % MCV (80.0-100.0) fL MCHC (31.0-37.0) g/dL Plt Count (150-450) k/uL Macrocytosis PT (9.0-12.0) sec INR (<1.2) ABG pH (7.35-7.45) ABG pCO2 (35-45) mmHg ABG pO2 (83-108) mmHg ABG HCO3 (21-25) mmol/L ABG Total CO2 (19-24) mmol/L ABG O2 Saturation (94-97) % BUN 38 H (9-20) mg/dL Creatinine 4.67 H (0.66-1.25) mg/dL Glucose 108 H (74-99) mg/dL Troponin I 0.113 H* (0.000-0.034) ng/mL
--- NOTE | 2020-11-19 15:05 | P.PN ---
<Tito Suresh - Last Filed: 11/19/20 14:57> Progress Note - Text Progress Note Date: 11/19/20 Advanced Care Planning: Diagnoses: Acute exacerbation on chronic systolic and diastolic heart failure with a severely impaired EF 20-25% Acute respiratory failure with hypoxia Severe pulmonary hypertension Discussion: Persons present and participating in discussion: Patient along with Clifton [place], patient's son Summary: Patient's prognosis is poor. Patient's respiratory status is deteriorating and patient has had significant increase in oxygenation needs and is currently on 15 L high flow nasal cannula with SpO2 of 88%. Patient was requesting his family as and states feeling that, "I'm ready to go." Patient's son, Clifton [place] at bedside. Patient, Clifton, and myself had long discussion regarding patient's poor prognosis and current respiratory failure. Patient and his son both wish to withdraw care at this time and place patient on comfort measures. Per patient and family's request, dialysis was canceled this morning along with all daily medications. Patient placed on comfort measures only and states he will remain on oxygen only until the rest of his family gets here and would like to withdraw at that time. Orders hospice consult along with comfort care medications. A total of ( >16) minutes of face to face time was spent discussing advanced care planning. <Kandace Jacobson - Last Filed: 11/19/20 15:11> Progress Note - Text Tito Suresh TECHNICAL ARTIST rendered care for this patient independently, reviewed the findings and plan as documented in the note above. I did not physically speak with or examine the patient on this date.
[2020-11-19 17:06] VITALS: RESP 12
--- NOTE | 2020-11-20 18:36 | P.DS ---
Providers Date of admission: 11/19/20 08:11 Expected date of discharge: 11/20/20 Attending physician: Sancho Etienne MD Consults: 11/17/20 21:23 Consult Physician Urgent Consulting Provider: Terrell Mendosa Consult Reason/Comments: esrd on hd, acute resp insuff Do you want consulting provider notified?: Yes Primary care physician: Wiliam Pope MD Hospital Course: PATIENT . 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 Atrial fibrillation on anticoagulation with Coumadin with a therapeutic INR Coronary artery disease Hyperlipidemia Hypertension Hospital Course: Patient is an 85-year-old male with an extensive past medical history including ischemic cardiomyopathy status post pacemaker placement, end-stage renal disease on hemodialysis, A. fib on Coumadin, bilateral muscular degeneration, chronic hypoxic respiratory failure on home oxygen 2 L via nasal cannula, hypertension, hyperlipidemia, and bladder cancer status post radiation and urinary incontinence currently undergoing rehab at [facility]. He presented to the hospital on 11/17/20 with a chief complaint of shortness of breath status post hypotensive episode after dialysis which was treated with 800 mL bolus of fluid. He is currently admitted under our services with consultation to nephrology for acute on chronic respiratory failure with hypoxia secondary to fluid volume overload. Patient started on diuretic and scheduled for dialysis. Overnight patient's oxygen needs significantly increased. Patient and family to bedside requesting change of CODE STATUS at this time as patient requesting to stop all treatment including dialysis and become a DO NOT RESUSCITATE with comfort measures only. Family in agreement with this plan. At 9 AM on 11/19/20 patient's requests were honored and he was placed on comfort care and CODE STATUS was changed. Patient's time of was recorded as 11/19/20 at 7 PM. Per nursing documentation, patient passed peacefully with family at bedside. Plan - Discharge Summary Discharge Rx Participant: No New Discharge Prescriptions: No Action Atorvastatin [Lipitor] 20 mg PO HS@2100 Warfarin [Coumadin] 5 mg PO SUMOWETHSA bisacodyL [Dulcolax] 10 mg RECTAL DAILY PRN PRN Reason: Constipation Albuterol Sulfate [Albuterol Sulfate Hfa] 2 puff PO RT-Q6H PRN PRN Reason: Wheezing Cephalexin [Keflex] 500 mg PO BID@0800,1700 carvediloL [Coreg] 6.25 mg PO BID@0800,1700 Budesonide/Formoterol Fumarate [Symbicort 160-4.5 Mcg Inhaler] 2 puff INHALATION RT-BID Isosorbide Mononitrate ER [Imdur] 30 mg PO DAILY@0800 Albuterol Sulfate [Accuneb] 3 ml INHALATION RT-QID Sevelamer [Renvela] 800 mg PO TID@0700,1100,1630 Vitamin B Complex 1 cap PO DAILY@1700 Discharge Medication List Atorvastatin [Lipitor] 20 mg PO HS@2100 02/08/16 [History] Warfarin [Coumadin] 5 mg PO SUMOWETHSA 09/01/16 [History] Albuterol Sulfate [Accuneb] 3 ml INHALATION RT-QID 11/17/20 [History] Albuterol Sulfate [Albuterol Sulfate Hfa] 2 puff PO RT-Q6H PRN 11/17/20 [History] Budesonide/Formoterol Fumarate [Symbicort 160-4.5 Mcg Inhaler] 2 puff INHALATION RT-BID 11/17/20 [History] Cephalexin [Keflex] 500 mg PO BID@0800,1700 11/17/20 [History] Isosorbide Mononitrate ER [Imdur] 30 mg PO DAILY@0800 11/17/20 [History] Sevelamer [Renvela] 800 mg PO TID@0700,1100,1630 11/17/20 [History] Vitamin B Complex 1 cap PO DAILY@1700 11/17/20 [History] bisacodyL [Dulcolax] 10 mg RECTAL DAILY PRN 11/17/20 [History] carvediloL [Coreg] 6.25 mg PO BID@0800,1700 11/17/20 [History] Follow up Appointment(s)/Referral(s): Wiliam Pope MD [Primary Care Provider] - 1-2 days Discharge Disposition: - Preliminary Cause of Preliminary Cause of : Systolic Heart failure
--- NOTE | 2020-11-24 22:07 | CDI ---
Documentation Clarification Form Mortality Review Date: 11/24/2020 09:55:11 PM From: Sarah Thakur RN, CCDS Admit Date: 11/19/2020 08:11:00 AM Patient Name: David Montana Visit Number: [id number] Discharge Date: 11/19/2020 07:00:00 PM ATTENTION: The Clinical Documentation Specialists (CDI) and [facility] Coding Staff appreciate your assistance in clarifying documentation. Please respond to the clarification below the line at the bottom and electronically sign. The CDI & [facility] Coding staff will review the response and follow-up if needed. Please note: Queries are made part of the Legal Health Record. If you have any questions, please contact the author of this message via ITS. Dr. Gill Your patient has the documented symptom of agitation and restlessness in the nursing notes. Additional clarification regarding the etiology/cause of this symptom is requested. History/Risk Factors: Ischemic cardiomyopathy, PPM, ESRD, Atrial Fib on Coumadin, HTN, HLD, Chronic hypoxic Respiratory Failure on 2L NC OTC, CAD Clinical Indicators: 11/19 0440 Nurses Note: "Pts. O2 saturation was 77% on 8L around 0200. Pts. oxygen was increased to 15L high flow and pt. was still 79%. Pt. was put on 15L high flow NC as well as a 15L nonrebreather. Pts. O2 saturation was maintaining at 96%. was notified of pt. condition and so was respiratory therapy. ordered ABG's, acetylcysteine, a breathing treatment and solumedrol. Pts. ABG's revealed Respiratory acidosis uncompensated. was notified and pt. was started on BiPAP 10 and 5 at 40%. Pts. O2 sat is maintaining at 93-95%. Will continue to monitor." 11/19 0618 Nurses Note: "Pt. was anxious and ripping at his BiPAP. was notified and ordered Xanax 0.5. Pt. was given Xanax but ripped off his BiPAP and refused to put it back on. Pt. was yelling at staff and is unable to be reasoned with. Pt. is on 15L high flow to maintain O2 saturation. RN notified Awaiting any orders." 11/19 CXR:" Chronic changes and cardiomegaly with perhaps mild interstitial edema, no new focal infiltrate. No significant change from most recent study." 11/17-11/19 Labs: BUN 28/37/38, Cr. 3.16/4.25/4.67, troponin .101/.120/.113, BNP 156,000 ABG: PH 7.3, pCO2 67, pO2 352, HCO3 33, total CO2 35, O2 sat 99.7, Base Excess 6.1 on 100% FIO2 Treatment: 11/20 223 Solumedrol 60 mg IVP OT 11/195 Xanax 0.5mg PO OT 11/19 09 Ativan 1 mg IVP Q 6 hrs. Please clarify the etiology of the symptom of anxiousness and restlessness: [x ] Metabolic Encephalopathy (specify cause if known) due to hypoxic and hypercapnic respiratory failure [ ] Hypoxic Encephalopathy [ ] Other condition (please specify) [ ] Unable to determine (Template Last Revised: March 2020) MTDD
== END 2020-11-19 19:00 | disposition expired | DRG 291 ==
LOC: EC 17:35 → 3SCARD 21:24 → OBSVTOIN 11-19 08:11
PROVIDERS: ADMIT Internal Medicine; ATTEND Internal Medicine
PROC: 5A09357 Assistance with Respiratory Ventilation, Less than 24 Consecutive Hours, Continuous Positive Airway Pressure (ICD-10-PCS; principal; 2020-11-19)
DX: I13.2 Hypertensive heart and chronic kidney disease with heart failure and with stage 5 chronic kidney disease, or end stage renal disease (principal); I50.43 Acute on chronic combined systolic (congestive) and diastolic (congestive) heart failure; J96.21 Acute and chronic respiratory failure with hypoxia; N18.6 End stage renal disease; G93.41 Metabolic encephalopathy; J98.11 Atelectasis; J44.1 Chronic obstructive pulmonary disease with (acute) exacerbation; E78.5 Hyperlipidemia, unspecified; Z20.822 Contact with and (suspected) exposure to COVID-19; I25.10 Atherosclerotic heart disease of native coronary artery without angina pectoris; Z66 Do not resuscitate; Z51.5 Encounter for palliative care; I25.5 Ischemic cardiomyopathy; Z99.2 Dependence on renal dialysis; Z99.81 Dependence on supplemental oxygen; I27.20 Pulmonary hypertension, unspecified; I35.0 Nonrheumatic aortic (valve) stenosis; R79.89 Other specified abnormal findings of blood chemistry; I48.91 Unspecified atrial fibrillation; M89.8X9 Other specified disorders of bone, unspecified site; R34 Anuria and oliguria; Z79.01 Long term (current) use of anticoagulants; Z79.51 Long term (current) use of inhaled steroids; Z79.899 Other long term (current) drug therapy; Z82.49 Family history of ischemic heart disease and other diseases of the circulatory system; Z85.51 Personal history of malignant neoplasm of bladder; Z87.891 Personal history of nicotine dependence; Z92.3 Personal history of irradiation; Z95.0 Presence of cardiac pacemaker; Z95.1 Presence of aortocoronary bypass graft; Z88.2 Allergy status to sulfonamides; Z87.01 Personal history of pneumonia (recurrent)
CPT/HCPCS: 36415; 36600; 71045; 71046; 80048; 80053; 82805; 83605; 83735; 83880; 84100; 84484; 85025; 85027; 85610; 85730; 87635; 90935; 93005; 93306; 94640; 94660; 99285